=== PATIENT | female | born 1955 | race American Indian/Alaskan Native ===

== ENCOUNTER 2016-11-30 12:11 | Inpatient (IN) | payer MEDICARE ==
[2016-11-30] MEDS ORDERED: NORMODYNE IV ONE (13:54)
[2016-11-30] MEDS ORDERED: XYLOCAINE 1% 20 mL ONE (14:43)
[2016-11-30] MEDS ORDERED: ZOFRAN IV ONE (15:01)
[2016-11-30] MEDS ORDERED: NACL 0.9% 1000 ML 1,000 ML IV ONE ×2 (15:01→17:59)
[2016-11-30] MEDS ORDERED: DILAUDID IV ONE ×2 (15:01→16:34)
[2016-11-30] MEDS ORDERED: APRESOLINE IV ONE (15:02)
[2016-11-30] MEDS ORDERED: NACL ONE ×2 (15:15→15:34)
[2016-11-30 15:27] LABS: INR 0.9 (0.87-1.13)
[2016-11-30 15:28] LABS: Partial Thromboplastin Time 24.6 Sec. (24.2-36.6)
--- NOTE | 2016-11-30 15:32 | Emergency Department Report ---
HPI - General Chief Complaint: Dyspnea/Respdistress Time Seen by Provider: 11/30/16 14:19 - HPI HPI: Room 22 The patient is a 61-year-old female presenting with a chief complaint of abdominal pain and palpitations. Patient states for 3 days she has had diffuse abdominal pain and feeling as though her heart has been beating quickly. Patient does admit to nausea and vomiting. Patient states she's been unable to keep any of her medications down. The patient presents to the ED tachycardic and hypertensive Location: [see above] Duration: [see above] Quality: Pain, palpitations Severity: Severe Modifying factors: Unknown Context: [see above] Mode of transportation: [not driving] ED Past Medical Hx - Past Medical History Hx Hypertension: Yes Hx Deep Vein Thrombosis: (Unk) Hx GERD: Yes Hx Arthritis: Yes Hx Seizures: Yes Hx Psychiatric Treatment: Yes (anxiety) Additional medical history: Gastroparesis. bilat knee surgery - Surgical History Past Surgical History?: Yes Hx Cholecystectomy: Yes (2010) Additional Surgical History: J tube , Knee surg bilat - Family History Family history: no significant - Social History Smoking Status: Never Smoker Substance Use Type: None - Medications Home Medications: Home Medications Medication Instructions Recorded Confirmed Last Taken Type ALPRAZolam [Xanax TAB] 0.25 mg PO Q12HR #10 tablet 06/17/16 11/30/16 Unknown Rx Gabapentin [Neurontin] 300 mg PO Q8H #30 capsule 07/01/16 11/30/16 Unknown Rx Metoprolol [Lopressor TAB] 25 mg PO BID #60 tablet 07/01/16 11/30/16 Unknown Rx Ondansetron [Zofran TAB] 4 mg PO Q8HR PRN #15 tablet 07/01/16 11/30/16 Unknown Rx Tizanidine HCl [Zanaflex] 4 mg PO TID PRN #30 tablet 07/01/16 11/30/16 Unknown Rx levETIRAcetam [Keppra TAB] 500 mg PO BID #60 tablet 07/01/16 11/30/16 Unknown Rx cloNIDine [Catapres] 0.2 mg PO BID 09/15/16 11/30/16 Unknown History Sennosides/Docusate Sodium 1 each PO DAILY #15 tablet 09/18/16 11/30/16 Unknown Rx [Senna-Docusate Sodium Tablet] oxyCODONE [Roxicodone TAB] 5 mg PO Q6HR PRN #24 tablet 09/18/16 11/30/16 Unknown Rx Pantoprazole [Protonix TAB] 40 mg PO QDAY #14 tablet 10/14/16 11/30/16 Unknown Rx HYDROcodone/APAP 7.5-325 [[place] 1 each PO Q12H 11/30/16 11/30/16 Unknown History 7.5/325] ED Review of Systems ROS: Stated complaint: N/V Other details as noted in HPI Comment: All other systems reviewed and negative Constitutional: denies: chills, fever Eyes: denies: eye pain, eye discharge, vision change ENT: denies: ear pain, throat pain Respiratory: no symptoms reported Cardiovascular: chest pain, palpitations Endocrine: no symptoms reported Gastrointestinal: abdominal pain, nausea, vomiting Genitourinary: denies: urgency, dysuria, discharge Musculoskeletal: denies: back pain, joint swelling, arthralgia Skin: denies: rash, lesions Neurological: denies: headache, weakness, paresthesias Psychiatric: denies: anxiety, depression Hematological/Lymphatic: denies: easy bleeding, easy bruising Physical Exam - Physical Exam Vital Signs: Vital Signs 11/30/16 11/30/16 11/30/16 12:31 12:46 12:47 Temperature 99.5 F Pulse Rate 147 H 141 H 141 H Respiratory 20 22 18 Rate Blood Pressure 227/156 229/149 O2 Sat by Pulse 97 92 Oximetry 11/30/16 11/30/16 11/30/16 12:48 12:50 12:52 Temperature Pulse Rate 142 H 142 H 141 H Respiratory 24 20 25 H Rate Blood Pressure 229/149 229/149 229/149 O2 Sat by Pulse 95 92 94 Oximetry 11/30/16 11/30/16 11/30/16 12:54 12:56 12:58 Temperature Pulse Rate 143 H 141 H 142 H Respiratory 23 26 H 28 H Rate Blood Pressure 229/149 229/149 229/149 O2 Sat by Pulse 92 94 92 Oximetry 11/30/16 11/30/16 11/30/16 13:00 13:02 13:04 Temperature Pulse Rate 143 H 143 H 145 H Respiratory 21 15 19 Rate Blood Pressure 229/149 255/153 255/153 O2 Sat by Pulse 92 93 93 Oximetry 11/30/16 11/30/16 11/30/16 13:06 13:08 13:10 Temperature Pulse Rate 148 H 143 H 142 H Respiratory 25 H 26 H 30 H Rate Blood Pressure 255/153 255/153 255/153 O2 Sat by Pulse 95 92 91 Oximetry 11/30/16 11/30/16 11/30/16 13:12 13:14 13:15 Temperature Pulse Rate 142 H 151 H 144 H Respiratory 21 23 25 H Rate Blood Pressure 255/153 255/153 246/153 O2 Sat by Pulse 92 93 94 Oximetry 11/30/16 11/30/16 11/30/16 13:16 13:18 13:20 Temperature Pulse Rate 145 H 144 H 143 H Respiratory 25 H 29 H 19 Rate Blood Pressure 246/153 246/153 246/153 O2 Sat by Pulse 93 93 94 Oximetry 11/30/16 11/30/16 11/30/16 13:22 13:24 13:26 Temperature Pulse Rate 144 H 143 H 153 H Respiratory 20 21 17 Rate Blood Pressure 246/153 246/153 246/153 O2 Sat by Pulse 94 94 93 Oximetry 11/30/16 11/30/16 11/30/16 13:28 13:30 13:31 Temperature Pulse Rate 144 H 144 H 141 H Respiratory 23 19 17 Rate Blood Pressure 246/153 246/153 238/144 O2 Sat by Pulse 91 94 96 Oximetry 11/30/16 11/30/16 11/30/16 13:32 13:34 13:36 Temperature Pulse Rate 143 H 143 H 143 H Respiratory 25 H 23 25 H Rate Blood Pressure 238/144 238/144 238/144 O2 Sat by Pulse 91 92 93 Oximetry 11/30/16 11/30/16 11/30/16 13:38 13:40 13:42 Temperature Pulse Rate 145 H 146 H 144 H Respiratory 21 24 22 Rate Blood Pressure 238/144 238/144 238/144 O2 Sat by Pulse 93 93 94 Oximetry 11/30/16 11/30/16 11/30/16 13:43 13:44 13:46 Temperature Pulse Rate 143 H 144 H 144 H Respiratory 22 20 21 Rate Blood Pressure O2 Sat by Pulse 96 98 96 Oximetry 11/30/16 11/30/16 11/30/16 13:48 13:50 13:52 Temperature Pulse Rate 142 H 145 H 143 H Respiratory 18 25 H 23 Rate Blood Pressure O2 Sat by Pulse 100 96 97 Oximetry 11/30/16 11/30/16 11/30/16 13:54 13:56 13:58 Temperature Pulse Rate 142 H 142 H 148 H Respiratory 24 24 27 H Rate Blood Pressure 238/144 238/144 238/144 O2 Sat by Pulse 97 99 96 Oximetry 11/30/16 11/30/16 11/30/16 14:00 14:02 14:04 Temperature Pulse Rate 146 H 150 H 145 H Respiratory 23 13 24 Rate Blood Pressure 262/172 262/172 262/172 O2 Sat by Pulse 97 96 97 Oximetry 11/30/16 11/30/16 11/30/16 14:06 14:08 14:10 Temperature Pulse Rate 145 H 145 H 146 H Respiratory 25 H 21 14 Rate Blood Pressure 262/172 262/172 262/172 O2 Sat by Pulse 97 97 97 Oximetry 11/30/16 11/30/16 11/30/16 14:12 14:14 14:21 Temperature 99.5 F Pulse Rate 146 H 148 H Respiratory 18 18 Rate Blood Pressure 262/172 262/172 O2 Sat by Pulse 96 98 Oximetry Physical Exam: GENERAL: The patient is well-developed well-nourished female lying on stretcher. Be in moderate discomfort. [] HEENT: Normocephalic. Atraumatic. Extraocular motions are intact. Patient has moist mucous membranes. NECK: Supple. Trachea midline CHEST/LUNGS: Clear to auscultation. There is no respiratory distress noted. HEART/CARDIOVASCULAR: Regular. There is tachycardia. There is no gallop rub or murmur. ABDOMEN: Abdomen is soft, but diffusely uncomfortable to palpation. Patient has normal bowel sounds. There is no abdominal distention. SKIN: There is no rash. There is no edema. There is no diaphoresis. NEURO: The patient is awake, alert, and oriented. The patient is cooperative. The patient has normal speech MUSCULOSKELETAL: There is no evidence of acute injury. ED Course Vital Signs 11/30/16 11/30/16 11/30/16 12:31 12:46 12:47 Temperature 99.5 F Pulse Rate 147 H 141 H 141 H Respiratory 20 22 18 Rate Blood Pressure 227/156 229/149 O2 Sat by Pulse 97 92 Oximetry 11/30/16 11/30/16 11/30/16 12:48 12:50 12:52 Temperature Pulse Rate 142 H 142 H 141 H Respiratory 24 20 25 H Rate Blood Pressure 229/149 229/149 229/149 O2 Sat by Pulse 95 92 94 Oximetry 11/30/16 11/30/16 11/30/16 12:54 12:56 12:58 Temperature Pulse Rate 143 H 141 H 142 H Respiratory 23 26 H 28 H Rate Blood Pressure 229/149 229/149 229/149 O2 Sat by Pulse 92 94 92 Oximetry 11/30/16 11/30/16 11/30/16 13:00 13:02 13:04 Temperature Pulse Rate 143 H 143 H 145 H Respiratory 21 15 19 Rate Blood Pressure 229/149 255/153 255/153 O2 Sat by Pulse 92 93 93 Oximetry 11/30/16 11/30/16 11/30/16 13:06 13:08 13:10 Temperature Pulse Rate 148 H 143 H 142 H Respiratory 25 H 26 H 30 H Rate Blood Pressure 255/153 255/153 255/153 O2 Sat by Pulse 95 92 91 Oximetry 11/30/16 11/30/16 11/30/16 13:12 13:14 13:15 Temperature Pulse Rate 142 H 151 H 144 H Respiratory 21 23 25 H Rate Blood Pressure 255/153 255/153 246/153 O2 Sat by Pulse 92 93 94 Oximetry 11/30/16 11/30/16 11/30/16 13:16 13:18 13:20 Temperature Pulse Rate 145 H 144 H 143 H Respiratory 25 H 29 H 19 Rate Blood Pressure 246/153 246/153 246/153 O2 Sat by Pulse 93 93 94 Oximetry 11/30/16 11/30/16 11/30/16 13:22 13:24 13:26 Temperature Pulse Rate 144 H 143 H 153 H Respiratory 20 21 17 Rate Blood Pressure 246/153 246/153 246/153 O2 Sat by Pulse 94 94 93 Oximetry 11/30/16 11/30/16 11/30/16 13:28 13:30 13:31 Temperature Pulse Rate 144 H 144 H 141 H Respiratory 23 19 17 Rate Blood Pressure 246/153 246/153 238/144 O2 Sat by Pulse 91 94 96 Oximetry 11/30/16 11/30/16 11/30/16 13:32 13:34 13:36 Temperature Pulse Rate 143 H 143 H 143 H Respiratory 25 H 23 25 H Rate Blood Pressure 238/144 238/144 238/144 O2 Sat by Pulse 91 92 93 Oximetry 11/30/16 11/30/16 11/30/16 13:38 13:40 13:42 Temperature Pulse Rate 145 H 146 H 144 H Respiratory 21 24 22 Rate Blood Pressure 238/144 238/144 238/144 O2 Sat by Pulse 93 93 94 Oximetry 11/30/16 11/30/16 11/30/16 13:43 13:44 13:46 Temperature Pulse Rate 143 H 144 H 144 H Respiratory 22 20 21 Rate Blood Pressure O2 Sat by Pulse 96 98 96 Oximetry 11/30/16 11/30/16 11/30/16 13:48 13:50 13:52 Temperature Pulse Rate 142 H 145 H 143 H Respiratory 18 25 H 23 Rate Blood Pressure O2 Sat by Pulse 100 96 97 Oximetry 11/30/16 11/30/16 11/30/16 13:54 13:56 13:58 Temperature Pulse Rate 142 H 142 H 148 H Respiratory 24 24 27 H Rate Blood Pressure 238/144 238/144 238/144 O2 Sat by Pulse 97 99 96 Oximetry 11/30/16 11/30/16 11/30/16 14:00 14:02 14:04 Temperature Pulse Rate 146 H 150 H 145 H Respiratory 23 13 24 Rate Blood Pressure 262/172 262/172 262/172 O2 Sat by Pulse 97 96 97 Oximetry 11/30/16 11/30/16 11/30/16 14:06 14:08 14:10 Temperature Pulse Rate 145 H 145 H 146 H Respiratory 25 H 21 14 Rate Blood Pressure 262/172 262/172 262/172 O2 Sat by Pulse 97 97 97 Oximetry 11/30/16 11/30/16 11/30/16 14:12 14:14 14:21 Temperature 99.5 F Pulse Rate 146 H 148 H Respiratory 18 18 Rate Blood Pressure 262/172 262/172 O2 Sat by Pulse 96 98 Oximetry ED Medical Decision Making - Lab Data Result diagrams: 11/30/16 16:22 11/30/16 16:22 Laboratory Tests 11/30/16 11/30/16 11/30/16 15:07 15:07 15:07 WBC RBC Hgb Hct MCV MCH MCHC RDW Plt Count Lymph % (Auto) [place] % (Auto) Eos % (Auto) Baso % (Auto) Lymph # [place] # Eos # Baso # Seg Neutrophils % Seg Neutrophils # PT 12.1 L INR 0.90 APTT 24.6 Sodium Potassium Chloride Carbon Dioxide Anion Gap BUN Creatinine Estimated GFR BUN/Creatinine Ratio Glucose Calcium Total Bilirubin 0.4 Direct Bilirubin < 0.2 Indirect Bilirubin 0.2 AST 24 ALT 17 Alkaline Phosphatase 137 H Troponin T Total Protein 7.6 Albumin 4.3 Albumin/Globulin Ratio 1.3 Amylase Lipase TSH 0.976 Free T4 1.15 11/30/16 11/30/16 11/30/16 15:07 16:22 16:22 WBC 18.9 H RBC 4.49 Hgb 11.8 Hct 37.6 MCV 84 MCH 26 L MCHC 31 RDW 17.5 H Plt Count 428 Lymph % (Auto) 7.6 L [place] % (Auto) 4.2 Eos % (Auto) 0.4 Baso % (Auto) 0.5 Lymph # 1.4 [place] # 0.8 Eos # 0.1 Baso # 0.1 Seg Neutrophils % 87.3 H Seg Neutrophils # 16.5 H PT INR APTT Sodium 144 Potassium 3.6 Chloride 105.5 Carbon Dioxide 23 Anion Gap 19 BUN 10 Creatinine 0.9 Estimated GFR > 60 BUN/Creatinine Ratio 11.11 Glucose 115 H Calcium 8.4 Total Bilirubin Direct Bilirubin Indirect Bilirubin AST ALT Alkaline Phosphatase Troponin T < 0.010 Total Protein Albumin Albumin/Globulin Ratio Amylase 76 Lipase 18 TSH Free T4 11/30/16 16:22 WBC RBC Hgb Hct MCV MCH MCHC RDW Plt Count Lymph % (Auto) [place] % (Auto) Eos % (Auto) Baso % (Auto) Lymph # [place] # Eos # Baso # Seg Neutrophils % Seg Neutrophils # PT INR APTT Sodium Potassium Chloride Carbon Dioxide Anion Gap BUN Creatinine Estimated GFR BUN/Creatinine Ratio Glucose Calcium Total Bilirubin Direct Bilirubin Indirect Bilirubin AST ALT Alkaline Phosphatase Troponin T < 0.010 Total Protein Albumin Albumin/Globulin Ratio Amylase Lipase TSH Free T4 Laboratory Tests 11/30/16 11/30/16 11/30/16 15:07 15:07 15:07 WBC RBC Hgb Hct MCV MCH MCHC RDW Plt Count Lymph % (Auto) [place] % (Auto) Eos % (Auto) Baso % (Auto) Lymph # [place] # Eos # Baso # Seg Neutrophils % Seg Neutrophils # PT 12.1 L INR 0.90 APTT 24.6 Sodium Potassium Chloride Carbon Dioxide Anion Gap BUN Creatinine Estimated GFR BUN/Creatinine Ratio Glucose Calcium Total Bilirubin 0.4 Direct Bilirubin < 0.2 Indirect Bilirubin 0.2 AST 24 ALT 17 Alkaline Phosphatase 137 H Troponin T Total Protein 7.6 Albumin 4.3 Albumin/Globulin Ratio 1.3 Amylase Lipase TSH 0.976 Free T4 1.15 Urine Color Urine Turbidity Urine pH Ur Specific [place] Urine Protein Urine Glucose (UA) Urine Ketones Urine Blood Urine Nitrite Urine Bilirubin Urine Urobilinogen Ur Leukocyte Esterase Urine WBC (Auto) Urine RBC (Auto) 11/30/16 11/30/16 11/30/16 15:07 16:22 16:22 WBC 18.9 H RBC 4.49 Hgb 11.8 Hct 37.6 MCV 84 MCH 26 L MCHC 31 RDW 17.5 H Plt Count 428 Lymph % (Auto) 7.6 L [place] % (Auto) 4.2 Eos % (Auto) 0.4 Baso % (Auto) 0.5 Lymph # 1.4 [place] # 0.8 Eos # 0.1 Baso # 0.1 Seg Neutrophils % 87.3 H Seg Neutrophils # 16.5 H PT INR APTT Sodium 144 Potassium 3.6 Chloride 105.5 Carbon Dioxide 23 Anion Gap 19 BUN 10 Creatinine 0.9 Estimated GFR > 60 BUN/Creatinine Ratio 11.11 Glucose 115 H Calcium 8.4 Total Bilirubin Direct Bilirubin Indirect Bilirubin AST ALT Alkaline Phosphatase Troponin T < 0.010 Total Protein Albumin Albumin/Globulin Ratio Amylase 76 Lipase 18 TSH Free T4 Urine Color Urine Turbidity Urine pH Ur Specific [place] Urine Protein Urine Glucose (UA) Urine Ketones Urine Blood Urine Nitrite Urine Bilirubin Urine Urobilinogen Ur Leukocyte Esterase Urine WBC (Auto) Urine RBC (Auto) 11/30/16 11/30/16 11/30/16 16:22 17:54 18:40 WBC RBC Hgb Hct MCV MCH MCHC RDW Plt Count Lymph % (Auto) [place] % (Auto) Eos % (Auto) Baso % (Auto) Lymph # [place] # Eos # Baso # Seg Neutrophils % Seg Neutrophils # PT INR APTT Sodium Potassium Chloride Carbon Dioxide Anion Gap BUN Creatinine Estimated GFR BUN/Creatinine Ratio Glucose Calcium Total Bilirubin Direct Bilirubin Indirect Bilirubin AST ALT Alkaline Phosphatase Troponin T < 0.010 < 0.010 Total Protein Albumin Albumin/Globulin Ratio Amylase Lipase TSH Free T4 Urine Color Colorless Urine Turbidity Clear Urine pH 5.0 Ur Specific [place] 1.000 L Urine Protein <15 mg/dl Urine Glucose (UA) Neg Urine Ketones Neg Urine Blood Neg Urine Nitrite Neg Urine Bilirubin Neg Urine Urobilinogen < 2.0 Ur Leukocyte Esterase Neg Urine WBC (Auto) 0.0 Urine RBC (Auto) < 1.0 - EKG Data -: EKG Interpreted by Me EKG shows normal: sinus rhythm Rate: tachycardia (141 bpm) - EKG Data When compared to previous EKG there are: previous EKG unavailable - Radiology Data Radiology results: report reviewed (CT abdomen and pelvis, CT chest), image reviewed (CT abdomen pelvis, CT chest) CT abdomen and pelvis (read by radiologist)-previous cholecystectomy and hysterectomy. Mobility are unchanged. Moderate colonic diverticulosis. Left femoral venous catheter. CT chest (read by radiologist)-no evidence of pulmonary embolism. Small indeterminate nodule in the right upper lobe. Probable early emphysema. Pneumobilia. Previous cholecystectomy. - Differential Diagnosis gastroparesis, aortic dissection, pancreatitis, PE, dehydration Critical care attestation.: If time is entered above; I have spent that time in minutes in the direct care of this critically ill patient, excluding procedure time. ED Disposition Clinical Impression: Uncontrolled hypertension, Gastroparesis, Abdominal pain, Vomiting, Leukocytosis Disposition: OP ADMITTED IP TO THIS HOSP Is pt being admited?: Yes Does the pt Need Aspirin: Yes Condition: Stable Instructions: Hypertension (ED) Time of Disposition: 18:30 (hospitalist notified) Blank Doc - Documentation Documentation: Central line note Consent was verbally Location: Initial temp in the right femoral region. Final successful attempt in the left more region The site was prepped and draped in a sterile fashion Site was anesthetized with lidocaine 1% approximately [3 mL] Landmarks identified and needle introduced until return of [dark nonpulsatile] blood Blood was obtained on fourth attempt Guidewire introduced using Seldinger technique and triple lumen catheter placed over guidewire There was blood return from [all 3 ports] Catheter was secured to patient by adhesive The patient tolerated procedure well The first 3 attempts in the right femoral region resulted in arterial punctures. Needle was removed and pressure held until site hemostatic.
[2016-11-30 15:41] LABS: Amylase 76 units/L (27-131); Lipase 18 units/L (13-60)
[2016-11-30 15:45] LABS: Alanine Aminotransferase 17 units/L (7-56); Albumin 4.3 g/dL (3.9-5); Albumin/Globulin Ratio 1.3 %; Alkaline Phosphatase 137 units/L (35-129); Bilirubin,Total 0.4 mg/dL (0.1-1.2); Total Protein 7.6 g/dL (6.3-8.2)
[2016-11-30 15:55] LABS: Bilirubin,Direct < 0.2 mg/dL (0-0.2); Bilirubin,Indirect 0.2 mg/dL
[2016-11-30] MEDS ORDERED: PHENERGAN ONE (16:38)
[2016-11-30 16:39] LABS: Basophils % (Auto) 0.5 % (0.0-1.8); Eosinophils % (Auto) 0.4 % (0.0-4.3); Hematocrit 37.6 % (30.3-42.9); Hemoglobin 11.8 gm/dl (10.1-14.3); Mean Corpuscular HGB Conc 31 % (30-34); Mean Corpuscular Hemoglobin 26 pg (28-32); Mean Corpuscular Volume 84 fl (79-97); Platelet Count 428 K/mm3 (140-440); Red Blood Count 4.49 M/mm3 (3.65-5.03); Red Cell Distribution Width 17.5 % (13.2-15.2); White Blood Count 18.9 K/mm3 (4.5-11.0)
[2016-11-30] MEDS ORDERED: PHENERGAN PO ONE (16:48)
[2016-11-30 17:01] LABS: Anion Gap 19 mmol/L; BUN/Creatinine Ratio 11.11; Blood Urea Nitrogen 10 mg/dL (7-17); Calcium 8.4 mg/dL (8.4-10.2); Carbon Dioxide 23 mmol/L (22-30); Chloride 105.5 mmol/L (98-107); Glucose 115 mg/dL (65-100); Potassium 3.6 mmol/L (3.6-5.0); Sodium 144 mmol/L (137-145)
--- NOTE | 2016-11-30 18:12 | Cat Scan Report ---
FINAL REPORT PROCEDURE: CT angiogram chest. TECHNIQUE: Computerized tomographic angiography of the chest was performed after the IV injection of iodinated nonionic contrast including image processing. The image data was postprocessed using 2-dimensional multiplanar reformatted (MPR) and 3-dimensional (MIP and/or volume rendered) techniques. HISTORY: Chest pain. COMPARISON: No prior studies are available for comparison. FINDINGS: The technologist has included images of the abdomen and pelvis. There is a separate requisition for that study. I will limit my review to the chest images. The trachea and central bronchi appear normal. The thoracic aorta has a normal caliber without evidence of dissection. The pulmonary arteries enhance normally. There are no definite filling defects to indicate pulmonary embolism. There is no mediastinal adenopathy. The heart size is normal. There are no pleural effusions. There is some streaky opacity in the dependent portions of both lungs. This is consistent with subsegmental atelectasis. There are numerous tiny cystic changes in both upper lobes. This suggests early emphysema. There is a tiny nodular opacity located laterally in the right upper lobe. This measures 4.4 millimeters in diameter. It is not highly suspicious but is also not definitely calcified. Followup imaging could be done to document stability. The thoracic skeleton appears intact. Pneumobilia is noted in the liver. The gallbladder has been removed. IMPRESSION: No evidence of pulmonary embolism. Small indeterminate nodule in the right upper lobe. Probable early emphysema. Pneumobilia. Previous cholecystectomy.
[2016-11-30] MEDS ORDERED: LOPRESSOR IV ONE (18:13)
--- NOTE | 2016-11-30 18:18 | Cat Scan Report ---
FINAL REPORT PROCEDURE: CT abdomen and pelvis with contrast. TECHNIQUE: Computerized axial tomography of the abdomen and pelvis was performed after the IV injection of iodinated nonionic contrast. HISTORY: Abdominal pain, nausea and vomiting, hypertension, tachycardia. COMPARISON: CT abdomen and pelvis 09/15/2016. FINDINGS: There is some subsegmental atelectasis in the dependent portions of both lower lobes. There are no pleural effusions. The heart size is normal. The liver, spleen and pancreas appear normal. The gallbladder has been removed. There is pneumobilia present. This could be secondary to a previous biliary bypass procedure or possibly a sphincterotomy. Clinical correlation is recommended. The adrenal glands are not enlarged. Both kidneys appear normal in size and configuration. The abdominal aorta has a normal caliber. There is no retroperitoneal adenopathy. A normal appendix is visible. There are scattered diverticula in the descending colon and sigmoid colon. There are no signs of acute inflammation. The bladder is unremarkable. The uterus has been removed. There is a left femoral vein catheter that extends into external iliac vein. The regional skeleton appears intact. IMPRESSION: Previous cholecystectomy and hysterectomy. Pneumobilia, unchanged. Moderate colonic diverticulosis. Left femoral venous catheter.
[2016-11-30 19:02] LABS: Bilirubin,Urine NEG (Negative); Blood,Urine NEG (Negative); Ketones,Urine NEG (Negative); Leukocyte Esterase,Urine NEG (Negative); Nitrite,Urine NEG (Negative); Protein,Urine <15 mg/dL mg/dL (Negative); RBC,Urine < 1.0 /HPF (0.0-6.0); Urobilinogen,Urine < 2.0 mg/dL (<2.0)
--- NOTE | 2016-11-30 22:10 | Event Note ---
Date: 11/30/16 See H/p in reports HTN emergency Gastroparesis Leukocytosis Seizure disorder GERD
[2016-11-30] MEDS ORDERED: ZANAFLEX PO PRN (22:11)
[2016-11-30] MEDS ORDERED: ZOFRAN PO PRN (22:11)
[2016-11-30] MEDS ORDERED: MILK OF MAGNESIA PO PRN (22:15)
[2016-11-30] MEDS ORDERED: DULCOLAX PR PRN (22:15)
[2016-11-30] MEDS ORDERED: TYLENOL PO PRN (22:15)
[2016-11-30] MEDS ORDERED: APRESOLINE IV PRN (22:19)
[2016-11-30] MEDS: DILAUDID IV PRN (22:39)
[2016-11-30] MEDS ORDERED: NACL 0.45% 1000 ML 1,000 ML IV SCH (23:00)
--- NOTE | 2016-12-01 00:21 | Admit Criteria Form ---
<SAUNDRA CHRISTOPHER - Last Filed: 12/01/16 00:21> Admission Criteria Documentation: HYPERTENSION Clinical Indications for Admission to Inpatient Care ( Place "X" for any and all applicable criteria): Admission is indicated for ANY ONE of the following(1)(2)(3)(4): [ ]I. Hypertensive emergency, with evidence of acute and progressing target organ disease as indicated by ANY ONE of the following: [ ]a) Hypertensive encephalopathy (eg, confusion, altered mental status) [ ]b) Cerebral infarction [ ]c) Intracranial hemorrhage [ ]d) Myocardial ischemia or infarction [ ]e) Pulmonary edema [ ]f) Aortic dissection [ ]g) Seizure [ ]h) Acute renal insufficiency [ ]i) Papilledema [ ]j) Microangiopathic hemolytic anemia [ ]II. Adrenergic crisis (eg, severe hypertension due to pheochromocytoma crisis, cocaine or amphetamine intoxication, or clonidine withdrawal) [ X]III. Severe hypertension (SBP greater than 180 mmHg or DBP greater than 110 mmHg or greater than the 95th percentile for age, gender, and height in pediatric patients) that cannot be controlled (eg, to SBP less than 160 mmHg and DBP less than 100 mmHg in adults) by treatment with oral medication in emergency department or observation care Extended stay beyond goal length of stay may be needed for(11)(12)(13): [ ]a) Persistent hypertensive encephalopathy [ ]b) Continuation of pulmonary edema [ ]c) Recurring or persistent severe hypertension [ ]d) Target organ damage (eg, angina, stroke, aortic dissection) [ ]e) Associated renal insufficiency The original [facility] [employer] content created by [employer] has been revised. The portions of the content which have been revised are identified through the use of italic text or in bold, and [facility] has neither reviewed nor approved the modified material. All other unmodified content is copyright [facility] [employer]. Please see references footnoted in the original [facility] [employer] edition 2016 Admission Criteria Met: Yes <KELLY BECKETT - Last Filed: 12/01/16 23:15> Admission Criteria Documentation: HYPERTENSION Clinical Indications for Admission to Inpatient Care ( Place "X" for any and all applicable criteria): Admission is indicated for ANY ONE of the following(1)(2)(3)(4): [ ]I. Hypertensive emergency, with evidence of acute and progressing target organ disease as indicated by ANY ONE of the following: [ ]a) Hypertensive encephalopathy (eg, confusion, altered mental status) [ ]b) Cerebral infarction [ ]c) Intracranial hemorrhage [ ]d) Myocardial ischemia or infarction [ ]e) Pulmonary edema [ ]f) Aortic dissection [ ]g) Seizure [ ]h) Acute renal insufficiency [ ]i) Papilledema [ ]j) Microangiopathic hemolytic anemia [ ]II. Adrenergic crisis (eg, severe hypertension due to pheochromocytoma crisis, cocaine or amphetamine intoxication, or clonidine withdrawal) [X ]III. Severe hypertension (SBP greater than 180 mmHg or DBP greater than 110 mmHg or greater than the 95th percentile for age, gender, and height in pediatric patients) that cannot be controlled (eg, to SBP less than 160 mmHg and DBP less than 100 mmHg in adults) by treatment with oral medication in emergency department or observation care Extended stay beyond goal length of stay may be needed for(11)(12)(13): [ ]a) Persistent hypertensive encephalopathy [ ]b) Continuation of pulmonary edema [ ]c) Recurring or persistent severe hypertension [ ]d) Target organ damage (eg, angina, stroke, aortic dissection) [ ]e) Associated renal insufficiency The original [employer] content created by [employer] has been revised. The portions of the content which have been revised are identified through the use of italic text or in bold, and [facility] has neither reviewed nor approved the modified material. All other unmodified content is copyright [facility]. Please see references footnoted in the original [facility] edition 2016 Admission Criteria Met: Yes
[2016-12-01] MEDS: APRESOLINE PO SCH ×4 (01:03→21:46)
[2016-12-01] MEDS: KEPPRA PO SCH ×3 (01:34→21:45)
[2016-12-01] MEDS: DILAUDID IV PRN ×5 (01:35→21:47)
[2016-12-01] MEDS: XANAX PO SCH ×3 (01:36→21:47)
[2016-12-01] MEDS: ZOFRAN IV PRN ×5 (03:38→21:48)
--- NOTE | 2016-12-01 08:33 | History and Physical Report ---
CHIEF COMPLAINT: Abdominal pain and palpitations. HISTORY OF PRESENT ILLNESS: A 61-year-old female, -[place], comes in for abdominal pain and palpitations. Also vomiting for the last 3 days. Vomiting 3 to 4 times a day. No fever, no chills. Pain is about 7 on a scale of 1 to 10. The patient has multiple medical problems. PAST MEDICAL HISTORY: Significant for hypertension, gastroesophageal reflux disease, gastroparesis, arthritis, seizure disorder, anxiety disorder, bilateral knee surgeries. PAST SURGICAL HISTORY: Bilateral knee surgery, J-tube, cholecystectomy in 2010. FAMILY HISTORY: Hypertension. SOCIAL HISTORY: Does not smoke. No alcohol, no recreational drugs. CURRENT MEDICATIONS: Xanax 0.25 q.12, Neurontin 300 mg p.o. q.8, Lopressor 25 mg p.o. b.i.d., Zofran 4 mg p.o. q.8, Zanaflex 4 mg p.o. t.i.d., Keppra 500 mg p.o. b.i.d., Catapres 0.2 mg p.o. b.i.d., oxycodone 5 mg p.o. q.6, Protonix 40 mg p.o. daily, and [place] 7.5/325 q.12. REVIEW OF SYSTEMS: CONSTITUTIONAL: No fever, no chills, no weight loss. HEENT: No sore throat. No postnasal drip. RESPIRATORY SYSTEM: No cough, no wheezing. CARDIOVASCULAR: No chest pain. Palpitations present. GASTROINTESTINAL: Nausea and vomiting present 3 to 4 times a day for the last 3 days. GENITOURINARY SYSTEM: No dysuria, no flank pain. MUSCULOSKELETAL SYSTEMS: No joint pains. No muscle pains. SKIN: No rashes. CENTRAL NERVOUS SYSTEM: No syncope, no seizures. PSYCHIATRIC: Has anxiety, no depression. HEMATOLOGIC/LYMPHATIC: Denies easy bleeding or easy bruising. A 14-point review of systems was done. Otherwise, negative. PHYSICAL EXAMINATION: GENERAL: An elderly female, cooperative during examination. VITAL SIGNS: Temperature 99.5, pulse is 147, respirations are 20, blood pressure 227/156. HEENT: Unremarkable. Pupils equal and reactive. NECK: Supple, no lymphadenopathy, no thyromegaly. LUNGS: Clear to auscultation and percussion. Good air entry. CARDIOVASCULAR: S1, S2 heard. No gallop, no murmur, no rub. Apical impulse in left fifth intercostal space and midclavicular line. ABDOMEN: Soft and benign. No hepatosplenomegaly, no guarding, no rigidity. Hernial orifices are normal. EXTREMITIES: Good pedal pulses. No pedal edema. CENTRAL NERVOUS SYSTEM: Alert and oriented x 4, nonfocal exam. SKIN: Normal. In summary, blood pressure has continued to remain high 262/172, 238/144, and 262/172. LABORATORY DATA: Labs are significant for white count of 18,900; H and H are 11.8 and 37.6, platelet count is 428,000. Electrolytes are normal. BUN and creatinine are 10 and 0.9, glucose is 150. LFTs are normal. Alk phos is 137. Troponin is less than 0.010. ASSESSMENT AND PLAN: 1. Hypertensive emergency. The patient to be given hydralazine 10 mg p.r.n. every 1 hour. The blood pressure has improved to 139/80. The patient continued on hydralazine 50 q.8 hours, Losartan 100 mg added. Also, clonidine 0.2 twice a day. 2. Gastroparesis. Continue Zofran every 3 hours. Also, promethazine on a p.r.n. basis. 3. Seizure disorder. Continue Keppra 500 mg twice a day. 4. Leukocytosis. No source of infection found. The patient is being treated empirically with IV Levaquin. Levaquin may be discontinued if no signs of infection found. 5. Generalized anxiety disorder. Continue Xanax 0.25 p.o. q.12 hours. 6. Gastroesophageal reflux disease. Continue Protonix. 7. Chronic pain. Continue [place] 7.5/325 q.12 hours. 8. Deep venous thrombosis prophylaxis, Lovenox 40 mg subcutaneous daily. JOB# [id number] VSM/NTS
[2016-12-01] MEDS ORDERED: CATAPRES PO SCH (10:00)
[2016-12-01] MEDS ORDERED: XYLOCAINE 1% 20 mL INFILTRATI ONE (10:36)
[2016-12-01] MEDS: LEVAQUIN 750MG/150ML 150 ML IV SCH (11:06)
[2016-12-01] MEDS: SENOKOT S PO SCH (11:08)
[2016-12-01] MEDS: PROTONIX PO SCH (11:08)
[2016-12-01] MEDS: CATAPRES PO SCH ×2 (11:19→21:45)
[2016-12-01] MEDS: LOPRESSOR PO SCH ×2 (11:19→21:45)
--- NOTE | 2016-12-01 11:32 | Progress Note ---
Assessment and Plan Assessment and plan: --Hypertensive emergency at the time of admission No blood pressures are reasonable levels, continue current management When necessary hydralazine --Acute gastroparesis Symptoms slightly improved, continue supportive care --Chronic pain syndrome Patient is on multiple pain medications at home, requesting more Dilaudid To slowly wean IV Dilaudid and resume oral Percocet as tolerated --History of seizure disorder; No new episodes of seizures continue Keppra, seizure precautions --Neuropathy; stable on gabapentin --DVT prophylaxis with Lovenox GI prophylaxis with Protonix Will closely monitor the patient adjust the management as needed Patient's condition treatment plan discussed in detail with the patient as well as the nurse Possible discharge in 1-2 days if stable History Interval history: Patient seen and evaluated medical records reviewed Admitted with severe gastroparesis, Slightly better, asked for more pain medications Alert awake oriented 3 not in acute distress Vital signs stable Hospitalist Physical - Constitutional Vitals: Temp Pulse Resp BP Pulse Ox 98.3 F 96 H 18 112/68 96 12/01/16 08:00 12/01/16 08:00 12/01/16 08:00 12/01/16 11:19 12/01/16 10:13 General appearance: Present: no acute distress, well-nourished - EENT Eyes: Present: PERRL, EOM intact - Neck Neck: Present: supple, normal ROM - Respiratory Respiratory effort: normal Respiratory: bilateral: diminished, negative: rales, rhonchi, wheezing - Cardiovascular Rhythm: regular Heart Sounds: Present: S1 & S2 - Extremities Extremities: no ischemia, pulses intact, pulses symmetrical Peripheral Pulses: within normal limits - Abdominal General gastrointestinal: soft, non-tender, non-distended, normal bowel sounds - Integumentary Integumentary: Present: clear, warm - Psychiatric Psychiatric: appropriate mood/affect, cooperative - Neurologic Neurologic: CNII-XII intact, moves all extremities Results - Labs CBC & Chem 7: 11/30/16 16:22 11/30/16 16:22 Labs: Laboratory Last Values WBC 18.9 K/mm3 (4.5-11.0) H 11/30/16 16:22 RBC 4.49 M/mm3 (3.65-5.03) 11/30/16 16:22 Hgb 11.8 gm/dl (10.1-14.3) 11/30/16 16:22 Hct 37.6 % (30.3-42.9) 11/30/16 16:22 MCV 84 fl (79-97) 11/30/16 16:22 MCH 26 pg (28-32) L 11/30/16 16:22 MCHC 31 % (30-34) 11/30/16 16:22 RDW 17.5 % (13.2-15.2) H 11/30/16 16:22 Plt Count 428 K/mm3 (140-440) 11/30/16 16:22 Lymph % (Auto) 7.6 % (13.4-35.0) L 11/30/16 16:22 [place] % (Auto) 4.2 % (0.0-7.3) 11/30/16 16:22 Eos % (Auto) 0.4 % (0.0-4.3) 11/30/16 16:22 Baso % (Auto) 0.5 % (0.0-1.8) 11/30/16 16:22 Lymph # 1.4 K/mm3 (1.2-5.4) 11/30/16 16:22 [place] # 0.8 K/mm3 (0.0-0.8) 11/30/16 16:22 Eos # 0.1 K/mm3 (0.0-0.4) 11/30/16 16:22 Baso # 0.1 K/mm3 (0.0-0.1) 11/30/16 16:22 Seg Neutrophils % 87.3 % (40.0-70.0) H 11/30/16 16:22 Seg Neutrophils # 16.5 K/mm3 (1.8-7.7) H 11/30/16 16:22 PT 12.1 Sec. (12.2-14.9) L 11/30/16 15:07 INR 0.90 (0.87-1.13) 11/30/16 15:07 APTT 24.6 Sec. (24.2-36.6) 11/30/16 15:07 Sodium 144 mmol/L (137-145) 11/30/16 16:22 Potassium 3.6 mmol/L (3.6-5.0) 11/30/16 16:22 Chloride 105.5 mmol/L (98-107) 11/30/16 16:22 Carbon Dioxide 23 mmol/L (22-30) 11/30/16 16:22 Anion Gap 19 mmol/L 11/30/16 16:22 BUN 10 mg/dL (7-17) 11/30/16 16:22 Creatinine 0.9 mg/dL (0.7-1.2) 11/30/16 16:22 Estimated GFR > 60 ml/min 11/30/16 16:22 BUN/Creatinine Ratio 11.11 % 11/30/16 16:22 Glucose 115 mg/dL (65-100) H 11/30/16 16:22 Calcium 8.4 mg/dL (8.4-10.2) 11/30/16 16:22 Total Bilirubin 0.4 mg/dL (0.1-1.2) 11/30/16 15:07 Direct Bilirubin < 0.2 mg/dL (0-0.2) 11/30/16 15:07 Indirect Bilirubin 0.2 mg/dL 11/30/16 15:07 AST 24 units/L (5-40) 11/30/16 15:07 ALT 17 units/L (7-56) 11/30/16 15:07 Alkaline Phosphatase 137 units/L (35-129) H 11/30/16 15:07 Troponin T < 0.010 ng/mL (0.00-0.029) 11/30/16 17:54 Total Protein 7.6 g/dL (6.3-8.2) 11/30/16 15:07 Albumin 4.3 g/dL (3.9-5) 11/30/16 15:07 Albumin/Globulin Ratio 1.3 % 11/30/16 15:07 Amylase 76 units/L (27-131) 11/30/16 15:07 Lipase 18 units/L (13-60) 11/30/16 15:07 TSH 0.976 mlU/mL (0.270-4.200) 11/30/16 15:07 Free T4 1.15 ng/dL (0.76-1.46) 11/30/16 15:07 Urine Color Colorless (Yellow) 11/30/16 18:40 Urine Turbidity Clear (Clear) 11/30/16 18:40 Urine pH 5.0 (5.0-7.0) 11/30/16 18:40 Ur Specific [place] 1.000 (1.003-1.030) L 11/30/16 18:40 Urine Protein <15 mg/dl mg/dL (Negative) 11/30/16 18:40 Urine Glucose (UA) Neg mg/dL (Negative) 11/30/16 18:40 Urine Ketones Neg mg/dL (Negative) 11/30/16 18:40 Urine Blood Neg (Negative) 11/30/16 18:40 Urine Nitrite Neg (Negative) 11/30/16 18:40 Urine Bilirubin Neg (Negative) 11/30/16 18:40 Urine Urobilinogen < 2.0 mg/dL (<2.0) 11/30/16 18:40 Ur Leukocyte Esterase Neg (Negative) 11/30/16 18:40 Urine WBC (Auto) 0.0 /HPF (0.0-6.0) 11/30/16 18:40 Urine RBC (Auto) < 1.0 /HPF (0.0-6.0) 11/30/16 18:40
[2016-12-02] MEDS: ZOFRAN IV PRN ×2 (03:42→09:31)
[2016-12-02] MEDS: DILAUDID IV PRN ×2 (03:43→09:32)
[2016-12-02] MEDS: APRESOLINE PO SCH ×2 (06:34→13:18)
[2016-12-02 08:48] LABS: Anion Gap 18 mmol/L; Blood Urea Nitrogen 8 mg/dL (7-17); Calcium 8.3 mg/dL (8.4-10.2); Carbon Dioxide 22 mmol/L (22-30); Chloride 102.2 mmol/L (98-107); Glucose 88 mg/dL (65-100); Potassium 3.6 mmol/L (3.6-5.0); Sodium 139 mmol/L (137-145)
[2016-12-02] MEDS: PROTONIX PO SCH (09:20)
[2016-12-02] MEDS: LEVAQUIN 750MG/150ML 150 ML IV SCH (09:20)
[2016-12-02] MEDS: XANAX PO SCH (09:22)
[2016-12-02] MEDS: SENOKOT S PO SCH (09:22)
[2016-12-02] MEDS: LOPRESSOR PO SCH (09:22)
[2016-12-02] MEDS: KEPPRA PO SCH (09:22)
[2016-12-02] MEDS: CATAPRES PO SCH (10:34)
--- NOTE | 2016-12-02 11:13 | Discharge Summary ---
Providers - Providers Date of Admission: 11/30/16 22:15 Date of discharge: 12/02/16 Attending physician: AMANDA EASTMAN Primary care physician: CHAIN DYER Hospitalization Reason for admission: palpitation and abdominal pain Condition: Fair Pertinent studies: CT angiogram of the chest; no evidence of PE small indeterminate nodule in the right upper lobe probably emphysema or pneumobilia CT abdomen and pelvis; previous cholecystectomy hysterectomy pneumobilia moderate colonic diverticulosis, left femoral venous catheter Hospital course: 61-year-old female patient with significant past medical history of hypertension gastroesophageal reflux disease arthritis gastroparesis was admitted through emergency room with abdominal pain and palpitations Patient was initially evaluated and noted to have acute exacerbation of gastroparesis Symptomatically managed, patient underwent CT angiogram of the chest as well as CT abdomen and pelvis which did not reveal any acute findings Patient's symptoms significantly improved Today she is comfortable in bed alert and awake responding appropriately Tolerating clear liquids to soft diet [id number] evaluation and physical examination done by me prior to discharge did not show any new changes as detailed in the physical examination Patient advised to see pain management upon discharge for further evaluation of her chronic pain Final diagnosis: 1. Hypertensive emergency at the time of admission Blood pressure is well controlled now 2. Acute gastroparesis Symptoms improved, 3. Chronic pain syndrome Continue pain medications at home , need to see pain management for further evaluation 4. History of seizure disorder; continue Keppra, seizure precautions 5. Neuropathy; stable on gabapentin 6. Gastroesophageal reflux disease This hemodynamically and clinically stable for discharge and does not need any further acute inpatient care at this time Femoral central line was discontinued prior to discharge, no bleeding or hematoma Disposition: DISCHARGED TO HOME OR SELFCARE Time spent for discharge: 33 min Core Measure Documentation - Palliative Care Palliative Care/ Comfort Measures: Not Applicable - Core Measures Any of the following diagnoses?: none Exam - Constitutional Vitals: Temp Pulse Resp BP Pulse Ox 98.6 F 102 H 18 112/70 98 12/02/16 08:00 12/02/16 09:22 12/02/16 08:00 12/02/16 09:22 12/02/16 08:00 General appearance: Present: no acute distress, well-nourished - EENT Eyes: Present: PERRL, EOM intact - Neck Neck: Present: supple, normal ROM Plan Activity: no restrictions Diet: low salt, advance as tolerated Additional Instructions: If you have abdominal pain intractable nausea vomiting contact M.D. or go to emergency room Follow up with: PRIMARY CARE, [Primary Care Provider] - 3-5 Days MARGARET KAMARA MD [Staff Physician] - 7 Days Prescriptions: hydrALAZINE [Apresoline TAB] 50 mg PO Q8HR #60 tablet
[2016-12-02 13:19] VITALS: BP 114/74
== END 2016-12-02 15:41 | disposition home or self-care (01) | DRG 392 ==
LOC: ED 12:11 → 3A 22:15
PROVIDERS: ADMIT Internal Medicine; ATTEND Internal Medicine
PROC: 06HN33Z Insertion of Infusion Device into Left Femoral Vein, Percutaneous Approach (ICD-10-PCS; principal; 2016-11-30)
DX: K31.84 Gastroparesis (principal); I16.1 Hypertensive emergency; I10 Essential (primary) hypertension; K21.9 Gastro-esophageal reflux disease without esophagitis; M19.90 Unspecified osteoarthritis, unspecified site; G40.909 Epilepsy, unspecified, not intractable, without status epilepticus; D72.829 Elevated white blood cell count, unspecified; F41.1 Generalized anxiety disorder; G89.4 Chronic pain syndrome; G62.9 Polyneuropathy, unspecified; R91.1 Solitary pulmonary nodule; R00.2 Palpitations; Z90.710 Acquired absence of both cervix and uterus; Z88.5 Allergy status to narcotic agent; Z88.8 Allergy status to other drugs, medicaments and biological substances; Z98.890 Other specified postprocedural states; Z90.49 Acquired absence of other specified parts of digestive tract; Z79.899 Other long term (current) drug therapy; Z82.49 Family history of ischemic heart disease and other diseases of the circulatory system
CPT/HCPCS: 36415; 51702; 71275; 74177; 80048; 80074; 81001; 82150; 83690; 84439; 84443; 84484; 85025; 85610; 85730; 87040; 93005; 93010; 94760; 96361; 96374; 96375; 96376; J0360; J1170; J1956; J2405; J7030; Q0169; Q9967

== ENCOUNTER 2017-03-02 12:09 | Inpatient (IN) | payer MEDICARE ==
[2017-03-02] MEDS ORDERED: ZOFRAN IM ONE (13:08)
[2017-03-02] MEDS ORDERED: NACL 0.9% 1000 ML 1,000 ML IV ONE ×3 (13:08→21:19)
[2017-03-02] MEDS ORDERED: ZOFRAN IV ONE ×3 (13:28→20:35)
[2017-03-02] MEDS ORDERED: SUBLIMAZE IV ONE (13:28)
--- NOTE | 2017-03-02 13:35 | Emergency Department Report ---
HPI - General Chief Complaint: Abdominal Pain Time Seen by Provider: 03/02/17 13:21 - HPI HPI: Room 26 The patient is a 61-year-old female presenting with chief complaint of abdominal pain nausea vomiting. The patient has a history of gastroparesis and states her symptoms began ago with nausea vomiting and lower abdominal pain. The patient states she went to [place] emergency department where she had a CAT scan of her abdomen and pelvis performed was given medication. The patient was discharged home with a diagnosis of gastroparesis. Patient states her symptoms continued so she went to see her escrow manager today (Dr. Mccurdy) who in turn instructed her to come to the emergency department Location: Abdomen Duration: 4 days Quality: Pain Severity: 08/15 Modifying factors: [see above] Context: [see above] Mode of transportation: [not driving] ED Past Medical Hx - Past Medical History Hx Hypertension: Yes Hx Deep Vein Thrombosis: (Unk) Hx GERD: Yes Hx Arthritis: Yes Hx Seizures: Yes Hx Psychiatric Treatment: Yes (anxiety) Additional medical history: Gastroparesis. bilat knee surgery - Surgical History Hx Cholecystectomy: Yes (2010) Additional Surgical History: J tube- removed , Knee surg bilat - Family History Family history: no significant - Social History Smoking Status: Never Smoker Substance Use Type: None - Medications Home Medications: Home Medications Medication Instructions Recorded Confirmed Last Taken Type Ondansetron [Zofran TAB] 4 mg PO Q8HR PRN #60 tablet 01/06/17 03/02/17 02/28/17 Rx Gabapentin [Neurontin] 300 mg PO Q8H #90 capsule 01/07/17 03/02/17 02/28/17 Rx Pantoprazole [Protonix TAB] 40 mg PO QDAY #14 tablet 01/07/17 03/02/17 02/28/17 Rx Tizanidine HCl [Zanaflex] 4 mg PO TID PRN #30 tablet 01/07/17 03/02/17 02/28/17 Rx cloNIDine [Catapres] 0.2 mg PO BID #60 tablet 01/07/17 03/02/17 Unknown Rx hydrALAZINE [Apresoline TAB] 25 mg PO Q8HR #90 tablet 01/07/17 03/02/17 Rx ALPRAZolam [Xanax TAB] 1 tab PO TID 0403/02/17 02/28/17 History Oxycodone HCl/Acetaminophen 1 tab PO TID 03/02/17 03/02/17 02/28/17 History [Percocet 10/325 mg] levETIRAcetam [Keppra TAB] 500 mg PO TID 03/02/17 03/02/17 02/28/17 History ED Review of Systems ROS: Stated complaint: ABD PAIN Other details as noted in HPI Comment: All other systems reviewed and negative Constitutional: denies: chills, fever Eyes: denies: eye pain, eye discharge, vision change ENT: denies: ear pain, throat pain Respiratory: denies: cough, shortness of breath, wheezing Cardiovascular: denies: chest pain, palpitations Endocrine: no symptoms reported Gastrointestinal: abdominal pain, nausea, vomiting Genitourinary: denies: urgency, dysuria, discharge Musculoskeletal: arthralgia. denies: back pain, joint swelling Skin: denies: rash, lesions Neurological: denies: headache, weakness, paresthesias Psychiatric: denies: anxiety, depression Hematological/Lymphatic: denies: easy bleeding, easy bruising Physical Exam - Physical Exam Vital Signs: Vital Signs 03/02/17 12:27 Temperature 100.3 F H Pulse Rate 129 H Respiratory 12 Rate Blood Pressure 198/132 O2 Sat by Pulse 94 Oximetry Physical Exam: GENERAL: The patient is well-developed well-nourished female lying on stretcher appearing to be in mild discomfort. [] HEENT: Normocephalic. Atraumatic. Extraocular motions are intact. Patient has moist mucous membranes. NECK: Supple. Trachea midline CHEST/LUNGS: Clear to auscultation. There is no respiratory distress noted. HEART/CARDIOVASCULAR: Regular. There is no tachycardia. There is no gallop rub or murmur. ABDOMEN: Abdomen is soft, with lower abdominal discomfort. Patient has normal bowel sounds. There is no abdominal distention. SKIN: There is no rash. There is no edema. There is no diaphoresis. NEURO: The patient is awake, alert, and oriented. The patient is cooperative. The patient has normal speech MUSCULOSKELETAL: There is no evidence of acute injury. ED Course Vital Signs 03/02/17 12:27 Temperature 100.3 F H Pulse Rate 129 H Respiratory 12 Rate Blood Pressure 198/132 O2 Sat by Pulse 94 Oximetry ED Medical Decision Making - Lab Data Result diagrams: 03/02/17 14:25 03/02/17 14:25 Laboratory Tests 03/02/17 03/02/17 03/02/17 14:25 14:25 15:10 WBC 15.6 H RBC 4.99 Hgb 12.6 Hct 41.0 MCV 82 MCH 25 L MCHC 31 RDW 19.6 H Plt Count 470 H Lymph % (Auto) 16.1 [place] % (Auto) 4.3 Eos % (Auto) 0.8 Baso % (Auto) 0.6 Lymph # 2.5 [place] # 0.7 Eos # 0.1 Baso # 0.1 Seg Neutrophils % 78.2 H Seg Neutrophils # 12.2 H Sodium 140 Potassium 3.5 L Chloride 100.0 Carbon Dioxide 22 Anion Gap 22 BUN 15 Creatinine 0.9 Estimated GFR > 60 BUN/Creatinine Ratio 16.66 Glucose 99 Calcium 8.6 Total Bilirubin 0.3 AST 61 H ALT 80 H Alkaline Phosphatase 140 H Total Protein 7.3 Albumin 4.1 Albumin/Globulin Ratio 1.3 Amylase 86 Lipase 21 Urine Color Yellow Urine Turbidity Clear Urine pH 6.0 Ur Specific [place] 1.027 Urine Protein 30 mg/dl Urine Glucose (UA) Neg Urine Ketones 20 Urine Blood Neg Urine Nitrite Neg Urine Bilirubin Neg Urine Urobilinogen < 2.0 Ur Leukocyte Esterase Neg Urine WBC (Auto) 4.0 Urine RBC (Auto) 8.0 U Epithel Cells (Auto) < 1.0 Urine Bacteria (Auto) 1+ Urine Mucus Few - EKG Data -: EKG Interpreted by Mn EKG shows normal: sinus rhythm Rate: tachycardia (129 bpm) - EKG Data When compared to previous EKG there are: previous EKG unavailable Interpretation: other (no ischemic changes seen) - Differential Diagnosis pyelonephritis, UTI, gastroparesis Critical care attestation.: If time is entered above; I have spent that time in minutes in the direct care of this critically ill patient, excluding procedure time. ED Disposition Clinical Impression: Abdominal pain, Gastroparesis, Tachycardia, Dehydration, Leukocytosis Disposition: OP ADMITTED IP TO THIS HOSP Is pt being admited?: Yes Does the pt Need Aspirin: Yes Condition: Serious Instructions: Abdominal Pain (ED) Referrals: PRIMARY CARE, [Primary Care Provider] - 3-5 Days Time of Disposition: 17:13 (hospitalist notified) Blank Doc - Documentation Documentation: Central line note Consent was obtained verbally Location: Left femoral The site was prepped and draped in a sterile fashion Site was anesthetized with lidocaine 1% approximately 3 mL Landmarks identified and needle introduced until return of dark nonpulsatile blood Blood was obtained on first attempt Guidewire introduced using Seldinger technique and triple lumen catheter placed over guidewire There was blood return from all 3 ports Catheter was secured to patient by adhesive The patient tolerated procedure well There were no complications
[2017-03-02] MEDS ORDERED: DILAUDID IV ONE ×3 (14:06→20:35)
[2017-03-02 14:40] LABS: Basophils % (Auto) 0.6 % (0.0-1.8); Eosinophils % (Auto) 0.8 % (0.0-4.3); Mean Corpuscular HGB Conc 31 % (30-34); Mean Corpuscular Volume 82 fl (79-97); Platelet Count 470 K/mm3 (140-440); Red Blood Count 4.99 M/mm3 (3.65-5.03); Red Cell Distribution Width 19.6 % (13.2-15.2); White Blood Count 15.6 K/mm3 (4.5-11.0)
[2017-03-02 14:43] LABS: Hemoglobin 12.6 gm/dl (10.1-14.3); Mean Corpuscular Hemoglobin 25 pg (28-32)
[2017-03-02 15:03] LABS: Alanine Aminotransferase 80 units/L (7-56); Albumin 4.1 g/dL (3.9-5); Albumin/Globulin Ratio 1.3 %; Alkaline Phosphatase 140 units/L (35-129); Amylase 86 units/L (27-131); Anion Gap 22 mmol/L; BUN/Creatinine Ratio 16.66; Bilirubin,Total 0.3 mg/dL (0.1-1.2); Blood Urea Nitrogen 15 mg/dL (7-17); Calcium 8.6 mg/dL (8.4-10.2); Carbon Dioxide 22 mmol/L (22-30); Glucose 99 mg/dL (65-100); Lipase 21 units/L (13-60); Potassium 3.5 mmol/L (3.6-5.0); Sodium 140 mmol/L (137-145); Total Protein 7.3 g/dL (6.3-8.2)
[2017-03-02 15:53] LABS: Bacteria,Urine 1+ /HPF (Negative); Bilirubin,Urine NEG (Negative); Blood,Urine NEG (Negative); Ketones,Urine 20 mg/dL (Negative); Leukocyte Esterase,Urine NEG (Negative); Mucus,Urine FEW /HPF; Nitrite,Urine NEG (Negative); Urobilinogen,Urine < 2.0 mg/dL (<2.0)
--- NOTE | 2017-03-02 16:52 | History and Physical Report ---
History of Present Illness Chief complaint: My stomach hurts History of present illness: 61 YO Female with HTN, GERD, OA, Seizure Disorder, Anxiety, Gastroparesis presents to ED for evaluation. Pt states that she has experienced abdominal pain for the past four days with worsening symptoms over the past 8 hours. Pain is 10/10, constant, diffuse, not worsened or relieved with meals. Pt was seen at [facility] ED and underwent CT abdomen pelvis which was unremarkable for any acute findings. Pt was seen and evaluated by Dr. Mccurdy and was instructed to present to ED for evaluation. Pt deneis fever, chills, CP, Palpitations, syncope, BRBPR, hematemesis, trauma, ingestion of food/water from new or different sources, or recent ill contacts. Past History Past Medical History: arthritis, GERD, hypertension Past Surgical History: cholecystectomy, Other (J tube placement) Social history: . denies: smoking, alcohol abuse, prescription drug abuse Family history: diabetes, hypertension Medications and Allergies Allergies Allergy/AdvReac Type Severity Reaction Status Date / Time codeine Allergy Itching Verified 03/02/17 12:33 metoclopramide HCl Allergy Unknown Verified 03/02/17 12:33 [From Reglan] morphine Allergy Hives Verified 03/02/17 12:33 Home Medications Medication Instructions Recorded Confirmed Last Taken Type Ondansetron [Zofran TAB] 4 mg PO Q8HR PRN #60 tablet 01/06/17 03/02/17 02/28/17 Rx Gabapentin [Neurontin] 300 mg PO Q8H #90 capsule 01/07/17 03/02/17 02/28/17 Rx Pantoprazole [Protonix TAB] 40 mg PO QDAY #14 tablet 01/07/17 03/02/17 02/28/17 Rx Tizanidine HCl [Zanaflex] 4 mg PO TID PRN #30 tablet 01/07/17 03/02/17 02/28/17 Rx cloNIDine [Catapres] 0.2 mg PO BID #60 tablet 01/07/17 03/02/17 Unknown Rx hydrALAZINE [Apresoline TAB] 25 mg PO Q8HR #90 tablet 01/07/17 03/02/17 Rx ALPRAZolam [Xanax TAB] 1 tab PO TID 03/02/17 03/02/17 02/28/17 History Oxycodone HCl/Acetaminophen 1 tab PO TID 03/02/17 03/02/17 02/28/17 History [Percocet 10/325 mg] levETIRAcetam [Keppra TAB] 500 mg PO TID 03/02/17 03/02/17 02/28/17 History Review of Systems All systems: negative Gastrointestinal: abdominal pain, nausea, vomiting Exam - Constitutional Vitals: Temp Pulse Resp BP Pulse Ox 100.3 F H 127 H 42 H 218/124 96 03/02/17 12:27 03/02/17 15:11 03/02/17 15:11 03/02/17 15:11 03/02/17 15:11 General appearance: Present: no acute distress, well-nourished - EENT Eyes: Present: PERRL ENT: hearing intact, clear oral mucosa - Neck Neck: Present: supple, normal ROM - Respiratory Respiratory effort: normal Respiratory: bilateral: CTA - Cardiovascular Heart Sounds: Present: S1 & S2. Absent: rub, click - Extremities Extremities: pulses symmetrical, No edema Peripheral Pulses: within normal limits - Abdominal General gastrointestinal: Present: soft, non-tender, non-distended, normal bowel sounds Female genitourinary: Present: normal - Integumentary Integumentary: Present: clear, warm, dry - Musculoskeletal Musculoskeletal: gait normal, strength equal bilaterally - Psychiatric Psychiatric: appropriate mood/affect, intact judgment & insight - Neurologic Neurologic: CNII-XII intact, moves all extremities Results - Labs CBC & Chem 7: 03/02/17 14:25 03/02/17 14:25 Labs: Abnormal lab results 03/02/17 03/02/17 Range/Units 14:25 14:25 WBC 15.6 H (4.5-11.0) K/mm3 MCH 25 L (28-32) pg RDW 19.6 H (13.2-15.2) % Plt Count 470 H (140-440) K/mm3 Seg Neutrophils % 78.2 H (40.0-70.0) % Seg Neutrophils # 12.2 H (1.8-7.7) K/mm3 Potassium 3.5 L (3.6-5.0) mmol/L AST 61 H (5-40) units/L ALT 80 H (7-56) units/L Alkaline Phosphatase 140 H (35-129) units/L Assessment and Plan - Patient Problems (1) Gastroparesis Current Visit: Yes Status: Chronic Plan to address problem: GI consulted, bowel rest, IVF, supportive care, anti emetic therapy, pain control (2) Accelerated hypertension Current Visit: Yes Status: Acute Plan to address problem: monitor bp q shift, continue current care. (3) Chronic pain Current Visit: No Status: Acute Qualifiers: Chronic pain type: C Plan to address problem: resume home medication, serial abdominal exam. (4) DVT prophylaxis Current Visit: No Status: Acute
[2017-03-02] MEDS ORDERED: NACL 0.9% 1000 ML 1,000 ML ONE ×2 (17:10→21:11)
[2017-03-02] MEDS ORDERED: ZOFRAN ONE ×2 (17:10→20:05)
[2017-03-02] MEDS ORDERED: DUONEB 0.5 MG-3 MG/3 ML SOLN IH PRN (17:58)
[2017-03-02] MEDS ORDERED: DULCOLAX PR PRN (17:58)
[2017-03-02] MEDS ORDERED: MILK OF MAGNESIA PO PRN (17:58)
--- NOTE | 2017-03-02 18:00 | Admit Criteria Form ---
Admission Criteria Documentation: ABDOMINAL PAIN Clinical Indications for Admission to Inpatient Care (Place 'X' for any and all applicable criteria): Admission is indicated for ANY ONE of the following(1)(2)(3)(4)(5): [ X]I. Inpatient admission required rather than observation care (Also use Abdominal Pain: Observation Care, as appropriate) because of ANY ONE of the following: [X ]a) Severe pain requiring acute inpatient management [ ]b) Identification of etiology/finding that requires inpatient care (eg, aortic dissection, free air) [ ]c) Absent bowel sounds with complete ileus(6) [ ]d) Suspected toxic megacolon [ ]e) Severe electrolyte abnormalities requiring inpatient care [ ]f) High fever or infection requiring inpatient admission as indicated by ANY ONE of following(7)(8): [ ] i) Appropriate outpatient or observational care antimicrobial treatment unavailable, not effective, or not feasible [ ] ii) Documented bacteremia [ ] iii) Temperature > 104.9 degrees F (oral) [ ] iv) T >103.1 F (oral) or < 96.8 F(rectal) that does not respond to all emergency treatment measures [ ]g) Signs of intestinal obstruction [B] [ ]h) Hemodynamic instability [ ]i) IV fluid to replace significant ongoing losses (greater than 3 L/m2 per day) (12)(13) [ ]j) Percutaneous or open drainage (eg, abscess, biliary tract ) procedures [ ]k) Parenteral nutrition regimen that must be implemented on inpatient basis [ ]l) Other condition,treatment or monitoring requiring inpatient admission. [ ]II. Peritoneal signs present [ ]III. Surgery needed that cannot be performed on an ambulatory basis. [ ]IV. Evaluation requires patient to not eat or drink for extended period ( eg, more than 24 hours). [ ]V. Contraindications and/or Inappropriate clinical situations for Observational Care in patients with abdominal pain, when ANY ONE of the following is required: [ ]a) Thorough evaluation is required to prevent catastrophic events due to delays in diagnosing (e.g.Mesenteric ischemia) 1,3 [ ]b) Patient with severe pathology or with chronic symptoms unlikely to improve in the ED stay (3) [ ]. General contraindications and/or Inappropriate clinical situations for Observational Care in patients with abdominal pain, when ANY ONE of the following is required: [ ]a) Prediction of prolongation of LOS based on ANY ONE of the following may be considered as a contraindication for observational care 2, 3, 4, 5, 6, 7, 8, 9, 10, 11 [ ]i) Age > 65 yrs. [ ]ii) Patient arriving by ambulance [ ]iii) Patient with high acuity [ ]iv) Patient requiring vital sign monitoring [ ]v) Patient on IV medication [ ]b) Systolic blood pressures 180mmHg 3,12 [ ]c) Patient with altered mental status including delirium and other alteration of consciousness, (3) [ ]d) Patient whose discharge disposition will be to a halfway home or rehabilitation home should not be managed in Emergency Department Observation Unit. CMS rule requires 3 days hospital stay before such placement.3,13 [ ]e) Patient with failure to thrive due to broad array of etiologies 3,16,17 [ ]f) Inability to ambulate 3,14 Extended stay beyond goal length of stay may be needed for(2)(3): [ ]a) Persistent abdominal pain with suspected intra-abdominal process [ ]b) Diagnosed condition requiring continued stay (e.g., pancreatitis, complicated diverticulitis) [ ]c) Surgery (e.g., colectomy) The original [facility] content created by [employer] has been revised. The portions of the content which have been revised are identified through the use of italic text or in bold, and [facility] has neither reviewed nor approved the modified material.All other unmodified content is copyright [facility]. Please see references footnoted in the original [facility] edition 2016 Admission Criteria Met: Yes
[2017-03-02] MEDS ORDERED: APRESOLINE IV PRN (18:03)
[2017-03-02] MEDS ORDERED: NEURONTIN PO SCH (19:00)
[2017-03-02] MEDS ORDERED: PROVENTIL IH PRN (19:19)
[2017-03-02] MEDS ORDERED: NON-FORMULARY (Oxycodone Hcl/Acetaminophen [Percocet 10/325 Mg] 1 TAB) PO SCH (20:00)
[2017-03-02] MEDS ORDERED: PERCOCET 5/325 ONE (20:05)
[2017-03-02] MEDS ORDERED: DILAUDID ONE ×2 (20:05→20:07)
[2017-03-02] MEDS ORDERED: ROXICODONE ONE (20:05)
[2017-03-02] MEDS ORDERED: XANAX ONE (20:06)
[2017-03-02] MEDS ORDERED: NEURONTIN ONE (20:08)
[2017-03-02] MEDS ORDERED: KEPPRA PO ONE (20:08)
[2017-03-02] MEDS ORDERED: BENADRYL ONE (20:23)
[2017-03-02] MEDS: KEPPRA PO SCH (20:32)
[2017-03-02] MEDS: ROXICODONE PO SCH (20:33)
[2017-03-02] MEDS: PERCOCET 5/325 PO SCH (20:33)
[2017-03-02] MEDS: XANAX PO SCH (20:33)
[2017-03-02] MEDS ORDERED: BENADRYL IV ONE (20:34)
[2017-03-03] MEDS: APRESOLINE PO SCH ×4 (00:27→23:08)
[2017-03-03] MEDS: CATAPRES PO SCH ×3 (00:27→23:09)
[2017-03-03] MEDS: ZOFRAN IV PRN ×2 (04:12→13:49)
[2017-03-03] MEDS: NEURONTIN PO SCH ×3 (05:38→23:10)
--- NOTE | 2017-03-03 08:17 | Progress Note ---
Assessment and Plan Assessment and plan: 61 YO Female with HTN, GERD, OA, Seizure Disorder, Anxiety, Gastroparesis presents to ED for evaluation. Pt states that she has experienced abdominal pain for the past four days with worsening symptoms over the past 8 hours. Pain is 10/10, constant, diffuse, not worsened or relieved with meals (1) Gastroparesis GI consulted, bowel rest, IVF, supportive care, anti emetic therapy, pain control (2) Accelerated hypertension monitor bp q shift, continue current care. (3) Chronic pain resume home medication, serial abdominal exam. (4)uncontrolled DM 5. Hypokalemia replete and recheck History Interval history: She continues to complain of abdominal pain, pain is now 6 out of 10, high in the hypogastrium, dull, associated with eating. Complaining of nausea just relieved by Zofran. Hospitalist Physical - Physical exam Narrative exam: General: Patient appears well in no distress HEENT: MMM, EOMI cardiac: S1-S2 heard lungs: clear to auscultation, abdomen: soft, nontender, nondistended bowel sounds positive extremities: no edema clubbing or cyanosis Skin: no rash or lesion Neuro: no focal deficit Psych: appropriate behavior and mood, cognition intact - Constitutional Vitals: Temp Pulse Resp BP Pulse Ox 98.7 F 107 H 20 115/70 93 03/03/17 08:00 03/03/17 08:00 03/03/17 08:00 03/03/17 08:00 03/03/17 08:00 General appearance: Present: no acute distress, well-nourished Results - Labs CBC & Chem 7: 03/02/17 14:25 03/02/17 14:25 Labs: Laboratory Last Values WBC 15.6 K/mm3 (4.5-11.0) H 03/02/17 14:25 RBC 4.99 M/mm3 (3.65-5.03) 03/02/17 14:25 Hgb 12.6 gm/dl (10.1-14.3) 03/02/17 14:25 Hct 41.0 % (30.3-42.9) 03/02/17 14:25 MCV 82 fl (79-97) 03/02/17 14:25 MCH 25 pg (28-32) L 03/02/17 14:25 MCHC 31 % (30-34) 03/02/17 14:25 RDW 19.6 % (13.2-15.2) H 03/02/17 14:25 Plt Count 470 K/mm3 (140-440) H 03/02/17 14:25 Lymph % (Auto) 16.1 % (13.4-35.0) 03/02/17 14:25 [place] % (Auto) 4.3 % (0.0-7.3) 03/02/17 14:25 Eos % (Auto) 0.8 % (0.0-4.3) 03/02/17 14:25 Baso % (Auto) 0.6 % (0.0-1.8) 03/02/17 14:25 Lymph # 2.5 K/mm3 (1.2-5.4) 03/02/17 14:25 [place] # 0.7 K/mm3 (0.0-0.8) 03/02/17 14:25 Eos # 0.1 K/mm3 (0.0-0.4) 03/02/17 14:25 Baso # 0.1 K/mm3 (0.0-0.1) 03/02/17 14:25 Seg Neutrophils % 78.2 % (40.0-70.0) H 03/02/17 14:25 Seg Neutrophils # 12.2 K/mm3 (1.8-7.7) H 03/02/17 14:25 Sodium 140 mmol/L (137-145) 03/02/17 14:25 Potassium 3.5 mmol/L (3.6-5.0) L 03/02/17 14:25 Chloride 100.0 mmol/L (98-107) 03/02/17 14:25 Carbon Dioxide 22 mmol/L (22-30) 03/02/17 14:25 Anion Gap 22 mmol/L 03/02/17 14:25 BUN 15 mg/dL (7-17) 03/02/17 14:25 Creatinine 0.9 mg/dL (0.7-1.2) 03/02/17 14:25 Estimated GFR > 60 ml/min 03/02/17 14:25 BUN/Creatinine Ratio 16.66 % 03/02/17 14:25 Glucose 99 mg/dL (65-100) 03/02/17 14:25 Calcium 8.6 mg/dL (8.4-10.2) 03/02/17 14:25 Total Bilirubin 0.3 mg/dL (0.1-1.2) 03/02/17 14:25 AST 61 units/L (5-40) H 03/02/17 14:25 ALT 80 units/L (7-56) H 03/02/17 14:25 Alkaline Phosphatase 140 units/L (35-129) H 03/02/17 14:25 Total Protein 7.3 g/dL (6.3-8.2) 03/02/17 14:25 Albumin 4.1 g/dL (3.9-5) 03/02/17 14:25 Albumin/Globulin Ratio 1.3 % 03/02/17 14:25 Amylase 86 units/L (27-131) 03/02/17 14:25 Lipase 21 units/L (13-60) 03/02/17 14:25 Urine Color Yellow (Yellow) 03/02/17 15:10 Urine Turbidity Clear (Clear) 03/02/17 15:10 Urine pH 6.0 (5.0-7.0) 03/02/17 15:10 Ur Specific [place] 1.027 (1.003-1.030) 03/02/17 15:10 Urine Protein 30 mg/dl mg/dL (Negative) 03/02/17 15:10 Urine Glucose (UA) Neg mg/dL (Negative) 03/02/17 15:10 Urine Ketones 20 mg/dL (Negative) 03/02/17 15:10 Urine Blood Neg (Negative) 03/02/17 15:10 Urine Nitrite Neg (Negative) 03/02/17 15:10 Urine Bilirubin Neg (Negative) 03/02/17 15:10 Urine Urobilinogen < 2.0 mg/dL (<2.0) 03/02/17 15:10 Ur Leukocyte Esterase Neg (Negative) 03/02/17 15:10 Urine WBC (Auto) 4.0 /HPF (0.0-6.0) 03/02/17 15:10 Urine RBC (Auto) 8.0 /HPF (0.0-6.0) 03/02/17 15:10 U Epithel Cells (Auto) < 1.0 /HPF (0-13.0) 03/02/17 15:10 Urine Bacteria (Auto) 1+ /HPF (Negative) 03/02/17 15:10 Urine Mucus Few /HPF 03/02/17 15:10
[2017-03-03] MEDS: ROXICODONE PO SCH ×3 (08:22→23:08)
[2017-03-03] MEDS: KEPPRA PO SCH ×3 (08:22→23:09)
[2017-03-03] MEDS: PERCOCET 5/325 PO SCH ×3 (08:23→23:10)
[2017-03-03] MEDS: XANAX PO SCH ×2 (10:00→15:28)
[2017-03-03] MEDS: PROTONIX PO SCH (10:00)
[2017-03-03] MEDS: BENTYL PO SCH ×3 (15:27→23:12)
[2017-03-03] MEDS: ATIVAN PO SCH ×2 (15:27→23:11)
--- NOTE | 2017-03-04 00:03 | Consultation ---
INDICATION: History of nausea, vomiting. HISTORY OF PRESENT ILLNESS: The patient is a 61-year-old black female with history of hypertension, GERD, seizure disorder, anxiety, and gastroparesis who has had multiple admissions for gastroparesis and nausea, vomiting, now readmitted. The patient reports over the last 4-5 days, she has had abdominal pain with nausea and vomiting. She reports unable to keep p.o. down. The patient was seen at [facility] and underwent CT scan which was unremarkable. She was seen in my office yesterday and told her if symptoms persists, she needs to go to Emergency Room. She subsequently went to the Emergency Room, was evaluated and admitted. She reports no fevers or chills. She reports nausea and vomiting slightly improved. She denies any rectal bleeding or lower GI symptoms. No other specific complaints. PAST MEDICAL HISTORY: 1. Hypertension. 2. GERD. 3. Seizure disorder. 4. Anxiety. 5. Gastroparesis. 5. Status post cholecystectomy. MEDICATIONS: See chart. ALLERGIES: Codeine, Reglan, and morphine. FAMILY HISTORY: Negative for colon cancer, IBD, or liver disease. REVIEW OF SYSTEMS: GENERAL: Reports mild weakness. HEENT: No visual complaints or tinnitus. PULMONARY: No shortness of breath. CARDIOVASCULAR: No chest pain. GASTROINTESTINAL: Reports nausea, vomiting, and abdominal pain. All points of 13-point review of systems otherwise negative. PHYSICAL EXAMINATION: VITAL SIGNS: Temperature of 98.7, pulse 100, respirations 20, blood pressure 130/80 GENERAL: Fairly nourished black female in mild distress. HEAD AND ENT: Pupils equal, round, reactive to light and accommodation. Extraocular muscle intact. PULMONARY: Clear to auscultation bilaterally. CARDIOVASCULAR: Regular rate and rhythm. Normal S1, S2. ABDOMEN: Positive bowel sounds, soft. SKIN: No obvious rashes. LABORATORY DATA: Pertinent for white count of 15.6, hemoglobin and hematocrit of 12.6 and 41.0, platelet count of 470. Chem-7 within normal limits. LFTs, AST was 61, ALT 80, alkaline phosphatase 140, total bilirubin of 0.30. UA benign. ASSESSMENT AND PLAN: A 61-year-old female with history of multiple medical problems, including anxiety disorder, recurrent gastroparesis, now with nausea, vomiting, abdominal pain with a CT scan done at [facility] negative. The patient has had recurrent admissions. For the most part, she tried to stay out of the hospital and done better. Management as noted below. PLAN: 1. We will review office chart. 2. Continue antiemetics and pain medications as started. 3. We will add Ativan, which has helped with her symptoms in the past as well as Bentyl 20 mg p.o. q.8h. 4. No plans for endoscopic evaluation or intervention at this time. 5. Continue soft diet and advance as tolerated. 6. If pain symptoms are stable in a.m. and tolerating p.o., okay to discharge from GI standpoint. JOB# [id number] JONATHAN/JEFF UGALDE
[2017-03-04] MEDS: NS 0.45/KCL 20MEQ 20 MEQ/1,000 ML BAG IV SCH ×2 (02:09→13:36)
[2017-03-04] MEDS: XANAX PO SCH (02:20)
[2017-03-04] MEDS: NEURONTIN PO SCH ×3 (06:48→22:40)
[2017-03-04] MEDS: APRESOLINE PO SCH ×3 (06:48→22:40)
[2017-03-04] MEDS: ZOFRAN IV PRN ×2 (08:37→18:56)
[2017-03-04] MEDS: ROXICODONE PO SCH ×3 (08:38→19:00)
[2017-03-04] MEDS: PERCOCET 5/325 PO SCH ×3 (08:38→19:00)
[2017-03-04] MEDS: ATIVAN PO SCH ×3 (08:38→19:01)
[2017-03-04] MEDS: KEPPRA PO SCH ×3 (08:38→22:40)
[2017-03-04] MEDS: BENTYL PO SCH ×5 (10:40→23:33)
[2017-03-04] MEDS: PROTONIX PO SCH (10:40)
[2017-03-04] MEDS: CATAPRES PO SCH ×2 (10:53→22:40)
--- NOTE | 2017-03-04 11:43 | Progress Note ---
Assessment and Plan Assessment and plan: 61 YO Female with HTN, GERD, OA, Seizure Disorder, Anxiety, Gastroparesis presents to ED for evaluation. Pt states that she has experienced abdominal pain for the past four days with worsening symptoms over the past 8 hours. Pain is 10/10, constant, diffuse, not worsened or relieved with meals (1) Gastroparesis , IVF, supportive care, anti emetic therapy, pain control, advaance diet (2) Accelerated hypertension monitor bp q shift, continue current care. (3) Chronic pain resume home medication, serial abdominal exam. (4)uncontrolled DM 5. Hypokalemia repleted tentative dc home in am History Interval history: belly pain and nausea are improving. Hospitalist Physical - Physical exam Narrative exam: General: Patient appears well in no distress HEENT: MMM, EOMI cardiac: S1-S2 heard lungs: clear to auscultation, abdomen: soft, nontender, nondistended bowel sounds positive extremities: no edema clubbing or cyanosis Skin: no rash or lesion Neuro: no focal deficit, generalized weakness Psych: appropriate behavior and mood, cognition intact - Constitutional Vitals: Temp Pulse Resp BP Pulse Ox 98.4 F 70 12 148/90 98 03/04/17 08:00 03/04/17 09:05 03/04/17 09:05 03/04/17 08:00 03/04/17 08:00 General appearance: Present: no acute distress, well-nourished Results - Labs CBC & Chem 7: 03/04/17 11:37 03/04/17 11:37 Labs: Laboratory Last Values WBC 15.6 K/mm3 (4.5-11.0) H 03/02/17 14:25 RBC 4.99 M/mm3 (3.65-5.03) 03/02/17 14:25 Hgb 12.6 gm/dl (10.1-14.3) 03/02/17 14:25 Hct 41.0 % (30.3-42.9) 03/02/17 14:25 MCV 82 fl (79-97) 03/02/17 14:25 MCH 25 pg (28-32) L 03/02/17 14:25 MCHC 31 % (30-34) 03/02/17 14:25 RDW 19.6 % (13.2-15.2) H 03/02/17 14:25 Plt Count 470 K/mm3 (140-440) H 03/02/17 14:25 Lymph % (Auto) 16.1 % (13.4-35.0) 03/02/17 14:25 [place] % (Auto) 4.3 % (0.0-7.3) 03/02/17 14:25 Eos % (Auto) 0.8 % (0.0-4.3) 03/02/17 14:25 Baso % (Auto) 0.6 % (0.0-1.8) 03/02/17 14:25 Lymph # 2.5 K/mm3 (1.2-5.4) 03/02/17 14:25 [place] # 0.7 K/mm3 (0.0-0.8) 03/02/17 14:25 Eos # 0.1 K/mm3 (0.0-0.4) 03/02/17 14:25 Baso # 0.1 K/mm3 (0.0-0.1) 03/02/17 14:25 Seg Neutrophils % 78.2 % (40.0-70.0) H 03/02/17 14:25 Seg Neutrophils # 12.2 K/mm3 (1.8-7.7) H 03/02/17 14:25 Sodium 140 mmol/L (137-145) 03/02/17 14:25 Potassium 3.5 mmol/L (3.6-5.0) L 03/02/17 14:25 Chloride 100.0 mmol/L (98-107) 03/02/17 14:25 Carbon Dioxide 22 mmol/L (22-30) 03/02/17 14:25 Anion Gap 22 mmol/L 03/02/17 14:25 BUN 15 mg/dL (7-17) 03/02/17 14:25 Creatinine 0.9 mg/dL (0.7-1.2) 03/02/17 14:25 Estimated GFR > 60 ml/min 03/02/17 14:25 BUN/Creatinine Ratio 16.66 % 03/02/17 14:25 Glucose 99 mg/dL (65-100) 03/02/17 14:25 POC Glucose 103 (70-105) 03/04/17 10:59 Calcium 8.6 mg/dL (8.4-10.2) 03/02/17 14:25 Total Bilirubin 0.3 mg/dL (0.1-1.2) 03/02/17 14:25 AST 61 units/L (5-40) H 03/02/17 14:25 ALT 80 units/L (7-56) H 03/02/17 14:25 Alkaline Phosphatase 140 units/L (35-129) H 03/02/17 14:25 Total Protein 7.3 g/dL (6.3-8.2) 03/02/17 14:25 Albumin 4.1 g/dL (3.9-5) 03/02/17 14:25 Albumin/Globulin Ratio 1.3 % 03/02/17 14:25 Amylase 86 units/L (27-131) 03/02/17 14:25 Lipase 21 units/L (13-60) 03/02/17 14:25 Urine Color Yellow (Yellow) 03/02/17 15:10 Urine Turbidity Clear (Clear) 03/02/17 15:10 Urine pH 6.0 (5.0-7.0) 03/02/17 15:10 Ur Specific [place] 1.027 (1.003-1.030) 03/02/17 15:10 Urine Protein 30 mg/dl mg/dL (Negative) 03/02/17 15:10 Urine Glucose (UA) Neg mg/dL (Negative) 03/02/17 15:10 Urine Ketones 20 mg/dL (Negative) 03/02/17 15:10 Urine Blood Neg (Negative) 03/02/17 15:10 Urine Nitrite Neg (Negative) 03/02/17 15:10 Urine Bilirubin Neg (Negative) 03/02/17 15:10 Urine Urobilinogen < 2.0 mg/dL (<2.0) 03/02/17 15:10 Ur Leukocyte Esterase Neg (Negative) 03/02/17 15:10 Urine WBC (Auto) 4.0 /HPF (0.0-6.0) 03/02/17 15:10 Urine RBC (Auto) 8.0 /HPF (0.0-6.0) 03/02/17 15:10 U Epithel Cells (Auto) < 1.0 /HPF (0-13.0) 03/02/17 15:10 Urine Bacteria (Auto) 1+ /HPF (Negative) 03/02/17 15:10 Urine Mucus Few /HPF 03/02/17 15:10
[2017-03-04 11:46] LABS: Hematocrit 33.7 % (30.3-42.9); Hemoglobin 10.5 gm/dl (10.1-14.3); Mean Corpuscular HGB Conc 31 % (30-34); Mean Corpuscular Volume 83 fl (79-97); Platelet Count 362 K/mm3 (140-440); Red Blood Count 4.06 M/mm3 (3.65-5.03); Red Cell Distribution Width 19.9 % (13.2-15.2); White Blood Count 10.4 K/mm3 (4.5-11.0)
--- NOTE | 2017-03-04 11:46 | Discharge Summary ---
<SERENA EAGLE - Last Filed: 03/08/17 12:02> Providers - Providers Date of Admission: 03/02/17 17:58 Date of discharge: 03/08/17 Attending physician: SERENA EAGLE 03/02/17 20:28 Consult to Physician [CONS] Routine Consulting Provider: JEROD PICKARD Reason For Exam: ab pain Place consult to:: GI Notified:: OFFICE Phone number called:: [phone] Was contact made?: Yes If yes, spoke with:: EILEEN Time called:: 09:10 Comment:: LEANNA NOTIFIED 03/04/17 11:42 Physical Therapy Evaluation and Treat [CONS] Routine Comment: Reason For Exam: debility Primary care physician: ALL FORREST MD Hospitalization Condition: Serious Hospital course: She applied to medicare to delay her discharge, which was denied, she was discharged home on 03/08/17. Disposition: DISCHARGED TO HOME OR SELFCARE Core Measure Documentation - Palliative Care Palliative Care/ Comfort Measures: Not Applicable - Core Measures Any of the following diagnoses?: none Exam - Constitutional Vitals: Temp Pulse Resp BP Pulse Ox 99.3 F 110 H 16 155/101 97 03/07/17 07:20 03/07/17 07:20 03/07/17 07:20 03/07/17 07:20 03/07/17 07:20 Plan Activity: advance as tolerated Weight Bearing Status: Weight Bear as Tolerated Diet: diabetic Follow up with: PRIMARY MD LON [Primary Care Provider] - 3-5 Days Prescriptions: ALPRAZolam [Xanax TAB] 1 tab PO TID #14 tablet cloNIDine [Catapres] 0.1 mg PO BID #60 tablet Dicyclomine [Bentyl] 10 mg PO QID #120 oral.liqd Ondansetron [Zofran TAB] 4 mg PO Q8HR PRN #60 tablet PRN Reason: Nausea And Vomiting Oxycodone HCl/Acetaminophen [Percocet 10/325 mg] 1 tab PO TID #14 tablet <ESTUARDO BOJORQUEZ - Last Filed: 03/08/17 17:01> Providers - Providers Date of Admission: 03/02/17 17:58 Attending physician: ESTUARDO BOJORQUEZ MD 03/02/17 20:28 Consult to Physician [CONS] Routine Consulting Provider: JEROD PICKARD Reason For Exam: ab pain Place consult to:: GI Notified:: OFFICE Phone number called:: [phone] Was contact made?: Yes If yes, spoke with:: EILEEN Time called:: 09:10 Comment:: LEANNA NOTIFIED 03/04/17 11:42 Physical Therapy Evaluation and Treat [CONS] Routine Reason For Exam: debility Comment: Primary care physician: [employer] Hospitalization Hospital course: 61 YO Female with HTN, GERD, OA, Seizure Disorder, Anxiety, history of gastroparesis who presented with abdominal pain and nausea, she was admitted for treatment of flare of gastroparesis. She was initially given some bowel rest IV fluid supportive therapy antiemetics, pain control. She clinically improved and her diet was advanced. She was transitioned to oral medications. With regards to hypertension and diabetes, her meds were optimized. Of note she had a positive urine culture that was colonized, however she had a negative urinalysis. Therefore she does not have an active infection but instead colonization. No further workup was indicated. Diagnoses 1. Acute flare of gastroparesis 2. Accelerated hypertension 3. Chronic pain syndrome 4. Uncontrolled diabetes 5. Hypokalemia Time spent for discharge: 35 minutes Core Measure Documentation - Palliative Care Palliative Care/ Comfort Measures: Not Applicable - Core Measures Any of the following diagnoses?: none Exam - Physical Exam Narrative exam: General: Patient appears well in no distress HEENT: MMM, EOMI cardiac: S1-S2 heard lungs: clear to auscultation, abdomen: soft, nontender, nondistended bowel sounds positive extremities: no edema clubbing or cyanosis Skin: no rash or lesion Neuro: no focal deficit, generalized weakness, (at BL gets around with wheelchair or walker} Psych: appropriate behavior and mood, cognition intact - Constitutional Vitals: Temp Pulse Resp BP Pulse Ox 98.4 F 70 12 148/90 98 03/04/17 08:00 03/04/17 09:05 03/04/17 09:05 03/04/17 08:00 03/04/17 08:00
[2017-03-04 12:01] LABS: Mean Corpuscular Hemoglobin 26 pg (28-32)
[2017-03-04 12:03] LABS: Anion Gap 15 mmol/L; BUN/Creatinine Ratio 11.25; Blood Urea Nitrogen 9 mg/dL (7-17); Calcium 7.8 mg/dL (8.4-10.2); Carbon Dioxide 24 mmol/L (22-30); Chloride 104.2 mmol/L (98-107); Glucose 96 mg/dL (65-100); Potassium 4.1 mmol/L (3.6-5.0); Sodium 139 mmol/L (137-145)
[2017-03-04] MEDS: ZANAFLEX PO PRN (12:35)
[2017-03-05] MEDS: ZOFRAN IV PRN ×4 (00:19→21:52)
[2017-03-05] MEDS: ZANAFLEX PO PRN ×3 (00:20→21:51)
[2017-03-05] MEDS: NS 0.45/KCL 20MEQ 20 MEQ/1,000 ML BAG IV SCH ×2 (00:24→22:01)
[2017-03-05] MEDS: APRESOLINE PO SCH ×3 (06:55→21:53)
[2017-03-05] MEDS: ROXICODONE PO SCH ×3 (07:03→21:53)
[2017-03-05] MEDS: PERCOCET 5/325 PO SCH ×3 (07:05→21:52)
[2017-03-05] MEDS: ATIVAN PO SCH ×3 (07:07→21:54)
[2017-03-05] MEDS: NEURONTIN PO SCH ×3 (07:07→21:52)
[2017-03-05] MEDS: KEPPRA PO SCH ×3 (07:11→21:52)
[2017-03-05] MEDS: BENTYL PO SCH ×3 (09:36→20:08)
[2017-03-05] MEDS: CATAPRES PO SCH ×2 (09:38→21:54)
[2017-03-05] MEDS: PROTONIX PO SCH (09:38)
[2017-03-05] MEDS ORDERED: TRIPLE ANTIBIOTIC TP ONE (12:42)
--- NOTE | 2017-03-05 13:52 | Progress Note ---
Assessment and Plan Assessment and plan: 61 YO Female with HTN, GERD, OA, Seizure Disorder, Anxiety, Gastroparesis presents to ED for evaluation. Pt states that she has experienced abdominal pain for the past four days with worsening symptoms over the past 8 hours. Pain is 10/10, constant, diffuse, not worsened or relieved with meals (1) Gastroparesis GI consulted, bowel rest, IVF, supportive care, anti emetic therapy, pain control; patient continues to demonstrate pain med seeking behavior. she claims that she cannot eat despite being observed finishing 95% of her trays, she is often found comfortable talking on the phone and as soon as staff enter the room , she immediately starts requesting pain meds (2) Accelerated hypertension monitor bp q shift, continue current care. (3) Chronic pain resume home medication, serial abdominal exam. (4)uncontrolled DM 5. Hypokalemia replete and recheck 6. Urine is colonized, however UA is negative; not actively infected; NTD History Interval history: belly pain and nausea are improving. Hospitalist Physical - Physical exam Narrative exam: General: Patient appears well in no distress HEENT: MMM, EOMI cardiac: S1-S2 heard lungs: clear to auscultation, abdomen: soft, nontender, nondistended bowel sounds positive extremities: no edema clubbing or cyanosis Skin: no rash or lesion Neuro: no focal deficit, generalized weakness, (at BL gets around with wheelchair or walker} Psych: appropriate behavior and mood, cognition intact - Constitutional Vitals: Temp Pulse Resp BP Pulse Ox 98 F 100 H 16 140/78 97 03/05/17 12:36 03/05/17 12:36 03/05/17 12:36 03/05/17 12:36 03/05/17 08:00 General appearance: Present: no acute distress, well-nourished Results - Labs CBC & Chem 7: 03/04/17 11:37 03/04/17 11:37 Labs: Laboratory Last Values WBC 10.4 K/mm3 (4.5-11.0) 03/04/17 11:37 RBC 4.06 M/mm3 (3.65-5.03) 03/04/17 11:37 Hgb 10.5 gm/dl (10.1-14.3) 03/04/17 11:37 Hct 33.7 % (30.3-42.9) D 03/04/17 11:37 MCV 83 fl (79-97) 03/04/17 11:37 MCH 26 pg (28-32) L 03/04/17 11:37 MCHC 31 % (30-34) 03/04/17 11:37 RDW 19.9 % (13.2-15.2) H 03/04/17 11:37 Plt Count 362 K/mm3 (140-440) 03/04/17 11:37 Lymph % (Auto) 16.1 % (13.4-35.0) 03/02/17 14:25 [place] % (Auto) 4.3 % (0.0-7.3) 03/02/17 14:25 Eos % (Auto) 0.8 % (0.0-4.3) 03/02/17 14:25 Baso % (Auto) 0.6 % (0.0-1.8) 03/02/17 14:25 Lymph # 2.5 K/mm3 (1.2-5.4) 03/02/17 14:25 [place] # 0.7 K/mm3 (0.0-0.8) 03/02/17 14:25 Eos # 0.1 K/mm3 (0.0-0.4) 03/02/17 14:25 Baso # 0.1 K/mm3 (0.0-0.1) 03/02/17 14:25 Seg Neutrophils % 78.2 % (40.0-70.0) H 03/02/17 14:25 Seg Neutrophils # 12.2 K/mm3 (1.8-7.7) H 03/02/17 14:25 Sodium 139 mmol/L (137-145) 03/04/17 11:37 Potassium 4.1 mmol/L (3.6-5.0) 03/04/17 11:37 Chloride 104.2 mmol/L (98-107) 03/04/17 11:37 Carbon Dioxide 24 mmol/L (22-30) 03/04/17 11:37 Anion Gap 15 mmol/L 03/04/17 11:37 BUN 9 mg/dL (7-17) 03/04/17 11:37 Creatinine 0.8 mg/dL (0.7-1.2) 03/04/17 11:37 Estimated GFR > 60 ml/min 03/04/17 11:37 BUN/Creatinine Ratio 11.25 % 03/04/17 11:37 Glucose 96 mg/dL (65-100) 03/04/17 11:37 POC Glucose 103 (70-105) 03/04/17 10:59 Calcium 7.8 mg/dL (8.4-10.2) L 03/04/17 11:37 Total Bilirubin 0.3 mg/dL (0.1-1.2) 03/02/17 14:25 AST 61 units/L (5-40) H 03/02/17 14:25 ALT 80 units/L (7-56) H 03/02/17 14:25 Alkaline Phosphatase 140 units/L (35-129) H 03/02/17 14:25 Total Protein 7.3 g/dL (6.3-8.2) 03/02/17 14:25 Albumin 4.1 g/dL (3.9-5) 03/02/17 14:25 Albumin/Globulin Ratio 1.3 % 03/02/17 14:25 Amylase 86 units/L (27-131) 03/02/17 14:25 Lipase 21 units/L (13-60) 03/02/17 14:25 Urine Color Yellow (Yellow) 03/02/17 15:10 Urine Turbidity Clear (Clear) 03/02/17 15:10 Urine pH 6.0 (5.0-7.0) 03/02/17 15:10 Ur Specific [place] 1.027 (1.003-1.030) 03/02/17 15:10 Urine Protein 30 mg/dl mg/dL (Negative) 03/02/17 15:10 Urine Glucose (UA) Neg mg/dL (Negative) 03/02/17 15:10 Urine Ketones 20 mg/dL (Negative) 03/02/17 15:10 Urine Blood Neg (Negative) 03/02/17 15:10 Urine Nitrite Neg (Negative) 03/02/17 15:10 Urine Bilirubin Neg (Negative) 03/02/17 15:10 Urine Urobilinogen < 2.0 mg/dL (<2.0) 03/02/17 15:10 Ur Leukocyte Esterase Neg (Negative) 03/02/17 15:10 Urine WBC (Auto) 4.0 /HPF (0.0-6.0) 03/02/17 15:10 Urine RBC (Auto) 8.0 /HPF (0.0-6.0) 03/02/17 15:10 U Epithel Cells (Auto) < 1.0 /HPF (0-13.0) 03/02/17 15:10 Urine Bacteria (Auto) 1+ /HPF (Negative) 03/02/17 15:10 Urine Mucus Few /HPF 03/02/17 15:10
[2017-03-05] MEDS ORDERED: NACL 0.9% 1000 ML 1,000 ML IV ONE (16:26)
[2017-03-06] MEDS: BENTYL PO SCH ×4 (00:32→18:47)
[2017-03-06] MEDS: TYLENOL PO PRN (03:56)
[2017-03-06] MEDS: APRESOLINE PO SCH ×3 (06:14→21:36)
[2017-03-06] MEDS: ZANAFLEX PO PRN ×3 (06:15→20:14)
[2017-03-06] MEDS: ZOFRAN PO PRN (06:15)
[2017-03-06] MEDS: KEPPRA PO SCH ×3 (08:19→20:14)
[2017-03-06] MEDS: ROXICODONE PO SCH ×3 (08:19→20:13)
[2017-03-06] MEDS: PERCOCET 5/325 PO SCH ×3 (08:19→20:11)
[2017-03-06] MEDS: ATIVAN PO SCH ×3 (08:19→20:13)
[2017-03-06] MEDS: CATAPRES PO SCH ×2 (10:27→21:36)
[2017-03-06] MEDS: PROTONIX PO SCH (10:27)
[2017-03-06] MEDS: NEURONTIN PO SCH ×2 (16:21→21:40)
[2017-03-06] MEDS: NS 0.45/KCL 20MEQ 20 MEQ/1,000 ML BAG IV SCH (16:22)
--- NOTE | 2017-03-06 17:26 | Progress Note ---
Assessment and Plan Assessment and plan: 61 YO Female with HTN, GERD, OA, Seizure Disorder, Anxiety, Gastroparesis presents to ED for evaluation. Pt states that she has experienced abdominal pain for the past four days with worsening symptoms over the past 8 hours. Pain is 10/10, constant, diffuse, not worsened or relieved with meals (1) Gastroparesis GI consulted, bowel rest, IVF, supportive care, anti emetic therapy, pain control; patient continues to demonstrate pain med seeking behavior. she claims that she cannot eat despite being observed finishing 95% of her trays, she is often found comfortable talking on the phone and as soon as staff enter the room , she immediately starts requesting pain meds (2) Accelerated hypertension monitor bp q shift, continue current care. (3) Chronic pain resume home medication, serial abdominal exam. (4)uncontrolled DM 5. Hypokalemia replete and recheck 6. Urine is colonized, however UA is negative; not actively infected; NTD History Interval history: belly pain and nausea are improving. Hospitalist Physical - Physical exam Narrative exam: General: Patient appears well in no distress HEENT: MMM, EOMI cardiac: S1-S2 heard lungs: clear to auscultation, abdomen: soft, nontender, nondistended bowel sounds positive extremities: no edema clubbing or cyanosis Skin: no rash or lesion Neuro: no focal deficit, generalized weakness, (at [facility] gets around with wheelchair or walker} Psych: appropriate behavior and mood, cognition intact - Constitutional Vitals: Temp Pulse Resp BP Pulse Ox 98.8 F 94 H 20 91/61 99 03/06/17 15:20 03/06/17 15:20 03/06/17 15:20 03/06/17 15:20 03/06/17 07:40 General appearance: Present: no acute distress, well-nourished Results - Labs CBC & Chem 7: 03/04/17 11:37 03/04/17 11:37 Labs: Laboratory Last Values WBC 10.4 K/mm3 (4.5-11.0) 03/04/17 11:37 RBC 4.06 M/mm3 (3.65-5.03) 03/04/17 11:37 Hgb 10.5 gm/dl (10.1-14.3) 03/04/17 11:37 Hct 33.7 % (30.3-42.9) D 03/04/17 11:37 MCV 83 fl (79-97) 03/04/17 11:37 MCH 26 pg (28-32) L 03/04/17 11:37 MCHC 31 % (30-34) 03/04/17 11:37 RDW 19.9 % (13.2-15.2) H 03/04/17 11:37 Plt Count 362 K/mm3 (140-440) 03/04/17 11:37 Lymph % (Auto) 16.1 % (13.4-35.0) 03/02/17 14:25 [place] % (Auto) 4.3 % (0.0-7.3) 03/02/17 14:25 Eos % (Auto) 0.8 % (0.0-4.3) 03/02/17 14:25 Baso % (Auto) 0.6 % (0.0-1.8) 03/02/17 14:25 Lymph # 2.5 K/mm3 (1.2-5.4) 03/02/17 14:25 [place] # 0.7 K/mm3 (0.0-0.8) 03/02/17 14:25 Eos # 0.1 K/mm3 (0.0-0.4) 03/02/17 14:25 Baso # 0.1 K/mm3 (0.0-0.1) 03/02/17 14:25 Seg Neutrophils % 78.2 % (40.0-70.0) H 03/02/17 14:25 Seg Neutrophils # 12.2 K/mm3 (1.8-7.7) H 03/02/17 14:25 Sodium 139 mmol/L (137-145) 03/04/17 11:37 Potassium 4.1 mmol/L (3.6-5.0) 03/04/17 11:37 Chloride 104.2 mmol/L (98-107) 03/04/17 11:37 Carbon Dioxide 24 mmol/L (22-30) 03/04/17 11:37 Anion Gap 15 mmol/L 03/04/17 11:37 BUN 9 mg/dL (7-17) 03/04/17 11:37 Creatinine 0.8 mg/dL (0.7-1.2) 03/04/17 11:37 Estimated GFR > 60 ml/min 03/04/17 11:37 BUN/Creatinine Ratio 11.25 % 03/04/17 11:37 Glucose 96 mg/dL (65-100) 03/04/17 11:37 POC Glucose 103 (70-105) 03/04/17 10:59 Calcium 7.8 mg/dL (8.4-10.2) L 03/04/17 11:37 Total Bilirubin 0.3 mg/dL (0.1-1.2) 03/02/17 14:25 AST 61 units/L (5-40) H 03/02/17 14:25 ALT 80 units/L (7-56) H 03/02/17 14:25 Alkaline Phosphatase 140 units/L (35-129) H 03/02/17 14:25 Total Protein 7.3 g/dL (6.3-8.2) 03/02/17 14:25 Albumin 4.1 g/dL (3.9-5) 03/02/17 14:25 Albumin/Globulin Ratio 1.3 % 03/02/17 14:25 Amylase 86 units/L (27-131) 03/02/17 14:25 Lipase 21 units/L (13-60) 03/02/17 14:25 Urine Color Yellow (Yellow) 03/02/17 15:10 Urine Turbidity Clear (Clear) 03/02/17 15:10 Urine pH 6.0 (5.0-7.0) 03/02/17 15:10 Ur Specific [place] 1.027 (1.003-1.030) 03/02/17 15:10 Urine Protein 30 mg/dl mg/dL (Negative) 03/02/17 15:10 Urine Glucose (UA) Neg mg/dL (Negative) 03/02/17 15:10 Urine Ketones 20 mg/dL (Negative) 03/02/17 15:10 Urine Blood Neg (Negative) 03/02/17 15:10 Urine Nitrite Neg (Negative) 03/02/17 15:10 Urine Bilirubin Neg (Negative) 03/02/17 15:10 Urine Urobilinogen < 2.0 mg/dL (<2.0) 03/02/17 15:10 Ur Leukocyte Esterase Neg (Negative) 03/02/17 15:10 Urine WBC (Auto) 4.0 /HPF (0.0-6.0) 03/02/17 15:10 Urine RBC (Auto) 8.0 /HPF (0.0-6.0) 03/02/17 15:10 U Epithel Cells (Auto) < 1.0 /HPF (0-13.0) 03/02/17 15:10 Urine Bacteria (Auto) 1+ /HPF (Negative) 03/02/17 15:10 Urine Mucus Few /HPF 03/02/17 15:10
[2017-03-07] MEDS: BENTYL PO SCH ×5 (00:38→21:10)
[2017-03-07] MEDS: TYLENOL PO PRN (04:02)
[2017-03-07] MEDS: ZOFRAN PO PRN (05:21)
[2017-03-07] MEDS: NEURONTIN PO SCH ×3 (05:21→21:09)
[2017-03-07] MEDS: APRESOLINE PO SCH ×3 (05:28→21:10)
[2017-03-07] MEDS: ZANAFLEX PO PRN ×3 (08:05→20:39)
[2017-03-07] MEDS: ROXICODONE PO SCH ×3 (08:05→20:33)
[2017-03-07] MEDS: KEPPRA PO SCH ×3 (08:05→20:31)
[2017-03-07] MEDS: ATIVAN PO SCH ×3 (08:06→20:32)
[2017-03-07] MEDS: PERCOCET 5/325 PO SCH ×3 (08:06→20:32)
[2017-03-07] MEDS: CATAPRES PO SCH ×2 (11:02→21:10)
[2017-03-07] MEDS: NS 0.45/KCL 20MEQ 20 MEQ/1,000 ML BAG IV SCH (13:00)
[2017-03-07] MEDS: PROTONIX PO SCH (13:54)
--- NOTE | 2017-03-07 14:22 | Progress Note ---
Assessment and Plan 61 YO Female with HTN, GERD, OA, Seizure Disorder, Anxiety, Gastroparesis presents to ED with complaint of abdominal pain for the past four days with worsening symptoms over the past 8 hours before admission. Pain was described as 10/10 in intensity, constant, diffuse, not worsened or relieved with meals Gastroparesis - GI consulted, bowel rest, IVF, supportive care, anti emetic therapy, pain control; - patient continues to demonstrate pain med seeking behavior. - she claims that she cannot eat despite being observed finishing 95% of her trays, she is often found comfortable talking on the phone and as soon as staff enter the room, she immediately starts requesting pain meds Accelerated hypertension - monitor bp q shift, continue current care. Chronic pain -Tinea home medication, serial abdominal exam. Uncontrolled DM - Could be due to noncompliance - Continue and adjust insulin dose as noted Hypokalemia, repleted and resolved Urine is colonized, however UA is negative; not actively infected; NTD Disposition: Home when cleared by Medicare Subjective Date of service: 03/07/17 Interval history: Patient seen and examined. Medical records and medication list reviewed. No acute event overnight noted by the RN. Patient denies any chest pain or difficulty breathing. Continue to complain of poor tolerance to diet Discussed plan of care at bedside with patient. Objective - Exam Narrative Exam: GENERAL: well-developed and well-nourished female lying on bed appeared to be in no discomfort. HEENT: Normocephalic. Atraumatic. No conjunctival congestion or icterus. Patient has moist mucous membranes. NECK: Supple. Trachea midline. CHEST/LUNGS: Clear to auscultated bilaterally, breathing nonlabored. No wheezes crackles or rhonchi. HEART/CARDIOVASCULAR: Regular in rate and rhythm. S1 and S2 positive. ABDOMEN: Abdomen is soft. Patient has normal bowel sounds. SKIN: There is no rash. Warm and dry. NEURO: No focal motor deficit. Follows command. MUSCULOSKELETAL: No joint effusion or tenderness. EXTRIMITY: No edema, no cyanosis or clubbing. PSYCH: Cooperative. - Constitutional Vitals: Vital Signs - 12hr 03/07/17 03/07/17 03/07/17 04:00 05:28 07:20 Temperature 99.0 F 99.3 F Pulse Rate 97 H Pulse Rate [ 97 H 110 H Right Radial] Respiratory 20 16 Rate Blood Pressure 154/105 Blood Pressure 154/105 155/101 [Right Arm] O2 Sat by Pulse 95 97 Oximetry - Labs CBC & Chem 7: 03/04/17 11:37 03/04/17 11:37
[2017-03-08] MEDS: APRESOLINE PO SCH (05:38)
[2017-03-08] MEDS: NEURONTIN PO SCH (06:21)
[2017-03-08] MEDS: ROXICODONE PO SCH (08:01)
[2017-03-08] MEDS: PERCOCET 5/325 PO SCH (08:02)
[2017-03-08] MEDS: ATIVAN PO SCH (08:02)
[2017-03-08] MEDS: KEPPRA PO SCH (08:03)
[2017-03-08 11:29] VITALS: BP 150/90
== END 2017-03-08 09:30 | disposition home or self-care (01) | DRG 74 ==
LOC: ED 12:09 → 3A 17:58
PROVIDERS: ADMIT Internal Medicine; ATTEND Internal Medicine
PROC: 06HN33Z Insertion of Infusion Device into Left Femoral Vein, Percutaneous Approach (ICD-10-PCS; principal; 2017-03-02)
DX: E11.43 Type 2 diabetes mellitus with diabetic autonomic (poly)neuropathy (principal); K31.84 Gastroparesis; G40.909 Epilepsy, unspecified, not intractable, without status epilepticus; I10 Essential (primary) hypertension; K21.9 Gastro-esophageal reflux disease without esophagitis; E86.0 Dehydration; E11.65 Type 2 diabetes mellitus with hyperglycemia; E87.6 Hypokalemia; F41.9 Anxiety disorder, unspecified; G89.4 Chronic pain syndrome; Z90.49 Acquired absence of other specified parts of digestive tract; Z88.8 Allergy status to other drugs, medicaments and biological substances
CPT/HCPCS: 36415; 80048; 80053; 81001; 82150; 82962; 83690; 85025; 85027; 87040; 87076; 87086; 87186; 93005; 93010; 96361; 96374; 96375; 96376; J0360; J1170; J1200; J2405; J3010; J7030; Q0162

== ENCOUNTER 2017-04-02 11:26 | Emergency (ER) | payer MEDICARE ==
[2017-04-02] MEDS ORDERED: NACL 0.9% 1000 ML 1,000 ML ONE (12:02)
[2017-04-02] MEDS ORDERED: ZOFRAN ONE (12:02)
[2017-04-02] MEDS ORDERED: NACL 0.9% 1000 ML 1,000 ML IV ONE ×2 (12:06)
[2017-04-02] MEDS ORDERED: ZOFRAN IV ONE ×2 (12:06)
[2017-04-02] MEDS ORDERED: SUBLIMAZE ONE (12:07)
[2017-04-02] MEDS ORDERED: SUBLIMAZE IV ONE ×2 (12:07→13:04)
[2017-04-02] MEDS ORDERED: VALIUM IV ONE (12:07)
[2017-04-02 13:07] LABS: Eosinophils % (Auto) 2.7 % (0.0-4.3); Hematocrit 37.2 % (30.3-42.9); Hemoglobin 11.8 gm/dl (10.1-14.3); Mean Corpuscular HGB Conc 32 % (30-34); Mean Corpuscular Volume 79 fl (79-97); Platelet Count 411 K/mm3 (140-440); Red Blood Count 4.72 M/mm3 (3.65-5.03); White Blood Count 9.7 K/mm3 (4.5-11.0)
[2017-04-02 13:12] LABS: Amylase 64 units/L (27-131); Anion Gap 23 mmol/L; BUN/Creatinine Ratio 13.33; Blood Urea Nitrogen 12 mg/dL (7-17); Calcium 8.3 mg/dL (8.4-10.2); Carbon Dioxide 18 mmol/L (22-30); Glucose 89 mg/dL (65-100); Potassium 4.1 mmol/L (3.6-5.0); Sodium 142 mmol/L (137-145)
[2017-04-02] MEDS ORDERED: NACL ONE (13:18)
[2017-04-02 13:25] LABS: Mean Corpuscular Hemoglobin 25 pg (28-32); Red Cell Distribution Width 20.1 % (13.2-15.2)
[2017-04-02 13:47] LABS: Bilirubin,Urine NEG (Negative); Blood,Urine NEG (Negative); Ketones,Urine TR mg/dL (Negative); Leukocyte Esterase,Urine TR (Negative); Nitrite,Urine NEG (Negative); Protein,Urine <15 mg/dL mg/dL (Negative); Urobilinogen,Urine < 2.0 mg/dL (<2.0)
--- NOTE | 2017-04-02 14:28 | Cat Scan Report ---
FINAL REPORT EXAM: CT ABDOMEN PELVIS W CON HISTORY: nausea, vomiting, retching, r/o bowel obstruction TECHNIQUE: CT of the abdomen and pelvis with IV contrast. Coronal and sagittal reconstructed imaging provided. PRIORS: CT abdomen pelvis November 30, 2016. FINDINGS: ABDOMEN: Moderate hiatal hernia. Otherwise stomach is unremarkable. Series 3:54 demonstrates a prominent proximal pancreatic duct measuring 3.7 mm. The remainder of the duct slowly tapers to a normal size. Pancreas appears intact with uniform enhancement. No distinct lesion noted. Mildly dilated intra and extrahepatic biliary duct could be related to prior cholecystectomy. No distinct ductal stone or lesion identified. Common bile duct measures 7.3 mm. Liver, spleen, and adrenals are unremarkable. Symmetrical enhancing kidneys. Mild left pelviectasis. No hydronephrosis. No abnormal enhancement. IVC is intact. Mild aortic atherosclerotic disease. No aneurysm. No dissection. No periaortic or retroperitoneal mass or adenopathy. Gdbv-[id number] stool is present in the colon. Moderate stool is present within the rectum. Sigmoid diverticulosis identified. Focal area of possible wall thickening in the ascending colon series 3:86 otherwise the remainder colon does not demonstrate any obvious wall thickening or inflammatory changes. No perforation. No abscess. Terminal ilium is unremarkable. Appendix is normal. Small bowel loops are unremarkable. No obstructive pattern. No free air or free fluid. PELVIS: Prior hysterectomy. Bladder is unremarkable. There is no pelvic mass or adenopathy. Inguinal regions are unremarkable. Bones: No suspicious osseous lesions on this limited examination of the skeleton. Metastatic disease better evaluated with bone scan. Degenerative changes are in the spine. [id number] anterior wedge-shaped compression fracture deformity at T9-T10 is stable compared to prior. Anterior subluxation is unchanged. Superior endplate mild compressions and intravertebral disc herniations at T11 and T12 are stable. Mild superior endplate compression fracture deformity at L5 is also unchanged. Mild edema or soft tissue induration in the posterior soft tissues in the midline behind the spinous process of the lumbar spine. Overall similar compared to prior. IMPRESSION: Moderate hiatal hernia. Nonspecific dilatation of the proximal pancreatic duct. Dilated intra and extrahepatic biliary ducts probably related to prior cholecystectomy. Possible mild wall thickening of the ascending colon. Findings could represent a mild colitis or a gastroenteritis or incomplete distended ascending colon. No large or small-bowel obstruction. No free air or free fluid. No pneumatosis. Possible fecal impaction within the rectum.
--- NOTE | 2017-04-02 14:41 | Emergency Department Report ---
HPI - General Chief Complaint: Chest Pain Time Seen by Provider: 04/02/17 12:05 - HPI HPI: The patient is a 61-year-old female with a history of diabetes and chronic gastroparesis, presents for evaluation of abdominal pain. The patient reports recurrence of abdominal pain yesterday evening, nearly 25 hours prior to my evaluation. She states that her pain has been constant since onset, 10/10 in severity, diffuse and generalized abdomen, cramping in quality, and is exacerbated with retching. She also reports associated nausea and bilious, nonbloody emesis.The patient denies fever, chills, night sweats, diarrhea, blood in the stool, dark tarry stool, dysuria, hematuria, flank pain, genital discharge, inability to pass flatus. ED Past Medical Hx - Past Medical History Previous Medical History?: Yes Hx Hypertension: Yes Hx CVA: No Hx Heart Attack/AMI: No Hx Congestive Heart Failure: No Hx Diabetes: No Hx Deep Vein Thrombosis: No (Unk) Hx Pulmonary Embolism: No Hx GERD: Yes Hx Liver Disease: No Hx Renal Disease: No Hx of Cancer: No Hx Sickle Cell Disease: No Hx Arthritis: Yes Hx Headaches / Migraines: No Hx Seizures: Yes Hx Kidney Stones: No Hx Psychiatric Treatment: Yes (anxiety) Hx Asthma: No Hx COPD: No Hx Tuberculosis: No Hx Dementia: No Hx HIV: No Additional medical history: Gastroparesis. bilat knee surgery - Surgical History Past Surgical History?: Yes Hx Coronary Stent: No Hx Open Heart Surgery: No Hx Pacemaker: No Hx Internal Defibrillator: No Hx Cholecystectomy: Yes (2010) Hx Appendectomy: No Hx Breast Surgery: No Additional Surgical History: J tube- removed , Knee surg bilat, hysterectomy - Social History Smoking Status: Never Smoker Substance Use Type: None - Medications Home Medications: Home Medications Medication Instructions Recorded Confirmed Last Taken Type Gabapentin [Neurontin] 300 mg PO Q8H #90 capsule 01/07/17 03/02/17 02/28/17 Rx Pantoprazole [Protonix TAB] 40 mg PO QDAY #14 tablet 01/07/17 03/02/17 02/28/17 Rx Tizanidine HCl [Zanaflex] 4 mg PO TID PRN #30 tablet 01/07/17 03/02/17 02/28/17 Rx hydrALAZINE [Apresoline TAB] 25 mg PO Q8HR #90 tablet 01/07/17 03/02/17 Rx levETIRAcetam [Keppra TAB] 500 mg PO TID 03/02/17 03/02/17 02/28/17 History ALPRAZolam [Xanax TAB] 1 tab PO TID #14 tablet 03/04/17 Unknown Rx Dicyclomine [Bentyl] 10 mg PO QID #120 oral.liqd 03/04/17 Unknown Rx Ondansetron [Zofran TAB] 4 mg PO Q8HR PRN #60 tablet 03/04/17 Unknown Rx cloNIDine [Catapres] 0.1 mg PO BID #60 tablet 03/04/17 Unknown Rx Cyclobenzaprine HCl [Flexeril 5 MG 5 mg PO Q8HR PRN #15 tab 04/02/17 Unknown Rx TAB] Ondansetron [Zofran TAB] 4 mg PO Q8HR PRN #15 tablet 04/02/17 Unknown Rx ED Review of Systems ROS: Stated complaint: CHEST PAIN Other details as noted in HPI Constitutional: denies: fever ENT: denies: throat or neck pain Respiratory: denies: cough, shortness of breath Cardiovascular: denies: chest pain Endocrine: denies unexplained weight loss or gain Gastrointestinal: reports abdominal pain, nausea Genitourinary: denies: dysuria Musculoskeletal: denies: leg swelling Skin: denies: rash Neurological: denies: headache Hematological/Lymphatic: denies: easy bleeding or easy bruising Psych: denies sadness or hopelessness Physical Exam - Physical Exam Vital Signs: Vital Signs 04/02/17 04/02/17 04/02/17 11:49 11:57 12:15 Temperature 98.1 F Pulse Rate 120 H Respiratory 18 20 20 Rate Blood Pressure 142/86 Blood Pressure 136/86 [Right] O2 Sat by Pulse 100 100 Oximetry 04/02/17 04/02/17 04/02/17 12:51 13:06 13:53 Temperature 98.6 F Pulse Rate 86 125 H Respiratory 18 20 18 Rate Blood Pressure 138/85 Blood Pressure 134/82 [Right] O2 Sat by Pulse 100 100 Oximetry Physical Exam: General: well-nourished, well-developed, no acute distress Head: Normocephalic, atraumatic Eyes: normal sclera ENT: Mucous membranes are pale and dry Neck: No neck stiffness, no cervical adenopathy Respiratory: Breath sounds equal bilaterally, no wheezing, rales, or rhonchi Cardio: S1 and S2 present, no murmurs, rubs, gallops, capillary refill is delayed Abdomen: Normoactive bowel sounds, soft abdomen, diffuse tenderness to palpation present, no rigidity, no guarding, no rebound tenderness Musc: No pitting edema Skin: No rash Neuro: no facial drooping, normal speech Psych: Normal affect ED Course Vital Signs 04/02/17 04/02/17 04/02/17 11:49 11:57 12:15 Temperature 98.1 F Pulse Rate 120 H Respiratory 18 20 20 Rate Blood Pressure 142/86 Blood Pressure 136/86 [Right] O2 Sat by Pulse 100 100 Oximetry 04/02/17 04/02/17 04/02/17 12:51 13:06 13:53 Temperature 98.6 F Pulse Rate 86 125 H Respiratory 18 20 18 Rate Blood Pressure 138/85 Blood Pressure 134/82 [Right] O2 Sat by Pulse 100 100 Oximetry ED Medical Decision Making - Lab Data Result diagrams: 04/02/17 12:24 04/02/17 12:24 - Medical Decision Making The patient was seen and examined by myself. The patient is placed on a quality assurance monitor and continuous pulse ox. On initial evaluation, the patient was found to be in no distress. Evaluation orders are placed. IV access is established and the patient is given 1 L normal saline fluid bolus and Zofran for nausea, and IV fentanyl for pain. Lab results were non-concerning including normal WBC, hemoglobin, hematocrit, electrolytes, renal function, lipase. CT scan the abdomen with IV contrast is negative for small bowel or large bowel obstruction, abscess, pneumatosis, free fluid, free air, or appendicitis. The patient was reevaluated and reported that her pain persisted. She is given a second dose of IV fentanyl for her pain. The patient was subsequently reevaluated and reported that her pain is Dilaudid, stating that only Dilaudid works for treatment of her pain. She was informed that her evaluation today was essentially unremarkable and that findings did not warrant administration of Dilaudid. The patient is stable for discharge with outpatient follow-up. The patient is given follow-up and return instructions. The patient is discharged in stable condition. Critical care attestation.: If time is entered above; I have spent that time in minutes in the direct care of this critically ill patient, excluding procedure time. ED Disposition Clinical Impression: Gastroparesis, Dehydration, Acute generalized abdominal pain, Intractable generalized abdominal pain Disposition: DISCHARGED TO HOME OR SELFCARE Is pt being admited?: No Does the pt Need Aspirin: No Condition: Stable Instructions: Acute Nausea and Vomiting (ED), Acute Abdominal Pain (ED) Additional Instructions: Do not take more than the prescribed dose of flexeril/pain medicine, or combine or take the pain medicine prescribed to you today with other pain medicine, sleeping medicine or other sedatives, or with alcohol, as doing so may cause central nervous system sedation and respiratory depression, and potentially cause you to stop breathing and . Additionally, do not drive a vehicle, operate heavy machinery, or engage in any activity that would cause harm to yourself or others after taking the pain medicine prescribed to you. Prescriptions: Cyclobenzaprine HCl [Flexeril 5 MG TAB] 5 mg PO Q8HR PRN #15 tab PRN Reason: Pain Ondansetron [Zofran TAB] 4 mg PO Q8HR PRN #15 tablet PRN Reason: Nausea Referrals: PRIMARY CARE, [Primary Care Provider] - 3-5 Days Time of Disposition: 14:39
[2017-04-02] MEDS ORDERED: ZOFRAN IM ONE (15:23)
[2017-04-02] MEDS ORDERED: VALIUM IM ONE (15:23)
[2017-04-02] MEDS ORDERED: VALIUM ONE (15:25)
[2017-04-02 15:52] VITALS: BP 180/95
== END 2017-04-02 15:52 | disposition home or self-care (01) ==
LOC: ED 11:26
DX: K31.84 Gastroparesis (principal); E86.0 Dehydration; I10 Essential (primary) hypertension; K21.9 Gastro-esophageal reflux disease without esophagitis; M19.90 Unspecified osteoarthritis, unspecified site; R56.9 Unspecified convulsions; F41.9 Anxiety disorder, unspecified; Z90.49 Acquired absence of other specified parts of digestive tract; Z90.710 Acquired absence of both cervix and uterus
CPT/HCPCS: 36415; 74177; 80048; 81001; 82150; 83690; 85025; 93005; 93010; 96361; 96372; 96374; 96375; 96376; 99285; J2405; J3010; J3360; J7030; Q9967

== ENCOUNTER 2017-07-06 09:48 | Inpatient (IN) | payer MEDICARE ==
[2017-07-06 10:47] LABS: Basophils % (Auto) 1.4 % (0.0-1.8); Eosinophils % (Auto) 0.1 % (0.0-4.3); Hematocrit 43.3 % (30.3-42.9); Hemoglobin 13.3 gm/dl (10.1-14.3); Mean Corpuscular HGB Conc 31 % (30-34); Mean Corpuscular Hemoglobin 25 pg (28-32); Mean Corpuscular Volume 81 fl (79-97); Platelet Count 589 K/mm3 (140-440); Red Blood Count 5.34 M/mm3 (3.65-5.03); Red Cell Distribution Width 18.1 % (13.2-15.2); White Blood Count 18.9 K/mm3 (4.5-11.0)
[2017-07-06 11:07] LABS: Alanine Aminotransferase 8 units/L (7-56); Albumin 4.6 g/dL (3.9-5); Albumin/Globulin Ratio 1.2 %; Alkaline Phosphatase 186 units/L (35-129); Anion Gap 26 mmol/L; BUN/Creatinine Ratio 16.25; Blood Urea Nitrogen 13 mg/dL (7-17); Calcium 9.5 mg/dL (8.4-10.2); Carbon Dioxide 24 mmol/L (22-30); Chloride 100.5 mmol/L (98-107); Glucose 140 mg/dL (65-100); Lipase 21 units/L (13-60); Potassium 3.2 mmol/L (3.6-5.0); Sodium 147 mmol/L (137-145); Total Protein 8.3 g/dL (6.3-8.2)
[2017-07-06] MEDS ORDERED: ZOFRAN ODT PO ONE (11:28)
--- NOTE | 2017-07-06 12:01 | XRay Report ---
AP CHEST: HISTORY: Hypertension AP view of the chest demonstrates a normal mediastinal and cardiac contour with clear lungs and normal bony and soft tissue structures. IMPRESSION: Unremarkable AP chest.
[2017-07-06 12:24] LABS: INR 0.9 (0.87-1.13)
[2017-07-06 12:25] LABS: Partial Thromboplastin Time 22.1 Sec. (24.2-36.6)
[2017-07-06] MEDS ORDERED: XYLOCAINE 1% 20 mL ONE (12:28)
[2017-07-06 13:00] LABS: Creatine Kinase MB 3.1 ng/mL (0.0-4.0)
[2017-07-06 13:01] LABS: Creatine Kinase 231 units/L (30-135); Lipase 20 units/L (13-60)
[2017-07-06] MEDS ORDERED: NORMODYNE IV ONE ×2 (13:31→19:26)
[2017-07-06] MEDS ORDERED: DILAUDID IM ONE ×2 (14:08→16:42)
--- NOTE | 2017-07-06 14:08 | Emergency Department Report ---
ED General Adult HPI - General Chief complaint: Abdominal Pain Stated complaint: ABD PAIN/N/V Time Seen by Provider: 07/06/17 11:19 Source: patient Mode of arrival: Wheelchair Limitations: No Limitations - History of Present Illness Initial comments: Patient has long history of diabetic gastroparesis. He's had recurrent upper abdominal pain consistent with the pain she usually experiences. She has not been able to take her medicines for hypertension. She complains of nausea vomiting and some diarrhea. She denies fever or chills. She denies chest pain. Patient has been to this facility many times in the past. She's had multiple infected ports and probably dozens of central lines. Her last admission I was able to place a left femoral vein line. She has no peripheral access. I spoke to the IV team. They also stated that they have tried multiple times in the past and have been unsuccessful with placement of PICC lines. -: Gradual, days(s) Location: abdomen Radiation: non-radiation Quality: aching Consistency: constant Improves with: none Worsens with: none - Related Data Home Medications Medication Instructions Recorded Confirmed Last Taken levETIRAcetam [Keppra TAB] 500 mg PO TID 03/02/17 05/03/17 05/03/17 Previous Rx's Medication Instructions Recorded Last Taken Type Gabapentin [Neurontin] 300 mg PO Q8H #90 capsule 01/07/17 05/03/17 Rx Pantoprazole [Protonix TAB] 40 mg PO QDAY #14 tablet 01/07/17 05/03/17 Rx Tizanidine HCl [Zanaflex] 4 mg PO TID PRN #30 tablet 01/07/17 05/03/17 Rx hydrALAZINE [Apresoline TAB] 25 mg PO Q8HR #90 tablet 01/07/17 05/03/17 Rx Dicyclomine [Bentyl] 10 mg PO QID #120 oral.liqd 03/04/17 1 Day Ago Rx cloNIDine [Catapres] 0.1 mg PO BID #60 tablet 03/04/17 05/03/17 Rx Cyclobenzaprine HCl [Flexeril 5 MG 5 mg PO Q8HR PRN #15 tab 05/03/17 Unknown Rx TAB] Ondansetron [Zofran Odt] 4 mg PO Q6H PRN #30 tab.rapdis 05/03/17 Unknown Rx Polyethylene Glycol 3350 [Miralax 17 gm PO QDAY #30 powd.pack 05/03/17 Unknown Rx 3350] Sennosides/Docusate [Senokot S] 1 tab PO QHS #30 tablet 05/03/17 Unknown Rx traMADol [Ultram 50 MG tab] 50 mg PO Q6H PRN #20 tablet 05/03/17 Unknown Rx Allergies Allergy/AdvReac Type Severity Reaction Status Date / Time codeine Allergy Itching Verified 03/02/17 12:33 metoclopramide HCl Allergy Unknown Verified 03/02/17 12:33 [From Reglan] morphine Allergy Hives Verified 03/02/17 12:33 ED Review of Systems ROS: Stated complaint: ABD PAIN/N/V Other details as noted in HPI Constitutional: malaise. denies: chills, fever Eyes: denies: eye pain, eye discharge, vision change ENT: denies: ear pain, throat pain Respiratory: shortness of breath Cardiovascular: denies: chest pain, palpitations Endocrine: no symptoms reported Gastrointestinal: abdominal pain, nausea, vomiting Musculoskeletal: denies: back pain, joint swelling Skin: denies: rash, lesions Neurological: denies: headache, weakness Psychiatric: denies: anxiety, depression Hematological/Lymphatic: denies: easy bleeding, easy bruising ED Past Medical Hx - Past Medical History Hx Hypertension: Yes Hx CVA: No Hx Heart Attack/AMI: No Hx Congestive Heart Failure: No Hx Diabetes: No Hx Deep Vein Thrombosis: (Unk) Hx Pulmonary Embolism: No Hx GERD: Yes Hx Liver Disease: No Hx Renal Disease: No Hx Sickle Cell Disease: No Hx Arthritis: Yes Hx Headaches / Migraines: Yes Hx Seizures: Yes Hx Kidney Stones: No Hx Psychiatric Treatment: Yes (anxiety) Hx Asthma: No Hx COPD: No Hx Tuberculosis: No Hx Dementia: No Hx HIV: No Additional medical history: Gastroparesis. bilat knee surgery - Surgical History Hx Coronary Stent: No Hx Open Heart Surgery: No Hx Pacemaker: No Hx Internal Defibrillator: No Hx Cholecystectomy: Yes (2010) Hx Appendectomy: No Hx Breast Surgery: No Additional Surgical History: J tube- removed , Knee surg bilat - Social History Smoking Status: Never Smoker Substance Use Type: None - Medications Home Medications: Home Medications Medication Instructions Recorded Confirmed Last Taken Type Gabapentin [Neurontin] 300 mg PO Q8H #90 capsule 01/07/17 05/03/17 05/03/17 Rx Pantoprazole [Protonix TAB] 40 mg PO QDAY #14 tablet 01/07/17 05/03/17 05/03/17 Rx Tizanidine HCl [Zanaflex] 4 mg PO TID PRN #30 tablet 01/07/17 05/03/17 05/03/17 Rx hydrALAZINE [Apresoline TAB] 25 mg PO Q8HR #90 tablet 01/07/17 05/03/17 Rx levETIRAcetam [Keppra TAB] 500 mg PO TID 03/02/17 05/03/17 05/03/17 History Dicyclomine [Bentyl] 10 mg PO QID #120 oral.liqd 03/04/17 05/03/17 1 Day Ago Rx cloNIDine [Catapres] 0.1 mg PO BID #60 tablet 03/04/17 05/03/17 05/03/17 Rx Cyclobenzaprine HCl [Flexeril 5 MG 5 mg PO Q8HR PRN #15 tab 05/03/17 Unknown Rx TAB] Ondansetron [Zofran Odt] 4 mg PO Q6H PRN #30 tab.rapdis 05/03/17 Unknown Rx Polyethylene Glycol 3350 [Miralax 17 gm PO QDAY #30 powd.pack 05/03/17 Unknown Rx 3350] Sennosides/Docusate [Senokot S] 1 tab PO QHS #30 tablet 05/03/17 Unknown Rx traMADol [Ultram 50 MG tab] 50 mg PO Q6H PRN #20 tablet 05/03/17 Unknown Rx ED Physical Exam - General Limitations: No Limitations General appearance: other (volume depletion) - Head Head exam: Present: atraumatic, normocephalic - Eye Eye exam: Present: normal appearance - ENT ENT exam: Present: mucous membranes moist - Neck Neck exam: Present: normal inspection, other (multiple previous puncture sites from central lines). Absent: tenderness, meningismus - Respiratory Respiratory exam: Present: normal lung sounds bilaterally, other (multiple previous scars from port removal was). Absent: respiratory distress - Cardiovascular Cardiovascular Exam: Present: regular rate, tachycardia. Absent: systolic murmur, diastolic murmur, rubs, gallop - GI/Abdominal GI/Abdominal exam: Present: soft, normal bowel sounds. Absent: distended, tenderness, guarding, rebound, rigid - Extremities Exam Extremities exam: Present: normal inspection - Back Exam Back exam: Present: normal inspection - Neurological Exam Neurological exam: Present: alert, oriented X3, CN II-XII intact. Absent: motor sensory deficit - Psychiatric Psychiatric exam: Present: anxious, flat affect - Skin Skin exam: Present: warm, dry, intact, normal color. Absent: rash ED Course Vital Signs 07/06/17 07/06/17 07/06/17 10:05 11:15 11:30 Temperature 99.8 F H Pulse Rate 138 H 138 H Respiratory 18 11 L Rate Blood Pressure 181/131 217/123 218/127 O2 Sat by Pulse 97 96 Oximetry 07/06/17 13:49 Temperature Pulse Rate 83 Respiratory 16 Rate Blood Pressure 126/78 O2 Sat by Pulse 95 Oximetry - Reevaluation(s) Reevaluation #1: I did attempt a central line in the left femoral region. The left femoral appears to be very medial. I was not able to access the vessel. A consideration of the patient's tremendous difficulty for vascular access, I consulted vascular surgery for line placement. Vascular surgeon was kind enough to take the patient to the syrup machine laborer for a line placement which may be a PICC or central as per their determination. The patient will be treated with by mouth medicines and intramuscular injection for her gastroparesis and hypertension this point. After she has a line placed in the Lab she will return to the emergency department for further stabilization. She will be admitted to the hospitalist service by Dr. Kaiser. 07/06/17 14:25 ED Medical Decision Making - Lab Data Result diagrams: 07/06/17 10:17 07/06/17 10:17 - EKG Data -: EKG Interpreted by Me EKG shows normal: sinus rhythm Rate: tachycardia - EKG Data Interpretation: other (old inferior zone, right atrial enlargement, no acute ischemic changes) - Radiology Data interpreted by me: Chest x-ray shows no acute process. The cardiac silhouette is remarkably normal Critical Care Time: Yes Critical care time in (mins) excluding proc time.: 45 Critical care attestation.: If time is entered above; I have spent that time in minutes in the direct care of this critically ill patient, excluding procedure time. ED Disposition Clinical Impression: Accelerated hypertension, Diabetic gastroparesis, Volume depletion Disposition: OP ADMIT IP TO THIS HOSP Is pt being admited?: Yes Does the pt Need Aspirin: No Condition: Stable Instructions: Abdominal Pain (ED), Hypertension (ED), Diabetes Mellitus Type 2 in Adults (ED) Referrals: PRIMARY CARE, [Primary Care Provider] - 3-5 Days
[2017-07-06] MEDS ORDERED: CATAPRES PO ONE (14:13)
[2017-07-06] MEDS ORDERED: BENADRYL IM ONE (14:14)
--- NOTE | 2017-07-06 14:20 | History and Physical Report ---
History of Present Illness Chief complaint: My stomach hurts, and sinan been throwing up. History of present illness: 61 YO Female with HTN, GERD, OA, Seizure, Anxiety, Gastroparesis, Narcotic Abuse presents to ED for evaluation. PT states that she has been experiencing abdominal pain for the past 7 days with worsening symptoms over the past 2 days. Pt states that her pain is 9/10, diffuse, nonradiating, constant, and is associated with multiple episodes of nausea and vomiting. Pt has not had a bowel movement in 3 days. Pt seen and evaluated in ED and found to be in distress and unable to tolerate anything orally, and with intractible nausea and vomiting. Pt denies fever, chills, CP, Palpitations, recent ill contacts, syncope, skin rashes, or productive cough. Past History Past Medical History: arthritis, GERD, hypertension, seizures, other ( gastroparesis) Past Surgical History: cholecystectomy, total knee replacement, Other (J tube) Social history: , prescription drug abuse. denies: smoking, alcohol abuse Family history: hypertension Medications and Allergies Allergies Allergy/AdvReac Type Severity Reaction Status Date / Time codeine Allergy Itching Verified 03/02/17 12:33 metoclopramide HCl Allergy Unknown Verified 03/02/17 12:33 [From Reglan] morphine Allergy Hives Verified 03/02/17 12:33 Home Medications Medication Instructions Recorded Confirmed Last Taken Type Gabapentin [Neurontin] 300 mg PO Q8H #90 capsule 01/07/17 05/03/17 05/03/17 Rx Pantoprazole [Protonix TAB] 40 mg PO QDAY #14 tablet 01/07/17 05/03/17 05/03/17 Rx Tizanidine HCl [Zanaflex] 4 mg PO TID PRN #30 tablet 01/07/17 05/03/17 05/03/17 Rx hydrALAZINE [Apresoline TAB] 25 mg PO Q8HR #90 tablet 01/07/17 05/03/17 Rx levETIRAcetam [Keppra TAB] 500 mg PO TID 03/02/17 05/03/17 05/03/17 History Dicyclomine [Bentyl] 10 mg PO QID #120 oral.liqd 03/04/17 05/03/17 1 Day Ago Rx cloNIDine [Catapres] 0.1 mg PO BID #60 tablet 03/04/17 05/03/17 05/03/17 Rx Cyclobenzaprine HCl [Flexeril 5 MG 5 mg PO Q8HR PRN #15 tab 05/03/17 Unknown Rx TAB] Ondansetron [Zofran Odt] 4 mg PO Q6H PRN #30 tab.rapdis 05/03/17 Unknown Rx Polyethylene Glycol 3350 [Miralax 17 gm PO QDAY #30 powd.pack 05/03/17 Unknown Rx 3350] Sennosides/Docusate [Senokot S] 1 tab PO QHS #30 tablet 05/03/17 Unknown Rx traMADol [Ultram 50 MG tab] 50 mg PO Q6H PRN #20 tablet 05/03/17 Unknown Rx Review of Systems Constitutional: no weight loss, no weight gain, no fever, no chills Ears, nose, mouth and throat: no ear pain, no ear discharge, no tinnitis, no decreased hearing Breasts: no swelling, no mass Cardiovascular: no chest pain, no orthopnea, no palpitations, no rapid/ irregular heart beat Respiratory: no cough, no cough with sputum, no excessive sputum, no hemoptysis , no shortness of breath Gastrointestinal: abdominal pain, nausea, vomiting, no diarrhea, no constipation , no change in bowel habits, no hematemesis, no coffee ground emesis, no BRBPR Genitourinary Female: no pelvic pain, no flank pain, no menorrhagia, no dysuria Rectal: no pain, no incontinence, no bleeding Musculoskeletal: no neck stiffness, no neck pain, no shooting arm pain, no arm numbness/tingling Integumentary: no rash, no pruritis, no redness, no sores, no wounds Neurological: no paralysis, no weakness, no parathesias, no seizures Psychiatric: no memory loss, no change in sleep habits, no sleep disturbances, no insomnia, no hypersomnia Endocrine: no cold intolerance, no heat intolerance, no polyphagia, no excessive thirst, no polydipsia, no polyuria, no nocturia Hematologic/Lymphatic: no easy bruising, no easy bleeding Allergic/Immunologic: no urticaria, no allergic rhinitis, no wheezing Exam - Constitutional Vitals: Temp Pulse Resp BP Pulse Ox 99.8 F H 83 16 126/78 95 08/31/17 10:05 07/06/17 13:49 07/06/17 13:49 07/06/17 13:49 07/06/17 13:49 General appearance: Present: mild distress - EENT Eyes: Present: PERRL ENT: hearing intact, clear oral mucosa - Neck Neck: Present: supple, normal ROM - Respiratory Respiratory effort: normal Respiratory: bilateral: CTA - Cardiovascular Heart Sounds: Present: S1 & S2. Absent: rub, click - Extremities Extremities: pulses symmetrical, No edema Peripheral Pulses: within normal limits - Abdominal General gastrointestinal: Present: soft, tender, non-distended, normal bowel sounds Localized gastrointestinal: tender: diffuse Female genitourinary: Present: normal - Integumentary Integumentary: Present: clear, warm, dry - Musculoskeletal Musculoskeletal: gait normal, strength equal bilaterally - Psychiatric Psychiatric: appropriate mood/affect, intact judgment & insight - Neurologic Neurologic: CNII-XII intact, moves all extremities Results - Labs CBC & Chem 7: 07/06/17 10:17 07/06/17 10:17 Labs: Abnormal lab results 07/06/17 07/06/17 07/06/17 Range/Units 10:17 10:17 11:22 WBC 18.9 H (4.5-11.0) K/mm3 RBC 5.34 H (3.65-5.03) M/mm3 Hct 43.3 H (30.3-42.9) % MCH 25 L (28-32) pg RDW 18.1 H (13.2-15.2) % Plt Count 589 H (140-440) K/mm3 Lymph % (Auto) 5.8 L (13.4-35.0) % Lymph # 1.1 L (1.2-5.4) K/mm3 [place] # 0.9 H (0.0-0.8) K/mm3 Baso # 0.3 H (0.0-0.1) K/mm3 Seg Neutrophils % 88.0 H (40.0-70.0) % Seg Neutrophils # 16.6 H (1.8-7.7) K/mm3 APTT (24.2-36.6) Sec. Sodium 147 H (137-145) mmol/L Potassium 3.2 L (3.6-5.0) mmol/L Glucose 140 H (65-100) mg/dL Alkaline Phosphatase 186 H (35-129) units/L Total Creatine Kinase 231 H (30-135) units/L Total Protein 8.3 H (6.3-8.2) g/dL 07/06/ Range/Units 11:51 WBC (4.5-11.0) K/mm3 RBC (3.65-5.03) M/mm3 Hct (30.3-42.9) % MCH (28-32) pg RDW (13.2-15.2) % Plt Count (140-440) K/mm3 Lymph % (Auto) (13.4-35.0) % Lymph # (1.2-5.4) K/mm3 [place] # (0.0-0.8) K/mm3 Baso # (0.0-0.1) K/mm3 Seg Neutrophils % (40.0-70.0) % Seg Neutrophils # (1.8-7.7) K/mm3 APTT 22.1 L (24.2-36.6) Sec. Sodium (137-145) mmol/L Potassium (3.6-5.0) mmol/L Glucose (65-100) mg/dL Alkaline Phosphatase (35-129) units/L Total Creatine Kinase (30-135) units/L Total Protein (6.3-8.2) g/dL Assessment and Plan - Patient Problems (1) Sepsis Current Visit: Yes Status: Acute Qualifiers: Sepsis type: S Plan to address problem: IV abx, supportive care, serial lactic acid levels, monitor uop q shift, blood cultures (2) Accelerated hypertension Current Visit: Yes Status: Acute Plan to address problem: monitor bp q shift, resume home medication, (3) Gastroparesis Current Visit: No Status: Chronic Plan to address problem: bowel rest, supportive care, 6-8 small meals daily (4) Seizure disorder Current Visit: No Status: Chronic Plan to address problem: controlled, continue current therapy, (5) DVT prophylaxis Current Visit: No Status: Acute
--- NOTE | 2017-07-06 14:53 | Admit Criteria Form ---
Admission Criteria Documentation: GASTROENTEROLOGY GRG Clinical Indications for Admission to Inpatient Care ([place]/ check or initial the applicable condition/criteria) Hospital admission is needed for appropriate care of the patient because of ANY ONE of the following: [ ]I. Suspected acute intra-abdominal process indicated by 1 or more of the following(1)(2)(3)(4)(5): [ ]a) Hemodynamic instability [ ]b) Peritoneal signs present (eg, abdominal rigidity, rebound tenderness, absent bowel sounds) [ ]c) Bowel obstruction suspected (eg, persistent vomiting, abdominal distention)(6)(7)(8) [ ]d) Suspected mesenteric ischemia or ischemic colitis(9)(10)(11) [ ]e) Other signs or symptoms of acute abdominal disease (eg, severe pain, free air)(12) [ ]II. Hemoperitoneum(13)(14) [ ]III. Ascites requiring acute treatment indicated by 1 or more of the following (15)(16)(17)(18) [ ]a) Hemodynamic instability [ ]b) Peritoneal signs present (e.g., abdominal rigidity, rebound tenderness , absent bowel sounds) [ ]c) Tachypnea, Hypoxemia,or other respiratory symptoms remain after emergency or observation level care (as appropriate) [ ]d) Suspected infected ascites as indicated by 1 or more of the following( 19)(20) [ ]i) Fever [ ]ii) Vital sign abnormality [ ]iii) Abdominal pain or tenderness not relieved by paracentesis [ ]iv) Systemic signs of infection (e.g., elevated WBC count, fever) [ ]v) Ascitic fluid analysis consistent with infection ( e.g., elevated WBC count) [ ]IV. Severe liver disease indicated by 1 or more of the following (15)(16)(21) (22)(23)(24)(25)(26)(27)(28) [ ]a) Acute hepatitis (e.g., transaminaselevel greater than 1000 IU/L) [ ]b) Acute elevation of prothrombintime to more than 50% above normal or INR greater than 1.5 [ ]c) Bilirubin greater than 20 mg/dL (342 micromoles/L) [ ]d) New-onset or worseninghepatic encephalopathy [ ]e) Acute elevation of serum ammonia level (eg, greater than 210 mcg/dL ( 150 micromoles/L)) [ ]f) Acute liver necrosis [ ]g) Vomiting that is severe of persistent [ ]h) Hemodynamic instability due to liver disease [ ]i) Acute renal failure [ ]j) Hepatic abscess [ ]k) Hepatic hydrothorax(29) [ ]l) Other indications of severe liver disease (e.g., persistent fever, ingestion of hepatotoxin)(30) [ ]V. Dehydration that is severe or persistent [ ]. Severe diarrhea indicated by 1 or more of the following (31)(32)(33)(34)( 35) : [ ]a) High fever or other high-risk infection situation [ ]b) Intractable bloody diarrhea (e.g., more than 6 bloody stools per day ) [ ]c) Suspected etiology (Clostridiumdifficile-associated diarrhea) that requires isolation or care not feasible in outpatient setting (36) [ ]d) Altered mental status that is severe or persistent [ ]e) Dehydration that is severe or persistent [ ]g) Peritoneal signs present (e.g., abdominal rigidity, rebound tenderness, absent bowel sounds) [ ]h) Abdominal ischemia suspected (9)(10)(11) [ ]i) Hemodynamic instability [ ]j) Severe electrolyte abnormalities requiring inpatient care [ ]k) Acute renal failure [ ]VII. Suspected toxic isa colon(4)(9) [ ]VIII. Severe dysphagia indicated by 1 or more of the following(37)(38) [ ]a) Suspected esophageal perforation or fistula(39) [ ]b) Suspected cause that requires inpatient care (e.g., caustic ingestion, severe esophagitis) (40)(41) [ ]c) Dehydration that is severe or persistent [ ]d) Inability to manage secretions or maintain hydration [ ]e) Hemodynamic instability [ ]f) Severe electrolyte abnormalities requiring inpatient care [ ]g) Acute renal failure [ ]IX. Vomiting and 1 or more of the following (42)(43)(44)(45)(46) [ ]a) High fever or other high-risk infection situation [ ]b) Altered mental status that is severe or persistent [ ]c) Dehydration that is severe or persistent [ ]d) Peritoneal signs present (e.g., abdominal rigidity, rebound tenderness, absent bowel sounds) [ ]e) Hemodynamic instability [ ] f) Severe electrolyte abnormalities requiring inpatient care [ ] g) Acute renal failure [ ]h) Bowel obstruction suspected (e.g., severe vomiting, abdominal distension) [ ]i) Vomiting that is severe or persistent [X]X. Gastroparesis and 1 or more of the following(46)(47)(48)(49): [X ]a) Dehydration that is severe or persistent [ ]b) Severe electrolyte abnormalities requiring inpatient care [ ]c) Acute renal failure [ ]d) Vomiting that is severe or persistent [ ]XI Obstipation and 1 or more of the following(50)(51)(52)(53) [ ]a) Complication of fecal impaction (eg, stercoral ulceration, perforation , venous compression, obstructive uropathy) [ ]b) Fecal disimpaction by digital fragmentation or mechanical disimpaction unsuccessful [ ]XII Complication of gastrostomy or jejunostomy feeding tube(54)(55)(56) [ ]a) Luminal perforation [ ]b) Gastrocolonic fistula [ ]c) Cellulitis of surrounding area with failure of outpatient treatment [ ]d) Necrotizing fasciitis [ ]e) Peritonitis [ ]f) Gastric herniation or prolapse [ ]g) Ischemic necrosis of gastric wall ("buried bumper") [ ]h) Other complication of gastrostomy or jejunostomy unable to be resolved at lower level of care [ ]XII. Complications of transplanted liver indicated by 1 or more of the following(57)(58)(59): [ ]a) Acute graft rejection requiring inpatient management (eg, intravenous immuno suppression)(60)(61) [ ]b) Failure of transplanted liver as indicated by 1 or more of the following: [ ]i. Acute hepatitis (eg, transaminase level greater than 1000 International Units per liter (IU/L)) [ ]ii. Acute elevation of prothrombin time to more than 50% above baseline or INR greater than 1.5 [ ]iii. Bilirubin greater than 20 mg/dL (342 micromoles/L) [ ]iv. New-onset or worsening hepatic encephalopathy [ ]v. Acute elevation of serum ammonia level (eg, greater than 210 mcg/dL (150 micromoles/L)) [ ]vi. Acute liver necrosis [ ]c) Infection requiring inpatient management (eg, Hemodynamic instability, need for intravenous antimicrobial treatment) (62)(63)(64)(65)(66) [ ]d) Other complication of transplanted liver (eg, thrombosis, autoimmune hepatitis, variceal bleeding) requiring inpatient management (67)(68)(69) [ ]XII. Complications of transplanted pancreas indicated by 1 or more of the following (70) [ ]a) Acute graft rejection requiring inpatient management (eg, intravenous immunosuppression)(60)(71) [ ]b) Failure of transplanted pancreas as indicated by 1 or more of the following: [ ]i. Serum amylase greater than 3 times the upper limit of normal or baseline [ ]ii. Serum lipase greater than 3 times the upper limit of normal or baseline [ ]iii. Imaging findings consistent with pancreatic inflammation or necrosis [ ]c) Infection requiring inpatient management (eg, Hemodynamic instability, need for intravenous antimicrobial treatment) (64)(65)(66) [ ]d) Other complication of transplanted pancreas (eg, graft thrombosis, pancreatic duct stricture, anastomotic leak) requiring inpatient management (72 ) [ ]XIII. Gastroenterology condition,Symptom or finding for which emergency and observation care have failed or are not considered appropriate. See General criteria: Observation care, General Admission criteria or Pediatric General Admission criteria guideline as appropriate. The original [facility] content created by [employer] has been revised. The portions of the content which have been revised are identified through the use of italic text or in bold,and [facility] has neither reviewed nor approved the modified material. All other unmodified content is copyright [facility]. Please see references footnoted in the original [facility] edition 2017 Admission Criteria Met: Yes
[2017-07-06] MEDS ORDERED: HEPARIN/NS 5000 UNIT/500ML(CATH LAB) 1,000 ML IR ONE (17:25)
[2017-07-06] MEDS ORDERED: SUBLIMAZE ONE (17:26)
[2017-07-06] MEDS ORDERED: VERSED ONE (17:26)
[2017-07-06] MEDS ORDERED: XYLOCAINE 2% INFILTRATI ONE ×2 (17:26→18:37)
[2017-07-06] MEDS ORDERED: ANCEF/STERILE WATER 2 GM/20 ML 0 GM/0 ML SYRINGE IV ONE (17:27)
[2017-07-06] MEDS ORDERED: HEPARIN/NS 5000 UNIT/500ML(CATH LAB) 500 ML IR ONE (18:37)
[2017-07-06] MEDS ORDERED: DILAUDID IV ONE (20:02)
[2017-07-06] MEDS ORDERED: ZOFRAN IV ONE (20:16)
--- NOTE | 2017-07-06 20:56 | Operative Report ---
Operative Report Operative Report: Procedure: 1. Placement of a triple-lumen central venous catheter via a left neck collateral vein. 2. Attempted left upper extremity PICC line placement. 3. Central venography. 4. Right and left external and common iliac venography. Date: 07/06/2017 Physician: Radha Perera MD Second Physician: Rosio Best MD Indication: This is a 61-year-old female with multiple comorbidities including gastroparesis and malnutrition. She presented to the ER today. An attempt was made by the ER attending to place central venous access, but this was unsuccessful. Technique: The patient was prepped and draped in the usual sterile fashion. Sonographic evaluation of the left upper extremity was performed. A timeout was performed. Local anesthetic was administered. Under ultrasound guidance the left basilic vein was accessed with a 21-gauge needle. However, an 018 wire could not be passed centrally. After several additional attempts, the left brachial vein was accessed, and as before, a wire could not be passed centrally. Sonographic evaluation of both common femoral veins was performed. Ultimately the decision was made to access a neck vein. Both internal jugular veins were demonstrated to be thrombosed on ultrasound. A left neck collateral was accessed under ultrasound guidance with a 21-gauge needle, after local anesthetic was administered. An 018 wire was advanced, and the needle was exchanged for a 4 [place] exchange dilator. Venography was performed. Thereafter, a Glidewire was advanced to the right common iliac vein, along with a 4 [place] vertebral catheter. Right iliac venography was performed. The vertebral catheter was redirected to the left, and left iliac venography was performed. A stiff Amplatz wire was advanced through the vertebral catheter, which was exchanged for a tissue dilator. After tissue dilation, a 16 cm triple -lumen central venous catheter was advanced. Each lumen was aspirated and flushed easily. The catheter was sutured to the skin with silk suture. Sterile dressings were placed. The patient tolerated the procedure well and was transported back to the ER in stable condition. Findings: Both internal jugular and common femoral veins are occluded, per evaluation by sonography. 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 Both common iliac veins are patent. The inability to pass a wire centrally from the left upper extremity veins suggests occlusion of the central portions of the left brachial and basilic veins. A 16 cm central venous catheter (the only catheter available during the procedure) was placed, and the tip was confirmed to be in the SVC. Each catheter lumen flushes and aspirates easily. The catheter is ready for use.
[2017-07-07] MEDS ORDERED: TYLENOL PO PRN (00:24)
[2017-07-07] MEDS ORDERED: VANCOMYCIN VIAL IV ONE (00:24)
[2017-07-07] MEDS ORDERED: PROVENTIL IH PRN (00:24)
[2017-07-07] MEDS ORDERED: VANCOMYCIN 1,500 MG in NACL 0.9% 500 ML 500 ML IV ONE (01:00)
[2017-07-07] MEDS ORDERED: VANCOMYCIN PHARMACY TO DOSE IV SCH (01:00)
[2017-07-07] MEDS: DILAUDID IV PRN ×4 (01:46→16:20)
[2017-07-07] MEDS: NACL 0.9% 1000 ML IV ONE ×2 (01:52→03:22)
[2017-07-07] MEDS ORDERED: NACL 0.9% 1000 ML IV ONE (03:00)
[2017-07-07] MEDS ORDERED: NACL 0.9% 1000 ML 1,000 ML IV ONE (03:16)
[2017-07-07] MEDS: NACL 0.9% 1000 ML 1,000 ML IV SCH ×2 (05:05→16:41)
[2017-07-07] MEDS: ZOSYN/NS 4.5GM/100ML 4.5 GM/100 ML VIAL IV SCH ×2 (05:25→14:17)
--- NOTE | 2017-07-07 08:57 | Event Note ---
Date: 07/07/17 Due to extremely difficulty in gaining venous access, the left neck central line is NOT TO BE REMOVED unless interventional radiology is contacted first.
[2017-07-07] MEDS ORDERED: CATAPRES PO ONE (09:15)
[2017-07-07] MEDS: NEURONTIN PO SCH ×3 (09:16→22:52)
[2017-07-07] MEDS: CATAPRES PO SCH ×2 (09:35→22:50)
--- NOTE | 2017-07-07 09:52 | Progress Note ---
Assessment and Plan Assessment and plan: 61-year-old woman with past medical history of diabetic gastroparesis. We'll presented with abdominal pain and nausea and vomiting. Acute flare of gastroparesis Continue IV fluids continue antiemetics continue pain medications obtain NM gastric emptying scan Intractable nausea and vomiting Continue IV fluids and antiemetics, reintroduce diet slowly Opioid Dependence We'll give pain medications judiciously, patient has been warned that it is in her best interest to wean off opioids in the long-term Hypertensive urgency Optimize blood pressure medications Hypokalemia/hyponatremia We'll give IV fluids correct free water deficits and replete potassium IV Correction: patient does not have sepsis at this time, she is getting an infection workup SIRS No evidence of infection at this point, will obtain UA, chest x-ray unremarkable , follow blood cultures dc all abx , leukocytosis and tachycardia is most likely a stress reaction DVT ppx lovenox History Interval history: Complaining of nausea and vomiting. And abdominal pain. Hospitalist Physical - Physical exam Narrative exam: General: Patient appears well in no distress HEENT: MMM, EOMI cardiac: S1-S2 heard lungs: clear to auscultation, abdomen: soft, nontender, nondistended bowel sounds positive extremities: no edema clubbing or cyanosis Skin: no rash or lesion Neuro: no focal deficit Psych: appropriate behavior and mood, cognition intact - Constitutional Vitals: Temp Pulse Resp BP Pulse Ox 99.5 F 115 H 18 181/120 94 07/07/17 07:25 07/07/17 09:22 07/07/17 08:11 07/07/17 09:22 07/07/17 07:25 General appearance: Present: mild distress Results - Labs CBC & Chem 7: 07/06/17 10:17 07/06/17 10:17 Labs: Laboratory Last Values WBC 18.9 K/mm3 (4.5-11.0) H 07/06/17 10:17 RBC 5.34 M/mm3 (3.65-5.03) H 07/06/17 10:17 Hgb 13.3 gm/dl (10.1-14.3) 07/06/17 10:17 Hct 43.3 % (30.3-42.9) H 07/06/17 10:17 MCV 81 fl (79-97) 07/06/17 10:17 MCH 25 pg (28-32) L 07/06/17 10:17 MCHC 31 % (30-34) 07/06/17 10:17 RDW 18.1 % (13.2-15.2) H 07/06/17 10:17 Plt Count 589 K/mm3 (140-440) H 07/06/17 10:17 Lymph % (Auto) 5.8 % (13.4-35.0) L 07/06/17 10:17 [place] % (Auto) 4.7 % (0.0-7.3) 07/06/17 10:17 Eos % (Auto) 0.1 % (0.0-4.3) 07/06/17 10:17 Baso % (Auto) 1.4 % (0.0-1.8) 07/06/17 10:17 Lymph # 1.1 K/mm3 (1.2-5.4) L 07/06/17 10:17 [place] # 0.9 K/mm3 (0.0-0.8) H 07/06/17 10:17 Eos # 0.0 K/mm3 (0.0-0.4) 07/06/17 10:17 Baso # 0.3 K/mm3 (0.0-0.1) H 07/06/17 10:17 Seg Neutrophils % 88.0 % (40.0-70.0) H 07/06/17 10:17 Seg Neutrophils # 16.6 K/mm3 (1.8-7.7) H 07/06/17 10:17 PT 12.6 Sec. (12.2-14.9) 07/06/17 11:51 INR 0.90 (0.87-1.13) 07/06/17 11:51 APTT 22.1 Sec. (24.2-36.6) L 07/06/17 11:51 Sodium 147 mmol/L (137-145) H 07/06/17 10:17 Potassium 3.2 mmol/L (3.6-5.0) L 07/06/17 10:17 Chloride 100.5 mmol/L (98-107) 07/06/17 10:17 Carbon Dioxide 24 mmol/L (22-30) 07/06/17 10:17 Anion Gap 26 mmol/L 07/06/17 10:17 BUN 13 mg/dL (7-17) 07/06/17 10:17 Creatinine 0.8 mg/dL (0.7-1.2) 07/06/17 10:17 Estimated GFR > 60 ml/min 07/06/17 10:17 BUN/Creatinine Ratio 16.25 % 07/06/17 10:17 Glucose 140 mg/dL (65-100) H 07/06/17 10:17 Lactic Acid 1.40 mmol/L (0.7-2.0) 07/07/17 05:35 Calcium 9.5 mg/dL (8.4-10.2) 07/06/17 10:17 Total Bilirubin 0.50 mg/dL (0.1-1.2) 07/06/17 10:17 AST 13 units/L (5-40) 07/06/17 10:17 ALT 8 units/L (7-56) 07/06/17 10:17 Alkaline Phosphatase 186 units/L (35-129) H 07/06/17 10:17 Total Creatine Kinase 231 units/L (30-135) H 07/06/17 11:22 CK-MB (CK-2) 3.1 ng/mL (0.0-4.0) 07/06/17 11:22 CK-MB (CK-2) Rel Index 1.3 (0-4) 07/06/17 11:22 Troponin T < 0.010 ng/mL (0.00-0.029) 07/06/17 11:22 NT-Pro-B Natriuret Pep 629.6 pg/mL (0-900) 07/06/17 11:22 Total Protein 8.3 g/dL (6.3-8.2) H 07/06/17 10:17 Albumin 4.6 g/dL (3.9-5) 07/06/17 10:17 Albumin/Globulin Ratio 1.2 % 07/06/17 10:17 Lipase 20 units/L (13-60) 07/06/17 11:22 Blood Type B POSITIVE 07/07/17 01:30 Antibody Screen Negative 07/07/17 01:30
[2017-07-07] MEDS: PROTONIX PO SCH (10:32)
[2017-07-07] MEDS: ZOFRAN IV PRN ×2 (10:32→16:34)
[2017-07-07] MEDS: ATIVAN PO SCH ×2 (10:43→22:50)
[2017-07-07] MEDS ORDERED: VANCOMYCIN 1,250 MG in NACL 0.9% 250ML 250 ML IV SCH (14:00)
[2017-07-07] MEDS: APRESOLINE IV PRN ×2 (16:19→23:02)
[2017-07-07 19:21] LABS: Anion Gap 20 mmol/L; Blood Urea Nitrogen 14 mg/dL (7-17); Calcium 7.8 mg/dL (8.4-10.2); Carbon Dioxide 20 mmol/L (22-30); Chloride 104.9 mmol/L (98-107); Glucose 123 mg/dL (65-100); Sodium 142 mmol/L (137-145)
[2017-07-07] MEDS: KCL 20 MEQ in D5W 1,000 ML IV SCH (20:30)
[2017-07-07] MEDS: LOVENOX SUB-Q SCH (22:51)
[2017-07-07] MEDS: ZOFRAN ODT PO PRN (23:02)
[2017-07-08] MEDS: NEURONTIN PO SCH ×3 (05:19→22:02)
[2017-07-08] MEDS: KCL 20 MEQ in D5W 1,000 ML IV SCH ×2 (06:40→23:18)
[2017-07-08] MEDS ORDERED: KCL 20MEQ/100ML 20 MEQ/100 ML BAG IV SCH (08:00)
[2017-07-08] MEDS: ZOFRAN ODT PO PRN (08:09)
[2017-07-08] MEDS: KCL 10MEQ/100ML 10 MEQ/100 ML BAG IV SCH ×6 (09:04→15:05)
[2017-07-08] MEDS: PROTONIX PO SCH (10:24)
[2017-07-08] MEDS: ATIVAN PO SCH ×2 (10:24→22:02)
[2017-07-08] MEDS: CATAPRES PO SCH (11:21)
[2017-07-08] MEDS: ULTRAM PO PRN ×3 (11:59→22:01)
--- NOTE | 2017-07-08 12:28 | Progress Note ---
Assessment and Plan Assessment and plan: 61-year-old woman with past medical history of diabetic gastroparesis. We'll presented with abdominal pain and nausea and vomiting. Acute flare of gastroparesis Continue IV fluids continue antiemetics continue pain medications NM gastric emptying scan was ordered, but patient refused Intractable nausea and vomiting Continue IV fluids and antiemetics, reintroduce diet slowly Opioid Dependence We'll give pain medications judiciously, patient has been warned that it is in her best interest to wean off opioids in the long-term Hypertensive urgency Optimize blood pressure medications Hypokalemia/hyponatremia We'll give IV fluids correct free water deficits and replete potassium IV Correction: patient does not have sepsis at this time, cxr negative, fup UA, SIRS No evidence of infection at this point, will obtain UA, chest x-ray unremarkable , follow blood cultures dc all abx , leukocytosis and tachycardia is most likely a stress reaction DVT ppx lovenox This patient is stable for discharge, but she is appealing her discharge. Avoid IV narcotics, we'll give her tramadol as needed for pain History Interval history: Nausea and vomiting is improved, still having some abdominal pain Hospitalist Physical - Physical exam Narrative exam: General: Patient appears well in no distress HEENT: MMM, EOMI cardiac: S1-S2 heard lungs: clear to auscultation, abdomen: soft, nontender, nondistended bowel sounds positive extremities: no edema clubbing or cyanosis Skin: no rash or lesion Neuro: no focal deficit Psych: appropriate behavior and mood, cognition intact - Constitutional Vitals: Temp Pulse Resp BP Pulse Ox 99.7 F H 113 H 20 123/92 94 07/08/17 07:45 07/08/17 07:45 07/08/17 02:17 07/08/17 11:21 07/08/17 10:00 General appearance: Present: no acute distress Results - Labs CBC & Chem 7: 07/06/17 10:17 07/07/17 19:01 Labs: Laboratory Last Values WBC 18.9 K/mm3 (4.5-11.0) H 07/06/17 10:17 RBC 5.34 M/mm3 (3.65-5.03) H 07/06/17 10:17 Hgb 13.3 gm/dl (10.1-14.3) 07/06/17 10:17 Hct 43.3 % (30.3-42.9) H 07/06/17 10:17 MCV 81 fl (79-97) 07/06/17 10:17 MCH 25 pg (28-32) L 07/06/17 10:17 MCHC 31 % (30-34) 07/06/17 10:17 RDW 18.1 % (13.2-15.2) H 07/06/17 10:17 Plt Count 589 K/mm3 (140-440) H 07/06/17 10:17 Lymph % (Auto) 5.8 % (13.4-35.0) L 07/06/17 10:17 [place] % (Auto) 4.7 % (0.0-7.3) 07/06/17 10:17 Eos % (Auto) 0.1 % (0.0-4.3) 07/06/17 10:17 Baso % (Auto) 1.4 % (0.0-1.8) 07/06/17 10:17 Lymph # 1.1 K/mm3 (1.2-5.4) L 07/06/17 10:17 [place] # 0.9 K/mm3 (0.0-0.8) H 07/06/17 10:17 Eos # 0.0 K/mm3 (0.0-0.4) 07/06/17 10:17 Baso # 0.3 K/mm3 (0.0-0.1) H 07/06/17 10:17 Seg Neutrophils % 88.0 % (40.0-70.0) H 07/06/17 10:17 Seg Neutrophils # 16.6 K/mm3 (1.8-7.7) H 07/06/17 10:17 PT 12.6 Sec. (12.2-14.9) 07/06/17 11:51 INR 0.90 (0.87-1.13) 07/06/17 11:51 APTT 22.1 Sec. (24.2-36.6) L 07/06/17 11:51 Sodium 142 mmol/L (137-145) 07/07/17 19:01 Potassium 3.0 mmol/L (3.6-5.0) L 07/07/17 19:01 Chloride 104.9 mmol/L (98-107) 07/07/17 19:01 Carbon Dioxide 20 mmol/L (22-30) L 07/07/17 19:01 Anion Gap 20 mmol/L 07/07/17 19:01 BUN 14 mg/dL (7-17) 07/07/17 19:01 Creatinine 0.7 mg/dL (0.7-1.2) 07/07/17 19:01 Estimated GFR > 60 ml/min 07/07/17 19:01 BUN/Creatinine Ratio 20.00 % 07/07/17 19:01 Glucose 123 mg/dL (65-100) H 07/07/17 19:01 Lactic Acid 1.40 mmol/L (0.7-2.0) 07/07/17 05:35 Calcium 7.8 mg/dL (8.4-10.2) L D 07/07/17 19:01 Magnesium 2.10 mg/dL (1.7-2.3) 07/07/17 19:01 Total Bilirubin 0.50 mg/dL (0.1-1.2) 07/06/17 10:17 AST 13 units/L (5-40) 07/06/17 10:17 ALT 8 units/L (7-56) 07/06/17 10:17 Alkaline Phosphatase 186 units/L (35-129) H 07/06/17 10:17 Total Creatine Kinase 231 units/L (30-135) H 07/06/17 11:22 CK-MB (CK-2) 3.1 ng/mL (0.0-4.0) 07/06/17 11:22 CK-MB (CK-2) Rel Index 1.3 (0-4) 07/06/17 11:22 Troponin T < 0.010 ng/mL (0.00-0.029) 07/06/17 11:22 NT-Pro-B Natriuret Pep 629.6 pg/mL (0-900) 07/06/17 11:22 Total Protein 8.3 g/dL (6.3-8.2) H 07/06/17 10:17 Albumin 4.6 g/dL (3.9-5) 07/06/17 10:17 Albumin/Globulin Ratio 1.2 % 07/06/17 10:17 Lipase 20 units/L (13-60) 07/06/17 11:22 Blood Type B POSITIVE 07/07/17 01:30 Antibody Screen Negative 07/07/17 01:30
[2017-07-08] MEDS: ZOFRAN IV PRN ×2 (13:56→20:46)
[2017-07-08] MEDS: LOVENOX SUB-Q SCH (22:02)
[2017-07-09] MEDS: ULTRAM PO PRN ×5 (04:19→23:23)
[2017-07-09] MEDS: CATAPRES PO SCH ×3 (04:20→22:35)
[2017-07-09] MEDS: ZOFRAN IV PRN ×2 (04:27→10:00)
[2017-07-09] MEDS: NEURONTIN PO SCH ×3 (05:47→22:35)
[2017-07-09] MEDS: KCL 10MEQ/100ML 10 MEQ/100 ML BAG IV SCH ×4 (10:00→14:04)
[2017-07-09] MEDS: ATIVAN PO SCH ×2 (10:00→22:35)
[2017-07-09] MEDS: PROTONIX PO SCH (10:01)
--- NOTE | 2017-07-09 12:03 | Progress Note ---
Assessment and Plan Assessment and plan: 61-year-old woman with past medical history of diabetic gastroparesis. We'll presented with abdominal pain and nausea and vomiting. Acute flare of gastroparesis Continue IV fluids continue antiemetics continue pain medications NM gastric emptying scan was ordered, but patient refused Intractable nausea and vomiting Continue IV fluids and antiemetics, reintroduce diet slowly Opioid Dependence We'll give pain medications judiciously, patient has been warned that it is in her best interest to wean off opioids in the long-term Hypertensive urgency Optimize blood pressure medications Hypokalemia/hyponatremia We'll give IV fluids correct free water deficits and replete potassium IV Correction: patient does not have sepsis at this time, cxr negative, fup UA SIRS No evidence of infection at this point, will obtain UA, chest x-ray unremarkable , follow blood cultures dc all abx , leukocytosis and tachycardia is most likely a stress reaction DVT ppx lovenox This patient is stable for discharge, but she is appealing her discharge. Avoid IV narcotics, we'll give her tramadol as needed for pain History Interval history: Nausea and vomiting is improved, still having some abdominal pain Hospitalist Physical - Physical exam Narrative exam: General: Patient appears well in no distress HEENT: MMM, EOMI cardiac: S1-S2 heard lungs: clear to auscultation, abdomen: soft, nontender, nondistended bowel sounds positive extremities: no edema clubbing or cyanosis Skin: no rash or lesion Neuro: no focal deficit Psych: appropriate behavior and mood, cognition intact - Constitutional Vitals: Temp Pulse Resp BP Pulse Ox 98.7 F 82 19 108/72 89 07/09/17 07:22 07/09/17 10:00 07/09/17 07:22 07/09/17 10:00 07/09/17 07:22 General appearance: Present: no acute distress Results - Labs CBC & Chem 7: 07/06/17 10:17 07/09/17 05:59 Labs: Laboratory Last Values WBC 18.9 K/mm3 (4.5-11.0) H 07/06/17 10:17 RBC 5.34 M/mm3 (3.65-5.03) H 07/06/17 10:17 Hgb 13.3 gm/dl (10.1-14.3) 07/06/17 10:17 Hct 43.3 % (30.3-42.9) H 07/06/17 10:17 MCV 81 fl (79-97) 07/06/17 10:17 MCH 25 pg (28-32) L 07/06/17 10:17 MCHC 31 % (30-34) 07/06/17 10:17 RDW 18.1 % (13.2-15.2) H 07/06/17 10:17 Plt Count 589 K/mm3 (140-440) H 07/06/17 10:17 Lymph % (Auto) 5.8 % (13.4-35.0) L 07/06/17 10:17 [place] % (Auto) 4.7 % (0.0-7.3) 07/06/17 10:17 Eos % (Auto) 0.1 % (0.0-4.3) 07/06/17 10:17 Baso % (Auto) 1.4 % (0.0-1.8) 07/06/17 10:17 Lymph # 1.1 K/mm3 (1.2-5.4) L 07/06/17 10:17 [place] # 0.9 K/mm3 (0.0-0.8) H 07/06/17 10:17 Eos # 0.0 K/mm3 (0.0-0.4) 07/06/17 10:17 Baso # 0.3 K/mm3 (0.0-0.1) H 07/06/17 10:17 Seg Neutrophils % 88.0 % (40.0-70.0) H 07/06/17 10:17 Seg Neutrophils # 16.6 K/mm3 (1.8-7.7) H 07/06/17 10:17 PT 12.6 Sec. (12.2-14.9) 07/06/17 11:51 INR 0.90 (0.87-1.13) 07/06/17 11:51 APTT 22.1 Sec. (24.2-36.6) L 07/06/17 11:51 Sodium 142 mmol/L (137-145) 07/07/17 19:01 Potassium 3.2 mmol/L (3.6-5.0) L 07/09/17 05:59 Chloride 104.9 mmol/L (98-107) 07/07/17 19:01 Carbon Dioxide 20 mmol/L (22-30) L 07/07/17 19:01 Anion Gap 20 mmol/L 07/07/17 19:01 BUN 14 mg/dL (7-17) 07/07/17 19:01 Creatinine 0.7 mg/dL (0.7-1.2) 07/07/17 19:01 Estimated GFR > 60 ml/min 07/07/17 19:01 BUN/Creatinine Ratio 20.00 % 07/07/17 19:01 Glucose 123 mg/dL (65-100) H 07/07/17 19:01 Lactic Acid 1.40 mmol/L (0.7-2.0) 07/07/17 05:35 Calcium 7.8 mg/dL (8.4-10.2) L D 07/07/17 19:01 Magnesium 2.10 mg/dL (1.7-2.3) 07/07/17 19:01 Total Bilirubin 0.50 mg/dL (0.1-1.2) 07/06/17 10:17 AST 13 units/L (5-40) 07/06/17 10:17 ALT 8 units/L (7-56) 07/06/17 10:17 Alkaline Phosphatase 186 units/L (35-129) H 07/06/17 10:17 Total Creatine Kinase 231 units/L (30-135) H 07/06/17 11:22 CK-MB (CK-2) 3.1 ng/mL (0.0-4.0) 07/06/17 11:22 CK-MB (CK-2) Rel Index 1.3 (0-4) 07/06/17 11:22 Troponin T < 0.010 ng/mL (0.00-0.029) 07/06/17 11:22 NT-Pro-B Natriuret Pep 629.6 pg/mL (0-900) 07/06/17 11:22 Total Protein 8.3 g/dL (6.3-8.2) H 07/06/17 10:17 Albumin 4.6 g/dL (3.9-5) 07/06/17 10:17 Albumin/Globulin Ratio 1.2 % 07/06/17 10:17 Lipase 20 units/L (13-60) 07/06/17 11:22 Blood Type B POSITIVE 07/07/17 01:30 Antibody Screen Negative 07/07/17 01:30
[2017-07-09] MEDS ORDERED: ZOFRAN IV ONE (12:45)
[2017-07-09 12:58] LABS: Bacteria,Urine 1+ /HPF (Negative); Bilirubin,Urine NEG (Negative); Blood,Urine SM (Negative); Ketones,Urine NEG (Negative); Leukocyte Esterase,Urine NEG (Negative); Nitrite,Urine NEG (Negative); Protein,Urine <15 mg/dL mg/dL (Negative); RBC,Urine < 1.0 /HPF (0.0-6.0); Urobilinogen,Urine < 2.0 mg/dL (<2.0)
[2017-07-09] MEDS ORDERED: COMPAZINE IV SCH (16:30)
[2017-07-09] MEDS: COMPAZINE 10 MG in NACL 0.9% 50 ML IV SCH (17:34)
[2017-07-09] MEDS: KCL 20 MEQ in D5W 1,000 ML IV SCH (17:34)
[2017-07-09] MEDS: LOVENOX SUB-Q SCH (22:35)
[2017-07-10] MEDS: ZOFRAN IV PRN ×2 (00:21→06:20)
[2017-07-10] MEDS: ULTRAM PO PRN ×4 (04:11→20:15)
[2017-07-10] MEDS: NEURONTIN PO SCH ×3 (06:20→21:33)
[2017-07-10] MEDS: KCL 20 MEQ in D5W 1,000 ML IV SCH (06:21)
[2017-07-10 07:00] LABS: Basophils % (Auto) 0.6 % (0.0-1.8); Eosinophils % (Auto) 7.2 % (0.0-4.3); Hematocrit 30.7 % (30.3-42.9); Hemoglobin 9.7 gm/dl (10.1-14.3); Mean Corpuscular HGB Conc 32 % (30-34); Mean Corpuscular Volume 80 fl (79-97); Platelet Count 265 K/mm3 (140-440); Red Blood Count 3.82 M/mm3 (3.65-5.03); Red Cell Distribution Width 18.2 % (13.2-15.2); White Blood Count 9.4 K/mm3 (4.5-11.0)
[2017-07-10 07:02] LABS: Mean Corpuscular Hemoglobin 25 pg (28-32)
[2017-07-10 07:09] LABS: Blood Urea Nitrogen 8 mg/dL (7-17); Calcium 7.4 mg/dL (8.4-10.2); Carbon Dioxide 26 mmol/L (22-30); Glucose 87 mg/dL (65-100)
[2017-07-10 07:10] LABS: Anion Gap 15 mmol/L; Chloride 105.4 mmol/L (98-107); Potassium 3.9 mmol/L (3.6-5.0); Sodium 142 mmol/L (137-145)
[2017-07-10] MEDS: COMPAZINE 10 MG in NACL 0.9% 50 ML IV SCH ×3 (08:05→16:39)
[2017-07-10] MEDS: CATAPRES PO SCH ×2 (09:15→21:33)
[2017-07-10] MEDS: PROTONIX PO SCH (09:15)
[2017-07-10] MEDS: ATIVAN PO SCH ×2 (09:15→21:33)
[2017-07-10] MEDS ORDERED: ULTRAM PO PRN (10:13)
[2017-07-10] MEDS: LOVENOX SUB-Q SCH (21:33)
[2017-07-11] MEDS: ULTRAM PO PRN ×2 (05:42→10:01)
[2017-07-11] MEDS: NEURONTIN PO SCH ×2 (05:43→14:44)
[2017-07-11] MEDS: COMPAZINE 10 MG in NACL 0.9% 50 ML IV SCH ×2 (08:13→13:47)
[2017-07-11 09:07] VITALS: BP 151/92
[2017-07-11] MEDS: PROTONIX PO SCH (09:07)
[2017-07-11] MEDS: ATIVAN PO SCH (09:07)
[2017-07-11] MEDS: CATAPRES PO SCH (09:07)
--- NOTE | 2017-07-11 10:16 | Progress Note ---
Assessment and Plan Assessment and plan: 61-year-old woman with past medical history of diabetic gastroparesis. She presented with abdominal pain and nausea and vomiting. Acute flare of gastroparesis Continue IV fluids continue antiemetics continue pain medications NM gastric emptying scan was ordered, but patient refused Intractable nausea and vomiting Continue IV fluids and antiemetics, reintroduce diet slowly Opioid Dependence We'll give pain medications judiciously, patient has been warned that it is in her best interest to wean off opioids in the long-term Hypertensive urgency Optimized blood pressure medications Hypokalemia/hyponatremia has resolved with IV repletion, now resolved Correction: patient does not have sepsis at this time, cxr negative, UA negative SIRS No evidence of infection at this point, UA negative, chest x-ray unremarkable, blood cultures negative , leukocytosis and tachycardia is most likely a stress reaction DVT ppx lovenox This patient is stable for discharge, but she is appealing her discharge. Avoid IV narcotics, we'll give her tramadol as needed for pain History Interval history: Nausea and vomiting is improved, still having some abdominal pain Hospitalist Physical - Physical exam Narrative exam: General: Patient appears well in no distress HEENT: MMM, EOMI cardiac: S1-S2 heard lungs: clear to auscultation, abdomen: soft, nontender, nondistended bowel sounds positive extremities: no edema clubbing or cyanosis Skin: no rash or lesion Neuro: no focal deficit Psych: appropriate behavior and mood, cognition intact - Constitutional Vitals: Temp Pulse Resp BP Pulse Ox 99.3 F 94 H 20 151/92 91 07/11/17 07:15 07/11/17 07:15 07/11/17 07:15 07/11/17 07:15 07/11/17 07:15 General appearance: Present: no acute distress Results - Labs CBC & Chem 7: 07/10/17 06:00 07/10/17 06:00 Labs: Laboratory Last Values WBC 9.4 K/mm3 (4.5-11.0) 07/10/17 06:00 RBC 3.82 M/mm3 (3.65-5.03) 07/10/17 06:00 Hgb 9.7 gm/dl (10.1-14.3) L 07/10/17 06:00 Hct 30.7 % (30.3-42.9) 07/10/17 06:00 MCV 80 fl (79-97) 07/10/17 06:00 MCH 25 pg (28-32) L 07/10/17 06:00 MCHC 32 % (30-34) 07/10/17 06:00 RDW 18.2 % (13.2-15.2) H 07/10/17 06:00 Plt Count 265 K/mm3 (140-440) 07/10/17 06:00 Lymph % (Auto) 21.0 % (13.4-35.0) 07/10/17 06:00 [place] % (Auto) 7.0 % (0.0-7.3) 07/10/17 06:00 Eos % (Auto) 7.2 % (0.0-4.3) H 07/10/17 06:00 Baso % (Auto) 0.6 % (0.0-1.8) 07/10/17 06:00 Lymph # 2.0 K/mm3 (1.2-5.4) 07/10/17 06:00 [place] # 0.7 K/mm3 (0.0-0.8) 07/10/17 06:00 Eos # 0.7 K/mm3 (0.0-0.4) H 07/10/17 06:00 Baso # 0.1 K/mm3 (0.0-0.1) 07/10/17 06:00 Seg Neutrophils % 64.2 % (40.0-70.0) 07/10/17 06:00 Seg Neutrophils # 6.0 K/mm3 (1.8-7.7) 07/10/17 06:00 PT 12.6 Sec. (12.2-14.9) 07/06/17 11:51 INR 0.90 (0.87-1.13) 07/06/17 11:51 APTT 22.1 Sec. (24.2-36.6) L 07/06/17 11:51 Sodium 142 mmol/L (137-145) 07/10/17 06:00 Potassium 3.9 mmol/L (3.6-5.0) D 07/10/17 06:00 Chloride 105.4 mmol/L (98-107) 07/10/17 06:00 Carbon Dioxide 26 mmol/L (22-30) 07/10/17 06:00 Anion Gap 15 mmol/L 07/10/17 06:00 BUN 8 mg/dL (7-17) 07/10/17 06:00 Creatinine 0.8 mg/dL (0.7-1.2) 07/10/17 06:00 Estimated GFR > 60 ml/min 07/10/17 06:00 BUN/Creatinine Ratio 10.00 % 07/10/17 06:00 Glucose 87 mg/dL (65-100) 07/10/17 06:00 Lactic Acid 1.40 mmol/L (0.7-2.0) 07/07/17 05:35 Calcium 7.4 mg/dL (8.4-10.2) L 07/10/17 06:00 Magnesium 2.10 mg/dL (1.7-2.3) 07/07/17 19:01 Total Bilirubin 0.50 mg/dL (0.1-1.2) 07/06/17 10:17 AST 13 units/L (5-40) 07/06/17 10:17 ALT 8 units/L (7-56) 07/06/17 10:17 Alkaline Phosphatase 186 units/L (35-129) H 07/06/17 10:17 Total Creatine Kinase 231 units/L (30-135) H 07/06/17 11:22 CK-MB (CK-2) 3.1 ng/mL (0.0-4.0) 07/06/17 11:22 CK-MB (CK-2) Rel Index 1.3 (0-4) 07/06/17 11:22 Troponin T < 0.010 ng/mL (0.00-0.029) 07/06/17 11:22 NT-Pro-B Natriuret Pep 629.6 pg/mL (0-900) 07/06/17 11:22 Total Protein 8.3 g/dL (6.3-8.2) H 07/06/17 10:17 Albumin 4.6 g/dL (3.9-5) 07/06/17 10:17 Albumin/Globulin Ratio 1.2 % 07/06/17 10:17 Lipase 20 units/L (13-60) 07/06/17 11:22 Urine Color Yellow (Yellow) 07/09/17 12:25 Urine Turbidity Clear (Clear) 07/09/17 12:25 Urine pH 7.0 (5.0-7.0) 07/09/17 12:25 Ur Specific [place] 1.005 (1.003-1.030) 07/09/17 12:25 Urine Protein <15 mg/dl mg/dL (Negative) 07/09/17 12:25 Urine Glucose (UA) Neg mg/dL (Negative) 07/09/17 12:25 Urine Ketones Neg mg/dL (Negative) 07/09/17 12:25 Urine Blood Sm (Negative) 07/09/17 12:25 Urine Nitrite Neg (Negative) 07/09/17 12:25 Urine Bilirubin Neg (Negative) 07/09/17 12:25 Urine Urobilinogen < 2.0 mg/dL (<2.0) 07/09/17 12:25 Ur Leukocyte Esterase Neg (Negative) 07/09/17 12:25 Urine WBC (Auto) 1.0 /HPF (0.0-6.0) 07/09/17 12:25 Urine RBC (Auto) < 1.0 /HPF (0.0-6.0) 07/09/17 12:25 U Epithel Cells (Auto) < 1.0 /HPF (0-13.0) 07/09/17 12:25 Urine Bacteria (Auto) 1+ /HPF (Negative) 07/09/17 12:25 Blood Type B POSITIVE 07/07/17 01:30 Antibody Screen Negative 07/07/17 01:30
[2017-07-11] MEDS ORDERED: TRIPLE ANTIBIOTIC TP ONE (14:30)
--- NOTE | 2017-07-11 15:07 | Discharge Summary ---
Providers - Providers Date of Admission: 07/06/17 22:32 Attending physician: ESTUARDO BOJORQUEZ MD 07/07/17 09:50 Physical Therapy Evaluation and Treat [CONS] Routine Comment: Reason For Exam: debility Primary care physician: [employer] ATTENDANT Hospitalization Condition: Stable Hospital course: 61-year-old woman with past medical history of gastroparesis. She presented with abdominal pain and nausea and vomiting. She was never witnessed actually have vomiting. She was planned for nuclear medicine gastric emptying scan, patient adamantly refused, saying that she only needed pain medications. She received IV fluids and antiemetics, she was noted to have poor by mouth dependence with pain medication seeking behavior. She was counseled about the risk of chronic opioid use, and she was advised that she needs to wean off them in the long-term. She verbalized understanding. Her blood pressure medications optimized, electrolytes were corrected. She did have an infection work up which included UA, chest x-ray and blood cultures which were all negative. At the time of planned discharge, patient by mouth her discharge, Medicare did review and up held the decision to discharge patient. She was discharged home in improved condition Discharge diagnoses Acute flare of gastroparesis Intractable nausea and vomiting Opioid Dependence Hypertensive urgency Hypokalemia hyponatremia SIRS Disposition: DC-01 TO HOME OR SELFCARE Time spent for discharge: 35 minutes Core Measure Documentation - Palliative Care Palliative Care/ Comfort Measures: Not Applicable - Core Measures Any of the following diagnoses?: none Exam - Constitutional Vitals: Temp Pulse Resp BP Pulse Ox 99.3 F 94 H 20 151/92 91 07/11/17 07:15 07/11/17 07:15 07/11/17 07:15 07/11/17 07:15 07/11/17 07:15 General appearance: Present: no acute distress, well-nourished - EENT Eyes: Present: PERRL ENT: hearing intact, clear oral mucosa - Neck Neck: Present: supple, normal ROM - Respiratory Respiratory effort: normal Respiratory: bilateral: CTA - Cardiovascular Heart Sounds: Present: S1 & S2. Absent: rub, click - Extremities Extremities: pulses symmetrical, No edema Peripheral Pulses: within normal limits - Abdominal General gastrointestinal: Present: soft, non-tender, non-distended, normal bowel sounds Female genitourinary: Present: normal - Integumentary Integumentary: Present: clear, warm, dry - Musculoskeletal Musculoskeletal: gait normal, strength equal bilaterally - Psychiatric Psychiatric: appropriate mood/affect, intact judgment & insight - Neurologic Neurologic: CNII-XII intact, moves all extremities Plan Follow up with: PRIMARY CARE,MD [Primary Care Provider] - 3-5 Days Prescriptions: cloNIDine [Catapres] 0.1 mg PO BID #60 tablet Gabapentin [Neurontin] 300 mg PO Q8H #90 capsule LORazepam [Ativan] 2 mg PO BID #14 tablet Ondansetron [Zofran Odt] 4 mg PO Q8H PRN #30 tab.rapdis PRN Reason: Nausea Pantoprazole [Protonix TAB] 40 mg PO QDAY #30 tablet traMADol [Ultram 50 MG tab] 50 mg PO Q4H PRN #14 tablet PRN Reason: Pain, Moderate (4-6)
== END 2017-07-11 15:15 | disposition home or self-care (01) | DRG 74 ==
LOC: ED 09:48 → 3A 22:32
PROVIDERS: ADMIT Internal Medicine; ATTEND Internal Medicine
PROC: 02HV33Z Insertion of Infusion Device into Superior Vena Cava, Percutaneous Approach (ICD-10-PCS; principal; 2017-07-06)
PROC: B548ZZA Ultrasonography of Superior Vena Cava, Guidance (ICD-10-PCS; 2017-07-06)
PROC: 0XJ73ZZ Inspection of Left Upper Extremity, Percutaneous Approach (ICD-10-PCS; 2017-07-06)
PROC: B50 Imaging, Veins, Plain Radiography (ICD-10-PCS; 2017-07-06)
DX: E11.43 Type 2 diabetes mellitus with diabetic autonomic (poly)neuropathy (principal); E87.1 Hypo-osmolality and hyponatremia; F11.20 Opioid dependence, uncomplicated; R65.10 Systemic inflammatory response syndrome (SIRS) of non-infectious origin without acute organ dysfunction; I82.411 Acute embolism and thrombosis of right femoral vein; I82.C11 Acute embolism and thrombosis of right internal jugular vein; I82.210 Acute embolism and thrombosis of superior vena cava; E46 Unspecified protein-calorie malnutrition; K31.84 Gastroparesis; I16.0 Hypertensive urgency; I10 Essential (primary) hypertension; K21.9 Gastro-esophageal reflux disease without esophagitis; M19.90 Unspecified osteoarthritis, unspecified site; F41.9 Anxiety disorder, unspecified; G43.909 Migraine, unspecified, not intractable, without status migrainosus; Z96.659 Presence of unspecified artificial knee joint; G40.909 Epilepsy, unspecified, not intractable, without status epilepticus; E87.6 Hypokalemia; Z88.5 Allergy status to narcotic agent; Z90.49 Acquired absence of other specified parts of digestive tract; Z88.8 Allergy status to other drugs, medicaments and biological substances; Z79.899 Other long term (current) drug therapy
CPT/HCPCS: 36415; 36556; 71010; 80048; 80053; 81001; 82140; 82550; 82553; 83690; 83735; 83880; 84132; 84484; 85025; 85610; 85730; 86850; 86900; 86901; 93005; 93010; 96372; 96374; 96375; C1751; C1769; J0360; J0690; J0780; J1170; J1200; J1644; J1650; J2250; J2405; J2543; J3010; J3370; J3480; J7030; J7040; J7050; J7070; Q0162; Q9967

== ENCOUNTER 2017-08-07 10:43 | Emergency (ER) | payer MEDICARE ==
--- NOTE | 2017-08-07 18:11 | Emergency Department Report ---
ED Fall HPI - General Chief Complaint: Fall Stated Complaint: FELL Time Seen by Provider: 08/07/17 17:56 Source: patient Mode of arrival: Wheelchair - History of Present Illness Initial Comments: PATIENT STATED THAT SHE TRIPPED THIS AM AND FELL ON HER RT SIDE, C/O SHOULDER AND NECK PAIN. Complaint: fall -: This morning Fall From: standing Fall Witnessed: yes, by family Place Fall Occurred: home Loss of Consciousness: none Prolonged Down Time?: no Symptoms Prior to Fall: none Location: neck Location - Extremities: Right: Shoulder Severity: moderate Severity scale (0 -10): 6 Quality: sharp Context: tripped/slipped Associated Symptoms: denies, neck pain. denies: headache, numbness, weakness, chest paint, shortness of breath, abdominal pain, hematuria, unable to walk, lightheaded, vertigo, confusion - Related Data Previous Rx's Medication Instructions Recorded Last Taken Type Gabapentin [Neurontin] 300 mg PO Q8H #90 capsule 08/03/17 Unknown Rx Losartan [Cozaar] 100 mg PO QDAY 30 Days 08/03/17 Unknown Rx Pantoprazole [Protonix TAB] 40 mg PO QDAY #30 tablet 08/03/17 Unknown Rx Promethazine [Phenergan SUPPOS] 25 mg [place] Q6H PRN #30 supp.rect 08/03/17 Unknown Rx cloNIDine-TTS PATCH [Catapres-Tts 0.3 mg TD Mo 30 Days 08/03/17 Unknown Rx Patch] traMADol [Ultram 50 MG tab] 25 mg PO Q8H PRN #7 tablet 08/03/17 Unknown Rx Metaxalone [Skelaxin] 800 mg PO TID #30 tablet 08/07/17 Unknown Rx Naproxen [Naprosyn] 500 mg PO BID #14 tablet 08/07/17 Unknown Rx Allergies Allergy/AdvReac Type Severity Reaction Status Date / Time codeine Allergy Itching Verified 03/02/17 12:33 metoclopramide HCl Allergy Unknown Verified 03/02/17 12:33 [From Reglan] morphine Allergy Hives Verified 03/02/17 12:33 ED Review of Systems ROS: Stated complaint: FELL Other details as noted in HPI Comment: All other systems reviewed and negative Constitutional: denies: chills, diaphoresis, fever Respiratory: denies: cough, shortness of breath Cardiovascular: denies: palpitations, dyspnea on exertion Gastrointestinal: denies: abdominal pain, nausea, vomiting Genitourinary: denies: urgency, dysuria, frequency Skin: denies: rash Neurological: denies: headache, weakness, numbness, paresthesias ED Past Medical Hx - Past Medical History Previous Medical History?: Yes Hx Hypertension: Yes Hx CVA: No Hx Heart Attack/AMI: No Hx Congestive Heart Failure: No Hx Diabetes: No Hx Deep Vein Thrombosis: (Unk) Hx Pulmonary Embolism: No Hx GERD: Yes Hx Liver Disease: No Hx Renal Disease: No Hx Sickle Cell Disease: No Hx Arthritis: Yes Hx Headaches / Migraines: Yes Hx Seizures: Yes (grand mal) Hx Kidney Stones: No Hx Psychiatric Treatment: Yes (anxiety) Hx Asthma: No Hx COPD: No Hx Tuberculosis: No Hx Dementia: No Hx HIV: No Additional medical history: Gastroparesis. bilat knee surgery - Surgical History Past Surgical History?: Yes Hx Coronary Stent: No Hx Open Heart Surgery: No Hx Pacemaker: No Hx Internal Defibrillator: No Hx Cholecystectomy: Yes (2010) Hx Appendectomy: No Hx Breast Surgery: No Additional Surgical History: J tube- removed , Knee surg bilat - Social History Smoking Status: Never Smoker Substance Use Type: None - Medications Home Medications: Home Medications Medication Instructions Recorded Confirmed Last Taken Type Gabapentin [Neurontin] 300 mg PO Q8H #90 capsule 08/03/17 Unknown Rx Losartan [Cozaar] 100 mg PO QDAY 30 Days 08/03/17 Unknown Rx Pantoprazole [Protonix TAB] 40 mg PO QDAY #30 tablet 08/03/17 Unknown Rx Promethazine [Phenergan SUPPOS] 25 mg [place] Q6H PRN #30 supp.rect 08/03/17 Unknown Rx cloNIDine-TTS PATCH [Catapres-Tts 0.3 mg TD Mo 30 Days 08/03/17 Unknown Rx Patch] traMADol [Ultram 50 MG tab] 25 mg PO Q8H PRN #7 tablet 08/03/17 Unknown Rx Metaxalone [Skelaxin] 800 mg PO TID #30 tablet 08/07/17 Unknown Rx Naproxen [Naprosyn] 500 mg PO BID #14 tablet 08/07/17 Unknown Rx ED Physical Exam - General Limitations: No Limitations General appearance: alert, in no apparent distress - Head Head exam: Present: atraumatic, normocephalic, normal inspection - Eye Eye exam: Present: normal appearance, PERRL, EOMI Pupils: Present: normal accommodation - ENT ENT exam: Present: normal exam, normal orophraynx, mucous membranes moist, TM's normal bilaterally, normal external ear exam - Neck Neck exam: Present: normal inspection, full ROM. Absent: tenderness, meningismus, lymphadenopathy, thyromegaly - Respiratory Respiratory exam: Present: normal lung sounds bilaterally. Absent: respiratory distress, wheezes, rales, rhonchi, chest wall tenderness - Cardiovascular Cardiovascular Exam: Present: regular rate, normal rhythm, normal heart sounds - GI/Abdominal GI/Abdominal exam: Present: soft, normal bowel sounds. Absent: distended, tenderness, guarding, rebound, rigid, mass, bruit, pulsatile mass - Extremities Exam Extremities exam: Present: normal inspection, full ROM, normal capillary refill. Absent: tenderness, pedal edema, joint swelling - Back Exam Back exam: Present: normal inspection. Absent: tenderness, CVA tenderness (R), CVA tenderness (L), muscle spasm, paraspinal tenderness, vertebral tenderness - Neurological Exam Neurological exam: Present: alert, oriented X3, CN II-XII intact, normal gait, reflexes normal. Absent: motor sensory deficit - Skin Skin exam: Present: warm, intact, normal color ED Course Vital Signs 08/07/17 11:13 Temperature 99.4 F Pulse Rate 112 H Respiratory 16 Rate Blood Pressure 164/100 O2 Sat by Pulse 97 Oximetry - Reevaluation(s) Reevaluation #1: 08/07/17 19:21 PATIENT STATED THAT SHE FEEL MUCH BETTER. ED Medical Decision Making - Radiology Data Radiology results: image reviewed interpreted by me: cervical spine x-ray and right shoulder with no fx or dislocation. Critical care attestation.: If time is entered above; I have spent that time in minutes in the direct care of this critically ill patient, excluding procedure time. ED Disposition Clinical Impression: Neck contusion, Shoulder sprain Disposition: - TO HOME OR SELFCARE Is pt being admited?: No Condition: Stable Instructions: Fall Prevention (ED) Referrals: PRIMARY CARE, [Primary Care Provider] - 3-5 Days
[2017-08-07] MEDS ORDERED: TORADOL IM ONE (18:12)
[2017-08-07] MEDS ORDERED: DILAUDID IM ONE (19:19)
[2017-08-07] MEDS ORDERED: ZOFRAN IM ONE (19:19)
--- NOTE | 2017-08-07 20:04 | XRay Report ---
FINAL REPORT EXAM: XR SPINE CERVICAL 2-3V HISTORY: fall TECHNIQUE: Cervical spine four views PRIORS: None. FINDINGS: C1 and C2 are not well seen the odontoid view There is some disc space narrowing C4-C5-C5-C6 and C6-C7. There is mild grade 1 anterolisthesis of C4 relative to C5 could be degenerative in nature. The spinous processes are intact. Remaining levels demonstrate normal alignment. IMPRESSION: Grade 1 spondylolisthesis at C4-C5 could be degenerative. If there is continued clinical concern CT could be obtained for further evaluation C1-C2 not well seen on the odontoid views
[2017-08-07] MEDS ORDERED: CATAPRES ONE (20:43)
[2017-08-07] MEDS ORDERED: TYLENOL ONE (20:44)
[2017-08-07] MEDS ORDERED: TYLENOL PO ONE (20:47)
[2017-08-07] MEDS ORDERED: CATAPRES PO ONE (20:47)
[2017-08-07 21:37] VITALS: BP 166/99
--- NOTE | 2017-08-07 21:51 | XRay Report ---
FINAL REPORT EXAM: XR SHOULDER 2+V RT HISTORY: SHOULDER PAIN AFTER FALL TECHNIQUE: Three views right shoulder PRIORS: None. FINDINGS: No acute fractures are identified. No dislocation seen. The acromioclavicular joint is intact. Adjacent bony and soft tissue structures are unremarkable. IMPRESSION: Negative shoulder series
== END 2017-08-07 22:14 | disposition home or self-care (01) ==
LOC: ED 10:43
DX: S43.401A Unspecified sprain of right shoulder joint, initial encounter (principal); S10.93XA Contusion of unspecified part of neck, initial encounter; I10 Essential (primary) hypertension; K21.9 Gastro-esophageal reflux disease without esophagitis; W01.0XXA Fall on same level from slipping, tripping and stumbling without subsequent striking against object, initial encounter; Y93.9 Activity, unspecified; Y92.9 Unspecified place or not applicable; Y99.9 Unspecified external cause status
CPT/HCPCS: 72040; 73030; 96372; 99283; J1170; J1885; J2405

== ENCOUNTER 2017-10-04 21:57 | Inpatient (IN) | payer MEDICARE ==
[2017-10-04] MEDS ORDERED: ZOFRAN IV ONE (22:24)
[2017-10-04] MEDS ORDERED: SUBLIMAZE IV ONE ×2 (22:24→22:53)
[2017-10-04] MEDS ORDERED: NACL 0.9% 1000 ML 1,000 ML IV ONE (22:24)
[2017-10-04 22:42] LABS: ISTAT Base Excess -6; ISTAT HCO3 20.3; ISTAT PCO2 38.4 (35-45); ISTAT PH 7.331 (7.35-7.45); ISTAT PO2 79 (80-105); ISTAT SO2 95; ISTAT TCO2 21
[2017-10-04] MEDS ORDERED: SUBLIMAZE IM ONE (22:53)
[2017-10-04 23:44] LABS: Alanine Aminotransferase 10 units/L (7-56); Albumin 4.6 g/dL (3.9-5); Albumin/Globulin Ratio 1.6 %; Alkaline Phosphatase 128 units/L (35-129); Amylase 54 units/L (27-131); Anion Gap 25 mmol/L; BUN/Creatinine Ratio 10; Blood Urea Nitrogen 11 mg/dL (7-17); Calcium 9.3 mg/dL (8.4-10.2); Carbon Dioxide 18 mmol/L (22-30); Chloride 101.7 mmol/L (98-107); Glucose 98 mg/dL (65-100); Lipase 17 units/L (13-60); Potassium 3.6 mmol/L (3.6-5.0); Sodium 141 mmol/L (137-145); Total Protein 7.4 g/dL (6.3-8.2)
[2017-10-04] MEDS ORDERED: NACL ONE (23:46)
[2017-10-04 23:51] LABS: Mean Corpuscular HGB Conc 30 % (30-34); Mean Corpuscular Volume 79 fl (79-97); Platelet Count 707 K/mm3 (140-440); Red Blood Count 4.81 M/mm3 (3.65-5.03)
[2017-10-04 23:56] LABS: Hemoglobin 11.3 gm/dl (10.1-14.3); White Blood Count 25.5 K/mm3 (4.5-11.0)
[2017-10-04 23:57] LABS: Hematocrit 37.2 % (30.3-42.9); Mean Corpuscular Hemoglobin 24 pg (28-32); Red Cell Distribution Width 20.8 % (13.2-15.2)
[2017-10-05] MEDS ORDERED: NACL 0.9% 1000 ML 1,000 ML IV ONE (00:12)
[2017-10-05] MEDS ORDERED: SUBLIMAZE IV ONE ×2 (00:12→01:58)
[2017-10-05] MEDS ORDERED: ZOFRAN IV ONE (00:12)
--- NOTE | 2017-10-05 00:26 | XRay Report ---
FINAL REPORT EXAM: XR ABD SERIES W CXR 1V HISTORY: Nausea, Vomiting and Diarrhea TECHNIQUE: A portable view of the chest was obtained along with three views of the abdomen. FINDINGS: The chest reveals normal heart size and mediastinum. The lungs are clear. Pleural fluid is not seen. The bones and soft tissues do not show any acute changes. The bowel gas pattern is normal. There are surgical clips in the right upper quadrant as well as in the left side of the abdomen. Free air is not identified. There is no evidence of mass effect or suspicious calcifications. The skeletal structures reveal arthritic changes in the lower lumbar spine. IMPRESSION: No active chest disease. No acute process identified in the abdomen and pelvis.
[2017-10-05 00:45] LABS: Bacteria,Urine 1+ /HPF (Negative); Bilirubin,Urine NEG (Negative); Blood,Urine SM (Negative); Ketones,Urine TR mg/dL (Negative); Leukocyte Esterase,Urine MOD (Negative); Nitrite,Urine NEG (Negative); Protein,Urine <15 mg/dL mg/dL (Negative); Urobilinogen,Urine < 2.0 mg/dL (<2.0)
[2017-10-05 00:49] LABS: Anisocytosis 1+; Basophils % (Manual) 0 % (0.0-1.8); Blastocytes % (Manual) 0 %; Eosinophils % (Manual) 0 % (0.0-4.3); Hypochromasia 1+; Large Platelets Few; Ovalocytes 1+
[2017-10-05 00:50] LABS: Diff Status Complete; Hypersegmented Neutrophils Rare; Platelet Estimate Consistent w Auto
--- NOTE | 2017-10-05 01:19 | Cat Scan Report ---
FINAL REPORT EXAM: CT ABDOMEN PELVIS W CON HISTORY: abdominal pain TECHNIQUE: Routine axial imaging was obtained of the abdomen and pelvis following the intravenous injection of 100 cc of Omnipaque 350. Delayed images were obtained along with sagittal and coronal reconstructions. Comparison is made to the study of 04/29/2017. FINDINGS: There is a stable moderate size hiatal hernia. The lung bases reveal chronic changes in both lower lobes. The gallbladder has been removed. There is no evidence of biliary tree dilatation. The liver, spleen and pancreas appear normal. The adrenal glands are normal in size. The kidneys enhance normally. There is no evidence of hydronephrosis. The vascular structures enhance normally. The bowel loops are normal in caliber. There is a large amount of retained feces in the colon. There is no evidence of free fluid or adenopathy. In the pelvis the uterus has been removed. The bladder appears normal. There are few scattered colonic diverticula. There is a surgical clip in the pelvis. The skeletal structures reveal arthritic changes lumbar spine. IMPRESSION: Cholecystectomy. No acute process in the abdomen and pelvis. Stable moderate size hiatal hernia. Hysterectomy. Large amount of retained feces noted in the colon.
[2017-10-05] MEDS ORDERED: LEVAQUIN 750MG/150ML 750 MG/150 ML BAG IV ONE (01:46)
[2017-10-05] MEDS ORDERED: GLYCERIN ADULT 2 GM PR ONE (01:49)
[2017-10-05] MEDS ORDERED: LOPRESSOR IV ONE (01:49)
[2017-10-05] MEDS ORDERED: TORADOL IV ONE (01:50)
[2017-10-05] MEDS ORDERED: TORADOL ONE (01:53)
--- NOTE | 2017-10-05 01:55 | Emergency Department Report ---
ED Abdominal Pain HPI - General Chief Complaint: Nausea/Vomiting/Diarrhea Stated Complaint: N&V,ABD PAIN Time Seen by Provider: 10/04/17 22:16 Source: patient, EMS Mode of arrival: Stretcher Limitations: No Limitations - History of Present Illness Initial Comments: Patient brought in by EMS with abdominal pain and n/v x 3 days. No BM for 2 weeks and persistent abdominal distention. She has a history of gastroparesis as well. She reports a subjective fever at home and says she has been vomiting bilious discharge. -: Gradual, days(s) (3) Location: diffuse Radiation: none Migration to: no migration Severity: severe Severity scale (0 -10): 10 Quality: sharp Consistency: constant Improves With: nothing Worsens With: nothing Associated Symptoms: denies other symptoms, nausea, vomiting, fever, constipation - Related Data Previous Rx's Medication Instructions Recorded Last Taken Type Gabapentin [Neurontin] 300 mg PO Q8H #90 capsule 08/03/17 Unknown Rx Losartan [Cozaar] 100 mg PO QDAY 30 Days tablet 08/03/17 Unknown Rx Pantoprazole [Protonix TAB] 40 mg PO QDAY #30 tablet 08/03/17 Unknown Rx Promethazine [Phenergan SUPPOS] 25 mg [place] Q6H PRN #30 supp.rect 08/03/17 Unknown Rx cloNIDine-TTS PATCH [Catapres-Tts 0.3 mg TD Mo 30 Days patch 08/03/17 Unknown Rx Patch] traMADol [Ultram 50 MG tab] 25 mg PO Q8H PRN #7 tablet 08/03/17 Unknown Rx Metaxalone [Skelaxin] 800 mg PO TID #30 tablet 08/07/17 Unknown Rx Naproxen [Naprosyn] 500 mg PO BID #14 tablet 08/07/17 Unknown Rx Allergies Allergy/AdvReac Type Severity Reaction Status Date / Time codeine Allergy Itching Verified 03/02/17 12:33 metoclopramide HCl Allergy Unknown Verified 03/02/17 12:33 [From Reglan] morphine Allergy Hives Verified 03/02/17 12:33 ED Review of Systems ROS: Stated complaint: N&V,ABD PAIN Other details as noted in HPI Constitutional: chills, fever Eyes: denies: eye pain, eye discharge, vision change ENT: denies: ear pain, throat pain Respiratory: denies: cough, shortness of breath, wheezing Cardiovascular: chest pain, palpitations Endocrine: no symptoms reported Gastrointestinal: abdominal pain, nausea, vomiting. denies: diarrhea Genitourinary: denies: urgency, dysuria, discharge Musculoskeletal: denies: back pain, joint swelling, arthralgia Skin: denies: rash, lesions Neurological: denies: headache, weakness, paresthesias Psychiatric: denies: anxiety, depression Hematological/Lymphatic: denies: easy bleeding, easy bruising ED Past Medical Hx - Past Medical History Hx Hypertension: Yes Hx CVA: No Hx Heart Attack/AMI: No Hx Congestive Heart Failure: No Hx Diabetes: No Hx Deep Vein Thrombosis: (Unk) Hx Pulmonary Embolism: No Hx GERD: Yes Hx Liver Disease: No Hx Renal Disease: No Hx Sickle Cell Disease: No Hx Arthritis: Yes Hx Headaches / Migraines: Yes Hx Seizures: Yes (grand mal) Hx Kidney Stones: No Hx Psychiatric Treatment: Yes (anxiety) Hx Asthma: No Hx COPD: No Hx Tuberculosis: No Hx Dementia: No Hx HIV: No Additional medical history: Gastroparesis. bilat knee surgery - Surgical History Hx Coronary Stent: No Hx Open Heart Surgery: No Hx Pacemaker: No Hx Internal Defibrillator: No Hx Cholecystectomy: Yes (2010) Hx Appendectomy: No Hx Breast Surgery: No Additional Surgical History: J tube- removed , Knee surg bilat - Social History Smoking Status: Never Smoker Substance Use Type: None - Medications Home Medications: Home Medications Medication Instructions Recorded Confirmed Last Taken Type Gabapentin [Neurontin] 300 mg PO Q8H #90 capsule 08/03/17 Unknown Rx Losartan [Cozaar] 100 mg PO QDAY 30 Days tablet 08/03/17 Unknown Rx Pantoprazole [Protonix TAB] 40 mg PO QDAY #30 tablet 08/03/17 Unknown Rx Promethazine [Phenergan SUPPOS] 25 mg LA Q6H PRN #30 supp.rect 08/03/17 Unknown Rx cloNIDine-TTS PATCH [Catapres-Tts 0.3 mg TD Mo 30 Days patch 08/03/17 Unknown Rx Patch] traMADol [Ultram 50 MG tab] 25 mg PO Q8H PRN #7 tablet 08/03/17 Unknown Rx Metaxalone [Skelaxin] 800 mg PO TID #30 tablet 08/07/17 Unknown Rx Naproxen [Naprosyn] 500 mg PO BID #14 tablet 08/07/17 Unknown Rx ED Physical Exam - General Limitations: No Limitations General appearance: alert, in no apparent distress - Head Head exam: Present: atraumatic, normocephalic - Eye Eye exam: Present: normal appearance - ENT ENT exam: Present: mucous membranes moist - Neck Neck exam: Present: normal inspection - Respiratory Respiratory exam: Present: normal lung sounds bilaterally. Absent: respiratory distress - Cardiovascular Cardiovascular Exam: Present: normal rhythm, tachycardia. Absent: systolic murmur, diastolic murmur, rubs, gallop - GI/Abdominal GI/Abdominal exam: Present: soft, distended, tenderness (Diffusely but no peritonitis), normal bowel sounds - Extremities Exam Extremities exam: Present: normal inspection - Back Exam Back exam: Present: normal inspection - Neurological Exam Neurological exam: Present: alert, oriented X3 - Psychiatric Psychiatric exam: Present: normal affect, normal mood - Skin Skin exam: Present: warm, dry, intact, normal color. Absent: rash ED Course Vital Signs 10/04/17 10/05/17 10/05/17 22:05 01:31 01:35 Temperature 100.3 F H 100.9 F H Pulse Rate 158 H 159 H 159 H Respiratory 22 20 24 Rate Blood Pressure 185/118 Blood Pressure 211/130 [Left] O2 Sat by Pulse 98 94 Oximetry 10/05/17 10/05/17 10/05/17 01:40 02:00 02:01 Temperature 101.5 F H Pulse Rate 158 H Respiratory 24 Rate Blood Pressure 211/130 Blood Pressure [Left] O2 Sat by Pulse 98 Oximetry 10/05/17 02:44 Temperature Pulse Rate 130 H Respiratory Rate Blood Pressure 220/130 Blood Pressure [Left] O2 Sat by Pulse Oximetry ED Medical Decision Making - Lab Data Result diagrams: 10/04/17 23:11 10/04/17 23:11 Elevated WBC with left shift. Urine with moderate LE and WBCs. - EKG Data EKG shows normal: axis, intervals, QRS complexes, ST-T waves (Nonspecific t- wave amplitude) Rate: tachycardia - EKG Data Interpretation: nonspecific ST-T wave kayla - Radiology Data CXR and KUB without acute process. CT abd/pelvis with significant distention of colon due to feces. No other acute findings. Because of her tachycardia and fever we will give her levaquin 750 mg x 1. She also will get a suppository with toradol. She did respond with an improved heart rate into the 110s after metoprolol 5mg IV but her BP did not improve. On further questioning, she usually takes clonidine and sometimes ativan. She has not had clonidine in 3 days. We will give her ativan 1 mg and clonidine 0.2 mg in the ED as well. Dr. Kaiser was at bedside when I left and taking over care. He accepted her to hospitalist service. Critical care attestation.: If time is entered above; I have spent that time in minutes in the direct care of this critically ill patient, excluding procedure time. ED Disposition Clinical Impression: Tachycardia with heart rate 141-160 beats per minute Abdominal pain Qualifiers: Abdominal location: generalized Qualified Code(s): R10.84 - Generalized abdominal pain Intractable vomiting with nausea Qualifiers: Vomiting type: unspecified Qualified Code(s): R11.2 - Nausea with vomiting, unspecified Fever Qualifiers: Fever type: fever of unknown origin following delivery Qualified Code(s): O86.4 - Pyrexia of unknown origin following delivery Hypertension Qualifiers: Hypertension type: essential hypertension Qualified Code(s): I10 - Essential ( primary) hypertension Constipation Qualifiers: Constipation type: drug induced constipation Qualified Code(s): K59.03 - Drug induced constipation Disposition: OP ADMIT IP TO THIS HOSP Is pt being admited?: Yes Does the pt Need Aspirin: No Condition: Stable Time of Disposition: 02:33
--- NOTE | 2017-10-05 02:12 | History and Physical Report ---
History of Present Illness Chief complaint: My stomach hurts, and im throwing up again History of present illness: 61 YO Female with HTN, GERD, OA, Seizure, Anxiety, Gastroparesis, Narcotic Abuse presents to ED for evaluation. PT states that she has been experiencing abdominal pain, with concomitant Nausea and multiple episodes of vomiting over the past 3 days with worsening symptoms over the past 2 days. Pt states that her pain is 9/10, diffuse, nonradiating, constant, and is associated with multiple episodes of nausea and vomiting. Pt has not had a bowel movement in 2 weeks. Pt seen and evaluated in ED and found to be in distress and unable to tolerate anything orally, and with intractible nausea and vomiting as well as evidence of sepsis. Pt denies fever, chills, CP, Palpitations, recent ill contacts, syncope, skin rashes, or productive cough, leg swelling, ingestion of food or water from new or different sources. Past History Past Medical History: arthritis, GERD, hypertension, seizures, other (Narcotic Abuse) Past Surgical History: cholecystectomy, Other ( total knee replacement, Other ( J tube)) Social history: , prescription drug abuse Family history: no significant family history (reviewed) Medications and Allergies Allergies Allergy/AdvReac Type Severity Reaction Status Date / Time codeine Allergy Itching Verified 03/02/17 12:33 metoclopramide HCl Allergy Unknown Verified 03/02/17 12:33 [From Reglan] morphine Allergy Hives Verified 03/02/17 12:33 Home Medications Medication Instructions Recorded Confirmed Last Taken Type Gabapentin [Neurontin] 300 mg PO Q8H #90 capsule 08/03/17 Unknown Rx Losartan [Cozaar] 100 mg PO QDAY 30 Days tablet 08/03/17 Unknown Rx Pantoprazole [Protonix TAB] 40 mg PO QDAY #30 tablet 08/03/17 Unknown Rx Promethazine [Phenergan SUPPOS] 25 mg [place] Q6H PRN #30 supp.rect 08/03/17 Unknown Rx cloNIDine-TTS PATCH [Catapres-Tts 0.3 mg TD Mo 30 Days patch 08/03/17 Unknown Rx Patch] traMADol [Ultram 50 MG tab] 25 mg PO Q8H PRN #7 tablet 08/03/17 Unknown Rx Metaxalone [Skelaxin] 800 mg PO TID #30 tablet 08/07/17 Unknown Rx Naproxen [Naprosyn] 500 mg PO BID #14 tablet 08/07/17 Unknown Rx Active Meds: Active Medications Levofloxacin/Dextrose (Levaquin 750mg/150ml) 750 mg in 150 mls @ 100 mls/hr IV ONCE ONE Stop: 10/05/17 03:15 Review of Systems Constitutional: no weight loss, no weight gain, no fever, no chills Ears, nose, mouth and throat: no ear pain, no ear discharge, no tinnitis, no decreased hearing, no nose pain, no nasal congestion, no nasal discharge Breasts: no change in shape, no swelling, no mass Cardiovascular: no chest pain, no orthopnea, no palpitations, no rapid/ irregular heart beat Respiratory: no cough, no cough with sputum, no excessive sputum, no hemoptysis , no shortness of breath, no dyspnea on exertion Gastrointestinal: abdominal pain, nausea, vomiting, constipation, no BRBPR, no melena, no hematochezia Genitourinary Female: no pelvic pain, no flank pain, no menorrhagia, no dysuria Rectal: no pain, no incontinence, no bleeding Musculoskeletal: no neck stiffness, no neck pain, no shooting arm pain, no arm numbness/tingling, no low back pain Integumentary: no rash, no pruritis, no redness, no sores, no wounds, no boils Neurological: no head injury, no transient paralysis, no paralysis, no weakness , no parathesias, no numbness, no tingling, no syncope, no tremors Psychiatric: anxiety, no memory loss, no change in sleep habits, no sleep disturbances, no insomnia, no hypersomnia, no change in appetite Endocrine: no cold intolerance, no heat intolerance, no polyphagia, no excessive thirst Hematologic/Lymphatic: no easy bruising, no easy bleeding Allergic/Immunologic: no urticaria, no allergic rhinitis, no wheezing Exam - Constitutional Vitals: Temp Pulse Resp BP Pulse Ox 100.9 F H 158 H 24 211/130 98 10/05/17 01:35 10/05/17 02:01 10/05/17 01:40 10/05/17 02:01 10/05/17 01:40 General appearance: Present: mild distress - EENT Eyes: Present: PERRL ENT: hearing intact, clear oral mucosa - Neck Neck: Present: supple, normal ROM - Respiratory Respiratory effort: normal Respiratory: bilateral: CTA - Cardiovascular Heart Sounds: Present: S1 & S2. Absent: rub, click - Extremities Extremities: pulses symmetrical, No edema Peripheral Pulses: abnormal (Capillary refill: 4 seconds) - Abdominal General gastrointestinal: Present: soft, tender, distended. Absent: mass, hernia Localized gastrointestinal: tender: diffuse Female genitourinary: Present: normal - Integumentary Integumentary: Present: clear, warm, dry - Musculoskeletal Musculoskeletal: generalized weakness - Psychiatric Psychiatric: appropriate mood/affect, intact judgment & insight - Neurologic Neurologic: CNII-XII intact, moves all extremities, no gait normal Results - Labs CBC & Chem 7: 10/04/17 23:11 10/04/17 23:11 Labs: Abnormal lab results 10/04/17 10/04/17 10/04/17 Range/Units 00:00 22:41 23:11 WBC 25.5 H (4.5-11.0) K/mm3 MCH 24 L (28-32) pg RDW 20.8 H (13.2-15.2) % Plt Count 707 H (140-440) K/mm3 Seg Neuts % (Manual) 87.0 H (40.0-70.0) % Lymphocytes % (Manual) 6.0 L (13.4-35.0) % Seg Neutrophils # Man 22.2 H (1.8-7.7) K/mm3 POC ABG pH 7.331 L (7.35-7.45) POC ABG pO2 79 L (80-105) Carbon Dioxide (22-30) mmol/L Urine WBC (Auto) 39.0 H (0.0-6.0) /HPF 10/04/17 Range/Units 23:11 WBC (4.5-11.0) K/mm3 MCH (28-32) pg RDW (13.2-15.2) % Plt Count (140-440) K/mm3 Seg Neuts % (Manual) (40.0-70.0) % Lymphocytes % (Manual) (13.4-35.0) % Seg Neutrophils # Man (1.8-7.7) K/mm3 POC ABG pH (7.35-7.45) POC ABG pO2 (80-105) Carbon Dioxide 18 L (22-30) mmol/L Urine WBC (Auto) (0.0-6.0) /HPF Assessment and Plan - Patient Problems (1) Sepsis Current Visit: No Status: Acute Qualifiers: Sepsis type: sepsis due to unspecified organism Qualified Code(s): A41.9 - Sepsis, unspecified organism Plan to address problem: Sepsis Protocol: IV abx, IVF resuscitation, CT abdomen pelvis to evaluate for intraabdominal source of sepsis, monitor UOP q shift, serial lactic acid levels , blood cultures, UA and culture. (2) Chronic narcotic use Current Visit: No Status: Acute Plan to address problem: Pt counseled, (3) Hypertensive urgency Current Visit: No Status: Acute Plan to address problem: resume clonidine, Monitor bp q shift, IV hydralazine prn. (4) Metabolic acidosis Current Visit: No Status: Acute Plan to address problem: IVF resuscitation, treat sepsis, serial bmp and lactic acid levels (5) UTI (urinary tract infection) Current Visit: Yes Status: Acute Plan to address problem: IV abx, IVF, supportive care. (6) Constipation Current Visit: Yes Status: Acute Qualifiers: Constipation type: drug induced constipation Qualified Code(s): K59.03 - Drug induced constipation Plan to address problem: IVF resuscitation, fleet enema daily, bowel regimen with docusate/senna, dulcolax, lactulose, and magnesium citrate prn until bowel movement. (7) DVT prophylaxis Current Visit: No Status: Acute
[2017-10-05] MEDS ORDERED: VANCOMYCIN VIAL IV ONE (02:14)
[2017-10-05] MEDS ORDERED: MILK OF MAGNESIA PO PRN (02:14)
[2017-10-05] MEDS ORDERED: PROVENTIL IH PRN (02:14)
[2017-10-05] MEDS ORDERED: NACL 0.9% 1000 ML IV ONE (02:14)
[2017-10-05] MEDS ORDERED: DULCOLAX PR PRN (02:14)
[2017-10-05] MEDS ORDERED: DULCOLAX PR ONE (02:20)
[2017-10-05] MEDS ORDERED: FLEET PR ONE ×2 (02:20→02:55)
[2017-10-05] MEDS ORDERED: CATAPRES PO ONE (02:31)
[2017-10-05] MEDS ORDERED: ATIVAN IV ONE (02:31)
[2017-10-05] MEDS: TYLENOL PO PRN (02:45)
[2017-10-05] MEDS ORDERED: CATAPRES-TTS PATCH TD SCH (03:00)
[2017-10-05] MEDS ORDERED: VANCOMYCIN PHARMACY TO DOSE IV SCH (03:00)
[2017-10-05] MEDS ORDERED: VANCOMYCIN 1,500 MG in NACL 0.9% 500 ML 500 ML IV ONE (03:00)
[2017-10-05] MEDS: APRESOLINE IV PRN ×3 (03:05→20:47)
[2017-10-05] MEDS ORDERED: CITRATE OF MAGNESIA PO ONE ×2 (03:17→03:37)
[2017-10-05] MEDS ORDERED: CEPHULAC PO ONE (03:17)
[2017-10-05] MEDS: SENOKOT S PO SCH ×3 (03:31→21:50)
[2017-10-05] MEDS: NEURONTIN PO SCH ×3 (03:37→18:37)
[2017-10-05] MEDS ORDERED: NEURONTIN ONE (03:37)
[2017-10-05] MEDS ORDERED: NACL 0.9% 1000 ML 1,000 ML ONE (04:09)
[2017-10-05] MEDS: ZOFRAN IV PRN ×3 (05:19→21:51)
[2017-10-05] MEDS: ULTRAM PO PRN (05:19)
[2017-10-05] MEDS ORDERED: FLAGYL 500 MG/100 ML 500 MG/100 ML BAG IV SCH (06:00)
[2017-10-05] MEDS: ZOSYN/NS 4.5GM/100ML 4.5 GM/100 ML VIAL IV SCH ×3 (06:25→21:49)
[2017-10-05] MEDS: NAPROSYN PO SCH ×2 (10:53→21:49)
[2017-10-05] MEDS: SKELAXIN PO SCH ×3 (10:53→20:48)
[2017-10-05] MEDS: PROTONIX PO SCH (10:54)
[2017-10-05] MEDS: COZAAR PO SCH (10:54)
[2017-10-05] MEDS ORDERED: NORMODYNE IV PRN (14:22)
[2017-10-05] MEDS: DILAUDID IV PRN ×3 (15:19→21:51)
[2017-10-05] MEDS: COMPAZINE IV SCH (16:20)
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
[2017-10-06] MEDS: COMPAZINE IV SCH ×3 (00:07→14:59)
[2017-10-06] MEDS: VANCOMYCIN 1,250 MG in NACL 0.9% 250ML 250 ML IV SCH (04:08)
[2017-10-06] MEDS: NEURONTIN PO SCH ×3 (04:08→21:20)
[2017-10-06] MEDS: DILAUDID IV PRN (05:46)
[2017-10-06] MEDS: ZOSYN/NS 4.5GM/100ML 4.5 GM/100 ML VIAL IV SCH (05:48)
[2017-10-06 09:28] LABS: Mean Corpuscular HGB Conc 30 % (30-34); Mean Corpuscular Volume 77 fl (79-97); Platelet Count 617 K/mm3 (140-440)
[2017-10-06 09:29] LABS: Hematocrit 35.5 % (30.3-42.9); Hemoglobin 10.8 gm/dl (10.1-14.3); Mean Corpuscular Hemoglobin 24 pg (28-32); Red Cell Distribution Width 21.3 % (13.2-15.2); White Blood Count 23.8 K/mm3 (4.5-11.0)
[2017-10-06] MEDS: SKELAXIN PO SCH ×3 (09:36→21:18)
[2017-10-06] MEDS: PROTONIX PO SCH (09:37)
[2017-10-06] MEDS: COZAAR PO SCH (09:37)
[2017-10-06 09:48] LABS: Alanine Aminotransferase 10 units/L (7-56); Albumin 4.3 g/dL (3.9-5); Albumin/Globulin Ratio 1.4 %; Alkaline Phosphatase 100 units/L (35-129); Anion Gap 29 mmol/L; BUN/Creatinine Ratio 11; Blood Urea Nitrogen 12 mg/dL (7-17); Carbon Dioxide 19 mmol/L (22-30); Chloride 106.2 mmol/L (98-107); Glucose 97 mg/dL (65-100); Potassium 3.2 mmol/L (3.6-5.0); Sodium 151 mmol/L (137-145); Total Protein 7.3 g/dL (6.3-8.2)
[2017-10-06 10:18] LABS: Anisocytosis 1+; Basophils % (Manual) 0 % (0.0-1.8); Blastocytes % (Manual) 0 %; Diff Status Complete; Eosinophils % (Manual) 0 % (0.0-4.3); Hypochromasia 1+; Platelet Estimate Consistent w Auto
--- NOTE | 2017-10-06 11:18 | Gastroenterology Progress Note ---
<SRINIVASA MCKEON - Last Filed: 10/06/17 11:22> Assessment and Plan 1. Abdominal pain with n/v - likely 2/2 known gastroparesis and possibly exacerbated by pain meds and worsening constipation. pt with idiopathic gastroparesis and prior side effect to reglan. Bowel regimen daily (consider relistor) for constipation. Anti-emetics, and diet as tolerated. consider low dose ativan as this has helped with symptoms in the past. would limit narcotics. Subjective Date of service: 10/06/17 Principal diagnosis: abd pain, N/V Interval history: Patient resting in bed. Noted to be groggy, sluggish and unable to focus. Pain medication recently given per nursing. Reports continued generalized abd pain and N/V. Objective - Constitutional Vitals: Temp Pulse Resp BP Pulse Ox 100.1 F H 116 H 20 200/99 99 10/06/17 08:12 10/06/17 09:37 10/06/17 08:12 10/06/17 09:37 10/06/17 08:12 General appearance: no acute distress, other (groggy/sluggish) - Respiratory Respiratory: bilateral: CTA - Cardiovascular Rhythm: other (tachycardia) Heart Sounds: Present: S1 & S2 - Gastrointestinal General gastrointestinal: Present: soft, tender (diffuse TTP), non-distended, normal bowel sounds - Labs CBC & Chem 7: 10/06/17 08:56 10/06/17 08:56 Labs: Laboratory Results - last 24 hr 10/06/17 10/06/17 10/06/17 04:57 08:56 08:56 WBC 23.8 H RBC 4.60 Hgb 10.8 Hct 35.5 MCV 77 L MCH 24 L MCHC 30 RDW 21.3 H Plt Count 617 H Add Manual Diff Complete Total Counted 100 Seg Neutrophils % Entry Level Installation Technician Seg Neuts % (Manual) 90.0 H Band Neutrophils % 4.0 Lymphocytes % (Manual) 4.0 L Reactive Lymphs % (Man) 0 Monocytes % (Manual) 2.0 Eosinophils % (Manual) 0 Basophils % (Manual) 0 Metamyelocytes % 0 Myelocytes % 0 Promyelocytes % 0 Blast Cells % 0 Nucleated RBC % Not Reportable Seg Neutrophils # Man 21.4 H Band Neutrophils # 1.0 Lymphocytes # (Manual) 1.0 L Abs React Lymphs (Man) 0.0 Monocytes # (Manual) 0.5 Eosinophils # (Manual) 0.0 Basophils # (Manual) 0.0 Metamyelocytes # 0.0 Myelocytes # 0.0 Promyelocytes # 0.0 Blast Cells # 0.0 WBC Morphology Not Reportable Hypersegmented Neuts Not Reportable Hyposegmented Neuts Not Reportable Hypogranular Neuts Not Reportable Smudge Cells Not Reportable Toxic Granulation Not Reportable Toxic Vacuolation Not Reportable Dohle Bodies Not Reportable Pelger-Huet Anomaly Not Reportable Dorita Rods Not Reportable Platelet Estimate Consistent w auto Clumped Platelets Not Reportable Plt Clumps, EDTA Not Reportable Large Platelets Not Reportable Giant Platelets Not Reportable Platelet Satelliting Not Reportable Plt Morphology Comment Not Reportable RBC Morphology Not Reportable Dimorphic RBCs Not Reportable Polychromasia Not Reportable Hypochromasia 1+ Poikilocytosis Not Reportable Anisocytosis 1+ Microcytosis Not Reportable Macrocytosis Not Reportable Spherocytes Not Reportable Pappenheimer Bodies Not Reportable Sickle Cells Not Reportable Target Cells Not Reportable Tear Drop Cells Not Reportable Ovalocytes Not Reportable Helmet Cells Not Reportable Dodson-[place] Bodies Not Reportable [place] Rings Not Reportable [place] Cells Not Reportable Bite Cells Not Reportable Crenated Cell Not Reportable Elliptocytes Not Reportable Acanthocytes (Spur) Not Reportable Rouleaux Not Reportable Hemoglobin C Crystals Not Reportable Schistocytes Not Reportable Malaria parasites Not Reportable Bhavik Bodies Not Reportable Hem Pathologist Commnt No Sodium 151 H D Potassium 3.2 L Chloride 106.2 Carbon Dioxide 19 L Anion Gap 29 BUN 12 Creatinine 1.1 Estimated GFR > 60 BUN/Creatinine Ratio 11 Glucose 97 POC Glucose 132 H Calcium 9.0 Total Bilirubin 0.30 AST 16 ALT 10 Alkaline Phosphatase 100 Total Protein 7.3 Albumin 4.3 Albumin/Globulin Ratio 1.4 <SALONI TA - Last Filed: 10/06/17 16:37> Assessment and Plan Patient seen and examined. Agree with note by Srinivasa Mckeon. Currently being treated for sepsis (suspected UTI?). Pt somnolent/arousable on exam. No new complaints but does not stay awake to answer questions. Further recommendations as above and per consult note for idiopathic gastroparesis ( likely exacerbated by constipation/medications, and sepsis). Will sign off, please call back as needed or with questions. Objective - Constitutional Vitals: Temp Pulse Resp BP Pulse Ox 100.1 F H 116 H 20 200/99 98 10/06/17 08:12 10/06/17 09:37 10/06/17 08:12 10/06/17 09:37 10/06/17 12:43 - Labs CBC & Chem 7: 10/06/17 08:56 10/06/17 08:56 Labs: Laboratory Results - last 24 hr 10/06/17 10/06/17 10/06/17 04:57 08:56 08:56 WBC 23.8 H RBC 4.60 Hgb 10.8 Hct 35.5 MCV 77 L MCH 24 L MCHC 30 RDW 21.3 H Plt Count 617 H Add Manual Diff Complete Total Counted 100 Seg Neutrophils % Entry Level Installation Technician Seg Neuts % (Manual) 90.0 H Band Neutrophils % 4.0 Lymphocytes % (Manual) 4.0 L Reactive Lymphs % (Man) 0 Monocytes % (Manual) 2.0 Eosinophils % (Manual) 0 Basophils % (Manual) 0 Metamyelocytes % 0 Myelocytes % 0 Promyelocytes % 0 Blast Cells % 0 Nucleated RBC % Not Reportable Seg Neutrophils # Man 21.4 H Band Neutrophils # 1.0 Lymphocytes # (Manual) 1.0 L Abs React Lymphs (Man) 0.0 Monocytes # (Manual) 0.5 Eosinophils # (Manual) 0.0 Basophils # (Manual) 0.0 Metamyelocytes # 0.0 Myelocytes # 0.0 Promyelocytes # 0.0 Blast Cells # 0.0 WBC Morphology Not Reportable Hypersegmented Neuts Not Reportable Hyposegmented Neuts Not Reportable Hypogranular Neuts Not Reportable Smudge Cells Not Reportable Toxic Granulation Not Reportable Toxic Vacuolation Not Reportable Dohle Bodies Not Reportable Pelger-Huet Anomaly Not Reportable Dorita Rods Not Reportable Platelet Estimate Consistent w auto Clumped Platelets Not Reportable Plt Clumps, EDTA Not Reportable Large Platelets Not Reportable Giant Platelets Not Reportable Platelet Satelliting Not Reportable Plt Morphology Comment Not Reportable RBC Morphology Not Reportable Dimorphic RBCs Not Reportable Polychromasia Not Reportable Hypochromasia 1+ Poikilocytosis Not Reportable Anisocytosis 1+ Microcytosis Not Reportable Macrocytosis Not Reportable Spherocytes Not Reportable Pappenheimer Bodies Not Reportable Sickle Cells Not Reportable Target Cells Not Reportable Tear Drop Cells Not Reportable Ovalocytes Not Reportable Helmet Cells Not Reportable Dodson-[place] Bodies Not Reportable [place] Rings Not Reportable [place] Cells Not Reportable Bite Cells Not Reportable Crenated Cell Not Reportable Elliptocytes Not Reportable Acanthocytes (Spur) Not Reportable Rouleaux Not Reportable Hemoglobin C Crystals Not Reportable Schistocytes Not Reportable Malaria parasites Not Reportable Bhavik Bodies Not Reportable Hem Pathologist Commnt No Sodium 151 H D Potassium 3.2 L Chloride 106.2 Carbon Dioxide 19 L Anion Gap 29 BUN 12 Creatinine 1.1 Estimated GFR > 60 BUN/Creatinine Ratio 11 Glucose 97 POC Glucose 132 H Calcium 9.0 Total Bilirubin 0.30 AST 16 ALT 10 Alkaline Phosphatase 100 Total Protein 7.3 Albumin 4.3 Albumin/Globulin Ratio 1.4
--- NOTE | 2017-10-06 11:48 | Progress Note ---
Assessment and Plan Assessment and plan: 61 YO Female with HTN, GERD, OA, Seizure, Anxiety, Gastroparesis, Narcotic Abuse who presents with acute flare of gastroparesis. She presented with intractable nausea vomiting abdominal pain Acute flare of gastroparesis with intractable nausea and vomiting -continue anti-emetics and IVF -Case discussed with inserting operator, patient may benefit from Restoril and avoidance of narcotics -We'll give patient a prescription for Restoril upon discharge Sepsis/UTI Improving, fever curve trending down, continue antibiotics. Chronic narcotic use The patient was counseled that is most likely worsening her gastroparesis. Avoid narcotics, treat nausea and abdominal pain with Ativan instead. Hypertensive urgency Continue IV medications, resume oral medications if able to swallow Metabolic acidosis Improving, treat the underlying cause is dehydration and sepsis Constipation/narcotic bowel syndrome Has received promotility agents and stool softeners, patient has now had a bowel movements History Interval history: she is still c/o nausea and vomiting She feels better, she is having less emesis today. Review of systems Constitutional: No fevers, no malaise, no joint pains, some drowsiness from medications for pain and nausea reported CVS: No chest pain, no orthopnea, no dyspnea on exertion, no pedal edema GI: Concedes to have abdominal pain nausea and vomiting, but all are improving Respiratory: No shortness of breath, no wheezing, no coughing Hospitalist Physical - Physical exam Narrative exam: General.: Appears well, no distress, nontoxic HEENT: Moist mucous membranes, extraocular muscles intact, no lymphadenopathy Neck: supple Cardiac: S1-S2 heard Lungs: clear to auscultation bilaterally Abdomen: soft , nontender, nondistended, bowel sounds positive Extremities: no edema clubbing or cyanosis Skin: no rash or lesions Neurologic: no gross focal deficits Psych: appropriate behavior, appropriate mood, corporative, judgment intact - Constitutional Vitals: Temp Pulse Resp BP Pulse Ox 100.1 F H 116 H 20 200/99 99 10/06/17 08:12 10/06/17 09:37 10/06/17 08:12 10/06/17 09:37 10/06/17 08:12 General appearance: Present: mild distress Results - Labs CBC & Chem 7: 10/06/17 08:56 10/07/17 06:56 Labs: Laboratory Last Values WBC 23.8 K/mm3 (4.5-11.0) H 10/06/17 08:56 RBC 4.60 M/mm3 (3.65-5.03) 10/06/17 08:56 Hgb 10.8 gm/dl (10.1-14.3) 10/06/17 08:56 Hct 35.5 % (30.3-42.9) 10/06/17 08:56 MCV 77 fl (79-97) L 10/06/17 08:56 MCH 24 pg (28-32) L 10/06/17 08:56 MCHC 30 % (30-34) 10/06/17 08:56 RDW 21.3 % (13.2-15.2) H 10/06/17 08:56 Plt Count 617 K/mm3 (140-440) H 10/06/17 08:56 Add Manual Diff Complete 10/06/17 08:56 Total Counted 100 10/06/17 08:56 Seg Neutrophils % Sheet Tailer 10/06/17 08:56 Seg Neuts % (Manual) 90.0 % (40.0-70.0) H 10/06/17 08:56 Band Neutrophils % 4.0 % 10/06/17 08:56 Lymphocytes % (Manual) 4.0 % (13.4-35.0) L 10/06/17 08:56 Reactive Lymphs % (Man) 0 % 10/06/17 08:56 Monocytes % (Manual) 2.0 % (0.0-7.3) 10/06/17 08:56 Eosinophils % (Manual) 0 % (0.0-4.3) 10/06/17 08:56 Basophils % (Manual) 0 % (0.0-1.8) 10/06/17 08:56 Metamyelocytes % 0 % 10/06/17 08:56 Myelocytes % 0 % 10/06/17 08:56 Promyelocytes % 0 % 10/06/17 08:56 Blast Cells % 0 % 10/06/17 08:56 Nucleated RBC % Not Reportable 10/06/17 08:56 Seg Neutrophils # Man 21.4 K/mm3 (1.8-7.7) H 10/06/17 08:56 Band Neutrophils # 1.0 K/mm3 10/06/17 08:56 Lymphocytes # (Manual) 1.0 K/mm3 (1.2-5.4) L 10/06/17 08:56 Abs React Lymphs (Man) 0.0 K/mm3 10/06/17 08:56 Monocytes # (Manual) 0.5 K/mm3 (0.0-0.8) 10/06/17 08:56 Eosinophils # (Manual) 0.0 K/mm3 (0.0-0.4) 10/06/17 08:56 Basophils # (Manual) 0.0 K/mm3 (0.0-0.1) 10/06/17 08:56 Metamyelocytes # 0.0 K/mm3 10/06/17 08:56 Myelocytes # 0.0 K/mm3 10/06/17 08:56 Promyelocytes # 0.0 K/mm3 10/06/17 08:56 Blast Cells # 0.0 K/mm3 10/06/17 08:56 WBC Morphology Not Reportable 10/06/17 08:56 Hypersegmented Neuts Not Reportable 10/06/17 08:56 Hyposegmented Neuts Not Reportable 10/06/17 08:56 Hypogranular Neuts Not Reportable 10/06/17 08:56 Smudge Cells Not Reportable 10/06/17 08:56 Toxic Granulation Not Reportable 10/06/17 08:56 Toxic Vacuolation Not Reportable 10/06/17 08:56 Dohle Bodies Not Reportable 10/06/17 08:56 Pelger-Huet Anomaly Not Reportable 10/06/17 08:56 Dorita Rods Not Reportable 10/06/17 08:56 Platelet Estimate Consistent w auto 10/06/17 08:56 Clumped Platelets Not Reportable 10/06/17 08:56 Plt Clumps, EDTA Not Reportable 10/06/17 08:56 Large Platelets Not Reportable 10/06/17 08:56 Giant Platelets Not Reportable 10/06/17 08:56 Platelet Satelliting Not Reportable 10/06/17 08:56 Plt Morphology Comment Not Reportable 10/06/17 08:56 RBC Morphology Not Reportable 10/06/17 08:56 Dimorphic RBCs Not Reportable 10/06/17 08:56 Polychromasia Not Reportable 10/06/17 08:56 Hypochromasia 1+ 10/06/17 08:56 Poikilocytosis Not Reportable 10/06/17 08:56 Anisocytosis 1+ 10/06/17 08:56 Microcytosis Not Reportable 10/06/17 08:56 Macrocytosis Not Reportable 10/06/17 08:56 Spherocytes Not Reportable 10/06/17 08:56 Pappenheimer Bodies Not Reportable 10/06/17 08:56 Sickle Cells Not Reportable 10/06/17 08:56 Target Cells Not Reportable 10/06/17 08:56 Tear Drop Cells Not Reportable 10/06/17 08:56 Ovalocytes Not Reportable 10/06/17 08:56 Helmet Cells Not Reportable 10/06/17 08:56 Dodson-[place] Bodies Not Reportable 10/06/17 08:56 [place] Rings Not Reportable 10/06/17 08:56 [place] Cells Not Reportable 10/06/17 08:56 Bite Cells Not Reportable 10/06/17 08:56 Crenated Cell Not Reportable 10/06/17 08:56 Elliptocytes Not Reportable 10/06/17 08:56 Acanthocytes (Spur) Not Reportable 10/06/17 08:56 Rouleaux Not Reportable 10/06/17 08:56 Hemoglobin C Crystals Not Reportable 10/06/17 08:56 Schistocytes Not Reportable 10/06/17 08:56 Malaria parasites Not Reportable 10/06/17 08:56 Bhavik Bodies Not Reportable 10/06/17 08:56 Hem Pathologist Commnt No 10/06/17 08:56 POC ABG pH 7.331 (7.35-7.45) L 10/04/17 22:41 POC ABG pCO2 38.4 (35-45) 10/04/17 22:41 POC ABG pO2 79 (80-105) L 10/04/17 22:41 POC ABG HCO3 20.3 10/04/17 22:41 POC ABG Total CO2 21 10/04/17 22:41 POC ABG O2 Sat 95 10/04/17 22:41 POC ABG Base Excess -6 10/04/17 22:41 FiO2 32 % 10/04/17 22:41 Sodium 151 mmol/L (137-145) H D 10/06/17 08:56 Potassium 3.2 mmol/L (3.6-5.0) L 10/06/17 08:56 Chloride 106.2 mmol/L (98-107) 10/06/17 08:56 Carbon Dioxide 19 mmol/L (22-30) L 10/06/17 08:56 Anion Gap 29 mmol/L 10/06/17 08:56 BUN 12 mg/dL (7-17) 10/06/17 08:56 Creatinine 1.1 mg/dL (0.7-1.2) 10/06/17 08:56 Estimated GFR > 60 ml/min 10/06/17 08:56 BUN/Creatinine Ratio 11 % 10/06/17 08:56 Glucose 97 mg/dL (65-100) 10/06/17 08:56 POC Glucose 132 (70-105) H 10/06/17 04:57 Lactic Acid 1.20 mmol/L (0.7-2.0) 10/05/17 07:10 Calcium 9.0 mg/dL (8.4-10.2) 10/06/17 08:56 Total Bilirubin 0.30 mg/dL (0.1-1.2) 10/06/17 08:56 AST 16 units/L (5-40) 10/06/17 08:56 ALT 10 units/L (7-56) 10/06/17 08:56 Alkaline Phosphatase 100 units/L (35-129) 10/06/17 08:56 Troponin T < 0.010 ng/mL (0.00-0.029) 10/04/17 23:11 Total Protein 7.3 g/dL (6.3-8.2) 10/06/17 08:56 Albumin 4.3 g/dL (3.9-5) 10/06/17 08:56 Albumin/Globulin Ratio 1.4 % 10/06/17 08:56 Amylase 54 units/L (27-131) 10/04/17 23:11 Lipase 17 units/L (13-60) 10/04/17 23:11 Urine Color Straw (Yellow) 10/04/17 00:00 Urine Turbidity Clear (Clear) 10/04/17 00:00 Urine pH 5.0 (5.0-7.0) 10/04/17 00:00 Ur Specific [place] 1.009 (1.003-1.030) 10/04/17 00:00 Urine Protein <15 mg/dl mg/dL (Negative) 10/04/17 00:00 Urine Glucose (UA) Neg mg/dL (Negative) 10/04/17 00:00 Urine Ketones Tr mg/dL (Negative) 10/04/17 00:00 Urine Blood Sm (Negative) 10/04/17 00:00 Urine Nitrite Neg (Negative) 10/04/17 00:00 Urine Bilirubin Neg (Negative) 10/04/17 00:00 Urine Urobilinogen < 2.0 mg/dL (<2.0) 10/04/17 00:00 Ur Leukocyte Esterase Mod (Negative) 10/04/17 00:00 Urine WBC (Auto) 39.0 /HPF (0.0-6.0) H 10/04/17 00:00 Urine RBC (Auto) 7.0 /HPF (0.0-6.0) 10/04/17 00:00 U Epithel Cells (Auto) 9.0 /HPF (0-13.0) 10/04/17 00:00 Urine Bacteria (Auto) 1+ /HPF (Negative) 10/04/17 00:00 Ur Transition Epith Cell 1 /HPF 10/04/17 00:00 Plasma/Serum Alcohol < 0.01 gm% (0-0.07) 10/04/17 23:11
[2017-10-06] MEDS ORDERED: ROCEPHIN/NS 1 GM/50 ML 1 GM/50 ML BAG IV SCH (12:00)
[2017-10-06] MEDS: ULTRAM PO PRN ×2 (12:38→20:15)
[2017-10-06] MEDS: SENOKOT S PO SCH ×2 (12:38→21:12)
[2017-10-06] MEDS: cefTRIAXone 1 GM in NACL 0.9% 20 ML IV SCH (17:30)
[2017-10-06] MEDS: KCL 20 MEQ in D5W 1,000 ML IV SCH (17:30)
[2017-10-06] MEDS: APRESOLINE IV PRN (20:14)
[2017-10-06] MEDS ORDERED: NORMODYNE IV ONE (20:54)
[2017-10-06] MEDS: NAPROSYN PO SCH (21:11)
[2017-10-07] MEDS: NEURONTIN PO SCH ×3 (03:36→21:10)
[2017-10-07] MEDS: VANCOMYCIN 1,250 MG in NACL 0.9% 250ML 250 ML IV SCH (03:55)
[2017-10-07] MEDS: COMPAZINE IV SCH ×4 (03:55→22:21)
[2017-10-07] MEDS: APRESOLINE IV PRN ×3 (03:55→21:20)
[2017-10-07] MEDS: ULTRAM PO PRN ×2 (04:07→14:25)
[2017-10-07] MEDS: TYLENOL PO PRN (04:56)
[2017-10-07] MEDS ORDERED: LOPRESSOR PO ONE (06:42)
[2017-10-07 07:40] LABS: Anion Gap 23 mmol/L; BUN/Creatinine Ratio 15; Blood Urea Nitrogen 15 mg/dL (7-17); Calcium 8.9 mg/dL (8.4-10.2); Carbon Dioxide 23 mmol/L (22-30); Chloride 106.3 mmol/L (98-107); Glucose 145 mg/dL (65-100); Potassium 3.1 mmol/L (3.6-5.0); Sodium 149 mmol/L (137-145)
[2017-10-07] MEDS: SKELAXIN PO SCH ×3 (09:09→21:10)
[2017-10-07] MEDS: KCL 20 MEQ in D5W 1,000 ML IV SCH (09:16)
[2017-10-07] MEDS: NAPROSYN PO SCH ×3 (10:00→21:19)
[2017-10-07] MEDS: cefTRIAXone 1 GM in NACL 0.9% 20 ML IV SCH (10:00)
--- NOTE | 2017-10-07 10:53 | Progress Note ---
Assessment and Plan Assessment and plan: 61 YO Female with HTN, GERD, OA, Seizure, Anxiety, Gastroparesis, Narcotic Abuse who presents with acute flare of gastroparesis. She presented with intractable nausea vomiting abdominal pain Acute flare of gastroparesis with intractable nausea and vomiting -continue anti-emetics and IVF -Case discussed with programmer analyst consultant, patient may benefit from Restoril and avoidance of narcotics -We'll give patient a prescription for Restoril upon discharge Advance diet to clear liquids Sepsis/UTI Improving, fever curve trending down, continue antibiotics. Hypernatremia/dehydration/3 word appreciates Continue D5 water Hypokalemia Continue to replete IV, check magnesium level Chronic narcotic use The patient was counseled that is most likely worsening her gastroparesis. Avoid narcotics, treat nausea and abdominal pain with Ativan instead. Hypertensive urgency Continue IV medications, resume oral medications if able to swallow Metabolic acidosis Improving, treat the underlying cause is dehydration and sepsis Constipation/narcotic bowel syndrome Has received promotility agents and stool softeners, patient has now had a bowel movements History Interval history: she is still c/o nausea and vomiting She feels better, she is having less emesis today. Review of systems Constitutional: No fevers, no malaise, no joint pains, some drowsiness from medications for pain and nausea reported CVS: No chest pain, no orthopnea, no dyspnea on exertion, no pedal edema GI: Concedes to have abdominal pain nausea and vomiting, but all are improving Respiratory: No shortness of breath, no wheezing, no coughing Hospitalist Physical - Physical exam Narrative exam: General.: Appears well, no distress, nontoxic HEENT: Moist mucous membranes, extraocular muscles intact, no lymphadenopathy Neck: supple Cardiac: S1-S2 heard Lungs: clear to auscultation bilaterally Abdomen: soft , nontender, nondistended, bowel sounds positive Extremities: no edema clubbing or cyanosis Skin: no rash or lesions Neurologic: no gross focal deficits Psych: appropriate behavior, appropriate mood, corporative, judgment intact - Constitutional Vitals: Temp Pulse Resp BP Pulse Ox 97.9 F 126 H 24 133/91 96 10/07/17 09:27 10/07/17 09:27 10/07/17 09:27 10/07/17 09:27 10/07/17 10:00 General appearance: Present: mild distress Results - Labs CBC & Chem 7: 10/06/17 08:56 10/07/17 06:56 Labs: Laboratory Last Values WBC 23.8 K/mm3 (4.5-11.0) H 10/06/17 08:56 RBC 4.60 M/mm3 (3.65-5.03) 10/06/17 08:56 Hgb 10.8 gm/dl (10.1-14.3) 10/06/17 08:56 Hct 35.5 % (30.3-42.9) 10/06/17 08:56 MCV 77 fl (79-97) L 10/06/17 08:56 MCH 24 pg (28-32) L 10/06/17 08:56 MCHC 30 % (30-34) 10/06/17 08:56 RDW 21.3 % (13.2-15.2) H 10/06/17 08:56 Plt Count 617 K/mm3 (140-440) H 10/06/17 08:56 Add Manual Diff Complete 10/06/17 08:56 Total Counted 100 10/06/17 08:56 Seg Neutrophils % Security Sales Manager 10/06/17 08:56 Seg Neuts % (Manual) 90.0 % (40.0-70.0) H 10/06/17 08:56 Band Neutrophils % 4.0 % 10/06/17 08:56 Lymphocytes % (Manual) 4.0 % (13.4-35.0) L 10/06/17 08:56 Reactive Lymphs % (Man) 0 % 10/06/17 08:56 Monocytes % (Manual) 2.0 % (0.0-7.3) 10/06/17 08:56 Eosinophils % (Manual) 0 % (0.0-4.3) 10/06/17 08:56 Basophils % (Manual) 0 % (0.0-1.8) 10/06/17 08:56 Metamyelocytes % 0 % 10/06/17 08:56 Myelocytes % 0 % 10/06/17 08:56 Promyelocytes % 0 % 10/06/17 08:56 Blast Cells % 0 % 10/06/17 08:56 Nucleated RBC % Not Reportable 10/06/17 08:56 Seg Neutrophils # Man 21.4 K/mm3 (1.8-7.7) H 10/06/17 08:56 Band Neutrophils # 1.0 K/mm3 10/06/17 08:56 Lymphocytes # (Manual) 1.0 K/mm3 (1.2-5.4) L 10/06/17 08:56 Abs React Lymphs (Man) 0.0 K/mm3 10/06/17 08:56 Monocytes # (Manual) 0.5 K/mm3 (0.0-0.8) 10/06/17 08:56 Eosinophils # (Manual) 0.0 K/mm3 (0.0-0.4) 10/06/17 08:56 Basophils # (Manual) 0.0 K/mm3 (0.0-0.1) 10/06/17 08:56 Metamyelocytes # 0.0 K/mm3 10/06/17 08:56 Myelocytes # 0.0 K/mm3 10/06/17 08:56 Promyelocytes # 0.0 K/mm3 10/06/17 08:56 Blast Cells # 0.0 K/mm3 10/06/17 08:56 WBC Morphology Not Reportable 10/06/17 08:56 Hypersegmented Neuts Not Reportable 10/06/17 08:56 Hyposegmented Neuts Not Reportable 10/06/17 08:56 Hypogranular Neuts Not Reportable 10/06/17 08:56 Smudge Cells Not Reportable 10/06/17 08:56 Toxic Granulation Not Reportable 10/06/17 08:56 Toxic Vacuolation Not Reportable 10/06/17 08:56 Dohle Bodies Not Reportable 10/06/17 08:56 Pelger-Huet Anomaly Not Reportable 10/06/17 08:56 Dorita Rods Not Reportable 10/06/17 08:56 Platelet Estimate Consistent w auto 10/06/17 08:56 Clumped Platelets Not Reportable 10/06/17 08:56 Plt Clumps, EDTA Not Reportable 10/06/17 08:56 Large Platelets Not Reportable 10/06/17 08:56 Giant Platelets Not Reportable 10/06/17 08:56 Platelet Satelliting Not Reportable 10/06/17 08:56 Plt Morphology Comment Not Reportable 10/06/17 08:56 RBC Morphology Not Reportable 10/06/17 08:56 Dimorphic RBCs Not Reportable 10/06/17 08:56 Polychromasia Not Reportable 10/06/17 08:56 Hypochromasia 1+ 10/06/17 08:56 Poikilocytosis Not Reportable 10/06/17 08:56 Anisocytosis 1+ 10/06/17 08:56 Microcytosis Not Reportable 10/06/17 08:56 Macrocytosis Not Reportable 10/06/17 08:56 Spherocytes Not Reportable 10/06/17 08:56 Pappenheimer Bodies Not Reportable 10/06/17 08:56 Sickle Cells Not Reportable 10/06/17 08:56 Target Cells Not Reportable 10/06/17 08:56 Tear Drop Cells Not Reportable 10/06/17 08:56 Ovalocytes Not Reportable 10/06/17 08:56 Helmet Cells Not Reportable 10/06/17 08:56 Dodson-[place] Bodies Not Reportable 10/06/17 08:56 [place] Rings Not Reportable 10/06/17 08:56 [place] Cells Not Reportable 10/06/17 08:56 Bite Cells Not Reportable 10/06/17 08:56 Crenated Cell Not Reportable 10/06/17 08:56 Elliptocytes Not Reportable 10/06/17 08:56 Acanthocytes (Spur) Not Reportable 10/06/17 08:56 Rouleaux Not Reportable 10/06/17 08:56 Hemoglobin C Crystals Not Reportable 10/06/17 08:56 Schistocytes Not Reportable 10/06/17 08:56 Malaria parasites Not Reportable 10/06/17 08:56 Bhavik Bodies Not Reportable 10/06/17 08:56 Hem Pathologist Commnt No 10/06/17 08:56 POC ABG pH 7.331 (7.35-7.45) L 10/04/17 22:41 POC ABG pCO2 38.4 (35-45) 10/04/17 22:41 POC ABG pO2 79 (80-105) L 10/04/17 22:41 POC ABG HCO3 20.3 10/04/17 22:41 POC ABG Total CO2 21 10/04/17 22:41 POC ABG O2 Sat 95 10/04/17 22:41 POC ABG Base Excess -6 10/04/17 22:41 FiO2 32 % 10/04/17 22:41 Sodium 149 mmol/L (137-145) H 10/07/17 06:56 Potassium 3.1 mmol/L (3.6-5.0) L 10/07/17 06:56 Chloride 106.3 mmol/L (98-107) 10/07/17 06:56 Carbon Dioxide 23 mmol/L (22-30) 10/07/17 06:56 Anion Gap 23 mmol/L 10/07/17 06:56 BUN 15 mg/dL (7-17) 10/07/17 06:56 Creatinine 1.0 mg/dL (0.7-1.2) 10/07/17 06:56 Estimated GFR > 60 ml/min 10/07/17 06:56 BUN/Creatinine Ratio 15 % 10/07/17 06:56 Glucose 145 mg/dL (65-100) H 10/07/17 06:56 POC Glucose 132 (70-105) H 10/06/17 04:57 Lactic Acid 1.20 mmol/L (0.7-2.0) 10/05/17 07:10 Calcium 8.9 mg/dL (8.4-10.2) 10/07/17 06:56 Total Bilirubin 0.30 mg/dL (0.1-1.2) 10/06/17 08:56 AST 16 units/L (5-40) 10/06/17 08:56 ALT 10 units/L (7-56) 10/06/17 08:56 Alkaline Phosphatase 100 units/L (35-129) 10/06/17 08:56 Troponin T < 0.010 ng/mL (0.00-0.029) 10/04/17 23:11 Total Protein 7.3 g/dL (6.3-8.2) 10/06/17 08:56 Albumin 4.3 g/dL (3.9-5) 10/06/17 08:56 Albumin/Globulin Ratio 1.4 % 10/06/17 08:56 Amylase 54 units/L (27-131) 10/04/17 23:11 Lipase 17 units/L (13-60) 10/04/17 23:11 Urine Color Straw (Yellow) 10/04/17 00:00 Urine Turbidity Clear (Clear) 10/04/17 00:00 Urine pH 5.0 (5.0-7.0) 10/04/17 00:00 Ur Specific [place] 1.009 (1.003-1.030) 10/04/17 00:00 Urine Protein <15 mg/dl mg/dL (Negative) 10/04/17 00:00 Urine Glucose (UA) Neg mg/dL (Negative) 10/04/17 00:00 Urine Ketones Tr mg/dL (Negative) 10/04/17 00:00 Urine Blood Sm (Negative) 10/04/17 00:00 Urine Nitrite Neg (Negative) 10/04/17 00:00 Urine Bilirubin Neg (Negative) 10/04/17 00:00 Urine Urobilinogen < 2.0 mg/dL (<2.0) 10/04/17 00:00 Ur Leukocyte Esterase Mod (Negative) 10/04/17 00:00 Urine WBC (Auto) 39.0 /HPF (0.0-6.0) H 10/04/17 00:00 Urine RBC (Auto) 7.0 /HPF (0.0-6.0) 10/04/17 00:00 U Epithel Cells (Auto) 9.0 /HPF (0-13.0) 10/04/17 00:00 Urine Bacteria (Auto) 1+ /HPF (Negative) 10/04/17 00:00 Ur Transition Epith Cell 1 /HPF 10/04/17 00:00 Plasma/Serum Alcohol < 0.01 gm% (0-0.07) 10/04/17 23:11
[2017-10-07] MEDS: ATIVAN IV PRN ×2 (12:26→21:10)
[2017-10-07] MEDS: KCL 10MEQ/100ML 10 MEQ/100 ML BAG IV SCH ×4 (14:24→18:26)
[2017-10-07] MEDS: SENOKOT S PO SCH ×2 (14:26→21:10)
[2017-10-07] MEDS: PROTONIX PO SCH (14:26)
[2017-10-07] MEDS: COZAAR PO SCH (14:27)
[2017-10-07] MEDS: ZOFRAN IV PRN ×2 (14:27→21:08)
[2017-10-07] MEDS ORDERED: PHENERGAN PR PRN (17:53)
--- NOTE | 2017-10-07 19:03 | Cat Scan Report ---
FINAL REPORT EXAM: CT HEAD/BRAIN WO CON HISTORY: AMS TECHNIQUE: CT examination of the head without IV contrast PRIORS: 02/10/2017 FINDINGS: No acute air-fluid level visualized in the included air-filled sinuses. Bone windows demonstrate no acute fracture. The brain is without mass, mass effect, hemorrhage, or acute infarct. There is no extra-axial intracranial bleed, brain bleed, or midline shift. The ventricles and sulci are age-appropriate. IMPRESSION: No acute CVA, intracranial bleed, or brain mass
[2017-10-08] MEDS: NEURONTIN PO SCH ×3 (04:57→18:49)
[2017-10-08] MEDS: ATIVAN IV PRN ×3 (04:58→20:45)
[2017-10-08] MEDS: ZOFRAN IV PRN ×2 (05:07→11:36)
[2017-10-08] MEDS: ULTRAM PO PRN ×3 (05:34→23:14)
[2017-10-08] MEDS: COMPAZINE IV SCH ×4 (07:38→22:03)
[2017-10-08] MEDS: COZAAR PO SCH (09:50)
[2017-10-08] MEDS: PROTONIX PO SCH (09:50)
[2017-10-08] MEDS: NAPROSYN PO SCH ×2 (09:51→22:01)
[2017-10-08] MEDS: SENOKOT S PO SCH ×2 (09:52→22:01)
[2017-10-08] MEDS: SKELAXIN PO SCH ×4 (09:56→20:48)
[2017-10-08] MEDS: cefTRIAXone 1 GM in NACL 0.9% 20 ML IV SCH (10:11)
[2017-10-08 11:01] LABS: Anion Gap 20 mmol/L; BUN/Creatinine Ratio 16; Blood Urea Nitrogen 14 mg/dL (7-17); Calcium 8.2 mg/dL (8.4-10.2); Carbon Dioxide 22 mmol/L (22-30); Chloride 105.5 mmol/L (98-107); Glucose 146 mg/dL (65-100); Potassium 3.2 mmol/L (3.6-5.0); Sodium 144 mmol/L (137-145)
[2017-10-08] MEDS: KCL 20 MEQ in D5W 1,000 ML IV SCH (11:41)
--- NOTE | 2017-10-08 13:09 | Progress Note ---
Assessment and Plan Assessment and plan: 61 YO Female with HTN, GERD, OA, Seizure, Anxiety, Gastroparesis, Narcotic Abuse who presents with acute flare of gastroparesis. She presented with intractable nausea vomiting abdominal pain Acute flare of gastroparesis with intractable nausea and vomiting -continue anti-emetics and IVF -Case discussed with digester operator helper, patient may benefit from Restoril and avoidance of narcotics -We'll give patient a prescription for Relistor upon discharge Advance diet to clear liquids Sepsis/UTI Improving, fever curve trending down, continue antibiotics. Hypernatremia/dehydration/free water deficit received D5w, improving Hypokalemia Continue to replete IV, check magnesium level Chronic narcotic use The patient was counseled that is most likely worsening her gastroparesis. Avoid narcotics, treat nausea and abdominal pain with Ativan instead. Hypertensive urgency Continue IV medications, resume oral medications if able to swallow Metabolic acidosis Improving, treat the underlying cause is dehydration and sepsis Metabolic encephalopathy CTH wnl, obtain MR brain to r/o CVA most likely due to acute illness and mind altering medications Constipation/narcotic bowel syndrome Has received promotility agents and stool softeners, patient has now had a bowel movements History Interval history: she is still c/o nausea She feels better, she is having less emesis today. Review of systems Constitutional: No fevers, no malaise, no joint pains, some drowsiness from medications for pain and nausea reported CVS: No chest pain, no orthopnea, no dyspnea on exertion, no pedal edema GI: Concedes to have abdominal pain nausea and vomiting, but all are improving Respiratory: No shortness of breath, no wheezing, no coughing neuro: has been having confusion and somnolence on and off, no focal weakness Hospitalist Physical - Physical exam Narrative exam: General.: Appears well, no distress, nontoxic HEENT: Moist mucous membranes, extraocular muscles intact, no lymphadenopathy Neck: supple Cardiac: S1-S2 heard Lungs: clear to auscultation bilaterally Abdomen: soft , nontender, nondistended, bowel sounds positive Extremities: no edema clubbing or cyanosis Skin: no rash or lesions Neurologic: no gross focal deficits Psych: appropriate behavior, appropriate mood, corporative, judgment intact - Constitutional Vitals: Temp Pulse Resp BP Pulse Ox 99.3 F 122 H 20 130/83 97 10/08/17 11:04 10/08/17 11:04 10/08/17 11:04 10/08/17 11:04 10/08/17 11:04 General appearance: Present: mild distress Results - Labs CBC & Chem 7: 10/06/17 08:56 10/08/17 10:09 Labs: Laboratory Last Values WBC 23.8 K/mm3 (4.5-11.0) H 10/06/17 08:56 RBC 4.60 M/mm3 (3.65-5.03) 10/06/17 08:56 Hgb 10.8 gm/dl (10.1-14.3) 10/06/17 08:56 Hct 35.5 % (30.3-42.9) 10/06/17 08:56 MCV 77 fl (79-97) L 10/06/17 08:56 MCH 24 pg (28-32) L 10/06/17 08:56 MCHC 30 % (30-34) 10/06/17 08:56 RDW 21.3 % (13.2-15.2) H 10/06/17 08:56 Plt Count 617 K/mm3 (140-440) H 10/06/17 08:56 Add Manual Diff Complete 10/06/17 08:56 Total Counted 100 10/06/17 08:56 Seg Neutrophils % Pyrometer Operator 10/06/17 08:56 Seg Neuts % (Manual) 90.0 % (40.0-70.0) H 10/06/17 08:56 Band Neutrophils % 4.0 % 10/06/17 08:56 Lymphocytes % (Manual) 4.0 % (13.4-35.0) L 10/06/17 08:56 Reactive Lymphs % (Man) 0 % 10/06/17 08:56 Monocytes % (Manual) 2.0 % (0.0-7.3) 10/06/17 08:56 Eosinophils % (Manual) 0 % (0.0-4.3) 10/06/17 08:56 Basophils % (Manual) 0 % (0.0-1.8) 10/06/17 08:56 Metamyelocytes % 0 % 10/06/17 08:56 Myelocytes % 0 % 10/06/17 08:56 Promyelocytes % 0 % 10/06/17 08:56 Blast Cells % 0 % 10/06/17 08:56 Nucleated RBC % Not Reportable 10/06/17 08:56 Seg Neutrophils # Man 21.4 K/mm3 (1.8-7.7) H 10/06/17 08:56 Band Neutrophils # 1.0 K/mm3 10/06/17 08:56 Lymphocytes # (Manual) 1.0 K/mm3 (1.2-5.4) L 10/06/17 08:56 Abs React Lymphs (Man) 0.0 K/mm3 10/06/17 08:56 Monocytes # (Manual) 0.5 K/mm3 (0.0-0.8) 10/06/17 08:56 Eosinophils # (Manual) 0.0 K/mm3 (0.0-0.4) 10/06/17 08:56 Basophils # (Manual) 0.0 K/mm3 (0.0-0.1) 10/06/17 08:56 Metamyelocytes # 0.0 K/mm3 10/06/17 08:56 Myelocytes # 0.0 K/mm3 10/06/17 08:56 Promyelocytes # 0.0 K/mm3 10/06/17 08:56 Blast Cells # 0.0 K/mm3 10/06/17 08:56 WBC Morphology Not Reportable 10/06/17 08:56 Hypersegmented Neuts Not Reportable 10/06/17 08:56 Hyposegmented Neuts Not Reportable 10/06/17 08:56 Hypogranular Neuts Not Reportable 10/06/17 08:56 Smudge Cells Not Reportable 10/06/17 08:56 Toxic Granulation Not Reportable 10/06/17 08:56 Toxic Vacuolation Not Reportable 10/06/17 08:56 Dohle Bodies Not Reportable 10/06/17 08:56 Pelger-Huet Anomaly Not Reportable 10/06/17 08:56 Dorita Rods Not Reportable 10/06/17 08:56 Platelet Estimate Consistent w auto 10/06/17 08:56 Clumped Platelets Not Reportable 10/06/17 08:56 Plt Clumps, EDTA Not Reportable 10/06/17 08:56 Large Platelets Not Reportable 10/06/17 08:56 Giant Platelets Not Reportable 10/06/17 08:56 Platelet Satelliting Not Reportable 10/06/17 08:56 Plt Morphology Comment Not Reportable 10/06/17 08:56 RBC Morphology Not Reportable 10/06/17 08:56 Dimorphic RBCs Not Reportable 10/06/17 08:56 Polychromasia Not Reportable 10/06/17 08:56 Hypochromasia 1+ 10/06/17 08:56 Poikilocytosis Not Reportable 10/06/17 08:56 Anisocytosis 1+ 10/06/17 08:56 Microcytosis Not Reportable 10/06/17 08:56 Macrocytosis Not Reportable 10/06/17 08:56 Spherocytes Not Reportable 10/06/17 08:56 Pappenheimer Bodies Not Reportable 10/06/17 08:56 Sickle Cells Not Reportable 10/06/17 08:56 Target Cells Not Reportable 10/06/17 08:56 Tear Drop Cells Not Reportable 10/06/17 08:56 Ovalocytes Not Reportable 10/06/17 08:56 Helmet Cells Not Reportable 10/06/17 08:56 [place] Bodies Not Reportable 10/06/17 08:56 [place] Rings Not Reportable 10/06/17 08:56 [place] Cells Not Reportable 10/06/17 08:56 Bite Cells Not Reportable 10/06/17 08:56 Crenated Cell Not Reportable 10/06/17 08:56 Elliptocytes Not Reportable 10/06/17 08:56 Acanthocytes (Spur) Not Reportable 10/06/17 08:56 Rouleaux Not Reportable 10/06/17 08:56 Hemoglobin C Crystals Not Reportable 10/06/17 08:56 Schistocytes Not Reportable 10/06/17 08:56 Malaria parasites Not Reportable 10/06/17 08:56 Bhavik Bodies Not Reportable 10/06/17 08:56 Hem Pathologist Commnt No 10/06/17 08:56 POC ABG pH 7.331 (7.35-7.45) L 10/04/17 22:41 POC ABG pCO2 38.4 (35-45) 10/04/17 22:41 POC ABG pO2 79 (80-105) L 10/04/17 22:41 POC ABG HCO3 20.3 10/04/17 22:41 POC ABG Total CO2 21 10/04/17 22:41 POC ABG O2 Sat 95 10/04/17 22:41 POC ABG Base Excess -6 10/04/17 22:41 FiO2 32 % 10/04/17 22:41 Sodium 144 mmol/L (137-145) 10/08/17 10:09 Potassium 3.2 mmol/L (3.6-5.0) L 10/08/17 10:09 Chloride 105.5 mmol/L (98-107) 10/08/17 10:09 Carbon Dioxide 22 mmol/L (22-30) 10/08/17 10:09 Anion Gap 20 mmol/L 10/08/17 10:09 BUN 14 mg/dL (7-17) 10/08/17 10:09 Creatinine 0.9 mg/dL (0.7-1.2) 10/08/17 10:09 Estimated GFR > 60 ml/min 10/08/17 10:09 BUN/Creatinine Ratio 16 % 10/08/17 10:09 Glucose 146 mg/dL (65-100) H 10/08/17 10:09 POC Glucose 132 (70-105) H 10/06/17 04:57 Lactic Acid 1.20 mmol/L (0.7-2.0) 10/05/17 07:10 Calcium 8.2 mg/dL (8.4-10.2) L 10/08/17 10:09 Total Bilirubin 0.30 mg/dL (0.1-1.2) 10/06/17 08:56 AST 16 units/L (5-40) 10/06/17 08:56 ALT 10 units/L (7-56) 10/06/17 08:56 Alkaline Phosphatase 100 units/L (35-129) 10/06/17 08:56 Troponin T < 0.010 ng/mL (0.00-0.029) 10/04/17 23:11 Total Protein 7.3 g/dL (6.3-8.2) 10/06/17 08:56 Albumin 4.3 g/dL (3.9-5) 10/06/17 08:56 Albumin/Globulin Ratio 1.4 % 10/06/17 08:56 Amylase 54 units/L (27-131) 10/04/17 23:11 Lipase 17 units/L (13-60) 10/04/17 23:11 Urine Color Straw (Yellow) 10/04/17 00:00 Urine Turbidity Clear (Clear) 10/04/17 00:00 Urine pH 5.0 (5.0-7.0) 10/04/17 00:00 Ur Specific [place] 1.009 (1.003-1.030) 10/04/17 00:00 Urine Protein <15 mg/dl mg/dL (Negative) 10/04/17 00:00 Urine Glucose (UA) Neg mg/dL (Negative) 10/04/17 00:00 Urine Ketones Tr mg/dL (Negative) 10/04/17 00:00 Urine Blood Sm (Negative) 10/04/17 00:00 Urine Nitrite Neg (Negative) 10/04/17 00:00 Urine Bilirubin Neg (Negative) 10/04/17 00:00 Urine Urobilinogen < 2.0 mg/dL (<2.0) 10/04/17 00:00 Ur Leukocyte Esterase Mod (Negative) 10/04/17 00:00 Urine WBC (Auto) 39.0 /HPF (0.0-6.0) H 10/04/17 00:00 Urine RBC (Auto) 7.0 /HPF (0.0-6.0) 10/04/17 00:00 U Epithel Cells (Auto) 9.0 /HPF (0-13.0) 10/04/17 00:00 Urine Bacteria (Auto) 1+ /HPF (Negative) 10/04/17 00:00 Ur Transition Epith Cell 1 /HPF 10/04/17 00:00 Plasma/Serum Alcohol < 0.01 gm% (0-0.07) 10/04/17 23:11 - Imaging and Cardiology CT Scan - head: image reviewed (no acute pathology)
[2017-10-08] MEDS ORDERED: MAGNESIUM SULFATE 2GM/50ML 2 GM/50 ML BAG IV ONE (14:00)
[2017-10-08] MEDS ORDERED: SODIUM CHLORIDE FLUSH SYRINGE 10 ML IV PRN (17:19)
[2017-10-08] MEDS: KCL 10MEQ/100ML 10 MEQ/100 ML BAG IV SCH ×3 (17:31→20:02)
[2017-10-09] MEDS: NEURONTIN PO SCH ×3 (03:55→22:30)
[2017-10-09] MEDS: ATIVAN IV PRN ×3 (05:16→22:30)
[2017-10-09] MEDS: ZOFRAN IV PRN (05:16)
[2017-10-09 06:35] LABS: Anion Gap 21 mmol/L; BUN/Creatinine Ratio 14; Blood Urea Nitrogen 13 mg/dL (7-17); Carbon Dioxide 20 mmol/L (22-30); Cholesterol 177 mg/dL (50-199); Glucose 122 mg/dL (65-100); HDL Cholesterol 34 mg/dL (40-59); LDL Cholesterol,Direct 120 mg/dL (50-130); Sodium 134 mmol/L (137-145); Triglycerides 116 mg/dL (2-149)
[2017-10-09 07:08] LABS: Potassium 6.3 mmol/L (3.6-5.0)
[2017-10-09] MEDS: COMPAZINE IV SCH ×2 (08:23→17:16)
[2017-10-09] MEDS: ULTRAM PO PRN ×2 (08:23→17:16)
--- NOTE | 2017-10-09 09:45 | Magnetic Resonance Report ---
MRI OF THE BRAIN WITHOUT CONTRAST: HISTORY: Stroke PROCEDURE: Multiplanar, multisequence MR imaging of the brain without IV contrast was performed. FINDINGS: Compared to noncontrast CT brain dated 10/07/17. The brain parenchyma signal intensity and its aldana white interface are within normal limits on all sequences. Minimal nonspecific chronic white matter changes are noted. No evidence for acute ischemia, hemorrhage or mass. No chronic infarct or extra-axial fluid collection. Mild dural thickening in the left parietal region is noted. The midline structures are central. The basal cisterns are patent. Normal ventricular size. The orbital cavities and sella turcica demonstrate no abnormality. The visualized paranasal sinuses and mastoid air cells are well aerated. IMPRESSION: Essentially unremarkable non-enhanced MRI of the brain. No acute process is identified.
[2017-10-09] MEDS: SKELAXIN PO SCH ×3 (10:29→22:34)
[2017-10-09] MEDS: PROTONIX PO SCH (10:30)
[2017-10-09] MEDS: SENOKOT S PO SCH ×2 (10:30→22:34)
[2017-10-09] MEDS: NAPROSYN PO SCH ×2 (10:30→22:29)
[2017-10-09] MEDS: COZAAR PO SCH (10:31)
[2017-10-09] MEDS: cefTRIAXone 1 GM in NACL 0.9% 20 ML IV SCH (10:38)
--- NOTE | 2017-10-09 12:37 | Progress Note ---
Assessment and Plan Assessment and plan: 61 YO Female with HTN, GERD, OA, Seizure, Anxiety, Gastroparesis, Narcotic Abuse who presents with acute flare of gastroparesis. She presented with intractable nausea vomiting abdominal pain Acute flare of gastroparesis with intractable nausea and vomiting -continue anti-emetics and IVF -Case discussed with clinical research monitor, patient may benefit from Restoril and avoidance of narcotics -We'll give patient a prescription for Relistor upon discharge advance diet Sepsis/UTI Improving, fever curve trending down, continue antibiotics. Hypernatremia/dehydration/free water deficit resolved with D5w Hypokalemia repleted, now resolved Chronic narcotic use The patient was counseled that is most likely worsening her gastroparesis. Avoid narcotics, treat nausea and abdominal pain with Ativan instead. Hypertensive urgency Continue IV medications, resume oral medications if able to swallow Metabolic acidosis Improving, treat the underlying cause is dehydration and sepsis Metabolic encephalopathy CTH wnl, MR brain, image reviewed, unremarkable study most likely due to acute illness and mind altering medications, now resolved Constipation/narcotic bowel syndrome Has received promotility agents and stool softeners, patient has now had a bowel movements History Interval history: she is still c/o nausea She feels better, denies emesis Review of systems Constitutional: No fevers, no malaise, no joint pains, some drowsiness from medications for pain and nausea reported CVS: No chest pain, no orthopnea, no dyspnea on exertion, no pedal edema GI: Concedes to have abdominal pain nausea , but all are improving Respiratory: No shortness of breath, no wheezing, no coughing neuro: no confusion, no focal weakness Hospitalist Physical - Physical exam Narrative exam: General.: Appears well, no distress, nontoxic HEENT: Moist mucous membranes, extraocular muscles intact, no lymphadenopathy Neck: supple Cardiac: S1-S2 heard Lungs: clear to auscultation bilaterally Abdomen: soft , nontender, nondistended, bowel sounds positive Extremities: no edema clubbing or cyanosis Skin: no rash or lesions Neurologic: no gross focal deficits Psych: appropriate behavior, appropriate mood, corporative, judgment intact - Constitutional Vitals: Temp Pulse Resp BP Pulse Ox 98.3 F 94 H 20 155/82 96 10/09/17 07:40 10/09/17 07:40 10/09/17 07:40 10/09/17 10:31 12/04/17 08:35 General appearance: Present: mild distress Results - Labs CBC & Chem 7: 10/06/17 08:56 10/09/17 13:27 Labs: Laboratory Last Values WBC 23.8 K/mm3 (4.5-11.0) H 10/06/17 08:56 RBC 4.60 M/mm3 (3.65-5.03) 10/06/17 08:56 Hgb 10.8 gm/dl (10.1-14.3) 10/06/17 08:56 Hct 35.5 % (30.3-42.9) 10/06/17 08:56 MCV 77 fl (79-97) L 10/06/17 08:56 MCH 24 pg (28-32) L 10/06/17 08:56 MCHC 30 % (30-34) 10/06/17 08:56 RDW 21.3 % (13.2-15.2) H 10/06/17 08:56 Plt Count 617 K/mm3 (140-440) H 10/06/17 08:56 Add Manual Diff Complete 10/06/17 08:56 Total Counted 100 10/06/17 08:56 Seg Neutrophils % Sheep Farm Manager 10/06/17 08:56 Seg Neuts % (Manual) 90.0 % (40.0-70.0) H 10/06/17 08:56 Band Neutrophils % 4.0 % 10/06/17 08:56 Lymphocytes % (Manual) 4.0 % (13.4-35.0) L 10/06/17 08:56 Reactive Lymphs % (Man) 0 % 10/06/17 08:56 Monocytes % (Manual) 2.0 % (0.0-7.3) 10/06/17 08:56 Eosinophils % (Manual) 0 % (0.0-4.3) 10/06/17 08:56 Basophils % (Manual) 0 % (0.0-1.8) 10/06/17 08:56 Metamyelocytes % 0 % 10/06/17 08:56 Myelocytes % 0 % 10/06/17 08:56 Promyelocytes % 0 % 10/06/17 08:56 Blast Cells % 0 % 10/06/17 08:56 Nucleated RBC % Not Reportable 10/06/17 08:56 Seg Neutrophils # Man 21.4 K/mm3 (1.8-7.7) H 10/06/17 08:56 Band Neutrophils # 1.0 K/mm3 10/06/17 08:56 Lymphocytes # (Manual) 1.0 K/mm3 (1.2-5.4) L 10/06/17 08:56 Abs React Lymphs (Man) 0.0 K/mm3 10/06/17 08:56 Monocytes # (Manual) 0.5 K/mm3 (0.0-0.8) 10/06/17 08:56 Eosinophils # (Manual) 0.0 K/mm3 (0.0-0.4) 10/06/17 08:56 Basophils # (Manual) 0.0 K/mm3 (0.0-0.1) 10/06/17 08:56 Metamyelocytes # 0.0 K/mm3 10/06/17 08:56 Myelocytes # 0.0 K/mm3 10/06/17 08:56 Promyelocytes # 0.0 K/mm3 10/06/17 08:56 Blast Cells # 0.0 K/mm3 10/06/17 08:56 WBC Morphology Not Reportable 10/06/17 08:56 Hypersegmented Neuts Not Reportable 10/06/17 08:56 Hyposegmented Neuts Not Reportable 10/06/17 08:56 Hypogranular Neuts Not Reportable 10/06/17 08:56 Smudge Cells Not Reportable 10/06/17 08:56 Toxic Granulation Not Reportable 10/06/17 08:56 Toxic Vacuolation Not Reportable 10/06/17 08:56 Dohle Bodies Not Reportable 10/06/17 08:56 Pelger-Huet Anomaly Not Reportable 10/06/17 08:56 Dorita Rods Not Reportable 10/06/17 08:56 Platelet Estimate Consistent w auto 10/06/17 08:56 Clumped Platelets Not Reportable 10/06/17 08:56 Plt Clumps, EDTA Not Reportable 10/06/17 08:56 Large Platelets Not Reportable 10/06/17 08:56 Giant Platelets Not Reportable 10/06/17 08:56 Platelet Satelliting Not Reportable 10/06/17 08:56 Plt Morphology Comment Not Reportable 10/06/17 08:56 RBC Morphology Not Reportable 10/06/17 08:56 Dimorphic RBCs Not Reportable 10/06/17 08:56 Polychromasia Not Reportable 10/06/17 08:56 Hypochromasia 1+ 10/06/17 08:56 Poikilocytosis Not Reportable 10/06/17 08:56 Anisocytosis 1+ 10/06/17 08:56 Microcytosis Not Reportable 10/06/17 08:56 Macrocytosis Not Reportable 10/06/17 08:56 Spherocytes Not Reportable 10/06/17 08:56 Pappenheimer Bodies Not Reportable 10/06/17 08:56 Sickle Cells Not Reportable 10/06/17 08:56 Target Cells Not Reportable 10/06/17 08:56 Tear Drop Cells Not Reportable 10/06/17 08:56 Ovalocytes Not Reportable 10/06/17 08:56 Helmet Cells Not Reportable 10/06/17 08:56 Dod[place] Bodies Not Reportable 10/06/17 08:56 [place] Rings Not Reportable 10/06/17 08:56 [place] Cells Not Reportable 10/06/17 08:56 Bite Cells Not Reportable 10/06/17 08:56 Crenated Cell Not Reportable 10/06/17 08:56 Elliptocytes Not Reportable 10/06/17 08:56 Acanthocytes (Spur) Not Reportable 10/06/17 08:56 Rouleaux Not Reportable 10/06/17 08:56 Hemoglobin C Crystals Not Reportable 10/06/17 08:56 Schistocytes Not Reportable 10/06/17 08:56 Malaria parasites Not Reportable 10/06/17 08:56 Bhavik Bodies Not Reportable 10/06/17 08:56 Hem Pathologist Commnt No 10/06/17 08:56 POC ABG pH 7.331 (7.35-7.45) L 10/04/17 22:41 POC ABG pCO2 38.4 (35-45) 10/04/17 22:41 POC ABG pO2 79 (80-105) L 10/04/17 22:41 POC ABG HCO3 20.3 10/04/17 22:41 POC ABG Total CO2 21 10/04/17 22:41 POC ABG O2 Sat 95 10/04/17 22:41 POC ABG Base Excess -6 10/04/17 22:41 FiO2 32 % 10/04/17 22:41 Sodium 134 mmol/L (137-145) L D 10/09/17 04:58 Potassium 6.3 mmol/L (3.6-5.0) H* D 10/09/17 04:58 Chloride 99.0 mmol/L (98-107) 10/09/17 04:58 Carbon Dioxide 20 mmol/L (22-30) L 10/09/17 04:58 Anion Gap 21 mmol/L 10/09/17 04:58 BUN 13 mg/dL (7-17) 10/09/17 04:58 Creatinine 0.9 mg/dL (0.7-1.2) 10/09/17 04:58 Estimated GFR > 60 ml/min 10/09/17 04:58 BUN/Creatinine Ratio 14 % 10/09/17 04:58 Glucose 122 mg/dL (65-100) H 10/09/17 04:58 POC Glucose 142 (70-105) H 10/09/17 06:09 Lactic Acid 1.20 mmol/L (0.7-2.0) 10/05/17 07:10 Calcium 8.0 mg/dL (8.4-10.2) L 10/09/17 04:58 Magnesium 1.80 mg/dL (1.7-2.3) 10/07/17 10:09 Total Bilirubin 0.30 mg/dL (0.1-1.2) 10/06/17 08:56 AST 16 units/L (5-40) 10/06/17 08:56 ALT 10 units/L (7-56) 10/06/17 08:56 Alkaline Phosphatase 100 units/L (35-129) 10/06/17 08:56 Troponin T < 0.010 ng/mL (0.00-0.029) 10/04/17 23:11 Total Protein 7.3 g/dL (6.3-8.2) 10/06/17 08:56 Albumin 4.3 g/dL (3.9-5) 10/06/17 08:56 Albumin/Globulin Ratio 1.4 % 10/06/17 08:56 Triglycerides 116 mg/dL (2-149) 10/09/17 04:58 Cholesterol 177 mg/dL (50-199) 10/09/17 04:58 LDL Cholesterol Direct 120 mg/dL (50-130) 10/09/17 04:58 HDL Cholesterol 34 mg/dL (40-59) L 10/09/17 04:58 Cholesterol/HDL Ratio 5.20 % 10/09/17 04:58 Amylase 54 units/L (27-131) 10/04/17 23:11 Lipase 17 units/L (13-60) 10/04/17 23:11 Urine Color Straw (Yellow) 10/04/17 00:00 Urine Turbidity Clear (Clear) 10/04/17 00:00 Urine pH 5.0 (5.0-7.0) 10/04/17 00:00 Ur Specific [place] 1.009 (1.003-1.030) 10/04/17 00:00 Urine Protein <15 mg/dl mg/dL (Negative) 10/04/17 00:00 Urine Glucose (UA) Neg mg/dL (Negative) 10/04/17 00:00 Urine Ketones Tr mg/dL (Negative) 10/04/17 00:00 Urine Blood Sm (Negative) 10/04/17 00:00 Urine Nitrite Neg (Negative) 10/04/17 00:00 Urine Bilirubin Neg (Negative) 10/04/17 00:00 Urine Urobilinogen < 2.0 mg/dL (<2.0) 10/04/17 00:00 Ur Leukocyte Esterase Mod (Negative) 10/04/17 00:00 Urine WBC (Auto) 39.0 /HPF (0.0-6.0) H 10/04/17 00:00 Urine RBC (Auto) 7.0 /HPF (0.0-6.0) 10/04/17 00:00 U Epithel Cells (Auto) 9.0 /HPF (0-13.0) 10/04/17 00:00 Urine Bacteria (Auto) 1+ /HPF (Negative) 10/04/17 00:00 Ur Transition Epith Cell 1 /HPF 10/04/17 00:00 Plasma/Serum Alcohol < 0.01 gm% (0-0.07) 10/04/17 23:11
[2017-10-10] MEDS: COMPAZINE IV SCH ×3 (00:13→07:56)
[2017-10-10] MEDS: ULTRAM PO PRN ×2 (01:42→07:38)
[2017-10-10] MEDS: NEURONTIN PO SCH ×2 (03:24→12:44)
[2017-10-10] MEDS: ZOFRAN IV PRN ×2 (04:27→08:47)
[2017-10-10] MEDS: SKELAXIN PO SCH (07:37)
[2017-10-10 07:51] LABS: Anion Gap 18 mmol/L; BUN/Creatinine Ratio 14; Blood Urea Nitrogen 11 mg/dL (7-17); Calcium 8.3 mg/dL (8.4-10.2); Carbon Dioxide 25 mmol/L (22-30); Chloride 101.4 mmol/L (98-107); Glucose 113 mg/dL (65-100); Potassium 3.5 mmol/L (3.6-5.0); Sodium 141 mmol/L (137-145)
[2017-10-10] MEDS: APRESOLINE IV PRN (09:03)
[2017-10-10] MEDS: SENOKOT S PO SCH (10:31)
[2017-10-10] MEDS: cefTRIAXone 1 GM in NACL 0.9% 20 ML IV SCH (10:31)
[2017-10-10] MEDS: NAPROSYN PO SCH (10:31)
[2017-10-10] MEDS: PROTONIX PO SCH (10:32)
[2017-10-10] MEDS: COZAAR PO SCH (10:32)
[2017-10-10 10:35] VITALS: BP 134/82
[2017-10-10] MEDS ORDERED: ATIVAN PO PRN (12:02)
--- NOTE | 2017-10-10 17:04 | Discharge Summary ---
Providers - Providers Date of Admission: 10/05/17 02:15 Attending physician: ESTUARDO BOJORQUEZ MD 10/05/17 14:21 Occupational Therapy Evaluate and Treat [CONS] Routine Comment: Reason For Exam: debility Physical Therapy Evaluation and Treat [CONS] Routine Comment: Reason For Exam: debility 10/05/17 14:39 Consult to Physician [CONS] Routine Consulting Provider: SALONI TA Reason For Exam: coffee ground emesis Place consult to:: DR. Gamal TA Notified:: DR. Gamal TA Time called:: 15:28 10/08/17 17:17 Consult to Dietitian/Nutrition [CONS] Routine Physician Instructions: Reason For Exam: Reason for Consult: Malnutrition Speech Therapy Evaluation and Treat [CONS] Routine Reason For Exam: dysphagia Primary care physician: GARAGE HELPER Hospitalization Condition: Stable Hospital course: 61 YO Female with HTN, GERD, OA, Seizure, Anxiety, Gastroparesis, Narcotic Abuse who presents with acute flare of gastroparesis. She presented with intractable nausea vomiting abdominal pain. Her presentation was consistent with a flare of acute gastroparesis. She received IV fluids and antiemetics. She clinically improved and tolerated diet. Eyelids are lesser repleted, she was given IV fluids. She is a received antibiotics for treatment of UTI. She was counseled on chronic narcotic use and advised about weaning off. This was explained to the patient and her daughter and expressed understanding. Her blood pressure medication optimized. She did have episodes of confusion which are most likely due to medications, she did have imaging of her brain that was unremarkable, and as she clinically improved her mentation returned to baseline. She was also given promotility agents and stool softeners after which had a bowel movement and had resolution of constipation. Discharge diagnoses Acute flare of gastroparesis with intractable nausea and vomiting Sepsis/UTI Hypernatremia/dehydration/free water deficit Hypokalemia Chronic narcotic use Hypertensive urgency Metabolic acidosis Metabolic encephalopathy Constipation/narcotic bowel syndrome Disposition: - TO HOME OR SELFCARE Core Measure Documentation - Palliative Care Palliative Care/ Comfort Measures: Not Applicable - Core Measures Any of the following diagnoses?: none Exam - Physical Exam Narrative exam: General.: Appears well, no distress, nontoxic HEENT: Moist mucous membranes, extraocular muscles intact, no lymphadenopathy Neck: supple Cardiac: S1-S2 heard Lungs: clear to auscultation bilaterally Abdomen: soft , nontender, nondistended, bowel sounds positive Extremities: no edema clubbing or cyanosis Skin: no rash or lesions Neurologic: no gross focal deficits Psych: appropriate behavior, appropriate mood, corporative, judgment intact - Constitutional Vitals: Temp Pulse Resp BP Pulse Ox 98.4 F 118 H 18 134/82 96 10/10/17 07:49 10/10/17 10:32 10/10/17 07:49 10/10/17 10:32 10/10/17 07:49 Plan Follow up with: PRIMARY CARE, [Primary Care Provider] - 3-5 Days Prescriptions: Atorvastatin Calcium [Lipitor] 20 mg PO QDAY #30 tablet Citalopram [celeXA] 10 mg PO QDAY #30 tablet cloNIDine-TTS PATCH [Catapres-Tts Patch] 0.3 mg TD Th 30 Days patch LORazepam [Ativan] 0.5 mg PO Q8H PRN #20 tablet PRN Reason: Nausea UNRELIEVED ZOFRAN Metaxalone [Skelaxin] 800 mg PO TID #20 tablet Naproxen [Naprosyn TAB] 500 mg PO BID #60 tablet Pantoprazole [Protonix TAB] 40 mg PO QDAY #30 tablet Promethazine [Phenergan SUPPOS] 25 mg GA Q6H PRN #20 supp.rect PRN Reason: Nausea And Vomiting Sennosides/Docusate [Senokot S] 1 tab PO BID #60 tablet
== END 2017-10-10 13:55 | disposition home or self-care (01) | DRG 871 ==
LOC: ED 21:57 → 3A 10-05 02:15
PROVIDERS: ADMIT Internal Medicine; ATTEND Internal Medicine
PROC: 4A033R1 Measurement of Arterial Saturation, Peripheral, Percutaneous Approach (ICD-10-PCS; principal; 2017-10-04)
DX: A41.9 Sepsis, unspecified organism (principal); G93.41 Metabolic encephalopathy; N39.0 Urinary tract infection, site not specified; E87.0 Hyperosmolality and hypernatremia; I16.0 Hypertensive urgency; K59.00 Constipation, unspecified; K31.84 Gastroparesis; E86.0 Dehydration; I10 Essential (primary) hypertension; K21.9 Gastro-esophageal reflux disease without esophagitis; M19.90 Unspecified osteoarthritis, unspecified site; G43.909 Migraine, unspecified, not intractable, without status migrainosus; G40.409 Other generalized epilepsy and epileptic syndromes, not intractable, without status epilepticus; F41.9 Anxiety disorder, unspecified; F11.10 Opioid abuse, uncomplicated; Z96.659 Presence of unspecified artificial knee joint; E87.6 Hypokalemia; R13.10 Dysphagia, unspecified; Z90.49 Acquired absence of other specified parts of digestive tract; Z88.5 Allergy status to narcotic agent; Z88.8 Allergy status to other drugs, medicaments and biological substances
CPT/HCPCS: 36415; 70450; 70551; 74022; 74177; 80048; 80053; 80061; 80320; 81001; 82140; 82150; 82803; 82962; 83690; 83735; 84132; 84484; 85007; 85025; 87040; 87086; 93005; 93010; 94760; 96372; 96374; 96375; 96376; G0480; G8987-GO; G8988-GO; G8996-GN; G8997-GN; J0360; J0696; J0780; J1170; J1885; J1956; J2060; J2405; J2543; J3010; J3370; J3475; J3480; J7030; J7040; J7050; J7070; Q9967

== ENCOUNTER 2017-10-14 21:59 | Observation (INO) | payer MEDICARE ==
--- NOTE | 2017-10-14 23:03 | XRay Report ---
FINAL REPORT PROCEDURE: XR KNEE BILAT 1-2V TECHNIQUE: Bilateral knee radiographs, lateral and AP view. HISTORY: Bilateral knee pain COMPARISON: No prior studies are available for comparison. FINDINGS: Fracture (s) and/or Dislocation(s): None . Joint space(s): There is mild narrowing of the left tibial femoral compartment Soft tissues: Normal. Bone mineralization: Normal. Foreign bodies: None. IMPRESSION: Mild osteoarthritis left knee
--- NOTE | 2017-10-15 02:16 | Emergency Department Report ---
- General Chief complaint: Extremity Injury, Lower Stated complaint: BILATERAL KNEE PAIN S/P GLF Time Seen by Provider: 10/15/17 01:47 Source: patient Mode of arrival: Wheelchair Limitations: Physical Limitation - History of Present Illness MD Complaint: generalized weakness -: Sudden (10 HRS AGO) Location: RLE Severity scale (0 -10): 9 Quality: aching, constant Consistency: constant Improves with: rest, movement Worsens with: medication Context: trauma/injury - Related Data Home Medications Medication Instructions Recorded Confirmed Last Taken levETIRAcetam [Keppra] 500 mg PO BID 10/05/17 10/05/17 Unknown Previous Rx's Medication Instructions Recorded Last Taken Type Atorvastatin Calcium [Lipitor] 20 mg PO QDAY #30 tablet 10/10/17 Unknown Rx Citalopram [celeXA] 10 mg PO QDAY #30 tablet 10/10/17 Unknown Rx LORazepam [Ativan] 0.5 mg PO Q8H PRN #20 tablet 10/10/17 Unknown Rx Losartan [Cozaar] 100 mg PO QDAY 30 Days tablet 10/10/17 Unknown Rx Metaxalone [Skelaxin] 800 mg PO TID #20 tablet 10/10/17 Unknown Rx Naproxen [Naprosyn TAB] 500 mg PO BID #60 tablet 10/10/17 Unknown Rx Pantoprazole [Protonix TAB] 40 mg PO QDAY #30 tablet 10/10/17 Unknown Rx Promethazine [Phenergan SUPPOS] 25 mg AK Q6H PRN #20 supp.rect 10/10/17 Unknown Rx Sennosides/Docusate [Senokot S] 1 tab PO BID #60 tablet 10/10/17 Unknown Rx cloNIDine-TTS PATCH [Catapres-Tts 0.3 mg TD Th 30 Days patch 10/10/17 Unknown Rx Patch] Allergies Allergy/AdvReac Type Severity Reaction Status Date / Time codeine Allergy Itching Verified 03/02/17 12:33 metoclopramide HCl Allergy Unknown Verified 03/02/17 12:33 [From Reglan] morphine Allergy Hives Verified 03/02/17 12:33 ED Review of Systems ROS: Stated complaint: BILATERAL KNEE PAIN S/P GLF Other details as noted in HPI Constitutional: denies: chills, fever Eyes: denies: eye pain, eye discharge, vision change ENT: denies: ear pain, throat pain Respiratory: denies: cough, shortness of breath, wheezing Cardiovascular: denies: chest pain, palpitations Endocrine: no symptoms reported Gastrointestinal: denies: abdominal pain, nausea, diarrhea Genitourinary: denies: urgency, dysuria, discharge Musculoskeletal: joint swelling, arthralgia (RIGHT KNEE). denies: back pain Skin: denies: rash, lesions Neurological: weakness. denies: headache, paresthesias Psychiatric: denies: anxiety, depression Hematological/Lymphatic: denies: easy bleeding, easy bruising ED Past Medical Hx - Past Medical History Previous Medical History?: Yes Hx Hypertension: Yes Hx CVA: No Hx Heart Attack/AMI: No Hx Congestive Heart Failure: No Hx Diabetes: No Hx Deep Vein Thrombosis: (Unk) Hx Pulmonary Embolism: No Hx GERD: Yes Hx Liver Disease: No Hx Renal Disease: No Hx Sickle Cell Disease: No Hx Arthritis: Yes Hx Headaches / Migraines: Yes Hx Seizures: Yes (grand mal) Hx Kidney Stones: No Hx Psychiatric Treatment: Yes (anxiety) Hx Asthma: No Hx COPD: No Hx Tuberculosis: No Hx Dementia: No Hx HIV: No Additional medical history: Gastroparesis. bilat knee surgery - Surgical History Past Surgical History?: Yes Hx Coronary Stent: No Hx Open Heart Surgery: No Hx Pacemaker: No Hx Internal Defibrillator: No Hx Cholecystectomy: Yes (2010) Hx Appendectomy: No Hx Breast Surgery: No Additional Surgical History: J tube- removed , Knee surg bilat - Family History Family history: hypertension - Social History Smoking Status: Never Smoker Substance Use Type: None - Medications Home Medications: Home Medications Medication Instructions Recorded Confirmed Last Taken Type levETIRAcetam [Keppra] 500 mg PO BID 10/05/17 10/05/17 Unknown History Atorvastatin Calcium [Lipitor] 20 mg PO QDAY #30 tablet 10/10/17 Unknown Rx Citalopram [celeXA] 10 mg PO QDAY #30 tablet 10/10/17 Unknown Rx LORazepam [Ativan] 0.5 mg PO Q8H PRN #20 tablet 10/10/17 Unknown Rx Losartan [Cozaar] 100 mg PO QDAY 30 Days tablet 10/10/17 Unknown Rx Metaxalone [Skelaxin] 800 mg PO TID #20 tablet 10/10/17 Unknown Rx Naproxen [Naprosyn TAB] 500 mg PO BID #60 tablet 10/10/17 Unknown Rx Pantoprazole [Protonix TAB] 40 mg PO QDAY #30 tablet 10/10/17 Unknown Rx Promethazine [Phenergan SUPPOS] 25 mg AK Q6H PRN #20 supp.rect 10/10/17 Unknown Rx Sennosides/Docusate [Senokot S] 1 tab PO BID #60 tablet 10/10/17 Unknown Rx cloNIDine-TTS PATCH [Catapres-Tts 0.3 mg TD Th 30 Days patch 10/10/17 Unknown Rx Patch] ED Physical Exam - General Limitations: Physical Limitation (SHE IS WEAK) General appearance: alert, other (APPEARS IN BERNARDA AND WEAK) - Head Head exam: Present: atraumatic, normocephalic - Eye Eye exam: Present: normal appearance, EOMI. Absent: scleral icterus - ENT ENT exam: Present: mucous membranes moist - Neck Neck exam: Present: normal inspection, full ROM - Cardiovascular Cardiovascular Exam: Present: normal rhythm, tachycardia - GI/Abdominal GI/Abdominal exam: Present: soft, other (MULTIPLE SURGICAL SCARS). Absent: distended, tenderness, guarding - Rectal Rectal exam: Present: deferred - Extremities Exam Extremities exam: Present: tenderness (OVER RIGHT PATELLAE, SWOLLEN, CREPITATION ) - Back Exam Back exam: Present: normal inspection, full ROM, tenderness (RIGHT SI JOINT, NO LUMBAR VERTEBRAL TENDERNESS) - Neurological Exam Neurological exam: Present: alert, oriented X3, CN II-XII intact, abnormal gait (USES A WALKER NORMALLY) ED Course Vital Signs 10/14/17 10/15/17 10/15/17 22:07 04:12 05:15 Temperature 100 F H Pulse Rate 106 H 101 H Respiratory 18 18 10 L Rate Blood Pressure 169/97 O2 Sat by Pulse 100 96 Oximetry 10/15/17 10/15/17 10/15/17 05:30 05:46 06:00 Temperature Pulse Rate 102 H 102 H 96 H Respiratory 12 13 14 Rate Blood Pressure O2 Sat by Pulse 99 95 94 Oximetry 10/15/17 10/15/17 10/15/17 06:16 06:30 06:46 Temperature Pulse Rate 104 H 96 H 94 H Respiratory 18 12 15 Rate Blood Pressure 157/79 168/86 177/106 O2 Sat by Pulse 93 93 94 Oximetry 10/15/17 07:03 Temperature Pulse Rate Respiratory 18 Rate Blood Pressure O2 Sat by Pulse 98 Oximetry - Reevaluation(s) Reevaluation #1: 10/15/17 02:17 PT IS IN FAST TRACT , WILL TRANSFER TO THE MAIN SIDE ED Medical Decision Making - Lab Data Result diagrams: 10/15/17 06:43 10/15/17 02:06 - Radiology Data Radiology results: report reviewed (CT HEAD: NEGATIVE FOR ACUTE CVA; XRAY HIP: NEGATIVE FOR FRACTURE, CXR;NEGATIVE) Critical care attestation.: If time is entered above; I have spent that time in minutes in the direct care of this critically ill patient, excluding procedure time. ED Disposition Clinical Impression: Weakness, Hypokalemia Fever Qualifiers: Fever type: due to other condition Qualified Code(s): R50.81 - Fever presenting with conditions classified elsewhere Disposition: DC-09 OP ADMIT IP TO THIS HOSP Is pt being admited?: Yes Does the pt Need Aspirin: No Condition: Stable Referrals: PRIMARY CARE, [Primary Care Provider] - 3-5 Days Time of Disposition: 08:33 (CASE REVIEWED REVIEWED WITH DR WORTHY AND HE WILL ADMIT THE PT TO THE HOSPITAL)
--- NOTE | 2017-10-15 03:02 | XRay Report ---
FINAL REPORT EXAM: XR CHEST 1V AP HISTORY: CHF VS PNEUMONIS, EDEMA TECHNIQUE: A portable view of the chest was submitted. FINDINGS: Heart size and mediastinum appear normal. The thoracic aorta is mildly tortuous. The lungs are clear. Pleural fluid is not seen. The bones and soft tissues do not show any acute changes. IMPRESSION: No active chest disease.
--- NOTE | 2017-10-15 03:03 | XRay Report ---
FINAL REPORT EXAM: XR HIP 2-3V RT HISTORY: RIGHT SI JOINT PAIN WITH FALL TECHNIQUE: An AP view of the pelvis was obtained along with two views of the right hip. FINDINGS: The right hip joint appears normal. The bony pelvic ring appears intact. There are phleboliths along the floor pelvis. The left hip and SI joints also appear intact. IMPRESSION: No acute process.
[2017-10-15 03:54] LABS: Creatine Kinase MB 4.8 ng/mL (0.0-4.0)
[2017-10-15 03:55] LABS: Alanine Aminotransferase 11 units/L (7-56); Albumin 3.7 g/dL (3.9-5); Albumin/Globulin Ratio 1.7 %; Alkaline Phosphatase 64 units/L (35-129); Anion Gap 23 mmol/L; BUN/Creatinine Ratio 12; Bilirubin,Total < 0.20 mg/dL (0.1-1.2); Blood Urea Nitrogen 12 mg/dL (7-17); Calcium 8.1 mg/dL (8.4-10.2); Carbon Dioxide 19 mmol/L (22-30); Creatine Kinase 97 units/L (30-135); Glucose 95 mg/dL (65-100); Potassium 3.4 mmol/L (3.6-5.0); Sodium 142 mmol/L (137-145); Total Protein 5.9 g/dL (6.3-8.2)
[2017-10-15] MEDS ORDERED: PERCOCET 5/325 PO ONE (04:05)
[2017-10-15] MEDS ORDERED: PERCOCET 5/325 ONE (04:08)
[2017-10-15] MEDS ORDERED: TORADOL ONE (04:10)
[2017-10-15] MEDS ORDERED: TORADOL IM ONE (04:11)
[2017-10-15] MEDS ORDERED: K-DUR PO ONE (04:53)
--- NOTE | 2017-10-15 04:55 | Cat Scan Report ---
FINAL REPORT EXAM: CT HEAD/BRAIN WO CON HISTORY: WEKNESS AND FALL TECHNIQUE: Routine axial imaging was obtained of the brain without IV contrast. Comparison is made to the study of 10/07/2017. FINDINGS: The ventricular system is appropriate in size and is symmetric. There is no evidence of acute stroke or hemorrhage. The basal cisterns appear normal. The visualized sinuses are clear. The calvarium appears intact. IMPRESSION: No acute intracranial process.
[2017-10-15 07:19] LABS: Mean Corpuscular HGB Conc 30 % (30-34); Mean Corpuscular Volume 81 fl (79-97); Platelet Count 379 K/mm3 (140-440); Red Blood Count 4.22 M/mm3 (3.65-5.03); White Blood Count 12.5 K/mm3 (4.5-11.0)
[2017-10-15 07:34] LABS: Hematocrit 34.1 % (30.3-42.9); Hemoglobin 10.3 gm/dl (10.1-14.3); Mean Corpuscular Hemoglobin 25 pg (28-32); Red Cell Distribution Width 23.2 % (13.2-15.2)
[2017-10-15 07:48] LABS: Bilirubin,Urine NEG (Negative); Blood,Urine NEG (Negative); Ketones,Urine NEG (Negative); Leukocyte Esterase,Urine NEG (Negative); Nitrite,Urine NEG (Negative); Protein,Urine <15 mg/dL mg/dL (Negative); Urobilinogen,Urine < 2.0 mg/dL (<2.0)
[2017-10-15 08:48] LABS: Anisocytosis 2+; Blastocytes % (Manual) 0 %; Diff Status Complete; Hypochromasia 1+; Platelet Estimate Consistent w Auto; Schistocytes Rare
[2017-10-15 09:10] LABS: Creatine Kinase MB 4.6 ng/mL (0.0-4.0)
[2017-10-15 09:12] LABS: Creatine Kinase 89 units/L (30-135)
[2017-10-15] MEDS ORDERED: MORPHINE IV PRN (09:15)
[2017-10-15] MEDS ORDERED: DILAUDID ONE (09:59)
[2017-10-15] MEDS ORDERED: DILAUDID IV PRN (10:06)
--- NOTE | 2017-10-15 10:37 | History and Physical Report ---
History of Present Illness Date of examination: 10/15/17 Date of admission: 10/15/17 08:48 Chief complaint: generalized weakness History of present illness: 61 YO Female with HTN, GERD, OA, Seizure, Anxiety, Gastroparesis, Narcotic Abuse who presents with not able to walk after an episode of fall. she states that last light she wanted to use her bedside commode and did not ask her daughter to help her to get up. While reaching towards her bedside commode she fell on the floor and hit on her hip and right knee mostly. She said she was unable to get up but called her daughter by cell phone who was in the house to help her to get up. She states that after that event she is unable to bear her weight by her legs and cannot walk. She also states that she did not feel dizzy or lightheaded during the episode. she just felt that she could not bear her weight. on her baseline she states she needs help to get up from bed but last night she thought she could manage herself and did not want to call her daughter for help. In the ER her CT head showed no intracranial bleeding, she has no focal deficit, she denies any aggrevating factors for her fall. her left knee xry showed no fracture or dislocation. right knee xry ordered. She was given K-DUR po for K level of 3.4, her Elijah has neen negative. She will be admitted for PT eval and further monitoring. Past History Past Medical History: arthritis, GERD, hypertension, seizures, other ( gastroparesis) Past Surgical History: cholecystectomy, total knee replacement, Other (J tube) Social history: , prescription drug abuse. denies: smoking, alcohol abuse Family history: hypertension Review of System: Constitutional: no fever, no chills, no weight loss Ears, eyes, nose, mouth and throat: no nasal congestion, no nasal discharge, no sinus pressure, no vision change, no red eye. Neck: No neck pain or rigidity. Cardiovascular: No chest pain, no orthopnea, no palpitations, no leg swelling Respiratory: No shortness of breath, no cough, no congestion, no wheezing Gastrointestinal: no abdominal pain, no nausea, no vomiting Genitourinary : no dysuria, no hematuria Musculoskeletal: + b/l knee pain Integumentary: no rash, no pruritis Neurological: no parathesias, no numbness, no tingling Endocrine: no cold or heat intolerance, no polyuria or polydipsia Hematologic/Lymphatic: no easy bruising, no easy bleeding, no gland swelling Allergic/Immunologic: no urticaria, no angioedema. Medications and Allergies Allergies Allergy/AdvReac Type Severity Reaction Status Date / Time codeine Allergy Itching Verified 03/02/17 12:33 metoclopramide HCl Allergy Unknown Verified 03/02/17 12:33 [facility] Allergy Hives Verified 03/02/17 12:33 Home Medications Medication Instructions Recorded Confirmed Last Taken Type levETIRAcetam [Keppra] 500 mg PO BID 10/05/17 10/16/17 1 Day Ago History ~10/15/17 Atorvastatin Calcium [Lipitor] 20 mg PO QDAY #30 tablet 10/10/17 10/16/17 1 Day Ago Rx ~10/15/17 Citalopram [celeXA] 10 mg PO QDAY #30 tablet 10/10/17 10/16/17 1 Day Ago Rx ~10/15/17 LORazepam [Ativan] 0.5 mg PO Q8H PRN #20 tablet 10/10/17 10/16/17 3 Weeks Ago Rx ~09/25/17 Losartan [Cozaar] 100 mg PO QDAY 30 Days tablet 10/10/17 10/16/17 3 Days Ago Rx ~10/13/17 Metaxalone [Skelaxin] 800 mg PO TID #20 tablet 10/10/17 10/16/17 1 Day Ago Rx ~10/15/17 Naproxen [Naprosyn TAB] 500 mg PO BID #60 tablet 10/10/17 10/16/17 3 Days Ago Rx ~10/13/17 Pantoprazole [Protonix TAB] 40 mg PO QDAY #30 tablet 10/10/17 10/16/17 1 Day Ago Rx ~10/15/17 Promethazine [Phenergan SUPPOS] 25 mg AK Q6H PRN #20 supp.rect 10/10/17 1 Month Ago Rx ~09/16/17 Sennosides/Docusate [Senokot S] 1 tab PO BID #60 tablet 10/10/17 10/16/17 1 Day Ago Rx ~10/15/17 cloNIDine-TTS PATCH [Catapres-Tts 0.3 mg TD Th 30 Days patch 10/10/17 10/16/17 1 Day Ago Rx Patch] ~10/15/17 Active Meds: Active Medications Hydromorphone HCl (Dilaudid) 1 mg IV Q4H PRN PRN Reason: Pain , Severe (7-10) Exam - Physical Exam Narrative exam: GENERAL: well-developed and well-nourished female lying on bed appeared to be in no discomfort. HEENT: Normocephalic. Atraumatic. No conjunctival congestion or icterus. Patient has moist mucous membranes. NECK: Supple. Trachea midline. CHEST/LUNGS: Clear to auscultated bilaterally, breathing nonlabored. No wheezes crackles or rhonchi. HEART/CARDIOVASCULAR: Regular in rate and rhythm. S1 and S2 positive. ABDOMEN: Abdomen is soft, nontender. Patient has normal bowel sounds. SKIN: There is no rash. Warm and dry. NEURO: No focal motor deficit. Follows command. MUSCULOSKELETAL: No joint effusion or tenderness. EXTRIMITY: No edema, no cyanosis or clubbing. PSYCH: Cooperative. - Constitutional Vitals: Temp Pulse Resp BP Pulse Ox 98.5 F 99 H 19 162/90 98 10/15/17 09:05 10/15/17 09:00 10/15/17 09:02 10/15/17 09:00 10/15/17 09:02 Results - Labs CBC & Chem 7: 10/15/17 06:43 10/15/17 02:06 Labs: Abnormal lab results 10/15/17 10/15/17 10/15/17 Range/Units 02:06 06:43 06:43 WBC 12.5 H (4.5-11.0) K/mm3 MCH 25 L (28-32) pg RDW 23.2 H (13.2-15.2) % Seg Neuts % (Manual) 75.0 H (40.0-70.0) % Lymphocytes % (Manual) 11.0 L (13.4-35.0) % Monocytes % (Manual) 9.0 H (0.0-7.3) % Seg Neutrophils # Man 9.4 H (1.8-7.7) K/mm3 Monocytes # (Manual) 1.1 H (0.0-0.8) K/mm3 Eosinophils # (Manual) 0.5 H (0.0-0.4) K/mm3 D-Dimer 511.70 H (0-234) ng/mlDDU Potassium 3.4 L (3.6-5.0) mmol/L Carbon Dioxide 19 L (22-30) mmol/L Calcium 8.1 L (8.4-10.2) mg/dL CK-MB (CK-2) 4.8 H (0.0-4.0) ng/mL CK-MB (CK-2) Rel Index 4.9 H (0-4) Total Protein 5.9 L (6.3-8.2) g/dL Albumin 3.7 L (3.9-5) g/dL 10/15/17 Range/Units 08:15 WBC (4.5-11.0) K/mm3 MCH (28-32) pg RDW (13.2-15.2) % Seg Neuts % (Manual) (40.0-70.0) % Lymphocytes % (Manual) (13.4-35.0) % Monocytes % (Manual) (0.0-7.3) % Seg Neutrophils # Man (1.8-7.7) K/mm3 Monocytes # (Manual) (0.0-0.8) K/mm3 Eosinophils # (Manual) (0.0-0.4) K/mm3 D-Dimer (0-234) ng/mlDDU Potassium (3.6-5.0) mmol/L Carbon Dioxide (22-30) mmol/L Calcium (8.4-10.2) mg/dL CK-MB (CK-2) 4.6 H (0.0-4.0) ng/mL CK-MB (CK-2) Rel Index 5.1 H (0-4) Total Protein (6.3-8.2) g/dL Albumin (3.9-5) g/dL - Imaging and Cardiology Chest x-ray: report reviewed (no infiltrates) CT Scan - head: report reviewed (no acute process) Assessment and Plan 61 YO Female with HTN, GERD, OA, Seizure, Anxiety, Gastroparesis, Narcotic Abuse who presents with not able to walk after an episode of fall s/p fall - negative CT head for any acute bleed - will do PT eval - monitor for orthostatic vitals b/l Knee pain - xry unremarkable - will follow Pt recommendation h/o gastroparesis -continue anti-emetics as neded and IVF -cont home meds Chronic narcotic use will continue her home regimen Hypertensive urgency Continue IV medications, resume oral home medications Seizure disorder - cont home meds leukocytosis - likely reactive, no sign of infection hypokalemia - replete and monitor k Dvt Px - lovenox
[2017-10-15] MEDS ORDERED: NACL ONE (10:57)
[2017-10-15] MEDS ORDERED: ATIVAN PO PRN (11:07)
[2017-10-15] MEDS: celeXA PO SCH (11:47)
[2017-10-15] MEDS: COZAAR PO SCH (11:47)
[2017-10-15] MEDS: LOVENOX SUB-Q SCH ×2 (11:47→23:45)
[2017-10-15] MEDS: PROTONIX PO SCH (11:48)
[2017-10-15] MEDS: NAPROSYN PO SCH ×2 (11:58→22:38)
[2017-10-15] MEDS: KEPPRA PO SCH ×2 (11:59→22:38)
--- NOTE | 2017-10-15 15:48 | XRay Report ---
FINAL REPORT EXAM: XR KNEE 3V RT HISTORY: right knee pain TECHNIQUE: Three views of the right knee PRIORS: None. FINDINGS: There is no evidence of acute fracture. There is no evidence of joint dislocation. There is no evidence of joint effusion. There is mild narrowing and marginal spurring involving medial joint compartment. IMPRESSION: There is no acute abnormality identified.
[2017-10-15] MEDS: DILAUDID IV PRN ×2 (17:43→23:46)
[2017-10-15] MEDS: SENOKOT S PO SCH (22:38)
[2017-10-16] MEDS: DILAUDID IV PRN ×3 (05:47→18:23)
--- NOTE | 2017-10-16 07:48 | Progress Note ---
<ABBY BENITES - Last Filed: 10/16/17 16:02> Assessment and Plan Assessment and plan: 61 YO Female with HTN, GERD, OA, Seizure, Anxiety, Gastroparesis, Narcotic Abuse who presents with not able to walk after an episode of fall. S/p fall Negative CT head for any acute bleed Physical therapy evaluation Monitor for orthostatic vitals Bilateral Knee pain - Unremarkable x-ray unremarkable - will follow Pt recommendation h/o Elevated D-dimer We will obtain VQ scan Gastroparesis continue anti-emetics as neded and IV fluid hydration -cont home meds Chronic narcotic use We will continue her home regimen Hypertensive urgency Continue on home antihypertensive medications Closely monitor blood pressure Seizure disorder Continue on home meds Leukocytosis - Most likely reactive, no sign of infection Repeat CBC Closely monitor Hypokalemia Replete Closely monitor electrolytes and monitor DVT prophylaxis Lovenox History Interval history: Patient complains nausea and vomiting, but denies abdominal pain. labs and nursing notes reviewed. Hospitalist Physical - Constitutional Vitals: Temp Pulse Resp BP Pulse Ox 98.4 F 96 H 30 H 170/122 92 10/16/17 05:00 10/16/17 06:10 10/16/17 06:10 10/16/17 06:10 10/16/17 06:10 General appearance: Present: no acute distress - EENT Eyes: Present: PERRL ENT: hearing intact - Neck Neck: Present: supple - Respiratory Respiratory effort: normal Respiratory: bilateral: CTA - Cardiovascular Rhythm: regular Heart Sounds: Present: S1 & S2 - Abdominal General gastrointestinal: soft, non-tender Localized gastrointestinal: tender: epigastric periumbilical - Integumentary Integumentary: Present: clear, warm, dry - Psychiatric Psychiatric: appropriate mood/affect - Neurologic Neurologic: CNII-XII intact - Allied Health Allied health notes reviewed: nursing Results - Labs CBC & Chem 7: 10/15/17 06:43 10/15/17 02:06 Labs: Laboratory Last Values WBC 12.5 K/mm3 (4.5-11.0) H 10/15/17 06:43 RBC 4.22 M/mm3 (3.65-5.03) 10/15/17 06:43 Hgb 10.3 gm/dl (10.1-14.3) 10/15/17 06:43 Hct 34.1 % (30.3-42.9) 10/15/17 06:43 MCV 81 fl (79-97) 10/15/17 06:43 MCH 25 pg (28-32) L 10/15/17 06:43 MCHC 30 % (30-34) 10/15/17 06:43 RDW 23.2 % (13.2-15.2) H 10/15/17 06:43 Plt Count 379 K/mm3 (140-440) 10/15/17 06:43 Add Manual Diff Complete 10/15/17 06:43 Total Counted 100 10/15/17 06:43 Seg Neuts % (Manual) 75.0 % (40.0-70.0) H 10/15/17 06:43 Band Neutrophils % 0 % 10/15/17 06:43 Lymphocytes % (Manual) 11.0 % (13.4-35.0) L 10/15/17 06:43 Reactive Lymphs % (Man) 0 % 10/15/17 06:43 Monocytes % (Manual) 9.0 % (0.0-7.3) H 10/15/17 06:43 Eosinophils % (Manual) 4.0 % (0.0-4.3) 10/15/17 06:43 Basophils % (Manual) 1.0 % (0.0-1.8) 10/15/17 06:43 Metamyelocytes % 0 % 10/15/17 06:43 Myelocytes % 0 % 10/15/17 06:43 Promyelocytes % 0 % 10/15/17 06:43 Blast Cells % 0 % 10/15/17 06:43 Nucleated RBC % Not Reportable 10/15/17 06:43 Seg Neutrophils # Man 9.4 K/mm3 (1.8-7.7) H 10/15/17 06:43 Band Neutrophils # 0.0 K/mm3 10/15/17 06:43 Lymphocytes # (Manual) 1.4 K/mm3 (1.2-5.4) 10/15/17 06:43 Abs React Lymphs (Man) 0.0 K/mm3 10/15/17 06:43 Monocytes # (Manual) 1.1 K/mm3 (0.0-0.8) H 10/15/17 06:43 Eosinophils # (Manual) 0.5 K/mm3 (0.0-0.4) H 10/15/17 06:43 Basophils # (Manual) 0.1 K/mm3 (0.0-0.1) 10/15/17 06:43 Metamyelocytes # 0.0 K/mm3 10/15/17 06:43 Myelocytes # 0.0 K/mm3 10/15/17 06:43 Promyelocytes # 0.0 K/mm3 10/15/17 06:43 Blast Cells # 0.0 K/mm3 10/15/17 06:43 WBC Morphology Not Reportable 10/15/17 06:43 Hypersegmented Neuts Not Reportable 10/15/17 06:43 Hyposegmented Neuts Not Reportable 10/15/17 06:43 Hypogranular Neuts Not Reportable 10/15/17 06:43 Smudge Cells Not Reportable 10/15/17 06:43 Toxic Granulation Not Reportable 10/15/17 06:43 Toxic Vacuolation Not Reportable 10/15/17 06:43 Dohle Bodies Not Reportable 10/15/17 06:43 Pelger-Huet Anomaly Not Reportable 10/15/17 06:43 Dorita Rods Not Reportable 10/15/17 06:43 Platelet Estimate Consistent w auto 10/15/17 06:43 Clumped Platelets Not Reportable 10/15/17 06:43 Plt Clumps, EDTA Not Reportable 10/15/17 06:43 Large Platelets Not Reportable 10/15/17 06:43 Giant Platelets Not Reportable 10/15/17 06:43 Platelet Satelliting Not Reportable 10/15/17 06:43 Plt Morphology Comment Not Reportable 10/15/17 06:43 RBC Morphology Not Reportable 10/15/17 06:43 Dimorphic RBCs Not Reportable 10/15/17 06:43 Polychromasia Not Reportable 10/15/17 06:43 Hypochromasia 1+ 10/15/17 06:43 Poikilocytosis Not Reportable 10/15/17 06:43 Anisocytosis 2+ 10/15/17 06:43 Microcytosis Not Reportable 10/15/17 06:43 Macrocytosis Not Reportable 10/15/17 06:43 Spherocytes Not Reportable 10/15/17 06:43 Pappenheimer Bodies Not Reportable 10/15/17 06:43 Sickle Cells Not Reportable 10/15/17 06:43 Target Cells Not Reportable 10/15/17 06:43 Tear Drop Cells Not Reportable 10/15/17 06:43 Ovalocytes Not Reportable 10/15/17 06:43 Helmet Cells Not Reportable 10/15/17 06:43 [place] Bodies Not Reportable 10/15/17 06:43 Elim Rings Not Reportable 10/15/17 06:43 [place] Cells Not Reportable 10/15/17 06:43 Bite Cells Not Reportable 10/15/17 06:43 Crenated Cell Not Reportable 10/15/17 06:43 Elliptocytes Not Reportable 10/15/17 06:43 Acanthocytes (Spur) Not Reportable 10/15/17 06:43 Rouleaux Not Reportable 10/15/17 06:43 Hemoglobin C Crystals Not Reportable 10/15/17 06:43 Schistocytes Rare 10/15/17 06:43 Malaria parasites Not Reportable 10/15/17 06:43 Bhavik Bodies Not Reportable 10/15/17 06:43 Hem Pathologist Commnt No 10/15/17 06:43 D-Dimer 511.70 ng/mlDDU (0-234) H 10/15/17 06:43 Sodium 142 mmol/L (137-145) 10/15/17 02:06 Potassium 3.4 mmol/L (3.6-5.0) L 10/15/17 02:06 Chloride 103.0 mmol/L (98-107) 10/15/17 02:06 Carbon Dioxide 19 mmol/L (22-30) L 10/15/17 02:06 Anion Gap 23 mmol/L 10/15/17 02:06 BUN 12 mg/dL (7-17) 10/15/17 02:06 Creatinine 1.0 mg/dL (0.7-1.2) 10/15/17 02:06 Estimated GFR > 60 ml/min 10/15/17 02:06 BUN/Creatinine Ratio 12 % 10/15/17 02:06 Glucose 95 mg/dL (65-100) 10/15/17 02:06 POC Glucose 102 (70-105) 10/15/17 08:36 Lactic Acid 0.80 mmol/L (0.7-2.0) 10/15/17 06:43 Calcium 8.1 mg/dL (8.4-10.2) L 10/15/17 02:06 Total Bilirubin < 0.20 mg/dL (0.1-1.2) 10/15/17 02:06 AST 13 units/L (5-40) 10/15/17 02:06 ALT 11 units/L (7-56) 10/15/17 02:06 Alkaline Phosphatase 64 units/L (35-129) 10/15/17 02:06 Total Creatine Kinase 89 units/L (30-135) 10/15/17 08:15 CK-MB (CK-2) 4.6 ng/mL (0.0-4.0) H 10/15/17 08:15 CK-MB (CK-2) Rel Index 5.1 (0-4) H 10/15/17 08:15 Troponin T < 0.010 ng/mL (0.00-0.029) 10/15/17 08:15 C-Reactive Protein 0.40 mg/dL (0.00-1.30) 10/15/17 02:10 NT-Pro-B Natriuret Pep 728.6 pg/mL (0-900) 10/15/17 02:06 Total Protein 5.9 g/dL (6.3-8.2) L 10/15/17 02:06 Albumin 3.7 g/dL (3.9-5) L 10/15/17 02:06 Albumin/Globulin Ratio 1.7 % 10/15/17 02:06 Urine Color Yellow (Yellow) 10/15/17 Unknown Urine Turbidity Clear (Clear) 10/15/17 Unknown Urine pH 5.0 (5.0-7.0) 10/15/17 Unknown Ur Specific [place] 1.018 (1.003-1.030) 10/15/17 Unknown Urine Protein <15 mg/dl mg/dL (Negative) 10/15/17 Unknown Urine Glucose (UA) Neg mg/dL (Negative) 10/15/17 Unknown Urine Ketones Neg mg/dL (Negative) 10/15/17 Unknown Urine Blood Neg (Negative) 10/15/17 Unknown Urine Nitrite Neg (Negative) 10/15/17 Unknown Urine Bilirubin Neg (Negative) 10/15/17 Unknown Urine Urobilinogen < 2.0 mg/dL (<2.0) 10/15/17 Unknown Ur Leukocyte Esterase Neg (Negative) 10/15/17 Unknown Urine WBC (Auto) 1.0 /HPF (0.0-6.0) 10/15/17 Unknown Urine RBC (Auto) 2.0 /HPF (0.0-6.0) 10/15/17 Unknown <SERENA EAGLE R - Last Filed: 10/16/17 23:05> Assessment and Plan Assessment and plan: I saw and evaluated the patient. I agree with the findings and the plan of care as documented in the Nurse Practitioner's~note. Hospitalist Physical - Constitutional Vitals: Temp Pulse Resp BP Pulse Ox 97.7 F 68 18 169/93 89 10/16/17 14:33 10/16/17 16:00 10/16/17 14:33 10/16/17 14:33 10/16/17 14:33 Results - Labs CBC & Chem 7: 10/15/17 06:43 10/15/17 02:06 Labs: Laboratory Last Values WBC 12.5 K/mm3 (4.5-11.0) H 10/15/17 06:43 RBC 4.22 M/mm3 (3.65-5.03) 10/15/17 06:43 Hgb 10.3 gm/dl (10.1-14.3) 10/15/17 06:43 Hct 34.1 % (30.3-42.9) 10/15/17 06:43 MCV 81 fl (79-97) 10/15/17 06:43 MCH 25 pg (28-32) L 10/15/17 06:43 MCHC 30 % (30-34) 10/15/17 06:43 RDW 23.2 % (13.2-15.2) H 10/15/17 06:43 Plt Count 379 K/mm3 (140-440) 10/15/17 06:43 Add Manual Diff Complete 10/15/17 06:43 Total Counted 100 10/15/17 06:43 Seg Neuts % (Manual) 75.0 % (40.0-70.0) H 10/15/17 06:43 Band Neutrophils % 0 % 10/15/17 06:43 Lymphocytes % (Manual) 11.0 % (13.4-35.0) L 10/15/17 06:43 Reactive Lymphs % (Man) 0 % 10/15/17 06:43 Monocytes % (Manual) 9.0 % (0.0-7.3) H 10/15/17 06:43 Eosinophils % (Manual) 4.0 % (0.0-4.3) 10/15/17 06:43 Basophils % (Manual) 1.0 % (0.0-1.8) 10/15/17 06:43 Metamyelocytes % 0 % 10/15/17 06:43 Myelocytes % 0 % 10/15/17 06:43 Promyelocytes % 0 % 10/15/17 06:43 Blast Cells % 0 % 10/15/17 06:43 Nucleated RBC % Not Reportable 10/15/17 06:43 Seg Neutrophils # Man 9.4 K/mm3 (1.8-7.7) H 10/15/17 06:43 Band Neutrophils # 0.0 K/mm3 10/15/17 06:43 Lymphocytes # (Manual) 1.4 K/mm3 (1.2-5.4) 10/15/17 06:43 Abs React Lymphs (Man) 0.0 K/mm3 10/15/17 06:43 Monocytes # (Manual) 1.1 K/mm3 (0.0-0.8) H 10/15/17 06:43 Eosinophils # (Manual) 0.5 K/mm3 (0.0-0.4) H 10/15/17 06:43 Basophils # (Manual) 0.1 K/mm3 (0.0-0.1) 10/15/17 06:43 Metamyelocytes # 0.0 K/mm3 10/15/17 06:43 Myelocytes # 0.0 K/mm3 10/15/17 06:43 Promyelocytes # 0.0 K/mm3 10/15/17 06:43 Blast Cells # 0.0 K/mm3 10/15/17 06:43 WBC Morphology Not Reportable 10/15/17 06:43 Hypersegmented Neuts Not Reportable 10/15/17 06:43 Hyposegmented Neuts Not Reportable 10/15/17 06:43 Hypogranular Neuts Not Reportable 10/15/17 06:43 Smudge Cells Not Reportable 10/15/17 06:43 Toxic Granulation Not Reportable 10/15/17 06:43 Toxic Vacuolation Not Reportable 10/15/17 06:43 Dohle Bodies Not Reportable 10/15/17 06:43 Pelger-Huet Anomaly Not Reportable 10/15/17 06:43 Dorita Rods Not Reportable 10/15/17 06:43 Platelet Estimate Consistent w auto 10/15/17 06:43 Clumped Platelets Not Reportable 10/15/17 06:43 Plt Clumps, EDTA Not Reportable 10/15/17 06:43 Large Platelets Not Reportable 10/15/17 06:43 Giant Platelets Not Reportable 10/15/17 06:43 Platelet Satelliting Not Reportable 10/15/17 06:43 Plt Morphology Comment Not Reportable 10/15/17 06:43 RBC Morphology Not Reportable 10/15/17 06:43 Dimorphic RBCs Not Reportable 10/15/17 06:43 Polychromasia Not Reportable 10/15/17 06:43 Hypochromasia 1+ 10/15/17 06:43 Poikilocytosis Not Reportable 10/15/17 06:43 Anisocytosis 2+ 10/15/17 06:43 Microcytosis Not Reportable 10/15/17 06:43 Macrocytosis Not Reportable 10/15/17 06:43 Spherocytes Not Reportable 10/15/17 06:43 Pappenheimer Bodies Not Reportable 10/15/17 06:43 Sickle Cells Not Reportable 10/15/17 06:43 Target Cells Not Reportable 10/15/17 06:43 Tear Drop Cells Not Reportable 10/15/17 06:43 Ovalocytes Not Reportable 10/15/17 06:43 Helmet Cells Not Reportable 10/15/17 06:43 [place] Bodies Not Reportable 10/15/17 06:43 Elim Rings Not Reportable 10/15/17 06:43 [place] Cells Not Reportable 10/15/17 06:43 Bite Cells Not Reportable 10/15/17 06:43 Crenated Cell Not Reportable 10/15/17 06:43 Elliptocytes Not Reportable 10/15/17 06:43 Acanthocytes (Spur) Not Reportable 10/15/17 06:43 Rouleaux Not Reportable 10/15/17 06:43 Hemoglobin C Crystals Not Reportable 10/15/17 06:43 Schistocytes Rare 10/15/17 06:43 Malaria parasites Not Reportable 10/15/17 06:43 Bhavik Bodies Not Reportable 10/15/17 06:43 Hem Pathologist Commnt No 10/15/17 06:43 D-Dimer 511.70 ng/mlDDU (0-234) H 10/15/17 06:43 Sodium 142 mmol/L (137-145) 10/15/17 02:06 Potassium 3.4 mmol/L (3.6-5.0) L 10/15/17 02:06 Chloride 103.0 mmol/L (98-107) 10/15/17 02:06 Carbon Dioxide 19 mmol/L (22-30) L 10/15/17 02:06 Anion Gap 23 mmol/L 10/15/17 02:06 BUN 12 mg/dL (7-17) 10/15/17 02:06 Creatinine 1.0 mg/dL (0.7-1.2) 10/15/17 02:06 Estimated GFR > 60 ml/min 10/15/17 02:06 BUN/Creatinine Ratio 12 % 10/15/17 02:06 Glucose 95 mg/dL (65-100) 10/15/17 02:06 POC Glucose 102 (70-105) 10/15/17 08:36 Lactic Acid 0.80 mmol/L (0.7-2.0) 10/15/17 06:43 Calcium 8.1 mg/dL (8.4-10.2) L 10/15/17 02:06 Total Bilirubin < 0.20 mg/dL (0.1-1.2) 10/15/17 02:06 AST 13 units/L (5-40) 10/15/17 02:06 ALT 11 units/L (7-56) 10/15/17 02:06 Alkaline Phosphatase 64 units/L (35-129) 10/15/17 02:06 Total Creatine Kinase 89 units/L (30-135) 10/15/17 08:15 CK-MB (CK-2) 4.6 ng/mL (0.0-4.0) H 10/15/17 08:15 CK-MB (CK-2) Rel Index 5.1 (0-4) H 10/15/17 08:15 Troponin T < 0.010 ng/mL (0.00-0.029) 10/15/17 08:15 C-Reactive Protein 0.40 mg/dL (0.00-1.30) 10/15/17 02:10 NT-Pro-B Natriuret Pep 728.6 pg/mL (0-900) 10/15/17 02:06 Total Protein 5.9 g/dL (6.3-8.2) L 10/15/17 02:06 Albumin 3.7 g/dL (3.9-5) L 10/15/17 02:06 Albumin/Globulin Ratio 1.7 % 10/15/17 02:06 Urine Color Yellow (Yellow) 10/15/17 Unknown Urine Turbidity Clear (Clear) 10/15/17 Unknown Urine pH 5.0 (5.0-7.0) 10/15/17 Unknown Ur Specific [place] 1.018 (1.003-1.030) 10/15/17 Unknown Urine Protein <15 mg/dl mg/dL (Negative) 10/15/17 Unknown Urine Glucose (UA) Neg mg/dL (Negative) 10/15/17 Unknown Urine Ketones Neg mg/dL (Negative) 10/15/17 Unknown Urine Blood Neg (Negative) 10/15/17 Unknown Urine Nitrite Neg (Negative) 10/15/17 Unknown Urine Bilirubin Neg (Negative) 10/15/17 Unknown Urine Urobilinogen < 2.0 mg/dL (<2.0) 10/15/17 Unknown Ur Leukocyte Esterase Neg (Negative) 10/15/17 Unknown Urine WBC (Auto) 1.0 /HPF (0.0-6.0) 10/15/17 Unknown Urine RBC (Auto) 2.0 /HPF (0.0-6.0) 10/15/17 Unknown
[2017-10-16] MEDS: NAPROSYN PO SCH ×2 (10:07→22:00)
[2017-10-16] MEDS: COZAAR PO SCH (12:12)
[2017-10-16] MEDS: KEPPRA PO SCH ×2 (12:13→23:01)
[2017-10-16] MEDS: SENOKOT S PO SCH ×2 (12:13→23:02)
[2017-10-16] MEDS: celeXA PO SCH (12:13)
[2017-10-16] MEDS: PROTONIX PO SCH (12:14)
[2017-10-16] MEDS: LOVENOX SUB-Q SCH (12:23)
--- NOTE | 2017-10-16 15:56 | Nuclear Medicine Report ---
Ventilation/perfusion lung scan: Elevated d-dimer. SOB. Upright posterior imaging during ventilation demonstrates a normal distribution of radionuclide. On the washout images there is mild retention of activity along the medial contour of the left lung. Perfusion imaging with multiple projections shows no segmental or subsegmental areas of radionuclide deficiency. There is a relatively unremarkable distribution bilaterally. Impression: No suspicion of pulmonary embolus identified. Mild retention of left pulmonary activity on ventilation imaging.
[2017-10-17] MEDS: DILAUDID IV PRN ×2 (00:01→06:00)
[2017-10-17] MEDS: LOVENOX SUB-Q SCH (00:02)
[2017-10-17 08:02] VITALS: BP 148/71
[2017-10-17 08:09] LABS: Anion Gap 18 mmol/L; BUN/Creatinine Ratio 17; Blood Urea Nitrogen 12 mg/dL (7-17); Calcium 8.2 mg/dL (8.4-10.2); Carbon Dioxide 23 mmol/L (22-30); Chloride 105.1 mmol/L (98-107); Glucose 94 mg/dL (65-100); Potassium 3.8 mmol/L (3.6-5.0); Sodium 142 mmol/L (137-145)
[2017-10-17] MEDS: KEPPRA PO SCH (10:26)
[2017-10-17] MEDS: celeXA PO SCH (10:26)
[2017-10-17] MEDS: COZAAR PO SCH (10:26)
[2017-10-17] MEDS: SENOKOT S PO SCH (10:26)
[2017-10-17] MEDS: PROTONIX PO SCH (10:26)
[2017-10-17] MEDS: NAPROSYN PO SCH (10:29)
--- NOTE | 2017-10-17 11:42 | Discharge Summary ---
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 Patient is well-known to [facility], [place] she has a history of opioid dependence and gastroparesis. She was diagnosed with S/p fall, Elevated D-dimer, Gastroparesis, Chronic narcotic use, Hypertensive urgency, Leukocytosis, Hypokalemia and Bilateral Knee pain. Unremarkable x-ray unremarkable. Ct of the head Unremarkable. VQ scan WNL. She was treated with antiemetics, IV fluids, high electrolytes were repleted. She was counseled that she needs to quit smoking tobacco. Patient clinically improved and stable for discharge. Patient was advised to follow up with her primary care. Discharge Diagnose S/p fall Bilateral Knee pain - Elevated D-dimer Gastroparesis Chronic narcotic use Hypertensive urgency Seizure disorder Leukocytosis - Hypokalemia Disposition: DC-01 TO HOME OR SELFCARE Core Measure Documentation - Palliative Care Palliative Care/ Comfort Measures: Not Applicable - Core Measures Any of the following diagnoses?: none Exam - Constitutional Vitals: Temp Pulse Resp BP Pulse Ox 98.5 F 80 18 148/71 90 10/17/17 08:35 10/17/17 08:35 10/17/17 08:35 10/17/17 08:35 10/17/17 08:35 General appearance: Present: no acute distress - EENT Eyes: Present: PERRL ENT: hearing intact - Neck Neck: Present: supple - Respiratory Respiratory effort: normal Respiratory: bilateral: CTA - Cardiovascular Rhythm: regular Heart Sounds: Present: S1 & S2 - Abdominal General gastrointestinal: Present: soft, non-tender Female genitourinary: Present: deferred - Rectal Rectal Exam: deferred - Integumentary Integumentary: Present: clear, warm, dry - Musculoskeletal Musculoskeletal: strength equal bilaterally - Psychiatric Psychiatric: appropriate mood/affect - Neurologic Neurologic: moves all extremities - Allied Health Allied health notes reviewed: nursing Plan Diet: low fat, low cholesterol, low salt Follow up with: PRIMARY CARE, [Primary Care Provider] - 3-5 Days Prescriptions: Losartan [Cozaar] 100 mg PO QDAY 30 Days tablet <SERENA EAGLE - Last Filed: 10/18/17 12:50> Providers - Providers Date of Admission: 10/15/17 08:48 Attending physician: SERENA EAGLE 10/15/17 14:00 Physical Therapy Evaluation and Treat [CONS] Routine Comment: Reason For Exam: placement 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 I agree with the findings and the plan of care as documented in the Nurse Practitioner's~note. Exam - Constitutional Vitals: Temp Pulse Resp BP Pulse Ox 98.5 F 80 18 148/71 90 10/17/17 08:35 10/17/17 08:35 10/17/17 08:35 10/17/17 08:35 10/17/17 08:35
[2017-10-19] MEDS ORDERED: CATAPRES-TTS PATCH TD SCH (11:07)
== END 2017-10-17 13:28 | disposition home or self-care (01) ==
LOC: ED 21:59 → 4A 10-15 08:48
PROVIDERS: ADMIT Hospitalist; ATTEND Internal Medicine
DX: M25.562 Pain in left knee (principal); M25.561 Pain in right knee; E87.6 Hypokalemia; R11.2 Nausea with vomiting, unspecified; I10 Essential (primary) hypertension; K21.9 Gastro-esophageal reflux disease without esophagitis; F41.9 Anxiety disorder, unspecified; K31.84 Gastroparesis; I16.0 Hypertensive urgency; D72.829 Elevated white blood cell count, unspecified; F11.20 Opioid dependence, uncomplicated; Z90.49 Acquired absence of other specified parts of digestive tract; Z96.659 Presence of unspecified artificial knee joint
CPT/HCPCS: 36415; 70450; 71010; 73502; 73560; 73562; 78582; 80048; 80053; 81001; 82140; 82550; 82553; 82962; 83880; 84484; 85007; 85025; 85379; 86140; 96372; 96374; 96376; 99285; A9270; A9540; A9558; G0378; J1170; J1650; J1885; J2270

== ENCOUNTER 2017-11-02 04:50 | Inpatient (IN) | payer MEDICARE ==
--- NOTE | 2017-11-02 08:29 | XRay Report ---
LUMBOSACRAL SPINE, 3 VIEWS: History: Back pain Findings: Borderline bone mineralization. No compression deformity or subluxation is identified. No obvious bone lesion. Mild multilevel degenerative disc disease and moderate facet arthropathy at the lowest 3 levels is identified. The sacrum and SI joints are unremarkable. Impression: Lumbar spondylosis. No evidence for acute injury or malalignment. Borderline osteopenia.
--- NOTE | 2017-11-02 08:31 | XRay Report ---
BILATERAL KNEES, 3 VIEWS History: Bilateral knee pain. Findings: There is borderline bone mineralization. Mild osteoarthritic changes are identified in the lateral compartment of the right knee. There is suggestion of a small osteochondral defect in the lateral femoral condyle on the right side. The medial compartment and patellofemoral space are within normal limits. A small right knee effusion is identified. The left knee is within normal limits. Impression: Borderline osteopenia. Slightly abnormal lateral compartment of the right knee as described above. Small right knee effusion.
[2017-11-02] MEDS ORDERED: NACL 0.9% 1000 ML 1,000 ML IV ONE (14:32)
[2017-11-02] MEDS ORDERED: ZOFRAN IV ONE (14:32)
[2017-11-02] MEDS ORDERED: BENTYL IM ONE (14:35)
--- NOTE | 2017-11-02 14:41 | Emergency Department Report ---
ED General Adult HPI - General Chief complaint: Fall Stated complaint: FALL Time Seen by Provider: 11/02/17 14:26 Source: patient Mode of arrival: Ambulatory Limitations: No Limitations - History of Present Illness Initial comments: Patient is 62 years old female history of hypertension and gastroparesis. Presented today with complaint, first patient stated that she woke up this morning with nausea and vomiting and diarrhea. She went to use the bathroom and she fell on her back and her knees she landed on her knees and she is complaining of lower back pain and right knee pain. Patient denied any head injury. She stated she did not passed out she remember everything. No weakness numbness or tingling sensation. No bowel or bladder incontinence. Patient denied any headache or neck pain. Severity scale (0 -10): 0 - Related Data Home Medications Medication Instructions Recorded Confirmed Last Taken levETIRAcetam [Keppra] 500 mg PO BID 10/05/17 11/02/17 1 Day Ago ~10/15/17 Previous Rx's Medication Instructions Recorded Last Taken Type Atorvastatin Calcium [Lipitor] 20 mg PO QDAY #30 tablet 10/10/17 1 Day Ago Rx ~10/15/17 Citalopram [celeXA] 10 mg PO QDAY #30 tablet 10/10/17 1 Day Ago Rx ~10/15/17 LORazepam [Ativan] 0.5 mg PO Q8H PRN #20 tablet 10/10/17 3 Weeks Ago Rx ~09/25/17 Metaxalone [Skelaxin] 800 mg PO TID #20 tablet 10/10/17 1 Day Ago Rx ~10/15/17 Naproxen [Naprosyn TAB] 500 mg PO BID #60 tablet 10/10/17 3 Days Ago Rx ~10/13/17 Pantoprazole [Protonix TAB] 40 mg PO QDAY #30 tablet 10/10/17 1 Day Ago Rx ~10/15/17 Promethazine [Phenergan SUPPOS] 25 mg ID Q6H PRN #20 supp.rect 10/10/17 1 Month Ago Rx ~09/16/17 Sennosides/Docusate [Senokot S] 1 tab PO BID #60 tablet 10/10/17 1 Day Ago Rx ~10/15/17 cloNIDine-TTS PATCH [Catapres-Tts 0.3 mg TD Th 30 Days patch 10/10/17 1 Day Ago Rx Patch] ~10/15/17 Losartan [Cozaar] 100 mg PO QDAY 30 Days tablet 10/17/17 Unknown Rx Allergies Allergy/AdvReac Type Severity Reaction Status Date / Time codeine Allergy Itching Verified 03/02/17 12:33 metoclopramide HCl Allergy Unknown Verified 03/02/17 12:33 [From Reglan] morphine Allergy Hives Verified 03/02/17 12:33 ED Review of Systems ROS: Stated complaint: FALL Other details as noted in HPI Comment: All other systems reviewed and negative Constitutional: denies: chills, fever Respiratory: denies: cough, shortness of breath, SOB with exertion Cardiovascular: denies: chest pain, palpitations Gastrointestinal: nausea, vomiting, diarrhea. denies: abdominal pain, constipation, hematemesis Musculoskeletal: back pain. denies: joint swelling, arthralgia, myalgia Neurological: denies: headache, weakness, numbness, paresthesias ED Past Medical Hx - Past Medical History Previous Medical History?: Yes Hx Hypertension: Yes Hx CVA: No Hx Heart Attack/AMI: No Hx Congestive Heart Failure: No Hx Diabetes: No Hx Deep Vein Thrombosis: No Hx Pulmonary Embolism: No Hx GERD: Yes Hx Liver Disease: No Hx Renal Disease: No Hx Sickle Cell Disease: No Hx Arthritis: Yes Hx Headaches / Migraines: Yes Hx Seizures: Yes (grand mal) Hx Kidney Stones: No Hx Psychiatric Treatment: Yes (anxiety) Hx Asthma: No Hx COPD: No Hx Tuberculosis: No Hx Dementia: No Hx HIV: No Additional medical history: Gastroparesis. bilat knee surgery - Surgical History Hx Coronary Stent: No Hx Open Heart Surgery: No Hx Pacemaker: No Hx Internal Defibrillator: No Hx Cholecystectomy: Yes (2010) Hx Appendectomy: No Hx Breast Surgery: No Additional Surgical History: J tube- removed , Knee surg bilat - Social History Smoking Status: Never Smoker Substance Use Type: None - Medications Home Medications: Home Medications Medication Instructions Recorded Confirmed Last Taken Type levETIRAcetam [Keppra] 500 mg PO BID 10/05/17 11/02/17 1 Day Ago History ~10/15/17 Atorvastatin Calcium [Lipitor] 20 mg PO QDAY #30 tablet 10/10/17 11/02/17 1 Day Ago Rx ~10/15/17 Citalopram [celeXA] 10 mg PO QDAY #30 tablet 10/10/17 11/02/17 1 Day Ago Rx ~10/15/17 LORazepam [Ativan] 0.5 mg PO Q8H PRN #20 tablet 10/10/17 11/02/17 3 Weeks Ago Rx ~09/25/17 Metaxalone [Skelaxin] 800 mg PO TID #20 tablet 10/10/17 11/02/17 1 Day Ago Rx ~10/15/17 Naproxen [Naprosyn TAB] 500 mg PO BID #60 tablet 10/10/17 11/02/17 3 Days Ago Rx ~10/13/17 Pantoprazole [Protonix TAB] 40 mg PO QDAY #30 tablet 10/10/17 11/02/17 1 Day Ago Rx ~10/15/17 Promethazine [Phenergan SUPPOS] 25 mg ID Q6H PRN #20 supp.rect 10/10/17 1 Month Ago Rx ~09/16/17 Sennosides/Docusate [Senokot S] 1 tab PO BID #60 tablet 10/10/17 11/02/17 1 Day Ago Rx ~10/15/17 cloNIDine-TTS PATCH [Catapres-Tts 0.3 mg TD Th 30 Days patch 10/10/17 11/02/17 1 Day Ago Rx Patch] ~10/15/17 Losartan [Cozaar] 100 mg PO QDAY 30 Days tablet 10/17/17 11/02/17 Unknown Rx ED Physical Exam - General Limitations: No Limitations General appearance: alert, other (patient is actively vomiting) - Head Head exam: Present: atraumatic, normocephalic - Eye Eye exam: Present: normal appearance, PERRL - ENT ENT exam: Present: normal exam, mucous membranes dry - Neck Neck exam: Present: normal inspection, full ROM. Absent: tenderness, meningismus, lymphadenopathy, thyromegaly - Respiratory Respiratory exam: Present: normal lung sounds bilaterally - Cardiovascular Cardiovascular Exam: Present: tachycardia, normal heart sounds - GI/Abdominal GI/Abdominal exam: Present: soft, normal bowel sounds. Absent: distended, tenderness, guarding, rebound, rigid, organomegaly, mass, bruit, pulsatile mass - Extremities Exam Extremities exam: Present: normal inspection, tenderness, normal capillary refill - Back Exam Back exam: Present: normal inspection, full ROM, paraspinal tenderness. Absent : CVA tenderness (R), CVA tenderness (L), muscle spasm - Neurological Exam Neurological exam: Present: alert, oriented X3, CN II-XII intact, normal gait - Skin Skin exam: Present: warm, intact, normal color. Absent: cyanosis ED Course Vital Signs 11/02/17 11/02/17 11/02/17 05:02 07:20 07:36 Temperature 98.6 F 98.6 F Pulse Rate 105 H 111 H 115 H Respiratory 18 18 18 Rate Blood Pressure 180/106 180/106 Blood Pressure 203/125 [Right] O2 Sat by Pulse 92 95 95 Oximetry 11/02/17 11/02/17 11/02/17 12:42 14:36 14:46 Temperature 100 F H Pulse Rate 119 H 146 H 139 H Respiratory 16 28 H Rate Blood Pressure 198/115 221/120 Blood Pressure [Right] O2 Sat by Pulse 96 96 Oximetry 11/02/17 11/02/17 11/02/17 15:00 15:16 15:30 Temperature Pulse Rate 139 H 140 H 133 H Respiratory 15 15 28 H Rate Blood Pressure 217/110 220/116 205/113 Blood Pressure [Right] O2 Sat by Pulse 95 94 96 Oximetry 11/02/17 11/02/17 11/02/17 15:40 15:45 16:00 Temperature 99.9 F H Pulse Rate 127 H 123 H Respiratory 25 H 19 Rate Blood Pressure 197/111 181/117 Blood Pressure [Right] O2 Sat by Pulse 95 96 Oximetry 11/02/17 11/02/17 16:16 16:37 Temperature Pulse Rate 131 H 130 H Respiratory 17 Rate Blood Pressure 195/119 185/95 Blood Pressure [Right] O2 Sat by Pulse 92 Oximetry ED Medical Decision Making - Lab Data Result diagrams: 11/02/17 15:00 11/02/17 15:00 - Medical Decision Making Discussed with Dr. Mancuso, he agreed to admit the patient to his service. Critical care attestation.: If time is entered above; I have spent that time in minutes in the direct care of this critically ill patient, excluding procedure time. ED Disposition Clinical Impression: Gastroparesis, Abdominal pain, Intractable vomiting with nausea, Malignant hypertension Disposition: DC-09 OP ADMIT IP TO THIS HOSP Is pt being admited?: Yes Condition: Stable Instructions: Hypertension (ED) Referrals: PRIMARY CARE, [Primary Care Provider] - 3-5 Days
[2017-11-02 15:24] LABS: INR 0.95 (0.87-1.13)
[2017-11-02 15:25] LABS: Partial Thromboplastin Time 28.7 Sec. (24.2-36.6)
[2017-11-02 15:30] LABS: Alanine Aminotransferase 14 units/L (7-56); Albumin 4.4 g/dL (3.9-5); BUN/Creatinine Ratio 10; Blood Urea Nitrogen 7 mg/dL (7-17); Calcium 9.5 mg/dL (8.4-10.2); Hemolysis Index 5; Lipase 40 units/L (13-60)
[2017-11-02] MEDS ORDERED: SUBLIMAZE IV ONE (15:45)
[2017-11-02] MEDS ORDERED: SUBLIMAZE ONE (15:48)
[2017-11-02] MEDS ORDERED: NORMODYNE IV ONE (16:20)
[2017-11-02 16:32] LABS: Mean Corpuscular HGB Conc 30 % (30-34); Mean Corpuscular Volume 77 fl (79-97); Platelet Count 813 K/mm3 (140-440); Red Blood Count 4.66 M/mm3 (3.65-5.03)
[2017-11-02 16:37] LABS: Hematocrit 35.9 % (30.3-42.9); Hemoglobin 10.9 gm/dl (10.1-14.3); Mean Corpuscular Hemoglobin 23 pg (28-32); Red Cell Distribution Width 22.2 % (13.2-15.2)
[2017-11-02] MEDS ORDERED: DULCOLAX PR PRN (19:57)
[2017-11-02] MEDS ORDERED: TYLENOL PO PRN (19:57)
[2017-11-02] MEDS ORDERED: MILK OF MAGNESIA PO PRN (19:57)
--- NOTE | 2017-11-02 19:57 | History and Physical Report ---
History of Present Illness Date of examination: 11/02/17 Date of admission: 11/02/17 17:10 Chief complaint: CC Vomiting for 1 day History of present illness: History of Present Illness 62 years old female with history of hypertension and gastroparesis presented today with complaint that she woke up this morning with nausea and vomiting and diarrhea. Vomitted about 4 times. She went to use the bathroom and she fell on her back . Patient denied any head injury. She stated she did not pass out She remembers everything. No weakness numbness or tingling sensation. No bowel or bladder incontinence. Patient denied any headache or neck pain. Past Medical History Previous Medical History?: Yes Hx Hypertension: Yes Hx Arthritis: Yes Hx Headaches / Migraines: Yes Hx Seizures: Yes (grand mal) Hx Psychiatric Treatment: Yes (anxiety) Additional medical history: Gastroparesis. bilat knee surgery Surgical History Cholecystectomy: Yes (2010) J tube- removed , Knee surg bilat Social History Smoking Status: Never Smoker Substance Use Type: None - Medications Home Medications: Home Medications Medication Instructions Recorded Confirmed Last Taken Type levETIRAcetam [Keppra] 500 mg PO BID 10/05/17 11/02/17 1 Day Ago History ~10/15/17 Atorvastatin Calcium [Lipitor] 20 mg PO QDAY #30 tablet 10/10/17 11/02/17 1 Day Ago Rx ~10/15/17 Citalopram [celeXA] 10 mg PO QDAY #30 tablet 10/10/17 11/02/17 1 Day Ago Rx ~10/15/17 LORazepam [Ativan] 0.5 mg PO Q8H PRN #20 tablet 10/10/17 11/02/17 3 Weeks Ago Rx ~09/25/17 Metaxalone [Skelaxin] 800 mg PO TID #20 tablet 10/10/17 11/02/17 1 Day Ago Rx ~10/15/17 Naproxen [Naprosyn TAB] 500 mg PO BID #60 tablet 10/10/17 11/02/17 3 Days Ago Rx ~10/13/17 Pantoprazole [Protonix TAB] 40 mg PO QDAY #30 tablet 10/10/17 11/02/17 1 Day Ago Rx ~10/15/17 Promethazine [Phenergan SUPPOS] 25 mg MD Q6H PRN #20 supp.rect 10/10/17 1 Month Ago Rx ~09/16/17 Sennosides/Docusate [Senokot S] 1 tab PO BID #60 tablet 10/10/17 11/02/17 1 Day Ago Rx ~10/15/17 cloNIDine-TTS PATCH [Catapres-Tts 0.3 mg TD Th 30 Days patch 10/10/17 11/02/17 1 Day Ago Rx Patch] ~10/15/17 Losartan [Cozaar] 100 mg PO QDAY 30 Days tablet 10/17/17 11/02/17 Unknown Rx Review of Systems ROS: Stated complaint: FALL Other details as noted in HPI Comment: All other systems reviewed and negative Constitutional: denies: chills, fever Respiratory: denies: cough, shortness of breath, SOB with exertion Cardiovascular: denies: chest pain, palpitations Gastrointestinal: nausea, vomiting, diarrhea. denies: abdominal pain, constipation, hematemesis Musculoskeletal: back pain. denies: joint swelling, arthralgia, myalgia Neurological: denies: headache, weakness, numbness, paresthesias Medications and Allergies Allergies Allergy/AdvReac Type Severity Reaction Status Date / Time codeine Allergy Itching Verified 03/02/17 12:33 metoclopramide HCl Allergy Unknown Verified 03/02/17 12:33 [facility] morphine Allergy Hives Verified 03/02/17 12:33 Home Medications Medication Instructions Recorded Confirmed Last Taken Type levETIRAcetam [Keppra] 500 mg PO BID 10/05/17 11/02/17 1 Day Ago History ~10/15/17 Atorvastatin Calcium [Lipitor] 20 mg PO QDAY #30 tablet 10/10/17 11/02/17 1 Day Ago Rx ~10/15/17 Citalopram [celeXA] 10 mg PO QDAY #30 tablet 10/10/17 11/02/17 1 Day Ago Rx ~10/15/17 LORazepam [Ativan] 0.5 mg PO Q8H PRN #20 tablet 10/10/17 11/02/17 3 Weeks Ago Rx ~09/25/17 Metaxalone [Skelaxin] 800 mg PO TID #20 tablet 10/10/17 11/02/17 1 Day Ago Rx ~10/15/17 Naproxen [Naprosyn TAB] 500 mg PO BID #60 tablet 10/10/17 11/02/17 3 Days Ago Rx ~10/13/17 Pantoprazole [Protonix TAB] 40 mg PO QDAY #30 tablet 10/10/17 11/02/17 1 Day Ago Rx ~10/15/17 Promethazine [Phenergan SUPPOS] 25 mg MD Q6H PRN #20 supp.rect 10/10/17 1 Month Ago Rx ~09/16/17 Sennosides/Docusate [Senokot S] 1 tab PO BID #60 tablet 10/10/17 11/02/17 1 Day Ago Rx ~10/15/17 cloNIDine-TTS PATCH [Catapres-Tts 0.3 mg TD Th 30 Days patch 10/10/17 11/02/17 1 Day Ago Rx Patch] ~10/15/17 Losartan [Cozaar] 100 mg PO QDAY 30 Days tablet 10/17/17 11/02/17 Unknown Rx Active Meds: Active Medications Piperacillin Sod/Tazobactam Sod (Zosyn/Ns 3.375gm/50ml) 3.375 gm in 50 mls @ 100 mls/hr IV Q6HR JUANA Exam - Constitutional Vitals: Temp Pulse Resp BP Pulse Ox 99.3 F 103 H 18 186/112 95 11/02/17 18:44 11/02/17 17:45 11/02/17 18:44 11/02/17 18:44 11/02/17 17:45 Results - Labs CBC & Chem 7: 11/02/17 15:00 11/02/17 15:00 Labs: Laboratory Last Values WBC 14.7 K/mm3 (4.5-11.0) H 11/02/17 15:00 RBC 4.66 M/mm3 (3.65-5.03) 11/02/17 15:00 Hgb 10.9 gm/dl (10.1-14.3) 11/02/17 15:00 Hct 35.9 % (30.3-42.9) 11/02/17 15:00 MCV 77 fl (79-97) L 11/02/17 15:00 MCH 23 pg (28-32) L 11/02/17 15:00 MCHC 30 % (30-34) 11/02/17 15:00 RDW 22.2 % (13.2-15.2) H 11/02/17 15:00 Plt Count 813 K/mm3 (140-440) H 11/02/17 15:00 PT 13.1 Sec. (12.2-14.9) 11/02/17 15:00 INR 0.95 (0.87-1.13) 11/02/17 15:00 APTT 28.7 Sec. (24.2-36.6) 11/02/17 15:00 Sodium 146 mmol/L (137-145) H 11/02/17 15:00 Potassium 4.1 mmol/L (3.6-5.0) 11/02/17 15:00 Chloride 103.1 mmol/L (98-107) 11/02/17 15:00 Carbon Dioxide 19 mmol/L (22-30) L 11/02/17 15:00 Anion Gap 28 mmol/L 11/02/17 15:00 BUN 7 mg/dL (7-17) 11/02/17 15:00 Creatinine 0.7 mg/dL (0.7-1.2) 11/02/17 15:00 Estimated GFR > 60 ml/min 11/02/17 15:00 BUN/Creatinine Ratio 10 % 11/02/17 15:00 Glucose 104 mg/dL (65-100) H 11/02/17 15:00 POC Glucose 84 (70-105) 11/02/17 12:29 Calcium 9.5 mg/dL (8.4-10.2) 11/02/17 15:00 Total Bilirubin 0.50 mg/dL (0.1-1.2) 11/02/17 15:00 AST 12 units/L (5-40) 11/02/17 15:00 ALT 14 units/L (7-56) 11/02/17 15:00 Alkaline Phosphatase 110 units/L (35-129) 11/02/17 15:00 Total Protein 7.1 g/dL (6.3-8.2) 11/02/17 15:00 Albumin 4.4 g/dL (3.9-5) 11/02/17 15:00 Albumin/Globulin Ratio 1.6 % 11/02/17 15:00 Lipase 40 units/L (13-60) 11/02/17 15:00 Short CBC 11/02/17 Range/Units 15:00 WBC 14.7 H (4.5-11.0) K/mm3 Hgb 10.9 (10.1-14.3) gm/dl Hct 35.9 (30.3-42.9) % Plt Count 813 H (140-440) K/mm3 BMP 11/02/17 15:00 Sodium 146 H Potassium 4.1 Chloride 103.1 Carbon Dioxide 19 L BUN 7 Creatinine 0.7 Glucose 104 H Calcium 9.5 Liver Function 11/02/17 Range/Units 15:00 Total Bilirubin 0.50 (0.1-1.2) mg/dL AST 12 (5-40) units/L ALT 14 (7-56) units/L Alkaline Phosphatase 110 (35-129) units/L Albumin 4.4 (3.9-5) g/dL - Imaging and Cardiology EKG: report reviewed Imaging and Cardiology: LS Spine -Spondylosis. Knee Xray No Fx Assessment and Plan Advance Directives: Yes (FC) VTE prophylaxis?: Chemical Plan of care discussed with patient/family: Yes - Patient Problems (1) Hypertensive emergency Current Visit: Yes Status: Acute Plan to address problem: Hydralazine 10 mg iv prn q2h Adjust meds depending on BP trend over next 48 hours (2) Gastroparesis Current Visit: Yes Status: Acute Plan to address problem: Treat symptomatically (3) Dehydration Current Visit: No Status: Acute Plan to address problem: IV fluids (4) HTN (hypertension) Current Visit: No Status: Chronic Qualifiers: Hypertension type: essential hypertension Qualified Code(s): I10 - Essential (primary) hypertension Plan to address problem: Cont Antihypertensives (5) Back pain Current Visit: No Status: Acute Qualifiers: Back pain location: low back pain Plan to address problem: Sx Treatment (6) GERD (gastroesophageal reflux disease) Current Visit: No Status: Chronic Qualifiers: Esophagitis presence: without esophagitis Qualified Code(s): K21.9 - Gastro -esophageal reflux disease without esophagitis Plan to address problem: Cont PPI's (7) Seizure disorder Current Visit: Yes Status: Chronic Plan to address problem: Cont Keppra (8) HLD (hyperlipidemia) Current Visit: Yes Status: Chronic Qualifiers: Hyperlipidemia type: mixed hyperlipidemia Qualified Code(s): E78.2 - Mixed hyperlipidemia Plan to address problem: Cont statins (9) DVT prophylaxis Current Visit: No Status: Acute
[2017-11-02] MEDS ORDERED: APRESOLINE IV PRN (20:01)
[2017-11-02] MEDS ORDERED: ATIVAN PO PRN (20:08)
[2017-11-02] MEDS: ZOSYN/NS 3.375GM/50ML 3.375 GM/50 ML BAG IV SCH (20:09)
[2017-11-02] MEDS: D5NS 1,000 ML IV SCH (20:25)
[2017-11-02] MEDS: MORPHINE IV PRN (20:26)
[2017-11-02] MEDS: ZOFRAN IV PRN (20:26)
[2017-11-02] MEDS ORDERED: CATAPRES-TTS PATCH TD SCH (21:00)
[2017-11-02] MEDS: ATIVAN IV PRN (22:36)
[2017-11-02] MEDS: COZAAR PO SCH (23:23)
[2017-11-02] MEDS: celeXA PO SCH (23:23)
[2017-11-02] MEDS: NAPROSYN PO SCH (23:24)
[2017-11-02] MEDS: SENOKOT S PO SCH (23:24)
[2017-11-02] MEDS: KEPPRA PO SCH (23:24)
[2017-11-03] MEDS: MORPHINE IV PRN ×4 (00:36→12:59)
[2017-11-03] MEDS: ZOFRAN IV PRN ×4 (00:36→13:02)
[2017-11-03] MEDS: ZOSYN/NS 3.375GM/50ML 3.375 GM/50 ML BAG IV SCH ×4 (04:35→18:40)
[2017-11-03] MEDS: ATIVAN IV PRN (06:35)
[2017-11-03] MEDS: SKELAXIN PO SCH ×3 (06:59→23:47)
[2017-11-03 07:50] LABS: Basophils % (Auto) 0.4 % (0.0-1.8); Eosinophils % (Auto) 0.1 % (0.0-4.3); Hematocrit 31.3 % (30.3-42.9); Hemoglobin 9.8 gm/dl (10.1-14.3); Lymphocytes % (Auto) 8.1 % (13.4-35.0); Mean Corpuscular HGB Conc 31 % (30-34); Mean Corpuscular Volume 77 fl (79-97); Monocytes # (Auto) 0.6 K/mm3 (0.0-0.8); Monocytes % (Auto) 4.5 % (0.0-7.3); Platelet Count 718 K/mm3 (140-440); Red Blood Count 4.06 M/mm3 (3.65-5.03)
[2017-11-03 07:57] LABS: Mean Corpuscular Hemoglobin 24 pg (28-32)
[2017-11-03 08:05] LABS: Alanine Aminotransferase 12 units/L (7-56); Albumin 3.9 g/dL (3.9-5); BUN/Creatinine Ratio 9; Blood Urea Nitrogen 7 mg/dL (7-17); Calcium 8.5 mg/dL (8.4-10.2); Hemolysis Index 19
--- NOTE | 2017-11-03 09:09 | Progress Note ---
<ABBY BENITES - Last Filed: 11/03/17 16:04> Assessment and Plan Assessment and plan: Hypertensive emergency Review of hold antihypertensive medication IV hydralazine for SBP >160 Closely monitor blood pressure Gastroparesis Started on IV fluid hydration NM Gastric emptying ordered Antiemetics Pain medications Supportive care Dehydration IV fluid hydration SIRS Patient meets the SIRS criteria, fever, leukocytosis and tachycardia Blood cultures collected prior to antibiotic and culture. Follow blood cultures. Initiated empiric treatment IV Zosyn IV fluid hydration Supportive care Diabetes mellitus Accu-Chek meals and at bedtime Sliding scale insulin/novlong Nicotine dependence Smoking cessation counseling done, patient strongly advised to quit. GERD Started on IV Protonix Medication dependency Back pain Conntrol with Tylenol Seizure disorder Continue Keppra hyperlipidemia Continue onantilipid agents Opioid dependence Patient advised to wean off from opioids in the long-term DVT prophylaxis Lovenox History Interval history: Patient denies having pain at present time. Labs and nursing notes reviewed. Hospitalist Physical - Constitutional Vitals: Temp Pulse Resp BP Pulse Ox 97.4 F L 114 H 18 173/96 93 11/03/17 08:31 11/03/17 08:31 11/03/17 08:31 11/03/17 08:31 11/03/17 08:31 General appearance: Present: no acute distress - EENT Eyes: Present: PERRL - Neck Neck: Present: supple - Respiratory Respiratory effort: normal Respiratory: bilateral: CTA - Cardiovascular Rhythm: regular Heart Sounds: Present: S1 & S2 - Abdominal General gastrointestinal: soft, non-tender - Integumentary Integumentary: Present: clear, warm, dry - Psychiatric Psychiatric: appropriate mood/affect - Neurologic Neurologic: moves all extremities - Allied Health Allied health notes reviewed: nursing Results - Labs CBC & Chem 7: 11/03/17 07:13 11/03/17 07:13 Labs: Laboratory Last Values WBC 12.4 K/mm3 (4.5-11.0) H 11/03/17 07:13 RBC 4.06 M/mm3 (3.65-5.03) 11/03/17 07:13 Hgb 9.8 gm/dl (10.1-14.3) L 11/03/17 07:13 Hct 31.3 % (30.3-42.9) 11/03/17 07:13 MCV 77 fl (79-97) L 11/03/17 07:13 MCH 24 pg (28-32) L 11/03/17 07:13 MCHC 31 % (30-34) 11/03/17 07:13 RDW 22.0 % (13.2-15.2) H 11/03/17 07:13 Plt Count 718 K/mm3 (140-440) H 11/03/17 07:13 Lymph % (Auto) 8.1 % (13.4-35.0) L 11/03/17 07:13 [place] % (Auto) 4.5 % (0.0-7.3) 11/03/17 07:13 Eos % (Auto) 0.1 % (0.0-4.3) 11/03/17 07:13 Baso % (Auto) 0.4 % (0.0-1.8) 11/03/17 07:13 Lymph # 1.0 K/mm3 (1.2-5.4) L 11/03/17 07:13 [place] # 0.6 K/mm3 (0.0-0.8) 11/03/17 07:13 Eos # 0.0 K/mm3 (0.0-0.4) 11/03/17 07:13 Baso # 0.0 K/mm3 (0.0-0.1) 11/03/17 07:13 Seg Neutrophils % 86.9 % (40.0-70.0) H 11/03/17 07:13 Seg Neutrophils # 10.7 K/mm3 (1.8-7.7) H 11/03/17 07:13 PT 13.1 Sec. (12.2-14.9) 11/02/17 15:00 INR 0.95 (0.87-1.13) 11/02/17 15:00 APTT 28.7 Sec. (24.2-36.6) 11/02/17 15:00 Sodium 147 mmol/L (137-145) H 11/03/17 07:13 Potassium 3.1 mmol/L (3.6-5.0) L D 11/03/17 07:13 Chloride 106.0 mmol/L (98-107) 11/03/17 07:13 Carbon Dioxide 22 mmol/L (22-30) 11/03/17 07:13 Anion Gap 22 mmol/L 11/03/17 07:13 BUN 7 mg/dL (7-17) 11/03/17 07:13 Creatinine 0.8 mg/dL (0.7-1.2) 11/03/17 07:13 Estimated GFR > 60 ml/min 11/03/17 07:13 BUN/Creatinine Ratio 9 % 11/03/17 07:13 Glucose 129 mg/dL (65-100) H 11/03/17 07:13 POC Glucose 126 (70-105) H 11/03/17 06:08 Hemoglobin A1c 5.6 % (4-6) 11/02/17 15:00 Calcium 8.5 mg/dL (8.4-10.2) 11/03/17 07:13 Total Bilirubin 0.40 mg/dL (0.1-1.2) 11/03/17 07:13 AST 13 units/L (5-40) 11/03/17 07:13 ALT 12 units/L (7-56) 11/03/17 07:13 Alkaline Phosphatase 91 units/L (35-129) 11/03/17 07:13 Total Protein 6.8 g/dL (6.3-8.2) 11/03/17 07:13 Albumin 3.9 g/dL (3.9-5) 11/03/17 07:13 Albumin/Globulin Ratio 1.3 % 11/03/17 07:13 Lipase 40 units/L (13-60) 11/02/17 15:00 <CURT WORTHY M - Last Filed: 11/04/17 08:45> Assessment and Plan Assessment and plan: I saw and evaluated the patient. I agree with the findings and the plan of care as documented in the Nurse Practitioner's progress note. Hospitalist Physical - Constitutional Vitals: Temp Pulse Resp BP Pulse Ox 98.8 F 103 H 20 146/87 92 11/04/17 07:45 11/04/17 07:45 11/04/17 07:45 11/04/17 07:45 11/04/17 07:45 Results - Labs CBC & Chem 7: 11/04/17 04:57 11/04/17 04:57 Labs: Laboratory Last Values WBC 13.2 K/mm3 (4.5-11.0) H 11/04/17 04:57 RBC 4.06 M/mm3 (3.65-5.03) 11/04/17 04:57 Hgb 9.6 gm/dl (10.1-14.3) L 11/04/17 04:57 Hct 31.7 % (30.3-42.9) 11/04/17 04:57 MCV 78 fl (79-97) L 11/04/17 04:57 MCH 24 pg (28-32) L 11/04/17 04:57 MCHC 30 % (30-34) 11/04/17 04:57 RDW 23.2 % (13.2-15.2) H 11/04/17 04:57 Plt Count 716 K/mm3 (140-440) H 11/04/17 04:57 Lymph % (Auto) 9.0 % (13.4-35.0) L 11/04/17 04:57 [place] % (Auto) 5.7 % (0.0-7.3) 11/04/17 04:57 Eos % (Auto) 0.5 % (0.0-4.3) 11/04/17 04:57 Baso % (Auto) 0.4 % (0.0-1.8) 11/04/17 04:57 Lymph # 1.2 K/mm3 (1.2-5.4) 11/04/17 04:57 [place] # 0.8 K/mm3 (0.0-0.8) 11/04/17 04:57 Eos # 0.1 K/mm3 (0.0-0.4) 11/04/17 04:57 Baso # 0.1 K/mm3 (0.0-0.1) 11/04/17 04:57 Seg Neutrophils % 84.4 % (40.0-70.0) H 11/04/17 04:57 Seg Neutrophils # 11.1 K/mm3 (1.8-7.7) H 11/04/17 04:57 PT 13.1 Sec. (12.2-14.9) 11/02/17 15:00 INR 0.95 (0.87-1.13) 11/02/17 15:00 APTT 28.7 Sec. (24.2-36.6) 11/02/17 15:00 Sodium 147 mmol/L (137-145) H 11/04/17 04:57 Potassium 3.3 mmol/L (3.6-5.0) L 11/04/17 04:57 Chloride 107.3 mmol/L (98-107) H 11/04/17 04:57 Carbon Dioxide 22 mmol/L (22-30) 11/04/17 04:57 Anion Gap 21 mmol/L 11/04/17 04:57 BUN 8 mg/dL (7-17) 11/04/17 04:57 Creatinine 0.8 mg/dL (0.7-1.2) 11/04/17 04:57 Estimated GFR > 60 ml/min 11/04/17 04:57 BUN/Creatinine Ratio 10 % 11/04/17 04:57 Glucose 107 mg/dL (65-100) H 11/04/17 04:57 POC Glucose 126 (70-105) H 11/03/17 06:08 Hemoglobin A1c 5.6 % (4-6) 11/02/17 15:00 Calcium 8.4 mg/dL (8.4-10.2) 11/04/17 04:57 Total Bilirubin 0.40 mg/dL (0.1-1.2) 11/03/17 07:13 AST 13 units/L (5-40) 11/03/17 07:13 ALT 12 units/L (7-56) 11/03/17 07:13 Alkaline Phosphatase 91 units/L (35-129) 11/03/17 07:13 Total Protein 6.8 g/dL (6.3-8.2) 11/03/17 07:13 Albumin 3.9 g/dL (3.9-5) 11/03/17 07:13 Albumin/Globulin Ratio 1.3 % 11/03/17 07:13 Lipase 40 units/L (13-60) 11/02/17 15:00
[2017-11-03] MEDS ORDERED: K-DUR PO NR (10:00)
[2017-11-03] MEDS: celeXA PO SCH (10:29)
[2017-11-03] MEDS: NAPROSYN PO SCH ×2 (10:29→23:47)
[2017-11-03] MEDS: KEPPRA PO SCH ×2 (10:29→23:48)
[2017-11-03] MEDS: COZAAR PO SCH (10:31)
[2017-11-03] MEDS: REGLAN IV PRN (10:51)
[2017-11-03] MEDS: D5NS 1,000 ML IV SCH (10:52)
[2017-11-03] MEDS: PROTONIX PO SCH (15:12)
[2017-11-03] MEDS: SENOKOT S PO SCH ×2 (15:13→23:49)
[2017-11-03] MEDS: PHENERGAN PR PRN (17:33)
[2017-11-03] MEDS ORDERED: APRESOLINE PO STA (18:09)
[2017-11-03] MEDS: MORPHINE IM PRN (20:52)
[2017-11-03] MEDS ORDERED: LEVAQUIN PO ONE (21:47)
[2017-11-03] MEDS ORDERED: REGLAN PO PRN (21:56)
[2017-11-04] MEDS: MORPHINE IM PRN ×6 (01:06→22:21)
[2017-11-04] MEDS: ZOSYN/NS 3.375GM/50ML 3.375 GM/50 ML BAG IV SCH ×4 (05:06→18:36)
[2017-11-04 05:49] LABS: Basophils # (Auto) 0.1 K/mm3 (0.0-0.1); Basophils % (Auto) 0.4 % (0.0-1.8); Eosinophils # (Auto) 0.1 K/mm3 (0.0-0.4); Eosinophils % (Auto) 0.5 % (0.0-4.3); Hematocrit 31.7 % (30.3-42.9); Hemoglobin 9.6 gm/dl (10.1-14.3); Lymphocytes # (Auto) 1.2 K/mm3 (1.2-5.4); Mean Corpuscular HGB Conc 30 % (30-34); Mean Corpuscular Volume 78 fl (79-97); Monocytes # (Auto) 0.8 K/mm3 (0.0-0.8); Monocytes % (Auto) 5.7 % (0.0-7.3); Platelet Count 716 K/mm3 (140-440); Red Blood Count 4.06 M/mm3 (3.65-5.03)
[2017-11-04 05:56] LABS: Mean Corpuscular Hemoglobin 24 pg (28-32); Red Cell Distribution Width 23.2 % (13.2-15.2)
[2017-11-04 06:17] LABS: BUN/Creatinine Ratio 10; Blood Urea Nitrogen 8 mg/dL (7-17); Calcium 8.4 mg/dL (8.4-10.2); Hemolysis Index 31
[2017-11-04] MEDS: SKELAXIN PO SCH ×3 (08:00→20:19)
--- NOTE | 2017-11-04 08:45 | Progress Note ---
Assessment and Plan Assessment and plan: Hypertensive urgency - Likely due to the pain - When necessary hydralazine Gastroparesis - Started on IV fluid hydration - NM Gastric emptying ordered - Antiemetics - Pain medications - Supportive care Dehydration - IV fluid hydration SIRS - Patient is empirically on Zosyn Diabetes mellitus - Accu-Chek meals and at bedtime - Sliding scale insulin/novlong Nicotine dependence - Smoking cessation counseling done, patient strongly advised to quit. GERD - Started on IV Protonix Back pain Conntrol with Tylenol Seizure disorder Continue Keppra hyperlipidemia Continue onantilipid agents Opioid dependence Patient advised to wean off from opioids in the long-term DVT prophylaxis Lovenox Disposition possible discharge tomorrow History Interval history: Patient was seen and about at this morning, she is still complaining abdominal pain. Hospitalist Physical - Physical exam Narrative exam: Not in cardiopulmonary distress. The patient appeared well nourished and normally developed. Vital signs as documented. Head exam is unremarkable. No scleral icterus . Neck is without jugular venous distension, thyromegaly, or carotid bruits. Lungs are clear to auscultation. Cardiac exam reveals regular rate and Rhythm. First and second heart sounds normal. No murmurs, rubs or gallops. Abdominal exam reveals normal bowel sounds, no masses, no organomegaly and no aortic enlargement. Extremities are nonedematous and both femoral and pedal pulses are normal. 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 No focal weakness. - Constitutional Vitals: Temp Pulse Resp BP Pulse Ox 98.8 F 103 H 20 146/87 92 11/04/17 07:45 11/04/17 07:45 11/04/17 07:45 11/04/17 07:45 11/04/17 07:45 General appearance: Present: no acute distress Results - Labs CBC & Chem 7: 11/04/17 04:57 11/04/17 04:57 Labs: Laboratory Last Values WBC 13.2 K/mm3 (4.5-11.0) H 11/04/17 04:57 RBC 4.06 M/mm3 (3.65-5.03) 11/04/17 04:57 Hgb 9.6 gm/dl (10.1-14.3) L 11/04/17 04:57 Hct 31.7 % (30.3-42.9) 11/04/17 04:57 MCV 78 fl (79-97) L 11/04/17 04:57 MCH 24 pg (28-32) L 11/04/17 04:57 MCHC 30 % (30-34) 11/04/17 04:57 RDW 23.2 % (13.2-15.2) H 11/04/17 04:57 Plt Count 716 K/mm3 (140-440) H 11/04/17 04:57 Lymph % (Auto) 9.0 % (13.4-35.0) L 11/04/17 04:57 [place] % (Auto) 5.7 % (0.0-7.3) 11/04/17 04:57 Eos % (Auto) 0.5 % (0.0-4.3) 11/04/17 04:57 Baso % (Auto) 0.4 % (0.0-1.8) 11/04/17 04:57 Lymph # 1.2 K/mm3 (1.2-5.4) 11/04/17 04:57 [place] # 0.8 K/mm3 (0.0-0.8) 11/04/17 04:57 Eos # 0.1 K/mm3 (0.0-0.4) 11/04/17 04:57 Baso # 0.1 K/mm3 (0.0-0.1) 11/04/17 04:57 Seg Neutrophils % 84.4 % (40.0-70.0) H 11/04/17 04:57 Seg Neutrophils # 11.1 K/mm3 (1.8-7.7) H 11/04/17 04:57 PT 13.1 Sec. (12.2-14.9) 11/02/17 15:00 INR 0.95 (0.87-1.13) 11/02/17 15:00 APTT 28.7 Sec. (24.2-36.6) 11/02/17 15:00 Sodium 147 mmol/L (137-145) H 11/04/17 04:57 Potassium 3.3 mmol/L (3.6-5.0) L 11/04/17 04:57 Chloride 107.3 mmol/L (98-107) H 11/04/17 04:57 Carbon Dioxide 22 mmol/L (22-30) 11/04/17 04:57 Anion Gap 21 mmol/L 11/04/17 04:57 BUN 8 mg/dL (7-17) 11/04/17 04:57 Creatinine 0.8 mg/dL (0.7-1.2) 11/04/17 04:57 Estimated GFR > 60 ml/min 11/04/17 04:57 BUN/Creatinine Ratio 10 % 11/04/17 04:57 Glucose 107 mg/dL (65-100) H 11/04/17 04:57 POC Glucose 126 (70-105) H 11/03/17 06:08 Hemoglobin A1c 5.6 % (4-6) 11/02/17 15:00 Calcium 8.4 mg/dL (8.4-10.2) 11/04/17 04:57 Total Bilirubin 0.40 mg/dL (0.1-1.2) 11/03/17 07:13 AST 13 units/L (5-40) 11/03/17 07:13 ALT 12 units/L (7-56) 11/03/17 07:13 Alkaline Phosphatase 91 units/L (35-129) 11/03/17 07:13 Total Protein 6.8 g/dL (6.3-8.2) 11/03/17 07:13 Albumin 3.9 g/dL (3.9-5) 11/03/17 07:13 Albumin/Globulin Ratio 1.3 % 11/03/17 07:13 Lipase 40 units/L (13-60) 11/02/17 15:00
[2017-11-04] MEDS: KEPPRA PO SCH ×2 (09:25→22:20)
[2017-11-04] MEDS: SENOKOT S PO SCH ×2 (09:25→22:20)
[2017-11-04] MEDS: celeXA PO SCH (09:25)
[2017-11-04] MEDS: NAPROSYN PO SCH ×2 (09:26→22:20)
[2017-11-04] MEDS: ZOFRAN IM PRN ×2 (09:28→18:36)
[2017-11-04] MEDS: PROTONIX PO SCH (10:00)
[2017-11-04] MEDS: ATIVAN PO PRN ×2 (11:25→22:38)
[2017-11-04] MEDS: COZAAR PO SCH (11:25)
[2017-11-04] MEDS: ATIVAN IV PRN (14:08)
[2017-11-04] MEDS: REGLAN IV PRN (14:52)
[2017-11-04] MEDS: PHENERGAN PR PRN (22:30)
[2017-11-05] MEDS: ZOSYN/NS 3.375GM/50ML 3.375 GM/50 ML BAG IV SCH ×3 (01:43→11:50)
[2017-11-05] MEDS: MORPHINE IM PRN ×5 (03:15→22:48)
[2017-11-05] MEDS: ATIVAN PO PRN ×3 (05:53→22:47)
[2017-11-05] MEDS: SENOKOT S PO SCH ×2 (10:28→22:47)
[2017-11-05] MEDS: celeXA PO SCH (10:29)
[2017-11-05] MEDS: NAPROSYN PO SCH ×2 (10:29→22:47)
[2017-11-05] MEDS: KEPPRA PO SCH ×2 (10:30→22:47)
[2017-11-05] MEDS: PROTONIX PO SCH (10:30)
[2017-11-05] MEDS: SKELAXIN PO SCH ×3 (10:30→22:47)
[2017-11-05] MEDS: COZAAR PO SCH (10:31)
[2017-11-05] MEDS: ZOFRAN IV PRN ×2 (13:00→22:49)
--- NOTE | 2017-11-05 17:23 | Progress Note ---
Assessment and Plan Assessment and plan: Hypertensive urgency - Likely due to the pain - When necessary hydralazine Gastroparesis - Started on IV fluid hydration - NM Gastric emptying ordered - Antiemetics - Pain medications - Supportive care Dehydration - IV fluid hydration SIRS - Patient is empirically on Zosyn Diabetes mellitus - Accu-Chek meals and at bedtime - Sliding scale insulin/novlong Nicotine dependence - Smoking cessation counseling done, patient strongly advised to quit. GERD - Started on IV Protonix Back pain Conntrol with Tylenol Seizure disorder Continue Keppra hyperlipidemia - Continue onantilipid agents Opioid dependence - Patient advised to wean off from opioids in the long-term Fall - Patient need to be evaluated by PT - Consult was placed but didn't evaluate the patient DVT prophylaxis Lovenox Pending PT evaluation History Interval history: Patient was seen and about at this morning, she is still complaining abdominal pain. Hospitalist Physical - Physical exam Narrative exam: Not in cardiopulmonary distress. The patient appeared well nourished and normally developed. Vital signs as documented. Head exam is unremarkable. No scleral icterus . Neck is without jugular venous distension, thyromegaly, or carotid bruits. Lungs are clear to auscultation. Cardiac exam reveals regular rate and Rhythm. First and second heart sounds normal. No murmurs, rubs or gallops. Abdominal exam reveals normal bowel sounds, no masses, no organomegaly and no aortic enlargement. Extremities are nonedematous and both femoral and pedal pulses are normal. 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 No focal weakness. - Constitutional Vitals: Temp Pulse Resp BP Pulse Ox 97.7 F 87 18 153/94 89 11/05/17 15:23 11/05/17 15:23 11/05/17 15:23 11/05/17 15:23 11/05/17 15:23 General appearance: Present: no acute distress Results - Labs CBC & Chem 7: 11/04/17 04:57 11/04/17 04:57 Labs: Laboratory Last Values WBC 13.2 K/mm3 (4.5-11.0) H 11/04/17 04:57 RBC 4.06 M/mm3 (3.65-5.03) 11/04/17 04:57 Hgb 9.6 gm/dl (10.1-14.3) L 11/04/17 04:57 Hct 31.7 % (30.3-42.9) 11/04/17 04:57 MCV 78 fl (79-97) L 11/04/17 04:57 MCH 24 pg (28-32) L 11/04/17 04:57 MCHC 30 % (30-34) 11/04/17 04:57 RDW 23.2 % (13.2-15.2) H 11/04/17 04:57 Plt Count 716 K/mm3 (140-440) H 11/04/17 04:57 Lymph % (Auto) 9.0 % (13.4-35.0) L 11/04/17 04:57 [place] % (Auto) 5.7 % (0.0-7.3) 11/04/17 04:57 Eos % (Auto) 0.5 % (0.0-4.3) 11/04/17 04:57 Baso % (Auto) 0.4 % (0.0-1.8) 11/04/17 04:57 Lymph # 1.2 K/mm3 (1.2-5.4) 11/04/17 04:57 [place] # 0.8 K/mm3 (0.0-0.8) 11/04/17 04:57 Eos # 0.1 K/mm3 (0.0-0.4) 11/04/17 04:57 Baso # 0.1 K/mm3 (0.0-0.1) 11/04/17 04:57 Seg Neutrophils % 84.4 % (40.0-70.0) H 11/04/17 04:57 Seg Neutrophils # 11.1 K/mm3 (1.8-7.7) H 11/04/17 04:57 PT 13.1 Sec. (12.2-14.9) 11/02/17 15:00 INR 0.95 (0.87-1.13) 11/02/17 15:00 APTT 28.7 Sec. (24.2-36.6) 11/02/17 15:00 Sodium 147 mmol/L (137-145) H 11/04/17 04:57 Potassium 3.3 mmol/L (3.6-5.0) L 11/04/17 04:57 Chloride 107.3 mmol/L (98-107) H 11/04/17 04:57 Carbon Dioxide 22 mmol/L (22-30) 11/04/17 04:57 Anion Gap 21 mmol/L 11/04/17 04:57 BUN 8 mg/dL (7-17) 11/04/17 04:57 Creatinine 0.8 mg/dL (0.7-1.2) 11/04/17 04:57 Estimated GFR > 60 ml/min 11/04/17 04:57 BUN/Creatinine Ratio 10 % 11/04/17 04:57 Glucose 107 mg/dL (65-100) H 11/04/17 04:57 POC Glucose 126 (70-105) H 11/03/17 06:08 Hemoglobin A1c 5.6 % (4-6) 11/02/17 15:00 Calcium 8.4 mg/dL (8.4-10.2) 11/04/17 04:57 Total Bilirubin 0.40 mg/dL (0.1-1.2) 11/03/17 07:13 AST 13 units/L (5-40) 11/03/17 07:13 ALT 12 units/L (7-56) 11/03/17 07:13 Alkaline Phosphatase 91 units/L (35-129) 11/03/17 07:13 Total Protein 6.8 g/dL (6.3-8.2) 11/03/17 07:13 Albumin 3.9 g/dL (3.9-5) 11/03/17 07:13 Albumin/Globulin Ratio 1.3 % 11/03/17 07:13 Lipase 40 units/L (13-60) 11/02/17 15:00
[2017-11-06] MEDS: MORPHINE IM PRN ×3 (03:14→10:46)
[2017-11-06] MEDS: ZOFRAN IV PRN ×2 (03:14→10:47)
[2017-11-06] MEDS: ZOSYN/NS 3.375GM/50ML 3.375 GM/50 ML BAG IV SCH ×5 (06:40→13:07)
[2017-11-06] MEDS: SKELAXIN PO SCH ×2 (08:00→13:53)
[2017-11-06 08:02] LABS: Basophils # (Auto) 0.1 K/mm3 (0.0-0.1); Basophils % (Auto) 0.7 % (0.0-1.8); Eosinophils # (Auto) 0.6 K/mm3 (0.0-0.4); Eosinophils % (Auto) 5.1 % (0.0-4.3); Hematocrit 31.6 % (30.3-42.9); Hemoglobin 9.8 gm/dl (10.1-14.3); Lymphocytes # (Auto) 1.1 K/mm3 (1.2-5.4); Lymphocytes % (Auto) 8.9 % (13.4-35.0); Mean Corpuscular HGB Conc 31 % (30-34); Mean Corpuscular Volume 79 fl (79-97); Monocytes # (Auto) 0.7 K/mm3 (0.0-0.8); Monocytes % (Auto) 6.1 % (0.0-7.3); Platelet Count 682 K/mm3 (140-440); Red Blood Count 4.02 M/mm3 (3.65-5.03)
[2017-11-06 08:08] LABS: Mean Corpuscular Hemoglobin 24 pg (28-32); Red Cell Distribution Width 22.4 % (13.2-15.2)
[2017-11-06 08:46] LABS: BUN/Creatinine Ratio 13; Blood Urea Nitrogen 9 mg/dL (7-17); Calcium 8.1 mg/dL (8.4-10.2); Hemolysis Index 8
[2017-11-06 08:51] VITALS: BP 197/116
[2017-11-06] MEDS ORDERED: K-DUR PO ONE ×2 (09:20→13:00)
[2017-11-06] MEDS ORDERED: NORVASC PO SCH (10:00)
[2017-11-06] MEDS: PROTONIX PO SCH (10:00)
[2017-11-06] MEDS: KEPPRA PO SCH (10:44)
[2017-11-06] MEDS: SENOKOT S PO SCH (10:44)
[2017-11-06] MEDS: COZAAR PO SCH (10:45)
[2017-11-06] MEDS: celeXA PO SCH (10:45)
[2017-11-06] MEDS: ATIVAN PO PRN (10:46)
[2017-11-06] MEDS: NAPROSYN PO SCH (10:46)
--- NOTE | 2017-11-06 12:22 | Discharge Summary ---
Providers - Providers Date of Admission: 11/02/17 17:10 Attending physician: CURT WORTHY MD 11/03/17 08:00 Consult to Wound/ET Nurse [CONS] Routine Reason For Exam: wound eval 11/03/17 08:56 Physical Therapy Evaluation and Treat [CONS] Routine Comment: Reason For Exam: fall/deconditioning 11/03/17 21:59 PICC Line Insertion [Consult to PICC Line RN] [CONS] Urgent Reason For Exam: Unable to get peripheral IV; need antibiotics IV Type Line:: PICC Primary care physician: FIRE BATTALION CHIEF Hospitalization Reason for admission: gastroparesis, fall Condition: Stable Pertinent studies: Bilateral knee x-ray Borderline osteopenia. Slightly abnormal lateral compartment of the right knee. Small right knee effusion. CT of the lumbar spine Lumbar spondylosiss. No evidence for acute injury or malalignment. Borderline osteopenia. Hospital course: Admission H/P 62 years old female with history of hypertension and gastroparesis presented today with complaint that she woke up this morning with nausea and vomiting and diarrhea. Vomitted about 4 times. She went to use the bathroom and she fell on her back . Patient denied any head injury. She stated she did not pass out She remembers everything. No weakness numbness or tingling sensation. No bowel or bladder incontinence. Patient denied any headache or neck pain. Patient was admitted to the floor for gastroenteritis, gastroparesis, recurrent fall, SIRS. Patient was not evident to keep down and initially shows on IV fluids and later patient get better and resumed her diet. Patient had SIRS and was empirically treated with IV antibiotics. Gastroenteritis subsided. Gastroparesis was treated with pain medications. Patient was evaluated by physical therapy and recommended home physical therapy and discharged home with home health. Patient was hemodynamically stable by the time of discharge. Patient was given appropriate prescription for her medications. Patient was advised to follow up with her primary care physician. Disposition: [id number] HOME UNDER HOME [facility] Time spent for discharge: 31 minutes - Discharge Diagnoses (1) Abdominal pain Status: Acute (2) Accelerated hypertension Status: Acute (3) Gastroparesis Status: Acute (4) Intractable vomiting with nausea Status: Acute (5) Fever Status: Acute Qualifiers: Fever type: due to other condition Qualified Code(s): R50.81 - Fever presenting with conditions classified elsewhere Core Measure Documentation - Palliative Care Palliative Care/ Comfort Measures: Not Applicable - Core Measures Any of the following diagnoses?: none Exam - Physical Exam Narrative exam: Not in cardiopulmonary distress. The patient appeared well nourished and normally developed. Vital signs as documented. Head exam is unremarkable. No scleral icterus . Neck is without jugular venous distension, thyromegaly, or carotid bruits. Lungs are clear to auscultation. Cardiac exam reveals regular rate and Rhythm. First and second heart sounds normal. No murmurs, rubs or gallops. Abdominal exam reveals normal bowel sounds, no masses, no organomegaly and no aortic enlargement. Extremities are nonedematous and both femoral and pedal pulses are normal. 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 No focal weakness. - Constitutional Vitals: Temp Pulse Resp BP Pulse Ox 98.2 F 97 H 20 197/116 89 11/06/17 07:07 11/06/17 10:44 11/06/17 10:46 11/06/17 10:45 11/06/17 07:07 Plan Activity: fall precautions Weight Bearing Status: Weight Bear as Tolerated Diet: low cholesterol, low salt, diabetic Special Instructions: physical therapy Additional Instructions: Please follow up @[facility] in 1 week Follow up with: PRIMARY CAREMD [Primary Care Provider] - 7 Days Prescriptions: LORazepam [Ativan] 0.5 mg PO Q8H PRN #10 tablet PRN Reason: Agitation Ondansetron [Zofran TAB] 4 mg PO Q8HR PRN #12 tablet PRN Reason: Nausea
[2017-11-09] MEDS ORDERED: CATAPRES-TTS PATCH TD SCH (10:00)
--- NOTE | 2017-11-10 10:02 | Query- Dyspnea ---
Amrik Campos Stefan Date:____11/10/17 Electric Furnace Operator/CDS: Ni / Toni Phone#:___[phone] Exercise your independent professional judgment when responding to query. Questions asked do not imply a particular answer is desired or expected. We greatly appreciate your clarification on this issue. Clinical Documentation States: 62 year old female was admitted on 11/02/17 The H&P(Dr. Mancuso) states " 62 years old female with history of hypertension and gastroparesis presented today with complaint that she woke up this morning with nausea and vomiting and diarrhea. " The progress note (Dr. Aviles) states " Assessment and plan: Hypertensive urgency Gastroparesis SIRS Opioid dependence " Clinical Findings Show: Respiratory rate: 28 O2 SAT: 88 O2 Flow rate: 2L/min Please clarify if the patient had any of the following conditions based on the above clinical findings: [ x] Respiratory Failure [ x] Acute [ ] Acute on Chronic [ ] Chronic [ ] Respiratory failure due to trauma [ ] Acute Respiratory Distress Syndrome [ ] Other: [ ] Unable to determine [ ] Comment/Explanation: Present on Admission: [ x] Yes (Y) [ ] Clinically undeterminable (W) [ ] No (N) Please also document response in your Progress Notes and/or Discharge Summary and indicate if the condition was present on admission. AFTAB
== END 2017-11-06 14:00 | disposition home health service (06) | DRG 73 ==
LOC: ED 04:50 → 3A 17:10
PROVIDERS: ADMIT Internal Medicine; ATTEND Internal Medicine
DX: E11.43 Type 2 diabetes mellitus with diabetic autonomic (poly)neuropathy (principal); J96.00 Acute respiratory failure, unspecified whether with hypoxia or hypercapnia; I16.1 Hypertensive emergency; R65.10 Systemic inflammatory response syndrome (SIRS) of non-infectious origin without acute organ dysfunction; F11.20 Opioid dependence, uncomplicated; K31.84 Gastroparesis; I10 Essential (primary) hypertension; M54.9 Dorsalgia, unspecified; K21.9 Gastro-esophageal reflux disease without esophagitis; M19.90 Unspecified osteoarthritis, unspecified site; F41.9 Anxiety disorder, unspecified; G40.909 Epilepsy, unspecified, not intractable, without status epilepticus; I16.0 Hypertensive urgency; F17.200 Nicotine dependence, unspecified, uncomplicated; E78.5 Hyperlipidemia, unspecified; W18.39XA Other fall on same level, initial encounter; Y93.89 Activity, other specified; Y92.098 Other place in other non-institutional residence as the place of occurrence of the external cause; Y99.8 Other external cause status; Z90.49 Acquired absence of other specified parts of digestive tract; Z79.899 Other long term (current) drug therapy; Z88.5 Allergy status to narcotic agent; Z88.8 Allergy status to other drugs, medicaments and biological substances; Z79.1 Long term (current) use of non-steroidal anti-inflammatories (NSAID); Z71.6 Tobacco abuse counseling
CPT/HCPCS: 36415; 72100; 80048; 80053; 82962; 83036; 83690; 85025; 85027; 85610; 85730; 96361; 96372; 96374; 96375; A9270-GY; J0360; J0500; J2060; J2270; J2405; J2543; J2765; J3010; J7030; J7042

== ENCOUNTER 2018-01-28 01:06 | Inpatient (IN) | payer MEDICARE ==
[2018-01-28 02:23] LABS: Bilirubin,Urine NEG (Negative); Blood,Urine SM (Negative); Color,Urine Yellow (Yellow); Protein,Urine <15 mg/dL mg/dL (Negative); RBC,Urine < 1.0 /HPF (0.0-6.0); Urobilinogen,Urine < 2.0 mg/dL (<2.0)
[2018-01-28 02:25] LABS: Basophils # (Auto) 0.1 K/mm3 (0.0-0.1); Basophils % (Auto) 0.8 % (0.0-1.8); Eosinophils # (Auto) 0.2 K/mm3 (0.0-0.4); Eosinophils % (Auto) 2.1 % (0.0-4.3); Hemoglobin 10.5 gm/dl (10.1-14.3); Lymphocytes # (Auto) 1.3 K/mm3 (1.2-5.4); Lymphocytes % (Auto) 11.9 % (13.4-35.0); Mean Corpuscular HGB Conc 31 % (30-34); Mean Corpuscular Volume 80 fl (79-97); Monocytes # (Auto) 0.7 K/mm3 (0.0-0.8); Monocytes % (Auto) 6.7 % (0.0-7.3); Platelet Count 366 K/mm3 (140-440); Red Blood Count 4.27 M/mm3 (3.65-5.03)
[2018-01-28 02:29] LABS: Amphetamine Screen,Urine PRESUMPTIVE NEGATIVE; Benzodiazepines Screen,Urine PRESUMPTIVE NEGATIVE; Cannabinoid Screen,Urine PRESUMPTIVE NEGATIVE; Cocaine Screen,Urine PRESUMPTIVE NEGATIVE; Methadone Screen,Urine PRESUMPTIVE NEGATIVE; Opiate Screen,Urine PRESUMPTIVE NEGATIVE
[2018-01-28 02:30] LABS: Mean Corpuscular Hemoglobin 25 pg (28-32); Red Cell Distribution Width 24.1 % (13.2-15.2)
--- NOTE | 2018-01-28 02:43 | Cat Scan Report ---
FINAL REPORT EXAM: CT CERVICAL SPINE WO CON HISTORY: ams COMPARISON: None available. TECHNIQUE: Axial images obtained through the cervical spine. Additional sagittal and coronal reformatted images were obtained. FINDINGS: Mild levoconvex curvature of the cervical spine which may be positional. Cervical vertebral body heights are preserved. No acute fracture or traumatic subluxation. Odontoid process, articular pillars and occipital condyles are intact. Moderate loss of disc height C3-C4 through C6-C7 levels. Mild canal stenosis. Mild foraminal narrowing at several levels due to endplate osteophyte and uncovertebral hypertrophy. Scarring or atelectasis at the lung apices. IMPRESSION: No acute fracture or subluxation of the cervical spine. Mild degenerative changes. Mild levoconvex curvature of the cervical spine which may be positional.
[2018-01-28 02:46] LABS: Albumin 3.6 g/dL (3.9-5); Calcium 8.3 mg/dL (8.4-10.2)
--- NOTE | 2018-01-28 02:56 | Cat Scan Report ---
FINAL REPORT EXAM: CT HEAD/BRAIN WO CON HISTORY: ams COMPARISON: CT of the head from October 2017. TECHNIQUE: Axial images obtained skull base through vertex. FINDINGS: No acute intracranial hemorrhage, midline shift or pathologic extra axial fluid collection. Ventricles and cisterns are normal in size and configuration for the patient's age. Burr-white differentiation preserved. Calvarium grossly intact. Ocular globes are grossly unremarkable. Mild mucosal thickening the paranasal sinuses. Mastoid air cells are clear. Mild calcified plaque along the carotid siphons. IMPRESSION: No grossly acute intracranial abnormality.
--- NOTE | 2018-01-28 03:02 | Cat Scan Report ---
FINAL REPORT EXAM: CT LUMBAR SPINE WO CON HISTORY: ams COMPARISON: CT of the abdomen pelvis from September 2017. TECHNIQUE: Contiguous axial images were obtained. Additional sagittal and coronal reformatted images were obtained. FINDINGS: Stable mild to moderate superior plate compression deformity at the L5 level. This is unchanged from the September 2017 study. Stable mild superior endplate compression deformities at the L1 and L4 levels. L3 and L2 vertebral body heights are preserved. Persistent broad-based disc bulge at the L4-L5 level with [id number] facet changes and hypertrophy lumen flavum causing mild to moderate canal stenosis and mild foraminal narrowing. [id number] bilateral foraminal narrowing mild canal stenosis L5-S1 level due to broad-based disc bulge and facet changes. Nonspecific subcutaneous fat stranding along the posterior margin lumbar spine unchanged from prior study. IMPRESSION: No acute bony findings. Stable subtle superior plate compression deformities at the L1 and L4 levels and mild to moderate superior plate compression deformity at the L5 level. Stable mild to moderate degenerative changes of the lumbar spine most pronounced at the L4-L5 level.
[2018-01-28] MEDS ORDERED: NACL 0.9% 1000 ML 1,000 ML IV ONE (03:55)
--- NOTE | 2018-01-28 04:07 | Emergency Department Report ---
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 Patient is oriented to self and place but not year. No complaints of vomiting or abdominal pain. Patient denies known head injury or LOC. Back pain is moderate at this time and worse with movement. No fever reported - Related Data Home Medications Medication Instructions Recorded Confirmed Last Taken levETIRAcetam [Keppra] 500 mg PO BID 10/05/17 11/02/17 1 Day Ago ~10/15/17 Previous Rx's Medication Instructions Recorded Last Taken Type Atorvastatin Calcium [Lipitor] 20 mg PO QDAY #30 tablet 10/10/17 1 Day Ago Rx ~10/15/17 Citalopram [celeXA] 10 mg PO QDAY #30 tablet 10/10/17 1 Day Ago Rx ~10/15/17 LORazepam [Ativan] 0.5 mg PO Q8H PRN #20 tablet 10/10/17 3 Weeks Ago Rx ~09/25/17 Metaxalone [Skelaxin] 800 mg PO TID #20 tablet 10/10/17 1 Day Ago Rx ~10/15/17 Naproxen [Naprosyn TAB] 500 mg PO BID #60 tablet 10/10/17 3 Days Ago Rx ~10/13/17 Pantoprazole [Protonix TAB] 40 mg PO QDAY #30 tablet 10/10/17 1 Day Ago Rx ~10/15/17 Promethazine [Phenergan SUPPOS] 25 mg [place] Q6H PRN #20 supp.rect 10/10/17 1 Month Ago Rx ~09/16/17 Sennosides/Docusate [Senokot S] 1 tab PO BID #60 tablet 10/10/17 1 Day Ago Rx ~10/15/17 cloNIDine-TTS PATCH [Catapres-Tts 0.3 mg TD Th 30 Days patch 10/10/17 1 Day Ago Rx Patch] ~10/15/17 Losartan [Cozaar] 100 mg PO QDAY 30 Days tablet 10/17/17 Unknown Rx LORazepam [Ativan] 0.5 mg PO Q8H PRN #10 tablet 11/06/17 Unknown Rx Ondansetron [Zofran TAB] 4 mg PO Q8HR PRN #12 tablet 11/06/17 Unknown Rx Allergies Allergy/AdvReac Type Severity Reaction Status Date / Time codeine Allergy Itching Verified 03/02/17 12:33 metoclopramide HCl Allergy Unknown Verified 03/02/17 12:33 [From Reglan] morphine Allergy Hives Verified 03/02/17 12:33 ED Review of Systems ROS: Stated complaint: AMS Other details as noted in HPI Comment: All other systems reviewed and negative ED Past Medical Hx - Past Medical History Previous Medical History?: Yes Hx Hypertension: Yes Hx CVA: Yes Hx Heart Attack/AMI: No Hx Congestive Heart Failure: No Hx Diabetes: No Hx Deep Vein Thrombosis: No Hx Pulmonary Embolism: No Hx GERD: Yes Hx Liver Disease: No Hx Renal Disease: No Hx Sickle Cell Disease: No Hx Arthritis: Yes Hx Headaches / Migraines: Yes Hx Seizures: Yes (grand mal) Hx Kidney Stones: No Hx Psychiatric Treatment: Yes (anxiety) Hx Asthma: No Hx COPD: No Hx Tuberculosis: No Hx Dementia: No Hx HIV: No Additional medical history: Gastroparesis. bilat knee surgery - Surgical History Past Surgical History?: Yes Hx Coronary Stent: No Hx Open Heart Surgery: No Hx Pacemaker: No Hx Internal Defibrillator: No Hx Cholecystectomy: Yes (2010) Hx Appendectomy: No Hx Breast Surgery: No Additional Surgical History: J tube- removed , Knee surg bilat - Social History Smoking Status: Never Smoker Substance Use Type: None - Medications Home Medications: Home Medications Medication Instructions Recorded Confirmed Last Taken Type levETIRAcetam [Keppra] 500 mg PO BID 10/05/17 11/02/17 1 Day Ago History ~10/15/17 Atorvastatin Calcium [Lipitor] 20 mg PO QDAY #30 tablet 10/10/17 11/02/17 1 Day Ago Rx ~10/15/17 Citalopram [celeXA] 10 mg PO QDAY #30 tablet 10/10/17 11/02/17 1 Day Ago Rx ~10/15/17 LORazepam [Ativan] 0.5 mg PO Q8H PRN #20 tablet 10/10/17 11/02/17 3 Weeks Ago Rx ~09/25/17 Metaxalone [Skelaxin] 800 mg PO TID #20 tablet 10/10/17 11/02/17 1 Day Ago Rx ~10/15/17 Naproxen [Naprosyn TAB] 500 mg PO BID #60 tablet 10/10/17 11/02/17 3 Days Ago Rx ~10/13/17 Pantoprazole [Protonix TAB] 40 mg PO QDAY #30 tablet 10/10/17 11/02/17 1 Day Ago Rx ~10/15/17 Promethazine [Phenergan SUPPOS] 25 mg [place] Q6H PRN #20 supp.rect 10/10/17 1 Month Ago Rx ~09/16/17 Sennosides/Docusate [Senokot S] 1 tab PO BID #60 tablet 10/10/17 11/02/17 1 Day Ago Rx ~10/15/17 cloNIDine-TTS PATCH [Catapres-Tts 0.3 mg TD Th 30 Days patch 10/10/17 11/02/17 1 Day Ago Rx Patch] ~10/15/17 Losartan [Cozaar] 100 mg PO QDAY 30 Days tablet 10/17/17 11/02/17 Unknown Rx LORazepam [Ativan] 0.5 mg PO Q8H PRN #10 tablet 11/06/17 Unknown Rx Ondansetron [Zofran TAB] 4 mg PO Q8HR PRN #12 tablet 11/06/17 Unknown Rx ED Physical Exam - General Limitations: Other - Other Other exam information: General: No limitations, patient is alert in no acute distress Head exam: Atraumatic, normocephalic Eyes exam: Normal appearance Neck exam: Normal inspection, full range of motion, no posterior neck tenderness or meningismus Respiratory exam: Clear to auscultation bilateral, no wheezes, rales, crackles Cardiovascular: Normal rate and rhythm, systolic murmur Abdomen: Soft, nondistended, and nontender, with normal bowel sounds, no rebound, or guarding Extremity: Full range of motion normal inspection no deformity Back: Normal Inspection, full range of motion, no tenderness Neurologic: Alert, oriented x2, cranial nerves intact, equal foot dorsiflexion, sensation grossly intact, 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 Psychiatric: normal affect, normal mood Skin: Warm, dry, intact ED Course Vital Signs 01/28/18 01/28/18 01/28/18 01:10 01:12 01:14 Temperature Pulse Rate 112 H 109 H 108 H Respiratory 14 13 15 Rate Blood Pressure O2 Sat by Pulse 69 L Oximetry 01/28/18 01/28/18 01/28/18 01:15 01:16 01:18 Temperature Pulse Rate 108 H 107 H 108 H Respiratory 16 10 L 12 Rate Blood Pressure 101/56 101/56 101/56 O2 Sat by Pulse 88 Oximetry 01/28/18 01/28/18 01/28/18 01:20 01:22 01:24 Temperature Pulse Rate 108 H 107 H 107 H Respiratory 10 L 14 13 Rate Blood Pressure 101/56 101/56 101/56 O2 Sat by Pulse 85 94 Oximetry 01/28/18 01/28/18 01/28/18 01:26 01:28 01:30 Temperature Pulse Rate 108 H 108 H 108 H Respiratory 14 14 22 Rate Blood Pressure 101/56 101/56 101/56 O2 Sat by Pulse 95 78 L Oximetry 01/28/18 01/28/18 01/28/18 01:32 01:34 01:36 Temperature Pulse Rate 110 H 111 H 111 H Respiratory 15 13 16 Rate Blood Pressure 101/56 101/56 101/56 O2 Sat by Pulse 87 87 97 Oximetry 01/28/18 01/28/18 01/28/18 01:38 01:40 01:42 Temperature Pulse Rate 110 H 111 H 112 H Respiratory 11 L 12 13 Rate Blood Pressure 101/56 101/56 101/56 O2 Sat by Pulse Oximetry 01/28/18 01/28/18 01/28/18 01:44 01:46 01:48 Temperature Pulse Rate 111 H 112 H 114 H Respiratory 15 12 13 Rate Blood Pressure 101/56 101/56 101/56 O2 Sat by Pulse 92 Oximetry 01/28/18 01/28/18 01/28/18 01:50 01:52 01:54 Temperature Pulse Rate 112 H 116 H 113 H Respiratory 16 14 19 Rate Blood Pressure 101/56 101/56 101/56 O2 Sat by Pulse 98 95 91 Oximetry 01/28/18 01/28/18 01/28/18 01:56 01:58 02:00 Temperature 100.0 F H Pulse Rate 115 H 116 H 116 H Respiratory 13 17 26 H Rate Blood Pressure 101/56 101/56 113/79 O2 Sat by Pulse 96 Oximetry 01/28/18 01/28/18 01/28/18 02:02 02:04 02:05 Temperature Pulse Rate 113 H 112 H Respiratory 17 11 L 18 Rate Blood Pressure 113/79 113/79 O2 Sat by Pulse 99 91 96 Oximetry 01/28/18 01/28/18 01/28/18 02:06 02:08 02:10 Temperature Pulse Rate 112 H 113 H 111 H Respiratory 12 13 15 Rate Blood Pressure 113/79 113/79 113/79 O2 Sat by Pulse 71 L 100 Oximetry 01/28/18 01/28/18 01/28/18 02:12 02:14 02:15 Temperature Pulse Rate 111 H 110 H 110 H Respiratory 13 15 17 Rate Blood Pressure 113/79 113/79 87/62 O2 Sat by Pulse Oximetry 01/28/18 01/28/18 01/28/18 02:16 02:18 02:19 Temperature Pulse Rate 110 H 110 H 110 H Respiratory 15 14 11 L Rate Blood Pressure 87/62 87/62 87/62 O2 Sat by Pulse 88 95 Oximetry 01/28/18 01/28/18 01/28/18 02:20 02:41 02:44 Temperature Pulse Rate 111 H Respiratory 13 Rate Blood Pressure 87/62 87/62 87/62 O2 Sat by Pulse 87 97 Oximetry 01/28/18 01/28/18 01/28/18 02:45 02:48 02:50 Temperature Pulse Rate 116 H Respiratory 17 Rate Blood Pressure 87/62 87/62 87/62 O2 Sat by Pulse 58 L 76 L 99 Oximetry 01/28/18 01/28/18 01/28/18 02:52 02:54 02:56 Temperature Pulse Rate 116 H 116 H 115 H Respiratory 13 15 15 Rate Blood Pressure 87/62 87/62 87/62 O2 Sat by Pulse 92 Oximetry 01/28/18 01/28/18 01/28/18 02:58 03:00 03:02 Temperature Pulse Rate 116 H 112 H 112 H Respiratory 13 20 17 Rate Blood Pressure 87/62 87/62 87/62 O2 Sat by Pulse 97 88 Oximetry 01/28/18 01/28/18 01/28/18 03:03 03:04 03:06 Temperature Pulse Rate 111 H 112 H 111 H Respiratory 17 13 16 Rate Blood Pressure 68/39 68/39 68/39 O2 Sat by Pulse 93 85 Oximetry 01/28/18 01/28/18 01/28/18 03:08 03:10 03:12 Temperature Pulse Rate 114 H 111 H 111 H Respiratory 19 13 12 Rate Blood Pressure 68/39 68/39 68/39 O2 Sat by Pulse 89 87 87 Oximetry 01/28/18 01/28/18 01/28/18 03:14 03:16 03:18 Temperature Pulse Rate 114 H 111 H 109 H Respiratory 13 13 12 Rate Blood Pressure 68/39 94/65 94/65 O2 Sat by Pulse 86 78 L 85 Oximetry 01/28/18 01/28/18 01/28/18 03:20 03:22 03:24 Temperature Pulse Rate 114 H 113 H 112 H Respiratory 15 15 11 L Rate Blood Pressure 87/62 87/62 87/62 O2 Sat by Pulse 87 70 L 89 Oximetry 01/28/18 01/28/18 01/28/18 03:26 03:28 03:30 Temperature Pulse Rate 109 H 109 H 109 H Respiratory 14 13 18 Rate Blood Pressure 87/62 87/62 101/52 O2 Sat by Pulse 84 86 85 Oximetry 01/28/18 01/28/18 01/28/18 03:32 03:34 03:36 Temperature Pulse Rate 108 H 110 H 110 H Respiratory 13 14 17 Rate Blood Pressure 101/52 101/52 101/52 O2 Sat by Pulse 85 87 86 Oximetry 01/28/18 03:37 Temperature Pulse Rate 110 H Respiratory 18 Rate Blood Pressure 101/52 O2 Sat by Pulse 84 Oximetry - Lab Data Result diagrams: 01/28/18 02:05 01/28/18 02:05 Lab Results 01/28/18 01/28/18 01/28/18 Range/Units 02:00 02:00 02:05 WBC 11.1 H (4.5-11.0) K/mm3 RBC 4.27 (3.65-5.03) M/mm3 Hgb 10.5 (10.1-14.3) gm/dl Hct 34.0 (30.3-42.9) % MCV 80 (79-97) fl MCH 25 L (28-32) pg MCHC 31 (30-34) % RDW 24.1 H (13.2-15.2) % Plt Count 366 (140-440) K/mm3 Lymph % (Auto) 11.9 L (13.4-35.0) % Sierra % (Auto) 6.7 (0.0-7.3) % Eos % (Auto) 2.1 (0.0-4.3) % Baso % (Auto) 0.8 (0.0-1.8) % Lymph # 1.3 (1.2-5.4) K/mm3 Sierra # 0.7 (0.0-0.8) K/mm3 Eos # 0.2 (0.0-0.4) K/mm3 Baso # 0.1 (0.0-0.1) K/mm3 Seg Neutrophils % 78.5 H (40.0-70.0) % Seg Neutrophils # 8.7 H (1.8-7.7) K/mm3 Sodium (137-145) mmol/L Potassium (3.6-5.0) mmol/L Chloride (98-107) mmol/L Carbon Dioxide (22-30) mmol/L Anion Gap mmol/L BUN (7-17) mg/dL Creatinine (0.7-1.2) mg/dL Estimated GFR ml/min BUN/Creatinine Ratio % Glucose (65-100) mg/dL POC Glucose (70-105) Calcium (8.4-10.2) mg/dL Total Bilirubin (0.1-1.2) mg/dL AST (5-40) units/L ALT (7-56) units/L Alkaline Phosphatase (35-129) units/L Total Protein (6.3-8.2) g/dL Albumin (3.9-5) g/dL Albumin/Globulin Ratio % TSH (0.270-4.200) mlU/mL Urine Bilirubin Neg (Negative) Urine RBC (Auto) < 1.0 (0.0-6.0) /HPF U Epithel Cells (Auto) < 1.0 (0-13.0) /HPF Urine Opiates Screen Presumptive negative Urine Methadone Screen Presumptive negative Ur Barbiturates Screen Presumptive negative Ur Phencyclidine Scrn Presumptive negative Ur Amphetamines Screen Presumptive negative U Benzodiazepines Scrn Presumptive negative Urine Cocaine Screen Presumptive negative U Marijuana (THC) Screen Presumptive negative Drugs of Abuse Note Disclamer Plasma/Serum Alcohol (0-0.07) % 01/28/18 01/28/18 01/28/18 Range/Units 02:05 02:05 02:05 WBC (4.5-11.0) K/mm3 RBC (3.65-5.03) M/mm3 Hgb (10.1-14.3) gm/dl Hct (30.3-42.9) % MCV (79-97) fl MCH (28-32) pg MCHC (30-34) % RDW (13.2-15.2) % Plt Count (140-440) K/mm3 Lymph % (Auto) (13.4-35.0) % Sierra % (Auto) (0.0-7.3) % Eos % (Auto) (0.0-4.3) % Baso % (Auto) (0.0-1.8) % Lymph # (1.2-5.4) K/mm3 Sierra # (0.0-0.8) K/mm3 Eos # (0.0-0.4) K/mm3 Baso # (0.0-0.1) K/mm3 Seg Neutrophils % (40.0-70.0) % Seg Neutrophils # (1.8-7.7) K/mm3 Sodium 138 (137-145) mmol/L Potassium 4.2 (3.6-5.0) mmol/L Chloride 99.6 (98-107) mmol/L Carbon Dioxide 24 (22-30) mmol/L Anion Gap 19 mmol/L BUN 31 H (7-17) mg/dL Creatinine 2.4 H (0.7-1.2) mg/dL Estimated GFR 25 ml/min BUN/Creatinine Ratio 13 % Glucose 112 H (65-100) mg/dL POC Glucose (70-105) Calcium 8.3 L (8.4-10.2) mg/dL Total Bilirubin 0.20 (0.1-1.2) mg/dL AST 15 (5-40) units/L ALT 15 (7-56) units/L Alkaline Phosphatase 95 (35-129) units/L Total Protein 6.4 (6.3-8.2) g/dL Albumin 3.6 L (3.9-5) g/dL Albumin/Globulin Ratio 1.3 % TSH 1.340 (0.270-4.200) mlU/mL Urine Bilirubin (Negative) Urine RBC (Auto) (0.0-6.0) /HPF U Epithel Cells (Auto) (0-13.0) /HPF Urine Opiates Screen Urine Methadone Screen Ur Barbiturates Screen Ur Phencyclidine Scrn Ur Amphetamines Screen U Benzodiazepines Scrn Urine Cocaine Screen U Marijuana (THC) Screen Drugs of Abuse Note Plasma/Serum Alcohol < 0.01 (0-0.07) % 01/28/ Range/Units 02:26 WBC (4.5-11.0) K/mm3 RBC (3.65-5.03) M/mm3 Hgb (10.1-14.3) gm/dl Hct (30.3-42.9) % MCV (79-97) fl MCH (28-32) pg MCHC (30-34) % RDW (13.2-15.2) % Plt Count (140-440) K/mm3 Lymph % (Auto) (13.4-35.0) % Sierra % (Auto) (0.0-7.3) % Eos % (Auto) (0.0-4.3) % Baso % (Auto) (0.0-1.8) % Lymph # (1.2-5.4) K/mm3 Sierra # (0.0-0.8) K/mm3 Eos # (0.0-0.4) K/mm3 Baso # (0.0-0.1) K/mm3 Seg Neutrophils % (40.0-70.0) % Seg Neutrophils # (1.8-7.7) K/mm3 Sodium (137-145) mmol/L Potassium (3.6-5.0) mmol/L Chloride (98-107) mmol/L Carbon Dioxide (22-30) mmol/L Anion Gap mmol/L BUN (7-17) mg/dL Creatinine (0.7-1.2) mg/dL Estimated GFR ml/min BUN/Creatinine Ratio % Glucose (65-100) mg/dL POC Glucose 116 H (70-105) Calcium (8.4-10.2) mg/dL Total Bilirubin (0.1-1.2) mg/dL AST (5-40) units/L ALT (7-56) units/L Alkaline Phosphatase (35-129) units/L Total Protein (6.3-8.2) g/dL Albumin (3.9-5) g/dL Albumin/Globulin Ratio % TSH (0.270-4.200) mlU/mL Urine Bilirubin (Negative) Urine RBC (Auto) (0.0-6.0) /HPF U Epithel Cells (Auto) (0-13.0) /HPF Urine Opiates Screen Urine Methadone Screen Ur Barbiturates Screen Ur Phencyclidine Scrn Ur Amphetamines Screen U Benzodiazepines Scrn Urine Cocaine Screen U Marijuana (THC) Screen Drugs of Abuse Note Plasma/Serum Alcohol (0-0.07) % - EKG Data -: EKG Interpreted by Me (old inf infarct) EKG shows normal: sinus rhythm, axis (qrs -8), QRS complexes (89), ST-T waves ( no stemi/t inv) Rate: tachycardia (15) - Radiology Data Radiology results: report reviewed read by radiologist ct head: naf ct cervical spine: naf ct lumbar spine: no acute findigns. Stable subtle superior plate compression deformities at the L1 and L4 levels. Mild to moderate superior plate compression deformity at L5 level. Stable mild to moderate degenerative changes of the lumbar spine most pronounced at L4 to L5 level. - Medical Decision Making Patient is alert but speech is somewhat slurred and she does have some confusion. Exam otherwise nonfocal. Patient will be admitted to the hospital given change in mental status and acute renal insufficiency. IV fluids initiated. Hospitalist informed - Differential Diagnosis infection, encephalopathy, CVA, failure to thrive, narcotic intoxication Critical Care Time: No Critical care attestation.: If time is entered above; I have spent that time in minutes in the direct care of this critically ill patient, excluding procedure time. ED Disposition Clinical Impression: Acute renal insufficiency, Mental status alteration, Chronic pain, Dehydration , Back pain Disposition: OP ADMIT IP TO THIS HOSP Is pt being admited?: Yes Condition: Stable Time of Disposition: 04:10 (Dr Worthy/hosp)
--- NOTE | 2018-01-28 04:39 | History and Physical Report ---
History of Present Illness Date of examination: 01/28/18 History of present illness: 60-year-old woman with a history of diabetes complicated by gastroparesis, hypertension, GERD, seizure, anxiety comes to the emergency room with complaints of nausea vomiting 2 days. Patient is unable to tolerate oral intake. She was just discharged from the hospital. Had a fall at home Review Of Systems: Constitutional: no weight loss Ears, eyes, nose, mouth and throat: no nasal congestion, no nasal discharge, no sinus pressure, blurry vision, diplopia Neck: No neck pain or rigidity. Cardiovascular: No Chest pain, orthopnea, palpitations Respiratory: No shortness of breath, cough Gastrointestinal: no hematochezia Genitourinary : no dysuria, frequency , hematuria Musculoskeletal: no muscle ache Integumentary: no rash, no pruritis Neurological: no parathesias, focal weakness Endocrine: no cold or heat intolerance, no polyuria or polydipsia Hematologic/Lymphatic: no easy bruising, no easy bleeding, no gland swelling Allergic/Immunologic: no urticaria, no angioedema. PAST SURGICAL HISTORY: Bilateral knee replacement, cholecystectomy, hysterectomy , G-tube placement SOCIAL HISTORY: Denies alcohol, tobacco, drugs FAMILY HISTORY: Hypertension Medications and Allergies Allergies Allergy/AdvReac Type Severity Reaction Status Date / Time codeine Allergy Itching Verified 03/02/17 12:33 metoclopramide HCl Allergy Unknown Verified 03/02/17 12:33 [From Reglan] morphine Allergy Hives Verified 03/02/17 12:33 Home Medications Medication Instructions Recorded Confirmed Last Taken Type levETIRAcetam [Keppra] 500 mg PO BID 10/05/17 11/02/17 1 Day Ago History ~10/15/17 Atorvastatin Calcium [Lipitor] 20 mg PO QDAY #30 tablet 10/10/17 11/02/17 1 Day Ago Rx ~10/15/17 Citalopram [celeXA] 10 mg PO QDAY #30 tablet 10/10/17 11/02/17 1 Day Ago Rx ~10/15/17 LORazepam [Ativan] 0.5 mg PO Q8H PRN #20 tablet 10/10/17 11/02/17 3 Weeks Ago Rx ~09/25/17 Metaxalone [Skelaxin] 800 mg PO TID #20 tablet 10/10/17 11/02/17 1 Day Ago Rx ~10/15/17 Naproxen [Naprosyn TAB] 500 mg PO BID #60 tablet 10/10/17 11/02/17 3 Days Ago Rx ~10/13/17 Pantoprazole [Protonix TAB] 40 mg PO QDAY #30 tablet 10/10/17 11/02/17 1 Day Ago Rx ~10/15/17 Promethazine [Phenergan SUPPOS] 25 mg [place] Q6H PRN #20 supp.rect 10/10/17 1 Month Ago Rx ~09/16/17 Sennosides/Docusate [Senokot S] 1 tab PO BID #60 tablet 10/10/17 11/02/17 1 Day Ago Rx ~10/15/17 cloNIDine-TTS PATCH [Catapres-Tts 0.3 mg TD Th 30 Days patch 10/10/17 11/02/17 1 Day Ago Rx Patch] ~10/15/17 Losartan [Cozaar] 100 mg PO QDAY 30 Days tablet 10/17/17 11/02/17 Unknown Rx LORazepam [Ativan] 0.5 mg PO Q8H PRN #10 tablet 11/06/17 Unknown Rx Ondansetron [Zofran TAB] 4 mg PO Q8HR PRN #12 tablet 11/06/17 Unknown Rx Active Meds: Active Medications Sodium Chloride (Nacl 0.9% 1000 Ml) 1,000 mls @ 250 mls/hr IV BOLUS ONE Stop: 01/28/18 07:54 Last Admin: 01/28/18 04:17 Dose: 250 mls/hr Exam - Physical Exam Narrative exam: Gen. appearance: Patient lying in bed, no apparent distress HEENT: Normocephalic, atraumatic, pupils equally round and reactive to light, extraocular movement intact, and no sclericterus,. No JVD or thyromegaly or nodule,neck supple, no carotid bruit ,mucous membranes moist, no exudate or erythema Heart: S1, S2, regular rate and rhythm Lungs: Clear to auscultation bilaterally, breathing comfortable Abdomen: Positive bowel sounds, nontender, nondistended, no organomegaly Extremity: No edema, cyanosis, clubbing Skin: No rash, nodules, warm, dry Neuro: Oriented 3, cranial nerves II-12 intact, speech is fluent, motor and sensory intact - Constitutional Vitals: Temp Pulse Resp BP Pulse Ox 100.0 F H 110 H 18 101/52 84 01/28/18 02:00 01/28/18 03:37 01/28/18 03:37 01/28/18 03:37 01/28/18 03:37 Results - Labs CBC & Chem 7: 01/28/18 02:05 01/28/18 02:05 Labs: Abnormal lab results 01/28/18 01/28/18 01/28/18 Range/Units 02:05 02:05 02:26 WBC 11.1 H (4.5-11.0) K/mm3 MCH 25 L (28-32) pg RDW 24.1 H (13.2-15.2) % Lymph % (Auto) 11.9 L (13.4-35.0) % Seg Neutrophils % 78.5 H (40.0-70.0) % Seg Neutrophils # 8.7 H (1.8-7.7) K/mm3 BUN 31 H (7-17) mg/dL Creatinine 2.4 H (0.7-1.2) mg/dL Glucose 112 H (65-100) mg/dL POC Glucose 116 H (70-105) Calcium 8.3 L (8.4-10.2) mg/dL Albumin 3.6 L (3.9-5) g/dL - Imaging and Cardiology CT Scan - head: report reviewed Assessment and Plan CT of lumbar and cervical spine reviewed Assessment Acute on chronic gastroparesis SIRS Diabetes type 2 Hypertension GERD Seizure Anxiety Admit to medicine Start IV fluids, bowel rest, antiemetics, IV dilaudid Start IV rocephin, follow cultures Check fingersticks initiated insulin sliding scale Start IV hydralazine as needed for blood pressure control Continue home medications Start DVT prophylaxis
[2018-01-28] MEDS ORDERED: TYLENOL PO PRN (04:42)
[2018-01-28] MEDS ORDERED: SODIUM CHLORIDE FLUSH SYRINGE 10 ML IV PRN (04:42)
[2018-01-28 05:54] LABS: Creatine Kinase MB 3.6 ng/mL (0.0-4.0)
[2018-01-28] MEDS: ATIVAN PO PRN ×3 (08:22→19:26)
[2018-01-28] MEDS: NACL 0.9% 1000 ML 1,000 ML IV SCH (09:02)
[2018-01-28] MEDS: ZOFRAN IV PRN ×2 (09:18→17:38)
[2018-01-28] MEDS ORDERED: PROTONIX PO SCH (10:00)
[2018-01-28] MEDS ORDERED: ROCEPHIN/NS 1 GM/50 ML 1 GM/50 ML BAG IV SCH (10:00)
[2018-01-28] MEDS ORDERED: KEPPRA PO SCH (10:00)
[2018-01-28 10:47] LABS: Creatine Kinase MB 2.8 ng/mL (0.0-4.0)
--- NOTE | 2018-01-28 11:10 | Progress Note ---
Assessment and Plan Assessment and plan: Gastroparesis - Started on IV fluid hydration - Consider NM Gastric emptying study - Antiemetics - Pain medications - Supportive care Multiple Falls - Patient need to be re-evaluated by PT - Patient has had multiple hospitalizations and falls over the past few months. -Consider rehabilitation placement. Acute renal failure. -Etiology likely secondary to vasomotor nephropathy/dehydration. -Nephrology consultation. -Check renal ultrasound - IV fluid hydration SIRS - Patient is empirically on Zosyn Diabetes mellitus - Accu-Chek meals and at bedtime - Sliding scale insulin/novlong Nicotine dependence - Smoking cessation counseling done, patient strongly advised to quit. GERD - Continue IV Protonix Chronic Back pain -Control with Tylenol, morphine when necessary Seizure disorder Continue Keppra hyperlipidemia - Continue on antilipid agents Opioid dependence - Patient advised to wean off from opioids in the long-term which is likely aggravating her gastroparesis/nausea/vomiting DVT prophylaxis Lovenox History Interval history: Patient complains of generalized pain. Hospitalist Physical - Constitutional Vitals: Temp Pulse Resp BP Pulse Ox 99.9 F H 132 H 20 156/92 97 01/28/18 07:52 01/28/18 07:52 01/28/18 07:51 01/28/18 07:51 01/28/18 10:00 General appearance: Present: no acute distress, well-nourished - EENT Eyes: Present: PERRL, EOM intact ENT: hearing intact, clear oral mucosa, dentition normal - Neck Neck: Present: supple, normal ROM - Respiratory Respiratory effort: normal Respiratory: bilateral: CTA - Cardiovascular Rhythm: regular Heart Sounds: Present: S1 & S2. Absent: gallop, rub - Extremities Extremities: no ischemia, No edema, Full ROM - Abdominal General gastrointestinal: soft, non-tender, non-distended, normal bowel sounds - Integumentary Integumentary: Present: clear, warm, dry - Neurologic Neurologic: CNII-XII intact, moves all extremities Results - Labs CBC & Chem 7: 01/28/18 02:05 01/28/18 02:05 Labs: Laboratory Last Values WBC 11.1 K/mm3 (4.5-11.0) H 01/28/18 02:05 RBC 4.27 M/mm3 (3.65-5.03) 01/28/18 02:05 Hgb 10.5 gm/dl (10.1-14.3) 01/28/18 02:05 Hct 34.0 % (30.3-42.9) 01/28/18 02:05 MCV 80 fl (79-97) 01/28/18 02:05 MCH 25 pg (28-32) L 01/28/18 02:05 MCHC 31 % (30-34) 01/28/18 02:05 RDW 24.1 % (13.2-15.2) H 01/28/18 02:05 Plt Count 366 K/mm3 (140-440) 01/28/18 02:05 Lymph % (Auto) 11.9 % (13.4-35.0) L 01/28/18 02:05 Mcdonald % (Auto) 6.7 % (0.0-7.3) 01/28/18 02:05 Eos % (Auto) 2.1 % (0.0-4.3) 01/28/18 02:05 Baso % (Auto) 0.8 % (0.0-1.8) 01/28/18 02:05 Lymph # 1.3 K/mm3 (1.2-5.4) 01/28/18 02:05 Mcdonald # 0.7 K/mm3 (0.0-0.8) 01/28/18 02:05 Eos # 0.2 K/mm3 (0.0-0.4) 01/28/18 02:05 Baso # 0.1 K/mm3 (0.0-0.1) 01/28/18 02:05 Seg Neutrophils % 78.5 % (40.0-70.0) H 01/28/18 02:05 Seg Neutrophils # 8.7 K/mm3 (1.8-7.7) H 01/28/18 02:05 Sodium 138 mmol/L (137-145) 01/28/18 02:05 Potassium 4.2 mmol/L (3.6-5.0) 01/28/18 02:05 Chloride 99.6 mmol/L (98-107) 01/28/18 02:05 Carbon Dioxide 24 mmol/L (22-30) 01/28/18 02:05 Anion Gap 19 mmol/L 01/28/18 02:05 BUN 31 mg/dL (7-17) H 01/28/18 02:05 Creatinine 2.4 mg/dL (0.7-1.2) H 01/28/18 02:05 Estimated GFR 25 ml/min 01/28/18 02:05 BUN/Creatinine Ratio 13 % 01/28/18 02:05 Glucose 112 mg/dL (65-100) H 01/28/18 02:05 POC Glucose 116 (70-105) H 01/28/18 02:26 Calcium 8.3 mg/dL (8.4-10.2) L 01/28/18 02:05 Total Bilirubin 0.20 mg/dL (0.1-1.2) 01/28/18 02:05 AST 15 units/L (5-40) 01/28/18 02:05 ALT 15 units/L (7-56) 01/28/18 02:05 Alkaline Phosphatase 95 units/L (35-129) 01/28/18 02:05 Total Creatine Kinase 392 units/L (30-135) H 01/28/18 10:02 CK-MB (CK-2) 2.8 ng/mL (0.0-4.0) 01/28/18 10:02 CK-MB (CK-2) Rel Index 0.7 (0-4) 01/28/18 10:02 Troponin T < 0.010 ng/mL (0.00-0.029) 01/28/18 10:02 Total Protein 6.4 g/dL (6.3-8.2) 01/28/18 02:05 Albumin 3.6 g/dL (3.9-5) L 01/28/18 02:05 Albumin/Globulin Ratio 1.3 % 01/28/18 02:05 TSH 1.340 mlU/mL (0.270-4.200) 01/28/18 02:05 Urine Color Yellow (Yellow) 01/28/18 02:00 Urine Turbidity Clear (Clear) 01/28/18 02:00 Urine pH 6.0 (5.0-7.0) 01/28/18 02:00 Ur Specific [place] 1.014 (1.003-1.030) 01/28/18 02:00 Urine Protein <15 mg/dl mg/dL (Negative) 01/28/18 02:00 Urine Glucose (UA) Neg mg/dL (Negative) 01/28/18 02:00 Urine Ketones Neg mg/dL (Negative) 01/28/18 02:00 Urine Blood Sm (Negative) 01/28/18 02:00 Urine Nitrite Neg (Negative) 01/28/18 02:00 Urine Bilirubin Neg (Negative) 01/28/18 02:00 Urine Urobilinogen < 2.0 mg/dL (<2.0) 01/28/18 02:00 Ur Leukocyte Esterase Neg (Negative) 01/28/18 02:00 Urine WBC (Auto) 1.0 /HPF (0.0-6.0) 01/28/18 02:00 Urine RBC (Auto) < 1.0 /HPF (0.0-6.0) 01/28/18 02:00 U Epithel Cells (Auto) < 1.0 /HPF (0-13.0) 01/28/18 02:00 Urine Opiates Screen Presumptive negative 01/28/18 02:00 Urine Methadone Screen Presumptive negative 01/28/18 02:00 Ur Barbiturates Screen Presumptive negative 01/28/18 02:00 Ur Phencyclidine Scrn Presumptive negative 01/28/18 02:00 Ur Amphetamines Screen Presumptive negative 01/28/18 02:00 U Benzodiazepines Scrn Presumptive negative 01/28/18 02:00 Urine Cocaine Screen Presumptive negative 01/28/18 02:00 U Marijuana (THC) Screen Presumptive negative 01/28/18 02:00 Drugs of Abuse Note Disclamer 01/28/18 02:00 Plasma/Serum Alcohol < 0.01 % (0-0.07) 01/28/18 02:05
[2018-01-28] MEDS ORDERED: D50W (25GM) Syringe IV PRN (11:11)
[2018-01-28] MEDS ORDERED: MORPHINE IV PRN ×2 (11:13→11:20)
[2018-01-28] MEDS: celeXA PO SCH (11:36)
[2018-01-28] MEDS: HumaLOG SUB-Q SCH ×3 (11:37→22:36)
[2018-01-28] MEDS: cefTRIAXone 1 GM in NACL 0.9% 20 ML IV SCH (11:43)
[2018-01-28] MEDS ORDERED: BENADRYL IV PRN (11:54)
[2018-01-28] MEDS: KEPPRA 500 MG/NS 0.82% 100 ML 500 MG/100 ML BAG IV SCH (12:00)
[2018-01-28] MEDS: BENADRYL IV PRN (12:48)
[2018-01-28] MEDS: SODIUM CHLORIDE FLUSH SYRINGE 10 ML IV SCH (12:56)
[2018-01-28 13:12] LABS: Bilirubin,Urine NEG (Negative); Blood,Urine SM (Negative); Color,Urine Straw (Yellow); Protein,Urine <15 mg/dL mg/dL (Negative); Urobilinogen,Urine < 2.0 mg/dL (<2.0)
--- NOTE | 2018-01-28 13:12 | Consultation ---
History of Present Illness - Reason for Consult Consult date: 01/28/18 Requesting physician: LALIT SHERIFF - History of Present Illness 62-year-old female with gastroparesis, anxiety, grand mal seizures, hypertension , chronic back pain, narcotic dependence, and previous CVA without persistent deficits presents to the hospital with frequent falls for the past 2 days and some mild confusion for the last 2 days. Patient is oriented to self and place but not year. Patient complains of nausea and vomiting for the last 3 days. She also complains of abdominal discomfort. Patient denies known head injury or LOC. Back pain is moderate at this time and worse with movement. No fever reported. Renal consult requested for a serum creatinine of 2.4. Patient denies any previous knowledge of renal dysfunction. Review of records indicated that his serum creatinine was 0.7 in November 2017. Patient denies any gross hematuria or frequent urinary tract infection. She does complain of some abdominal discomfort at this time. Past History Past Medical History: hypertension, seizures, stroke, other (anxiety disorder and gastroparesis ) Family history: other (denies smoking or drinking ) Medications and Allergies Allergies Allergy/AdvReac Type Severity Reaction Status Date / Time codeine Allergy Itching Verified 03/02/17 12:33 metoclopramide HCl Allergy Unknown Verified 03/02/17 12:33 [From Reglan] morphine Allergy Hives Verified 03/02/17 12:33 Home Medications Medication Instructions Recorded Confirmed Last Taken Type levETIRAcetam [Keppra] 500 mg PO BID 10/05/17 11/02/17 1 Day Ago History ~10/15/17 Atorvastatin Calcium [Lipitor] 20 mg PO QDAY #30 tablet 10/10/17 11/02/17 1 Day Ago Rx ~10/15/17 Citalopram [celeXA] 10 mg PO QDAY #30 tablet 10/10/17 11/02/17 1 Day Ago Rx ~10/15/17 LORazepam [Ativan] 0.5 mg PO Q8H PRN #20 tablet 10/10/17 11/02/17 3 Weeks Ago Rx ~09/25/17 Metaxalone [Skelaxin] 800 mg PO TID #20 tablet 10/10/17 11/02/17 1 Day Ago Rx ~10/15/17 Naproxen [Naprosyn TAB] 500 mg PO BID #60 tablet 10/10/17 11/02/17 3 Days Ago Rx ~10/13/17 Pantoprazole [Protonix TAB] 40 mg PO QDAY #30 tablet 10/10/17 11/02/17 1 Day Ago Rx ~10/15/17 Promethazine [Phenergan SUPPOS] 25 mg DE Q6H PRN #20 supp.rect 10/10/17 1 Month Ago Rx ~09/16/17 Sennosides/Docusate [Senokot S] 1 tab PO BID #60 tablet 10/10/17 11/02/17 1 Day Ago Rx ~10/15/17 cloNIDine-TTS PATCH [Catapres-Tts 0.3 mg TD Th 30 Days patch 10/10/17 11/02/17 1 Day Ago Rx Patch] ~10/15/17 Losartan [Cozaar] 100 mg PO QDAY 30 Days tablet 10/17/17 11/02/17 Unknown Rx LORazepam [Ativan] 0.5 mg PO Q8H PRN #10 tablet 11/06/17 Unknown Rx Ondansetron [Zofran TAB] 4 mg PO Q8HR PRN #12 tablet 11/06/17 Unknown Rx Active Meds: Active Medications Acetaminophen (Tylenol) 650 mg PO Q4H PRN PRN Reason: Pain MILD(1-3)/Fever >100.5/MEEK Citalopram Hydrobromide (Celexa) 10 mg PO QDAY [facility] Last Admin: 01/28/18 11:36 Dose: Not Given Dextrose (D50w (25gm) Syringe) 50 ml IV PRN PRN PRN Reason: Hypoglycemia Diphenhydramine HCl (Benadryl) 12.5 mg IV Q6H PRN PRN Reason: Itching Last Admin: 01/28/18 12:48 Dose: 12.5 mg Sodium Chloride (Nacl 0.9% 1000 Ml) 1,000 mls @ 150 mls/hr IV DIRECT [facility] Last Admin: 01/28/18 09:02 Dose: 150 mls/hr Ceftriaxone Sodium 1 gm/ (Sodium Chloride) 20 mls @ 2 mls/min IV Q24HR [facility] Last Admin: 01/28/18 11:43 Dose: 2 mls/min Levetiracetam (Keppra 500 Mg/Ns 0.82% 100 Ml) 500 mg in 100 mls @ 400 mls/hr IV Q12HR [facility] Insulin Human Lispro (Humalog) 0 unit SUB-Q ACHS JUANA; Protocol Last Admin: 01/28/18 11:37 Dose: Not Given Lorazepam (Ativan) 0.5 mg PO Q8H PRN PRN Reason: Nausea UNRELIEVED ZOFRAN Last Admin: 01/28/18 08:22 Dose: 0.5 mg Morphine Sulfate (Morphine) 2 mg IV Q6H PRN PRN Reason: Pain, Moderate (4-6) Last Admin: 01/28/18 12:48 Dose: 2 mg Ondansetron HCl (Zofran) 4 mg IV Q4H PRN PRN Reason: Nausea And Vomiting Last Admin: 01/28/18 09:18 Dose: 4 mg Pantoprazole Sodium (Protonix) 40 mg IV QDAY [facility] Sodium Chloride (Sodium Chloride Flush Syringe 10 Ml) 10 ml IV BID JUANA Last Admin: 01/28/18 12:56 Dose: 10 ml Sodium Chloride (Sodium Chloride Flush Syringe 10 Ml) 10 ml IV PRN PRN PRN Reason: LINE FLUSH Review of Systems All systems: negative (as noted above) Exam - Vital Signs Vital signs: Vital Signs Pulse Resp 112 H 14 01/28/18 01:10 01/28/18 01:10 - General Appearance General appearance: well-developed, well-nourished, appears stated age EENT: PERRL, mucous membranes moist Neck: Present: neck supple, trachea midline. Absent: JVD/HJR, Masses Respiratory: Clear to Ascultation Heart: regular, normal heart rate, S1S2, no murmurs Gastrointestinal: Present: normoactive bowel sounds, tenderness (mild diffuse abdominal tenderness) Integumentary: other (no edema ) Results - Lab Results 01/28/18 02:05 01/28/18 02:05 Most recent lab results Calcium 8.3 mg/dL (8.4-10.2) L 01/28/18 02:05 Assessment and Plan Impression * Acute renal failure. Most likely prerenal. Need to Rule out urinary retention as well * Gastroparesis * CVA * History of seizure disorder * Hypertension Recommendations * Shall check a UA as well as a fractional excretion of sodium * Renal ultrasound to assess kidney size and echogenicity * Continue IV hydration * Check bladder scan * Vasculitis workup as well * Strict intake and output * Avoid nephrotoxins * Monitor patient's fluid status and electrolytes closely * Thank you very much for the consultation. Shall follow along with you
[2018-01-28] MEDS: PROTONIX IV SCH (15:59)
[2018-01-28 16:02] LABS: Hepatitis A Antibody IgM Non-Reactive (NonReactive); Hepatitis B Core IgM Non-Reactive (NonReactive); Hepatitis B Surface Antigen Non-Reactive (Negative); Hepatitis C Virus Antibody Non-Reactive (NonReactive)
[2018-01-28 16:14] LABS: Bacteria,Urine 1+ /HPF (Negative); Bilirubin,Urine NEG (Negative); Blood,Urine NEG (Negative); Color,Urine Yellow (Yellow); Mucus,Urine FEW /HPF; Protein,Urine <15 mg/dL mg/dL (Negative); Urobilinogen,Urine < 2.0 mg/dL (<2.0)
[2018-01-28 16:22] LABS: Fractional Sodium Excretion 3.8
--- NOTE | 2018-01-28 16:29 | Ultrasound Report ---
FINAL REPORT PROCEDURE: US RENAL BILAT TECHNIQUE: Real-time sonography in multiple planes of the kidneys, ureters and urinary bladder was performed with image documentation. CPT 49127 HISTORY: ARF COMPARISON: No prior studies are available for comparison. FINDINGS: The echogenicity of the renal cortex of both kidneys bilaterally is mildly diffusely increased consistent with chronic parenchymal disease. No hydronephrosis mass or calculi are visualized. No abnormal perinephric fluid collections are seen. Right kidney measures 11.6 centimeters greatest length left kidney 10.4 centimeters greatest length. Urinary bladder is visualized and shows no focal abnormality. IMPRESSION: Echogenicity of the renal parenchyma bilaterally appears mildly increased consistent with chronic renal parenchymal disease. No masses calculi or hydronephrosis are visualized. Urinary bladder is unremarkable..
[2018-01-29] MEDS: SODIUM CHLORIDE FLUSH SYRINGE 10 ML IV SCH ×3 (00:08→21:04)
[2018-01-29] MEDS: KEPPRA 500 MG/NS 0.82% 100 ML 500 MG/100 ML BAG IV SCH ×2 (01:14→09:40)
[2018-01-29] MEDS: ATIVAN PO PRN ×3 (04:17→22:27)
[2018-01-29 06:46] LABS: Mean Corpuscular HGB Conc 30 % (30-34); Mean Corpuscular Volume 82 fl (79-97)
[2018-01-29 07:08] LABS: Hematocrit 31.8 % (30.3-42.9); Hemoglobin 9.6 gm/dl (10.1-14.3); Mean Corpuscular Hemoglobin 25 pg (28-32); Red Cell Distribution Width 23.9 % (13.2-15.2)
[2018-01-29 07:10] LABS: Calcium 7.7 mg/dL (8.4-10.2)
[2018-01-29] MEDS: HumaLOG SUB-Q SCH ×4 (07:30→21:59)
[2018-01-29] MEDS: ZOFRAN IV PRN ×4 (08:06→21:04)
[2018-01-29] MEDS: cefTRIAXone 1 GM in NACL 0.9% 20 ML IV SCH (09:40)
[2018-01-29] MEDS: PROTONIX IV SCH (09:40)
[2018-01-29] MEDS: NACL 0.9% 1000 ML 1,000 ML IV SCH (09:41)
[2018-01-29] MEDS: celeXA PO SCH (09:41)
--- NOTE | 2018-01-29 11:09 | Progress Note ---
Assessment and Plan Impression * Acute renal failure. Most likely prerenal. * Gastroparesis * CVA * History of seizure disorder * Hypertension Recommendations * postive urine eos--rule out AIN, cr is improving, steriods if not better * Renal ultrasound to assess kidney size and echogenicity--noted * cr is better today * Continue IV hydration * Vasculitis workup as well * Strict intake and output * Avoid nephrotoxins * Monitor patient's fluid status and electrolytes closely Subjective Date of service: 01/29/18 Principal diagnosis: esrd Interval history: resting in bed today Objective - Exam Narrative Exam: General appearance: well-developed, well-nourished, appears stated age EENT: PERRL, mucous membranes moist Neck: Present: neck supple, trachea midline. Absent: JVD/HJR, Masses Respiratory: Clear to Ascultation Heart: regular, normal heart rate, S1S2, no murmurs Gastrointestinal: Present: normoactive bowel sounds, tenderness (mild diffuse abdominal tenderness) Integumentary: other (no edema ) - Vital Signs Vital signs: Vital Signs - 12hr 01/29/18 01/29/18 01/29/18 01:01 06:00 08:19 Temperature 98.3 F 98.3 F Pulse Rate 64 60 76 Respiratory 18 18 Rate Blood Pressure 75/41 106/74 Blood Pressure 85/60 [Right] O2 Sat by Pulse 97 96 Oximetry - Lab 01/29/18 06:06 01/29/18 06:06 Most recent lab results Calcium 7.7 mg/dL (8.4-10.2) L 01/29/18 06:06 Urine Creatinine 58.0 mg/dL (0.1-20.0) H 01/28/18 15:44 Urine Sodium 132 mmol/L 01/28/18 15:44
--- NOTE | 2018-01-29 11:19 | Progress Note ---
Assessment and Plan Assessment and plan: Gastroparesis - Continue IV fluid hydration - Follow-up NM Gastric emptying study - Antiemetics - Pain medications - Supportive care Multiple Falls - Patient need to be re-evaluated by PT - Patient has had multiple hospitalizations and falls over the past few months. -Consider rehabilitation placement. Acute renal failure. -Etiology likely secondary to vasomotor nephropathy/dehydration. -Nephrology consultation. -Check renal ultrasound - IV fluid hydration SIRS - Patient is empirically on Zosyn Diabetes mellitus - Accu-Chek meals and at bedtime - Sliding scale insulin/novlong Nicotine dependence - Smoking cessation counseling done, patient strongly advised to quit. GERD - Continue IV Protonix Chronic Back pain -Control with Tylenol, morphine when necessary Seizure disorder Continue Keppra hyperlipidemia - Continue on antilipid agents Opioid dependence - Patient advised to wean off from opioids in the long-term which is likely aggravating her gastroparesis/nausea/vomiting DVT prophylaxis Lovenox Disposition. Anticipate discharge in a.m. History Interval history: Patient complains of generalized pain. Confusion resolved. Hospitalist Physical - Constitutional Vitals: Temp Pulse Resp BP Pulse Ox 98.3 F 76 18 106/74 96 01/29/18 08:19 01/29/18 08:19 01/29/18 08:19 01/29/18 08:19 01/29/18 08:19 General appearance: Present: no acute distress, well-nourished - EENT Eyes: Present: PERRL, EOM intact ENT: hearing intact, clear oral mucosa, dentition normal - Neck Neck: Present: supple, normal ROM - Respiratory Respiratory effort: normal Respiratory: bilateral: CTA - Cardiovascular Rhythm: regular Heart Sounds: Present: S1 & S2. Absent: gallop, rub - Extremities Extremities: no ischemia, No edema, Full ROM - Abdominal General gastrointestinal: soft, non-tender, non-distended, normal bowel sounds - Integumentary Integumentary: Present: clear, warm, dry - Neurologic Neurologic: CNII-XII intact, moves all extremities Results - Labs CBC & Chem 7: 01/29/18 06:06 01/29/18 06:06 Labs: Laboratory Last Values WBC 11.1 K/mm3 (4.5-11.0) H 01/28/18 02:05 RBC 3.90 M/mm3 (3.65-5.03) 01/29/18 06:06 Hgb 9.6 gm/dl (10.1-14.3) L 01/29/18 06:06 Hct 31.8 % (30.3-42.9) 01/29/18 06:06 MCV 82 fl (79-97) 01/29/18 06:06 MCH 25 pg (28-32) L 01/29/18 06:06 MCHC 30 % (30-34) 01/29/18 06:06 RDW 23.9 % (13.2-15.2) H 01/29/18 06:06 Plt Count 366 K/mm3 (140-440) 01/28/18 02:05 Lymph % (Auto) 11.9 % (13.4-35.0) L 01/28/18 02:05 [place] % (Auto) 6.7 % (0.0-7.3) 01/28/18 02:05 Eos % (Auto) 2.1 % (0.0-4.3) 01/28/18 02:05 Baso % (Auto) 0.8 % (0.0-1.8) 01/28/18 02:05 Lymph # 1.3 K/mm3 (1.2-5.4) 01/28/18 02:05 [place] # 0.7 K/mm3 (0.0-0.8) 01/28/18 02:05 Eos # 0.2 K/mm3 (0.0-0.4) 01/28/18 02:05 Baso # 0.1 K/mm3 (0.0-0.1) 01/28/18 02:05 Seg Neutrophils % 78.5 % (40.0-70.0) H 01/28/18 02:05 Seg Neutrophils # 8.7 K/mm3 (1.8-7.7) H 01/28/18 02:05 Sodium 140 mmol/L (137-145) 01/29/18 06:06 Potassium 4.2 mmol/L (3.6-5.0) 01/29/18 06:06 Chloride 103.6 mmol/L (98-107) 01/29/18 06:06 Carbon Dioxide 23 mmol/L (22-30) 01/29/18 06:06 Anion Gap 18 mmol/L 01/29/18 06:06 BUN 20 mg/dL (7-17) H 01/29/18 06:06 Creatinine 1.7 mg/dL (0.7-1.2) H 01/29/18 06:06 Estimated GFR 37 ml/min 01/29/18 06:06 BUN/Creatinine Ratio 12 % 01/29/18 06:06 Glucose 125 mg/dL (65-100) H 01/29/18 06:06 POC Glucose 129 (70-105) H 01/29/18 06:27 Calcium 7.7 mg/dL (8.4-10.2) L 01/29/18 06:06 Total Bilirubin 0.20 mg/dL (0.1-1.2) 01/28/18 02:05 AST 15 units/L (5-40) 01/28/18 02:05 ALT 15 units/L (7-56) 01/28/18 02:05 Alkaline Phosphatase 95 units/L (35-129) 01/28/18 02:05 Total Creatine Kinase 392 units/L (30-135) H 01/28/18 10:02 CK-MB (CK-2) 2.8 ng/mL (0.0-4.0) 01/28/18 10:02 CK-MB (CK-2) Rel Index 0.7 (0-4) 01/28/18 10:02 Troponin T < 0.010 ng/mL (0.00-0.029) 01/28/18 10:02 Total Protein 6.4 g/dL (6.3-8.2) 01/28/18 02:05 Albumin 3.6 g/dL (3.9-5) L 01/28/18 02:05 Albumin/Globulin Ratio 1.3 % 01/28/18 02:05 TSH 1.340 mlU/mL (0.270-4.200) 01/28/18 02:05 Urine Color Yellow (Yellow) 01/28/18 15:44 Urine Turbidity Clear (Clear) 01/28/18 15:44 Urine pH 6.0 (5.0-7.0) 01/28/18 15:44 Ur Specific [place] 1.011 (1.003-1.030) 01/28/18 15:44 Urine Protein <15 mg/dl mg/dL (Negative) 01/28/18 15:44 Urine Glucose (UA) Neg mg/dL (Negative) 01/28/18 15:44 Urine Ketones Neg mg/dL (Negative) 01/28/18 15:44 Urine Blood Neg (Negative) 01/28/18 15:44 Urine Nitrite Neg (Negative) 01/28/18 15:44 Urine Bilirubin Neg (Negative) 01/28/18 15:44 Urine Urobilinogen < 2.0 mg/dL (<2.0) 01/28/18 15:44 Ur Leukocyte Esterase Tr (Negative) 01/28/18 15:44 Urine WBC (Auto) 6.0 /HPF (0.0-6.0) 01/28/18 15:44 Urine RBC (Auto) 3.0 /HPF (0.0-6.0) 01/28/18 15:44 U Epithel Cells (Auto) < 1.0 /HPF (0-13.0) 01/28/18 15:44 Urine Bacteria (Auto) 1+ /HPF (Negative) 01/28/18 15:44 Urine Mucus Few /HPF 01/28/18 15:44 Urine Eosinophils Rare (None Seen) 01/28/18 15:44 Urine Creatinine 58.0 mg/dL (0.1-20.0) H 01/28/18 15:44 Urine Sodium 132 mmol/L 01/28/18 15:44 Fraction Sodium Excret 3.8 01/28/18 15:44 Urine Opiates Screen Presumptive negative 01/28/18 02:00 Urine Methadone Screen Presumptive negative 01/28/18 02:00 Ur Barbiturates Screen Presumptive negative 01/28/18 02:00 Ur Phencyclidine Scrn Presumptive negative 01/28/18 02:00 Ur Amphetamines Screen Presumptive negative 01/28/18 02:00 U Benzodiazepines Scrn Presumptive negative 01/28/18 02:00 Urine Cocaine Screen Presumptive negative 01/28/18 02:00 U Marijuana (THC) Screen Presumptive negative 01/28/18 02:00 Drugs of Abuse Note Disclamer 01/28/18 02:00 Plasma/Serum Alcohol < 0.01 % (0-0.07) 01/28/18 02:05 Hepatitis A IgM Ab Non-reactive (NonReactive) 01/28/18 15:15 Hep Bs Antigen Non-reactive (Negative) 03/25/18 15:15 Hep B Core IgM Ab Non-reactive (NonReactive) 01/28/18 15:15 Hepatitis C Antibody Non-reactive (NonReactive) 01/28/18 15:15
[2018-01-29 11:31] LABS: Total Cells Counted 100
[2018-01-29 11:32] LABS: Anisocytosis 1+; Hypochromasia 1+; Platelet Estimate Consistent w Auto
[2018-01-29 11:34] LABS: Platelet Count 311 K/mm3 (140-440)
[2018-01-29] MEDS: KEPPRA PO SCH (21:04)
[2018-01-30] MEDS: ZOFRAN IV PRN ×5 (01:08→22:32)
[2018-01-30] MEDS: ATIVAN PO PRN ×3 (06:03→19:50)
[2018-01-30] MEDS: NACL 0.9% 1000 ML 1,000 ML IV SCH ×2 (06:05→19:35)
[2018-01-30] MEDS: HumaLOG SUB-Q SCH ×4 (07:20→21:52)
--- NOTE | 2018-01-30 08:03 | Discharge Summary ---
Providers - Providers Date of Admission: 01/28/18 04:42 Date of discharge: 01/31/18 Attending physician: LALIT SHERIFF 01/28/18 11:10 Physical Therapy Evaluation and Treat [CONS] Routine Comment: Reason For Exam: multiple falls 01/28/18 11:11 Consult to Physician [CONS] Routine Comment: Consulting Provider: BOB ALMARAZ Physician Instructions: Reason For Exam: ARF Primary care physician: LYNDON MENDOZA Hospitalization Reason for admission: AMS, falls Condition: Stable Hospital course: 60-year-old woman with a history of diabetes complicated by gastroparesis, hypertension, GERD, seizure, anxiety comes to the emergency room with complaints of nausea vomiting 2 days. Patient was unable to tolerate oral intake. The patient was also noted to have frequent falls 2 days prior to admission. The patient was admitted for diagnosis of intractable nausea and vomiting and acute renal failure. Her initial creatinine was noted to be 2.4 on admission and a renal consultation was obtained. Patient denied any previous knowledge of renal dysfunction. Review of records indicated that her serum creatinine was 0.7 in November 2017. Patient denies any gross hematuria or frequent urinary tract infection. Etiology is felt to be prerenal from her vomiting. However patient did have positive urinary senna feels on workup. Patient's creatinine improved with IV fluid hydration over the hospital stay. Studies were attempted for gastric emptying study to evaluate nausea and vomiting which was felt to be secondary to gastroparesis. However, patient refused the test. Also physical therapy was consulted to evaluate the patient regarding the frequent falls. Unfortunately, patient again refused treatment. Patient was to have AIN and vasculitis ruled out. However, this was unable to be completed again due to patient refusal. Patient essentially signed out AMA because she stated she was not receiving enough pain medication. I discussed with the patient possible drug-seeking behavior. Dedicated discharge time 35 minutes. Disposition: DC-07 LEFT AGAINST MED ADVICE Time spent for discharge: 35 Core Measure Documentation - Palliative Care Palliative Care/ Comfort Measures: Not Applicable - Core Measures Any of the following diagnoses?: none Exam - Physical Exam Narrative exam: pt left AMA before exam - Constitutional Vitals: Temp Pulse Resp BP Pulse Ox 98.4 F 60 16 102/64 94 01/29/18 23:45 01/29/18 23:45 01/29/18 23:45 01/29/18 23:45 01/29/18 23:45 Plan Follow up with: LYNDON MENDOZA MD [Primary Care Provider] - 7 Days
[2018-01-30 08:19] LABS: Basophils # (Auto) 0.1 K/mm3 (0.0-0.1); Basophils % (Auto) 1.6 % (0.0-1.8); Eosinophils # (Auto) 0.6 K/mm3 (0.0-0.4); Eosinophils % (Auto) 9.7 % (0.0-4.3); Lymphocytes # (Auto) 1.2 K/mm3 (1.2-5.4); Lymphocytes % (Auto) 20.2 % (13.4-35.0); Mean Corpuscular HGB Conc 31 % (30-34); Mean Corpuscular Volume 78 fl (79-97); Monocytes # (Auto) 0.4 K/mm3 (0.0-0.8); Monocytes % (Auto) 7.5 % (0.0-7.3); Platelet Count 361 K/mm3 (140-440); Red Blood Count 4.47 M/mm3 (3.65-5.03)
[2018-01-30 08:22] LABS: Mean Corpuscular Hemoglobin 25 pg (28-32)
[2018-01-30 08:25] LABS: BUN/Creatinine Ratio 15; Blood Urea Nitrogen 16 mg/dL (7-17); Calcium 8.2 mg/dL (8.4-10.2); Hemolysis Index 33
[2018-01-30] MEDS: cefTRIAXone 1 GM in NACL 0.9% 20 ML IV SCH (10:00)
[2018-01-30] MEDS: celeXA PO SCH (10:00)
[2018-01-30] MEDS: KEPPRA PO SCH ×2 (10:00→22:33)
[2018-01-30] MEDS ORDERED: PROTONIX PO SCH (10:00)
[2018-01-30] MEDS: SODIUM CHLORIDE FLUSH SYRINGE 10 ML IV SCH ×2 (10:01→22:33)
--- NOTE | 2018-01-30 10:12 | Progress Note ---
Assessment and Plan Impression * Acute renal failure. Most likely prerenal. * Gastroparesis * CVA * History of seizure disorder * Hypertension Recommendations * postive urine eos--rule out AIN, cr is improving, steriods if not better * Renal ultrasound to assess kidney size and echogenicity--noted * cr is better today * Continue IV hydration * Vasculitis workup as well * Strict intake and output * Avoid nephrotoxins * Monitor patient's fluid status and electrolytes closely * ok to dc home, follow up one week in office Subjective Date of service: 01/30/18 Principal diagnosis: elizabeth Interval history: resting in bed today Objective - Exam Narrative Exam: General appearance: well-developed, well-nourished, appears stated age EENT: PERRL, mucous membranes moist Neck: Present: neck supple, trachea midline. Absent: JVD/HJR, Masses Respiratory: Clear to Ascultation Heart: regular, normal heart rate, S1S2, no murmurs Gastrointestinal: Present: normoactive bowel sounds, tenderness (mild diffuse abdominal tenderness) Integumentary: other (no edema ) - Vital Signs Vital signs: Vital Signs - 12hr 01/29/18 01/29/18 01/30/18 23:45 23:55 07:54 Temperature 98.4 F 97.3 F L 98.2 F Pulse Rate 60 76 81 Respiratory 16 22 16 Rate Blood Pressure 102/64 103/54 131/77 Blood Pressure 102/64 [Right] O2 Sat by Pulse 94 96 90 Oximetry - Lab 01/30/18 07:33 01/30/18 07:33 Most recent lab results Calcium 8.2 mg/dL (8.4-10.2) L 01/30/18 07:33 Urine Creatinine 58.0 mg/dL (0.1-20.0) H 01/28/18 15:44 Urine Sodium 132 mmol/L 01/28/18 15:44
--- NOTE | 2018-01-30 11:41 | Progress Note ---
Assessment and Plan Assessment and plan: Gastroparesis - Continue IV fluid hydration - Patient refused NM Gastric emptying study - Antiemetics - Pain medications - Supportive care Hypotension -echocardiogram to assess systolic function. Check cortisol levels. Multiple Falls - Patient need to be re-evaluated by PT - Patient has had multiple hospitalizations and falls over the past few months. -Consider rehabilitation placement. Acute renal failure. -Etiology likely secondary to vasomotor nephropathy/dehydration. -Nephrology consultation. -Check renal ultrasound - IV fluid hydration SIRS - Patient is empirically on Zosyn Diabetes mellitus - Accu-Chek meals and at bedtime - Sliding scale insulin/novlong Nicotine dependence - Smoking cessation counseling done, patient strongly advised to quit. GERD - Continue IV Protonix Chronic Back pain -Control with Tylenol, morphine when necessary Seizure disorder Continue Keppra hyperlipidemia - Continue on antilipid agents Opioid dependence - Patient advised to wean off from opioids in the long-term which is likely aggravating her gastroparesis/nausea/vomiting DVT prophylaxis Lovenox Disposition. Anticipate discharge in a.m. History Interval history: Patient complains of generalized pain. Confusion resolved. Hospitalist Physical - Constitutional Vitals: Temp Pulse Resp BP Pulse Ox 98.2 F 81 16 131/77 100 01/30/18 07:54 01/30/18 07:54 01/30/18 07:54 01/30/18 07:54 01/30/18 10:00 General appearance: Present: no acute distress, well-nourished - EENT Eyes: Present: PERRL, EOM intact ENT: hearing intact, clear oral mucosa, dentition normal - Neck Neck: Present: supple, normal ROM - Respiratory Respiratory effort: normal Respiratory: bilateral: CTA - Cardiovascular Rhythm: regular Heart Sounds: Present: S1 & S2. Absent: gallop, rub - Extremities Extremities: no ischemia, No edema, Full ROM - Abdominal General gastrointestinal: soft, non-tender, non-distended, normal bowel sounds - Integumentary Integumentary: Present: clear, warm, dry - Neurologic Neurologic: CNII-XII intact, moves all extremities Results - Labs CBC & Chem 7: 01/30/18 07:33 01/30/18 07:33 Labs: Laboratory Last Values WBC 5.9 K/mm3 (4.5-11.0) 01/30/18 07:33 RBC 4.47 M/mm3 (3.65-5.03) 01/30/18 07:33 Hgb 11.0 gm/dl (10.1-14.3) 01/30/18 07:33 Hct 35.0 % (30.3-42.9) 01/30/18 07:33 MCV 78 fl (79-97) L 01/30/18 07:33 MCH 25 pg (28-32) L 01/30/18 07: MCHC 31 % (30-34) 01/30/18 07:33 RDW 24.0 % (13.2-15.2) H 01/30/18 07:33 Plt Count 361 K/mm3 (140-440) 01/30/18 07:33 Lymph % (Auto) 20.2 % (13.4-35.0) 01/30/18 07:33 [place] % (Auto) 7.5 % (0.0-7.3) H 01/30/18 07:33 Eos % (Auto) 9.7 % (0.0-4.3) H 01/30/18 07:33 Baso % (Auto) 1.6 % (0.0-1.8) 01/30/18 07:33 Lymph # 1.2 K/mm3 (1.2-5.4) 01/30/18 07:33 [place] # 0.4 K/mm3 (0.0-0.8) 01/30/18 07:33 Eos # 0.6 K/mm3 (0.0-0.4) H 01/30/18 07:33 Baso # 0.1 K/mm3 (0.0-0.1) 01/30/18 07:33 Add Manual Diff Complete 01/29/18 06:06 Total Counted 100 01/29/18 06:06 Seg Neutrophils % 61.0 % (40.0-70.0) 01/30/18 07:33 Seg Neuts % (Manual) 62.0 % (40.0-70.0) 01/29/18 06:06 Band Neutrophils % 1.0 % 01/29/18 06:06 Lymphocytes % (Manual) 27.0 % (13.4-35.0) 01/29/18 06:06 Reactive Lymphs % (Man) 0 % 01/29/18 06:06 Monocytes % (Manual) 4.0 % (0.0-7.3) 01/29/18 06:06 Eosinophils % (Manual) 4.0 % (0.0-4.3) 01/29/18 06:06 Basophils % (Manual) 2.0 % (0.0-1.8) H 01/29/18 06:06 Metamyelocytes % 0 % 01/29/18 06:06 Myelocytes % 0 % 01/29/18 06:06 Promyelocytes % 0 % 01/29/18 06:06 Blast Cells % 0 % 01/29/18 06:06 Nucleated RBC % Not Reportable 01/29/18 06:06 Seg Neutrophils # 3.6 K/mm3 (1.8-7.7) 01/30/18 07:33 Seg Neutrophils # Man 0.0 K/mm3 (1.8-7.7) L 01/29/18 06:06 Band Neutrophils # 0.0 K/mm3 01/29/18 06:06 Lymphocytes # (Manual) 0.0 K/mm3 (1.2-5.4) L 01/29/18 06:06 Abs React Lymphs (Man) 0.0 K/mm3 01/29/18 06:06 Monocytes # (Manual) 0.0 K/mm3 (0.0-0.8) 01/29/18 06:06 Eosinophils # (Manual) 0.0 K/mm3 (0.0-0.4) 01/29/18 06:06 Basophils # (Manual) 0.0 K/mm3 (0.0-0.1) 01/29/18 06:06 Metamyelocytes # 0.0 K/mm3 01/29/18 06:06 Myelocytes # 0.0 K/mm3 01/29/18 06:06 Promyelocytes # 0.0 K/mm3 01/29/18 06:06 Blast Cells # 0.0 K/mm3 01/29/18 06:06 WBC Morphology Not Reportable 01/29/18 06:06 Hypersegmented Neuts Not Reportable 01/29/18 06:06 Hyposegmented Neuts Not Reportable 01/29/18 06:06 Hypogranular Neuts Not Reportable 01/29/18 06:06 Smudge Cells Not Reportable 01/29/18 06:06 Toxic Granulation Not Reportable 01/29/18 06:06 Toxic Vacuolation Not Reportable 01/29/18 06:06 Dohle Bodies Not Reportable 01/29/18 06:06 Pelger-Huet Anomaly Not Reportable 01/29/18 06:06 Dorita Rods Not Reportable 01/29/18 06:06 Platelet Estimate Consistent w auto 01/29/18 06:06 Clumped Platelets Not Reportable 01/29/18 06:06 Plt Clumps, EDTA Not Reportable 01/29/18 06:06 Large Platelets Not Reportable 01/29/18 06:06 Giant Platelets Not Reportable 01/29/18 06:06 Platelet Satelliting Not Reportable 01/29/18 06:06 Plt Morphology Comment Not Reportable 01/29/18 06:06 RBC Morphology Not Reportable 01/29/18 06:06 Dimorphic RBCs Not Reportable 01/29/18 06:06 Polychromasia Not Reportable 01/29/18 06:06 Hypochromasia 1+ 01/29/18 06:06 Poikilocytosis Not Reportable 01/29/18 06:06 Anisocytosis 1+ 01/29/18 06:06 Microcytosis Not Reportable 01/29/18 06:06 Macrocytosis Not Reportable 01/29/18 06:06 Spherocytes Not Reportable 01/29/18 06:06 Pappenheimer Bodies Not Reportable 01/29/18 06:06 Sickle Cells Not Reportable 01/29/18 06:06 Target Cells Not Reportable 01/29/18 06:06 Tear Drop Cells Not Reportable 01/29/18 06:06 Ovalocytes Not Reportable 01/29/18 06:06 Helmet Cells Not Reportable 01/29/18 06:06 [place] Sandwich Bodies Not Reportable 01/29/18 06:06 [place] Rings Not Reportable 01/29/18 06:06 [place] Cells Not Reportable 01/29/18 06:06 Bite Cells Not Reportable 01/29/18 06:06 Crenated Cell Not Reportable 01/29/18 06:06 Elliptocytes Not Reportable 01/29/18 06:06 Acanthocytes (Spur) Not Reportable 01/29/18 06:06 Rouleaux Not Reportable 01/29/18 06:06 Hemoglobin C Crystals Not Reportable 01/29/18 06:06 Schistocytes Not Reportable 01/29/18 06:06 Malaria parasites Not Reportable 01/29/18 06:06 Bhavik Bodies Not Reportable 01/29/18 06:06 Hem Pathologist Commnt No 01/29/18 06:06 Sodium 139 mmol/L (137-145) 01/30/18 07:33 Potassium 4.6 mmol/L (3.6-5.0) 01/30/18 07:33 Chloride 104.2 mmol/L (98-107) 01/30/18 07:33 Carbon Dioxide 21 mmol/L (22-30) L 01/30/18 07:33 Anion Gap 18 mmol/L 01/30/18 07:33 BUN 16 mg/dL (7-17) 01/30/18 07:33 Creatinine 1.1 mg/dL (0.7-1.2) 01/30/18 07:33 Estimated GFR > 60 ml/min 01/30/18 07:33 BUN/Creatinine Ratio 15 % 01/30/18 07:33 Glucose 89 mg/dL (65-100) 01/30/18 07:33 POC Glucose 92 (70-105) 01/30/18 11:33 Calcium 8.2 mg/dL (8.4-10.2) L 01/30/18 07:33 Total Bilirubin 0.20 mg/dL (0.1-1.2) 01/28/18 02:05 AST 15 units/L (5-40) 01/28/18 02:05 ALT 15 units/L (7-56) 01/28/18 02:05 Alkaline Phosphatase 95 units/L (35-129) 01/28/18 02:05 Total Creatine Kinase 392 units/L (30-135) H 01/28/18 10:02 CK-MB (CK-2) 2.8 ng/mL (0.0-4.0) 01/28/18 10:02 CK-MB (CK-2) Rel Index 0.7 (0-4) 01/28/18 10:02 Troponin T < 0.010 ng/mL (0.00-0.029) 01/28/18 10:02 Total Protein 6.4 g/dL (6.3-8.2) 01/28/18 02:05 Albumin 3.6 g/dL (3.9-5) L 01/28/18 02:05 Albumin/Globulin Ratio 1.3 % 01/28/18 02:05 TSH 1.340 mlU/mL (0.270-4.200) 01/28/18 02:05 Urine Color Yellow (Yellow) 01/28/18 15:44 Urine Turbidity Clear (Clear) 01/28/18 15:44 Urine pH 6.0 (5.0-7.0) 01/28/18 15:44 Ur Specific [place] 1.011 (1.003-1.030) 01/28/18 15:44 Urine Protein <15 mg/dl mg/dL (Negative) 01/28/18 15:44 Urine Glucose (UA) Neg mg/dL (Negative) 01/28/18 15:44 Urine Ketones Neg mg/dL (Negative) 01/28/18 15:44 Urine Blood Neg (Negative) 01/28/18 15:44 Urine Nitrite Neg (Negative) 01/28/18 15:44 Urine Bilirubin Neg (Negative) 01/28/18 15:44 Urine Urobilinogen < 2.0 mg/dL (<2.0) 01/28/18 15:44 Ur Leukocyte Esterase Tr (Negative) 01/28/18 15:44 Urine WBC (Auto) 6.0 /HPF (0.0-6.0) 01/28/18 15:44 Urine RBC (Auto) 3.0 /HPF (0.0-6.0) 01/28/18 15:44 U Epithel Cells (Auto) < 1.0 /HPF (0-13.0) 01/28/18 15:44 Urine Bacteria (Auto) 1+ /HPF (Negative) 01/28/18 15:44 Urine Mucus Few /HPF 01/28/18 15:44 Urine Eosinophils Rare (None Seen) 01/28/18 15:44 Urine Creatinine 58.0 mg/dL (0.1-20.0) H 01/28/18 15:44 Urine Sodium 132 mmol/L 01/28/18 15:44 Fraction Sodium Excret 3.8 01/28/18 15:44 Urine Opiates Screen Presumptive negative 01/28/18 02:00 Urine Methadone Screen Presumptive negative 01/28/18 02:00 Ur Barbiturates Screen Presumptive negative 01/28/18 02:00 Ur Phencyclidine Scrn Presumptive negative 01/28/18 02:00 Ur Amphetamines Screen Presumptive negative 01/28/18 02:00 U Benzodiazepines Scrn Presumptive negative 01/28/18 02:00 Urine Cocaine Screen Presumptive negative 01/28/18 02:00 U Marijuana (THC) Screen Presumptive negative 01/28/18 02:00 Drugs of Abuse Note Disclamer 01/28/18 02:00 Plasma/Serum Alcohol < 0.01 % (0-0.07) 01/28/18 02:05 Hepatitis A IgM Ab Non-reactive (NonReactive) 01/28/18 15:15 Hep Bs Antigen Non-reactive (Negative) 01/28/18 15:15 Hep B Core IgM Ab Non-reactive (NonReactive) 01/28/18 15:15 Hepatitis C Antibody Non-reactive (NonReactive) 01/28/18 15:15
[2018-01-30] MEDS: NEURONTIN PO SCH ×2 (17:56→19:35)
[2018-01-30] MEDS: BENADRYL IV PRN (19:50)
[2018-01-30] MEDS ORDERED: NEURONTIN PO SCH (20:00)
[2018-01-30] MEDS ORDERED: APRESOLINE IV ONE (23:52)
[2018-01-31] MEDS ORDERED: PHENERGAN PO PRN (00:40)
[2018-01-31] MEDS ORDERED: ATIVAN IV ONE ×2 (00:40→05:46)
[2018-01-31] MEDS: NACL 0.9% 1000 ML 1,000 ML IV SCH (00:42)
[2018-01-31] MEDS: BENADRYL IV PRN (02:19)
[2018-01-31] MEDS: ZOFRAN IV PRN ×2 (03:09→06:00)
[2018-01-31] MEDS ORDERED: APRESOLINE IV PRN (03:32)
[2018-01-31] MEDS ORDERED: NORMODYNE IV ONE (03:35)
[2018-01-31 04:45] VITALS: BP 151/84
[2018-01-31] MEDS ORDERED: ZOFRAN IV ONE (05:45)
[2018-01-31] MEDS ORDERED: CATAPRES-TTS PATCH TD SCH (10:00)
[2018-01-31 17:45] LABS: Myeloperoxidase Antibody <1.0 AI (<1.0)
[2018-01-31 22:52] LABS: Albumin 2.8 g/dL (3.8-4.8); Gamma Globulin 0.4 g/dL (0.8-1.7); Interpretation Consistent with
== END 2018-01-31 07:00 | disposition left against medical advice (07) | DRG 73 ==
LOC: ED 01:06 → 3A 04:42
PROVIDERS: ADMIT Internal Medicine; ATTEND Hospitalist
DX: E11.43 Type 2 diabetes mellitus with diabetic autonomic (poly)neuropathy (principal); N17.0 Acute kidney failure with tubular necrosis; R65.10 Systemic inflammatory response syndrome (SIRS) of non-infectious origin without acute organ dysfunction; F11.20 Opioid dependence, uncomplicated; K31.84 Gastroparesis; G89.29 Other chronic pain; G40.909 Epilepsy, unspecified, not intractable, without status epilepticus; I10 Essential (primary) hypertension; K21.9 Gastro-esophageal reflux disease without esophagitis; F41.9 Anxiety disorder, unspecified; M54.9 Dorsalgia, unspecified; M19.90 Unspecified osteoarthritis, unspecified site; G43.909 Migraine, unspecified, not intractable, without status migrainosus; E86.0 Dehydration; Z96.653 Presence of artificial knee joint, bilateral; E78.5 Hyperlipidemia, unspecified; Z86.73 Personal history of transient ischemic attack (TIA), and cerebral infarction without residual deficits; Z88.5 Allergy status to narcotic agent; Z90.49 Acquired absence of other specified parts of digestive tract; Z79.899 Other long term (current) drug therapy; Z90.710 Acquired absence of both cervix and uterus; Z82.49 Family history of ischemic heart disease and other diseases of the circulatory system
CPT/HCPCS: 36415; 70450; 72125; 72131; 76770; 80048; 80053; 80074; 80307; 80320; 81001; 82533; 82550; 82553; 82565; 82570; 82962; 84165; 84295; 84300; 84443; 84484; 85007; 85025; 86021; 86160; 87040; 89050; 93005; 93010; 93306; 94760; C9113; G0480; J0360; J0696; J1200; J1953; J2060; J2270; J2405; J7030; Q0169

== ENCOUNTER 2018-03-31 15:38 | Emergency (ER) | payer MEDICARE ==
[2018-03-31] MEDS ORDERED: NACL 0.9% 1000 ML 1,000 ML ONE (15:43)
[2018-03-31] MEDS ORDERED: CALCIUM CHLORIDE IV ONE (15:55)
[2018-03-31] MEDS ORDERED: SODIUM BICARBONATE IV ONE (15:55)
[2018-03-31] MEDS ORDERED: ADRENALIN ONE (15:55)
[2018-03-31] MEDS ORDERED: LEVOPHED DRIP 4 MG/NS 250 ML 4 MG/250 ML BAG IV ONE (15:57)
--- NOTE | 2018-03-31 16:39 | Emergency Department Report ---
ED CPR HPI - General Chief Complaint: Cardiac Arrest/CPR Stated Complaint: CARDIAC ARREST Time Seen by Provider: 03/31/18 16:38 Source: family, EMS Mode of arrival: Stretcher Limitations: Other - History of Present Illness Initial Comments: Per EMS family found patient unconscious and EMS was called. When EMS arrived 15 minutes after the call, they noticed that patient was still unconscious and they quickly intubated the patient and started CPR/ACLS protocol. Patient was given epinephrine, sodium bicarbonate and was transported to the emergency room. The shaker screen operator also reported that the patient's blood glucose was 50 at the scene. She was given an amp of D50 prior to arrival in the emergency room. By the time patient arrived in the emergency room 30 minutes had elapsed from the time EMS arrived on the scene. CPR was still in progress when the patient arrived in the emergency room and the patient has already been intubated by the shaker screen operator at the field. Patient was in PA on arrival. She then went into ventricular fibrillation and was defibrillated with 200 J. CPR was continued and patient was given epinephrine, sodium bicarbonate and calcium chloride. After 5 minutes patient regain her pulse. However she lost it after a few minutes. CPR/ACLS was continued and she was given multiple doses of epinephrine and another dose of sodium bicarbonate 1 ampoule. After 15 minutes of CPR/ACLS, patient remained in asystole with no cardiac activity. At that time she was pronounced at 16:10. I spoke with the family with the charge nurse and disclosed to them what happened. The family said they had gone out and when they came back they met the patient on the floor unresponsive. They attempted CPR while calling EMS. Complaint: found unresponsive -: unknown Place: home Bystander CPR Performed: Yes Initial Findings in the Field: unresponsive, no respirations, no pulse ROSC in the Field: No Associated Injuries: No Treatments Prior to Arrival: intubation, epinephrine mgs #, sodium bicarbonate, glucose - Related Data Home Medications Medication Instructions Recorded Confirmed Last Taken levETIRAcetam [Keppra] 500 mg PO BID 10/05/17 01/30/18 1 Day Ago ~10/15/17 Neurontin 300 mg PO TID 01/30/18 01/30/18 Unknown Previous Rx's Medication Instructions Recorded Last Taken Type Atorvastatin Calcium [Lipitor] 20 mg PO QDAY #30 tablet 10/10/17 1 Day Ago Rx ~10/15/17 Citalopram [celeXA] 10 mg PO QDAY #30 tablet 10/10/17 1 Day Ago Rx ~10/15/17 LORazepam [Ativan] 0.5 mg PO Q8H PRN #20 tablet 10/10/17 3 Weeks Ago Rx ~09/25/17 Metaxalone [Skelaxin] 800 mg PO TID #20 tablet 10/10/17 1 Day Ago Rx ~10/15/17 Naproxen [Naprosyn TAB] 500 mg PO BID #60 tablet 10/10/17 3 Days Ago Rx ~10/13/17 Pantoprazole [Protonix TAB] 40 mg PO QDAY #30 tablet 10/10/17 1 Day Ago Rx ~10/15/17 Promethazine [Phenergan SUPPOS] 25 mg [place] Q6H PRN #20 supp.rect 10/10/17 1 Month Ago Rx ~09/16/17 Sennosides/Docusate [Senokot S] 1 tab PO BID #60 tablet 10/10/17 1 Day Ago Rx ~10/15/17 cloNIDine-TTS PATCH [Catapres-Tts 0.3 mg TD Th 30 Days patch 10/10/17 1 Day Ago Rx Patch] ~10/15/17 Losartan [Cozaar] 100 mg PO QDAY 30 Days tablet 10/17/17 Unknown Rx LORazepam [Ativan] 0.5 mg PO Q8H PRN #10 tablet 11/06/17 Unknown Rx Ondansetron [Zofran TAB] 4 mg PO Q8HR PRN #12 tablet 11/06/17 Unknown Rx Allergies Allergy/AdvReac Type Severity Reaction Status Date / Time codeine Allergy Itching Verified 03/02/17 12:33 metoclopramide HCl Allergy Unknown Verified 03/02/17 12:33 [From Reglan] morphine Allergy Hives Verified 03/02/17 12:33 ED Review of Systems ROS: Stated complaint: CARDIAC ARREST Other details as noted in HPI Comment: Unobtainable due to pts medical conditions (Patient is in unresponsive with CPR in progress.) ED Past Medical Hx - Past Medical History Hx Hypertension: Yes Hx CVA: Yes Hx Heart Attack/AMI: No Hx Congestive Heart Failure: No Hx Diabetes: No Hx Deep Vein Thrombosis: No Hx Pulmonary Embolism: No Hx GERD: Yes Hx Liver Disease: No Hx Renal Disease: No Hx Sickle Cell Disease: No Hx Arthritis: Yes Hx Headaches / Migraines: Yes Hx Seizures: Yes (grand mal) Hx Kidney Stones: No Hx Psychiatric Treatment: Yes (anxiety) Hx Asthma: No Hx COPD: No Hx Tuberculosis: No Hx Dementia: No Hx HIV: No Additional medical history: Gastroparesis. bilat knee surgery - Surgical History Hx Coronary Stent: No Hx Open Heart Surgery: No Hx Pacemaker: No Hx Internal Defibrillator: No Hx Cholecystectomy: Yes (2010) Hx Appendectomy: No Hx Breast Surgery: No Additional Surgical History: J tube- removed , Knee surg bilat - Social History Smoking Status: Never Smoker - Medications Home Medications: Home Medications Medication Instructions Recorded Confirmed Last Taken Type levETIRAcetam [Keppra] 500 mg PO BID 10/05/17 01/30/18 1 Day Ago History ~10/15/17 Atorvastatin Calcium [Lipitor] 20 mg PO QDAY #30 tablet 10/10/17 01/30/18 1 Day Ago Rx ~10/15/17 Citalopram [celeXA] 10 mg PO QDAY #30 tablet 10/10/17 01/30/18 1 Day Ago Rx ~10/15/17 LORazepam [Ativan] 0.5 mg PO Q8H PRN #20 tablet 10/10/17 01/30/18 3 Weeks Ago Rx ~09/25/17 Metaxalone [Skelaxin] 800 mg PO TID #20 tablet 10/10/17 01/30/18 1 Day Ago Rx ~10/15/17 Naproxen [Naprosyn TAB] 500 mg PO BID #60 tablet 10/10/17 01/30/18 3 Days Ago Rx ~10/13/17 Pantoprazole [Protonix TAB] 40 mg PO QDAY #30 tablet 10/10/17 01/30/18 1 Day Ago Rx ~10/15/17 Promethazine [Phenergan SUPPOS] 25 mg [place] Q6H PRN #20 supp.rect 10/10/17 1 Month Ago Rx ~09/16/17 Sennosides/Docusate [Senokot S] 1 tab PO BID #60 tablet 10/10/17 01/30/18 1 Day Ago Rx ~10/15/17 cloNIDine-TTS PATCH [Catapres-Tts 0.3 mg TD Th 30 Days patch 10/10/17 01/30/18 1 Day Ago Rx Patch] ~10/15/17 Losartan [Cozaar] 100 mg PO QDAY 30 Days tablet 10/17/17 01/30/18 Unknown Rx LORazepam [Ativan] 0.5 mg PO Q8H PRN #10 tablet 11/06/17 01/30/18 Unknown Rx Ondansetron [Zofran TAB] 4 mg PO Q8HR PRN #12 tablet 11/06/17 01/30/18 Unknown Rx Neurontin 300 mg PO TID 01/30/18 01/30/18 Unknown History ED Physical Exam - General Limitations: Other (Unresponsive with CPR in progress.) - Head Head exam: Present: atraumatic - Eye Eye exam: Present: other (fixed and dilated pupils) - ENT ENT exam: Present: other (intubated) - Respiratory Respiratory exam: Present: other (bilateral breath sounds with bagging) - Cardiovascular Cardiovascular Exam: Present: other (no pulse) - GI/Abdominal GI/Abdominal exam: Present: soft - Extremities Exam Extremities exam: Present: other (IO access and the right tibia.) - Neurological Exam Neurological exam: Present: other (GCS of 3) - Skin Skin exam: Present: dry ED Course - Reevaluation(s) Reevaluation #1: 03/31/18 17:41 After unsuccessful CPR/ACLS, patient was pronounced at 1610. ED Medical Decision Making - Medical Decision Making Cardiac arrest. Critical care attestation.: If time is entered above; I have spent that time in minutes in the direct care of this critically ill patient, excluding procedure time. ED Disposition Clinical Impression: Cardiac arrest Disposition: DC-20 Is pt being admited?: No Does the pt Need Aspirin: No Condition: Critical Referrals: PRIMARY CARE,MD [Primary Care Provider] - 3-5 Days
== END 2018-03-31 19:27 ==
LOC: ED 15:38
DX: I46.9 Cardiac arrest, cause unspecified (principal); Z88.5 Allergy status to narcotic agent; I10 Essential (primary) hypertension; K21.9 Gastro-esophageal reflux disease without esophagitis; F41.9 Anxiety disorder, unspecified; Z90.49 Acquired absence of other specified parts of digestive tract
CPT/HCPCS: 82962; 92950; 99285; J0171; J7030